=== PATIENT | male | born 1980 | race Caucasian/White ===

== ENCOUNTER 2019-11-03 19:12 | Emergency (ER) | payer BC, SELFPAY ==
[2019-11-03] VITALS (15 sets, daily range): BP systolic 130–179; BP diastolic 85–105; PULSE 73–88; RESP 12–16; TEMP 36.6; O2SAT 94–100
--- NOTE | ~2019-11-03 | XR_ITS ---
EXAMINATION: XR chest 2V EXAM DATE: 11/03/2019 19:51 INDICATION: Generalized chest pain. Dizziness. TECHNIQUE: Frontal and lateral projections of the chest obtained and reviewed. There is no prior doroteo dy for comparison. FINDINGS: The lungs are clear. There are no pleural effusions. The cardiomediastinal silhouette is within normal limits. There is no pneumothorax suspected. The bones and soft tissues are unremarkab le. IMPRESSION: Normal chest x-ray exam. Reviewed, dictated and finalized at location A. IMPRESSION: Normal chest x-ray exam.
--- NOTE | 2019-11-03 19:18 | ECG_ITS ---
Measurements Intervals [place] Rate: 79 P: 0 ND: 163 QRS: 20 QRSD: 121 T: 78 QT: 407 QTc: 468 Interpretive Statements SINUS RHYTHM RSR' IN V1 OR V2, CONSIDER RIGHT VENTRICULAR HYPERTROPHY OR RIGHT VCD BORDERLINE T WAVE ABNORMALITY- INFERIOR LEADS BASELINE WANDER- I, II, AVR, AVL, AVF, V4-V6 BORDERLINE ECG Electronically Signed On 11-03-2019 20:06:02 CDT by Billy Corral D.O.
--- NOTE | 2019-11-03 19:19 | ED.ANXIETY ---
HPI - Anxiety General Chief Complaint: Anxiety Stated Complaint: anxiety Time Seen by Provider: 11/03/19 19:14 Source: RN notes reviewed History of Present Illness HPI narrative: Patient presents emergency department from home for anxiety. Patient states that approximately 630 this evening he began to have a feeling of shortness of breath and dizziness associated with tingling in the bilateral hands. He states that he does feel anxious with this episode. He states he had a similar episode 2 days ago denies any fevers or chills chest pain abdominal pain nausea vomiting or any other symptoms denies any history of anxiety denies any other symptoms at this time. Patient states he first noted some anxiety at the start of the COVID-19 pandemic Related Data Allergies Allergy/AdvReac Type Severity Reaction Status Date / Time No Known Allergies Allergy Verified 11/03/19 19:22 Review of Systems Review of Systems: Narrative: Gen.: Denies fevers or chills ENT: Denies congestion Respiratory: See HPI CV: Denies chest pain or palpitations GI: Denies abdominal pain nausea, emesis or diarrhea denies burning, urgency, frequency or hematuria Musculoskeletal: Denies back pain or muscle pain Neuro: Reports bilateral hand tingling denies any numbness or weakness Skin: Denies rash Psych: Reports anxiety Except as documented, all other systems reviewed and negative [facility] Past Medical History Medical History (Updated 11/03/19 @ 23:01 by Iggy Epperson DO) Hypertension Social History Social History (Updated 11/03/19 @ 19:21 by Iggy Epperson DO) Smoking packs per day: 0.5 Smoking cigarettes per day: 10.0 Exam Narrative: Exam Narrative: APPEARANCE: No acute distress, nontoxic, resting in bed EYES: EOMI HEENT: Normocephalic, atraumatic, OMM RESPIRATORY: No respiratory distress Clear to auscultation bilaterally with no rhonchi wheezing or rales. CARDIOVASCULAR: Regular rate and rhythm without murmurs rubs or gallops. ABDOMINAL: Soft, nontender, nondistended, no rebound or guarding MUSCULOSKELETAl: Moves all extremities. No clubbing, cyanosis or edema. NEURO: Awake and alert. Following commands, speech normal, no focal deficits SKIN:: Warm, dry. No rashes lesions or abrasions PSYCHIATRIC: Normal affect/mood, Course Course Emergency Course: Patient meets PERC rule criteria and no further testing needs to be performed for pulmonary embolism. Patient states symptoms have resolved following Ativan Discussed with patient results of workup and diagnosis. Discussed need for follow-up with primary care, proper use of medication, and reasons to return to the emergency department. Patient understands and agrees to current treatment plan Vital Signs Vital signs: Vital Signs Temperature 97.9 F 11/03/19 19:16 Pulse Rate 88 11/03/19 19:16 Respiratory Rate 14 11/03/19 19:16 Blood Pressure 179/104 H 11/03/19 19:16 Pulse Oximetry 100 11/03/19 19:16 Temperature 97.9 F 11/03/19 19:16 Pulse Rate 74 11/03/19 22:38 Respiratory Rate 15 11/03/19 22:38 Blood Pressure 130/85 11/03/19 22:38 Pulse Oximetry 97 11/03/19 22:38 MDM - Anxiety MDM Narrative Medical decision making narrative: Patient has dyspnea of unclear etiology. No wheezing on clinical exam. Low risk well score, PE is felt unlikely. No abnormalities noted on chest x-ray. Patient?s EKG is without high-risk changes. Oxygen saturations are normal. Patient is felt to be a reasonable candidate for additional evaluation as an outpatient. Lab Data Result diagrams: 11/03/19 19:44 11/03/19 19:44 Labs: Lab Results 11/03/19 11/03/19 11/03/19 Range/Units 19:44 19:44 19:44 WBC 11.2 H (4.5-10.0) K/mm3 RBC 4.80 (4.6-6.20) M/mm3 Hgb 15.4 (14.0-18.0) g/dL Hct 43.8 (42.0-52.0) % MCV 91.3 (80-100) fl MCH 32.1 (26-34) pg MCHC 35.2 (32-36) g/dl RDW 11.6 (11.5-14.5) % Plt Count 368
[2019-11-03] MEDS: LORAZEPAM INJ 2 MG/ML VIAL 0.5 MG IV PUSH (19:43)
--- NOTE | 2019-11-03 19:47 | PC.NURSE ---
Patient taken to radiology.
[2019-11-03 19:49] LABS: Basophils Percent Auto 0.3 % (0.2-1.2); Eosinophils Absolute Auto 0.1 K/mm3 (0-0.3); Eosinophils Percent Auto 0.5 % (0-4.4); Hematocrit 43.8 % (42.0-52.0); Hemoglobin 15.4 g/dL (14.0-18.0); Immature Granulocyte Absolute 0.02 K/mm3 (0.00-0.031); Immature Granulocyte Percent A 0.2 % (0-0.5); Lymphocytes Absolute Auto 4.54 K/mm3 (0.9-3.2); Lymphocytes Percent Auto 40.4 % (18.3-44.2); Mean Corpuscular HGB Conc 35.2 g/dl (32-36); Mean Corpuscular Hemoglobin 32.1 pg (26-34); Mean Corpuscular Volume 91.3 fl (80-100); Mean Platelet Volume 9.1 fl (7.4-10.4); Monocytes Absolute Auto 0.9 K/mm3 (0.1-0.6); Monocytes Percent Auto 7.7 % (2.6-8.5); Neutrophils Absolute Auto 5.7 K/mm3 (1.3-6.7); Neutrophils Percent Auto 50.9 % (45.5-73.1); Platelet Count Result 368 k/mm3 (150-375); Red Cell Distribution Width 11.6 % (11.5-14.5); White Blood Count 11.2 K/mm3 (4.5-10.0)
[2019-11-03 20:01] LABS: Blood Urea Nitrogen 13 mg/dL (9-20); Calcium 9.1 mg/dL (8.4-10.2); Carbon Dioxide 24 mmol/L (22-30); Chloride 100 mmol/L (98-107); Estimated Glomerular Filt Rate > 60; Glucose 117 mg/dL (75-110); Potassium 3.1 mmol/L (3.4-5.0); Sodium 136 mmol/L (137-145)
[2019-11-03 20:02] LABS: Partial Thromboplastin Time 24.2 SECONDS (22.3-36.8)
[2019-11-03 20:07] LABS: Prothrombin Time 12.9 Seconds (11.1-14.7)
[2019-11-03 20:13] LABS: Troponin I < 0.012 ng/mL (0.000-0.034)
[2019-11-03] MEDS: POTASSIUM CHLORIDE 20 MEQ TABLET 40 MEQ PO (21:59)
[2019-11-03 22:53] LABS: Troponin I < 0.012 ng/mL (0.000-0.034)
== END 2019-11-03 23:24 | disposition home or self-care (01) ==
PROVIDERS: Emergency Provider Emergency Medicine; PCP Family Medicine Adolescent Medicine
DX: F41.9 Anxiety disorder, unspecified (principal); I10 Essential (primary) hypertension; F17.210 Nicotine dependence, cigarettes, uncomplicated; R94.31 Abnormal electrocardiogram [ECG] [EKG]
CPT/HCPCS: 36415; 71046; 80048; 84484; 85025; 85610; 85730; 93005; 96374; 99284; A9270; J2060

== ENCOUNTER → 2022-09-10 08:37 | Outpatient (CLI) | payer BC, SELFPAY ==
--- NOTE | ~2022-09-10 | MR_ITS ---
MRI of the left knee Clinical history: Pain Technique: Coronal proton density and proton density-weighted images, sagittal proton-density and T2 fat-sat images, and axial proton-density fat-saturated images were acquired. Findings: There is complete tear of the ACL, which is markedly amorphous and ill-defined. Posterior c ruciate ligament is intact. Medial collateral ligament is intact. Lateral collateral ligament complex is intact. Popliteus tendon is intact. There is probable vertical tear of the posterior horn of the lateral meniscus. No medial meniscal tea r identified. There are transchondral impaction injuries at the central aspect of the lateral femoral condyle and a t the posterolateral tibial plateau, consistent with recent pivot shift injury. There is additional b one contusion with marrow edema at the posterior medial tibial plateau, with possible nondisplaced fr acture in this region. Extensor mechanism is intact. No significant joint effusion or Porter's cyst. Impression: Complete ACL tear. Probable vertical tear of the posterior horn of the lateral meniscus. Transchondral impaction injuries at the central aspect lateral femoral condyle and posterolateral tib ial plateau, consistent with recent pivot shift injury. Additional bone contusion with possible nondisplaced fracture at the posterior medial tibial plateau. Reviewed, dictated and finalized at location . Impression: Complete ACL tear. Probable vertical tear of the posterior horn of the lateral meniscus. Transchondral impaction injuries at the central aspect lateral femoral condyle and posterolateral tibial plateau, consistent with recent pivot shift injury. Additional bone contusion with possible nondisplaced fracture at the posterior medial tibial plateau.
== END ==
PROVIDERS: PCP Family Medicine Adolescent Medicine; Visit Provider Orthopaedic Surgery
DX: S83.512A Sprain of anterior cruciate ligament of left knee, initial encounter (principal); X58.XXXA Exposure to other specified factors, initial encounter
CPT/HCPCS: 73721

== ENCOUNTER 2024-07-01 09:29 | Outpatient (CLI) | payer BC, SELFPAY ==
--- NOTE | ~2024-07-01 | XR_ITS ---
EXAMINATION: XR ribs BI 3V w CXR 2V DATE: 07/01/2024 09:50 INDICATION: Cough, unspecified. Right rib pop. TECHNIQUE: Frontal and lateral views of the chest on 3 radiographs, 2 views of the right ribs on 3 ra diographs, and 2 views of the left ribs on 3 radiographs were obtained. COMPARISON: Chest 2 views 11/03/2019 FINDINGS: CHEST TWO VIEWS: There are moderate-sized pleural effusions. There are airspace opacities at the lung bases. No pneumothorax. The heart size is normal. BILATERAL RIBS: There is a fracture of right eighth rib. There is an old healed fracture of left sixt h rib. IMPRESSION: 1. Acute fracture of right eighth rib. 2. Moderate-sized bilateral pleural effusions. 3. Airspace opacities at the lung bases, consistent with atelectasis or less likely pneumonia. Reviewed, dictated and finalized at location A. S SUPERINTENDENT IMPRESSION: 1. Acute fracture of right eighth rib. 2. Moderate-sized bilateral pleural effusions. 3. Airspace opacities at the lung bases, consistent with atelectasis or less li garett pneumonia.
== END 2024-07-01 09:30 | disposition home or self-care (01) ==
LOC: MICIMG 09:31
PROVIDERS: PCP Family Medicine Adolescent Medicine; Visit Provider Nurse Practitioner Family
DX: R05.9 Cough, unspecified (principal); R06.00 Dyspnea, unspecified; R07.81 Pleurodynia; J90 Pleural effusion, not elsewhere classified; R91.8 Other nonspecific abnormal finding of lung field; S22.31XA Fracture of one rib, right side, initial encounter for closed fracture; X58.XXXA Exposure to other specified factors, initial encounter
CPT/HCPCS: 71046; 71110

== ENCOUNTER 2024-08-23 10:00 | Outpatient (CLI) | payer BC, SELFPAY ==
--- NOTE | ~2024-08-23 | XR_ITS ---
XR ribs BI 3V w CXR 2V Ordering provider: Cindy Garduno APRN History: 44 years Male with . R07.81 - Pleurodynia . Comparison: July 01, 2024 FINDINGS: MEDIASTINUM: The cardiac silhouette is not enlarged. LUNGS: No pneumothorax. Bilateral basal atelectasis with bilateral pleural effusion. OTHER: No free air under the diaphragm. IMPRESSION: Bilateral basal atelectasis versus pneumonia with bilateral pleural effusion. Reviewed, dictated and finalized at location A.
== END 2024-08-23 10:01 | disposition home or self-care (01) ==
PROVIDERS: PCP Family Medicine Adolescent Medicine; Visit Provider Nurse Practitioner Family
DX: R07.81 Pleurodynia (principal)
CPT/HCPCS: 71046; 71110

== ENCOUNTER 2024-12-05 11:21 | Inpatient (IN) | payer BC, SELFPAY ==
[2024-12-05] VITALS (41 sets, daily range): BP systolic 118–151; BP diastolic 55–118; PULSE 56–116; RESP 18–31; TEMP 34.7–38.1; O2SAT 91–100; BMI 37.3
--- NOTE | ~2024-12-05 | XR_ITS ---
Portable chest x-ray Comparison: 12/07/2024 Clinical History: Respiratory failure Findings: Endotracheal tube and NG tube remain in place. Small to moderate bilateral pleural effusio ns are present with mild pulmonary edema pattern. Cardiomediastinal silhouette is stable. Bones and soft tissues are unremarkable. Impression: [id number]-[id number] bilateral pleural effusions with mild pulmonary edema pattern. Support tubes, as above. Reviewed, dictated and finalized at location . Impression: [id number] bilateral pleural effusions with mild pulmonary edema pattern . Support tubes, as above.
--- NOTE | ~2024-12-05 | US_ITS ---
EXAMINATION: US thoracentesis DATE: 12/09/2024 16:42 INDICATION: Right pleural effusion TECHNIQUE: The procedure and its risks and benefits were discussed with the patient. Potential risks discussed included bleeding, infection, and pneumothorax. The patient understood the risks and agreed to proceed. The skin was prepped and draped in sterile fashion. 1% lidocaine was used for local anes thesia. Under ultrasound guidance, a 5 Fr catheter with trochar was advanced into the right pleural e ffusion. Fluid was aspirated. The catheter was removed, and a dressing was applied. There were no imm ediate complications. FINDINGS: Ultrasound images demonstrate a small complex right pleural effusion and the catheter within the flui d. IMPRESSION: 1. Successful ultrasound-guided thoracentesis yielding 600 mL of bloody dark maroon-colored fluid. Reviewed, dictated and finalized at location A. IMPRESSION: 1. Successful ultrasound-guided thoracentesis yielding 600 mL of bloody dark m aroon-colored fluid.
--- NOTE | ~2024-12-05 | US_ITS ---
US venous doppler [facility] - 12/09/2024 11:51 CDT History: 44 years old Male with bilateral lower extremity pain and swelling. Real-time sonographic images of the bilateral lower extremity venous system were obtained. Color Dop pler sonography and spectral waveform analysis were performed. No prior studies for comparison. The bilateral sapheno-femoral junctions are patent. The bilateral common femoral, superficial femor al, popliteal and posterior tibial veins are compressible and without evidence of echogenic thrombus . Impression: No evidence of deep venous thrombosis Reviewed, dictated and finalized at location A. Impression: No evidence of deep venous thrombosis
--- NOTE | ~2024-12-05 | CT_ITS ---
History: Postcardiac arrest 12/05/2024 with head injury PROCEDURE: CT head without contrast. COMPARISON: CT examination of the head dated 12/05/2024 and dating back to 09/04/2005, both of which were unremarkable. TECHNIQUE: Axial imaging of the head performed from the skull base to the vertex without IV contrast. Sagittal a nd coronal reformations obtained. DLP: 980 mGy-cm FINDINGS: The ventricles are normal in size, shape and position. Subtle loss of the mckenzie-white matter differentiation within the posterior cranial fossa, an interval change from 12/05/2024 for which cerebral edema is suspected. The sulci are preserved within the fronta l, temporal and parietal lobes (although fairly high in the convexity). There is no mass, significant mass effect or midline shift. There is no abnormal extra-axial fluid collection or intracranial hemorrhage. Nasogastric tube within the right nares with opacification of the bilateral sphenoid sinuses and post erior segment of the ethmoid sinuses. Remaining paranasal sinuses are otherwise clear. The mastoid air cells are well aerated. No acute displaced fractures within the overlying cranium. Impression: No acute intracranial hemorrhage or significant mass effect. Subtle loss of the mckenzie-white matter differentiation within the posterior cranial fossa, an interval change from 12/05/2024 for which cerebral edema is suspected. Reviewed, dictated and finalized at location A. Impression: No acute intracranial hemorrhage or significant mass effect. Subtle loss of the mckenzie-white matter differentiation within the posterior crani al fossa, an interval change from 12/05/2024 for which cerebral edema is suspecte d.
--- NOTE | ~2024-12-05 | CT_ITS ---
CLINICAL INDICATION: Post cardiac arrest on 12/05/2024 necessitating intubation. Subacute myocardial in farction, now revascularized, but currently with leukocytosis and fever. COMPARISON: None. TECHNIQUE: Multiple contiguous axial images of the chest, abdomen and pelvis were performed without t he administration of intravenous contrast The dose-length product (DLP) was 1789.91 mGy-cm. Automated exposure control and iterative reconstruction technique were employed. FINDINGS/OBSERVATIONS: LUNG: Subacute fractures of the right 5th, 7th, 8th and 11th ribs, with active callus formation. Large right-sided pleural effusion (likely partially blood) with adjacent compressive atelectasis. Small left-sided pleural effusion with adjacent compressive atelectasis. Interstitial thickening with scattered groundglass opacification bilaterally. No evidence of pulmonary contusion or pneumothorax. Endotracheal tube above the veda, in good position. Respiratory motion artifact is identified on sagittal views without a discrete sternal fracture suspe cted. MEDIASTINUM: Limited evaluation without intravenous contrast. HEART: The heart is within the upper limits of normal for size, with a small pericardial effusion. SOFT TISSUES OF THE CHEST: Male pattern gynecomastia. Liver: The liver demonstrates homogeneous attenuation and is enlarged measuring 22 cm in longitudinal dimens ion. No perihepatic fluid to suggest acute or subacute traumatic injury. Gallbladder and biliary system: The gallbladder demonstrates likely layering sludge, without surrounding inflammatory change. Pancreas: Limited evaluation of the pancreas secondary to the lack of intravenous contrast. No peripancreatic fluid is identified to suggest acute or subacute traumatic injury. Spleen: The spleen demonstrates homogeneous attenuation and is not enlarged. No perisplenic fluid is identified to suggest acute or subacute traumatic injury. Kidneys: The bilateral kidneys demonstrate trace hydronephrosis, right greater than left, without an obstructi ng stone. No renal or ureteral calculi are detected. No perirenal fluid is identified to suggest acute or subacute traumatic injury. Adrenal glands: Unremarkable. Gastrointestinal tract: Increased attenuation within the lumen of the nondistended colon, possibly due to ingested material. Colonic diverticulosis without surrounding inflammatory change. No free fluid within the abdomen or pelvis Vasculature: Right sided common femoral vascular access with trace induration of the superficial soft tissues of t he right groin. Lymph nodes: Limited evaluation without intravenous contrast. Pelvic structures: The bladder is decompressed with a Agarwal catheter, limiting its evaluation. The prostate gland is not enlarged. Body wall and musculoskeletal: No umbilical hernia. No significant degenerative disease within the lower thoracic or lumbosacral spine. No acute fracture within the lower thoracic or lumbosacral spine. Subacute fractures of the right 5th, 7th, 8th and 11th ribs. IMPRESSION: Multiple right-sided rib fractures (5th, 7th, 8th and 11th) with a large (likely a combination of blo od and serosanguineous fluid) with adjacent compressive atelectasis. Small left-sided pleural effusion without associated rib fractures. Layering sludge within the gallbladder, without surrounding inflammatory change. Right common femoral vascular access with trace induration of the superficial soft tissues of the rig ht groin. No additional findings as an infectious source, as detailed above. Reviewed, dictated and finalized at location A. IMPRESSION: Multiple right-sided rib fractures (5th, 7th, 8th and 11th) with a large (likel y a combination of blood and serosanguineous fluid) with adjacent compressive a telectasis. Small left-sided pleural effusion without associated rib fractures. Layering sludge within the gallbladder, without surrounding inflammatory change . Right common femoral vascular access with trace induration of the superficial s oft tissues of the right groin. No additional findings as an infectious source, as detailed above.
--- NOTE | ~2024-12-05 | XR_ITS ---
EXAMINATION: XR chest ET placement Exam Date/Time: 12/05/2024 14:21 CDT HISTORY: ET placement Comparison: Same date at 11:41 AM. RESULT: Lines, tubes, and devices: Endotracheal tube terminates 6.0 cm above the veda. Subdiaphragmatic NG tube. Lungs and pleura: Streaky subsegmental bilateral opacities, likely representing atelectasis. Mild bi lateral costophrenic angle blunting, with fluid noted in the apical and lateral pleural spaces bilate rally. Cardiomediastinal silhouette: Stable. Other: No acute osseous or upper abdominal finding. Old bilateral rib fractures. IMPRESSION: High positioned endotracheal tube 6 cm above the veda, consider advancing by 2 cm. Moderate bilater al pleural effusions. Streaky bilateral pulmonary opacities may represent atelectasis. Reviewed, dictated and finalized at [facility]. IMPRESSION: High positioned endotracheal tube 6 cm above the veda, consider advancing by 2 cm. Moderate bilateral pleural effusions. Streaky bilateral pulmonary opaciti es may represent atelectasis.
--- NOTE | ~2024-12-05 | XR_ITS ---
CHEST RADIOGRAPH CLINICAL HISTORY: Post intubation . COMPARISON: 11/03/2019 TECHNIQUE: Single portable view of the chest. FINDINGS Endotracheal tube is identified with its tip projecting approximately 5.5 cm above the base of the ca nay. Orogastric tube identified with its tip extending below the left hemidiaphragm, presumably within the stomach. The remainder of the cardiomediastinal silhouette is partially obscured. Low lung volumes detected bilaterally. Bilateral pleural effusions with adjacent compressive atelectasis. Irregularity of the contour of the bilateral ribs, possibly related to positioning versus fracture de formities. IMPRESSION: Bilateral pleural effusions with adjacent compressive atelectasis. Endotracheal tube tip projects 5.5 cm above the base of the veda for which advancement of approxima tely 3 cm is suggested for optimal radiographic placement for which clinical correlation is needed. Orogastric tube in good position. Reviewed, dictated and finalized at location A. IMPRESSION: Bilateral pleural effusions with adjacent compressive atelectasis. Endotracheal tube tip projects 5.5 cm above the base of the veda for which ad vancement of approximately 3 cm is suggested for optimal radiographic placement for which clinical correlation is needed. Orogastric tube in good position.
--- NOTE | ~2024-12-05 | XR_ITS ---
Portable chest x-ray Comparison: 12/08/2024 Clinical History: Respiratory failure Findings: Endotracheal tube and NG tube are in place. Small to moderate bilateral pleural effusions are present with mild pulmonary edema pattern. Cardiomediastinal silhouette is stable. Bones and sof t tissues are unremarkable. Impression: [id number] bilateral pleural effusions with mild pulmonary edema. Support tubes, as above. Reviewed, dictated and finalized at location . Impression: [id number] bilateral pleural effusions with mild pulmonary edema. Support tubes, as above.
--- NOTE | ~2024-12-05 | XR_ITS ---
Portable chest x-ray Comparison: 12/06/2024 Clinical History: Respiratory failure Findings: Endotracheal tube and NG tube are in satisfactory positions. Small bilateral pleural effus ions are present with mild pulmonary edema pattern. Cardiomediastinal silhouette is stable. Bones an d soft tissues are unremarkable. Impression: Mild pulmonary edema pattern with small bilateral pleural effusions. Support tubes, as above. Reviewed, dictated and finalized at location . Impression: Mild pulmonary edema pattern with small bilateral pleural effusions. Support tubes, as above.
--- NOTE | ~2024-12-05 | XR_ITS ---
Portable chest x-ray Comparison: 12/05/2024 Clinical History: Respiratory failure Findings: Endotracheal tube and NG tube are in satisfactory positions. Rpqxg-jy-hxaiforv bilateral p leural effusions are present. Probable mild pulmonary edema/atelectatic change. Cardiomediastinal si lhouette is stable. Bones and soft tissues are unremarkable. Impression: Dbtdj-nf-yofitcbi bilateral pleural effusions with mild pulmonary edema/atelectatic change. Support tubes, as above. Reviewed, dictated and finalized at location M. Impression: Tmsoz-ut-ydrwlvov bilateral pleural effusions with mild pulmonary edema/atelect atic change. Support tubes, as above.
--- NOTE | ~2024-12-05 | XR_ITS ---
CHEST RADIOGRAPH CLINICAL HISTORY: picc . COMPARISON: 12/10/2024 at 5:00 AM TECHNIQUE: Single portable view of the chest. FINDINGS small bore catheter projects from the right upper extremity, taking a hairpin turn cranially , prior to extending caudally, its tip projecting over the superior vena cava. Endotracheal tube is identified with its tip projecting approximately 6.1cm above the base of the car dex. Orogastric tube identified with its tip extending below the left hemidiaphragm, presumably within the stomach. The remainder of the cardiomediastinal silhouette is partially obscured and otherwise unremarkable. Redemonstration of large bilateral pleural effusions, left greater than right. The remainder of the lungs are clear. IMPRESSION: Large bilateral pleural effusions, left greater than right. Orogastric tube in good position. Endotracheal tube should be advanced approximately 3 cm for optimal radiographic placement clinical c orrelation is needed. Following its extension cranially, the right upper extremity PICC line tip projects over the superior vena cava. Withdrawal of approximately 4.6 cm may allow catheter to extend in a more direct course, rather than with cranial extension and a hairpin turn. Reviewed, dictated and finalized at location A. IMPRESSION: Large bilateral pleural effusions, left greater than right. Orogastric tube in good position. Endotracheal tube should be advanced approximately 3 cm for optimal radiographi c placement clinical correlation is needed. Following its extension cranially, the right upper extremity PICC line tip proj ects over the superior vena cava. Withdrawal of approximately 4.6 cm may allow catheter to extend in a more direct course, rather than with cranial extension and a hairpin turn.
--- NOTE | ~2024-12-05 | XR_ITS ---
Exam: Abdomen 1V HISTORY: New OG tube placement. COMPARISON: None. TECHNIQUE: Supine images of the lower chest and upper abdomen FINDINGS: Orogastric tube extends into the left upper quadrant, presumably within the stomach. IMPRESSION: Orogastric tube in good position and ready for immediate use. Reviewed, dictated and finalized at location A.
--- NOTE | ~2024-12-05 | XR_ITS ---
Portable chest x-ray Comparison: 12/09/2024 Clinical History: Respiratory failure Findings: Endotracheal tube and NG tube remain in place. Stable bilateral pleural effusions with mil d pulmonary edema pattern. Cardiomediastinal silhouette is stable. Bones and soft tissues are unrema rkable. Impression: Stable bilateral pleural effusions with mild bibasilar pulmonary edema. Stable support tubes. Reviewed, dictated and finalized at [facility]. Impression: Stable bilateral pleural effusions with mild bibasilar pulmonary edema. Stable support tubes.
--- NOTE | ~2024-12-05 | US_ITS ---
EXAM: US renal BI - 12/08/2024 10:33 CDT History: 44 years old Male with Acute kidney injury rule out hydronephrosis TECHNIQUE: Ultrasound of the kidneys was performed. COMPARISON: None available. FINDINGS: -Right: 12.6 x 9.6 x 6.4 cm. Normal echogenicity. No hydronephrosis, masses, shadowing stone or perin ephric abnormality. -Left: 11.9 x 6.8 x 6.9 cm. Normal echogenicity. No hydronephrosis, masses, shadowing stone or perine phric abnormality. BLADDER: Not visualized IMPRESSION: Normal ultrasound evaluation of the kidneys. Reviewed, dictated and finalized at location A.
--- NOTE | ~2024-12-05 | XR_ITS ---
CHEST RADIOGRAPH CLINICAL HISTORY: Post thoracentesis . COMPARISON: 12/09/2024 at 5:16 AM TECHNIQUE: Single portable view of the chest. FINDINGS Endotracheal tube is identified with its tip projecting approximately 5.4cm above the base of the car dex. Orogastric tube identified with its tip extending below the left hemidiaphragm, presumably within the stomach. The remainder of the cardiomediastinal silhouette is otherwise unremarkable. Redemonstration of large bilateral pleural effusions, right greater than left. The right lung is otherwise fully inflated. IMPRESSION: Large bilateral pleural effusions, right greater than left. The right lung is otherwise fully inflated. Endotracheal tube and orogastric tube in good position Reviewed, dictated and finalized at location A.
--- NOTE | ~2024-12-05 | CT_ITS ---
History: Postcardiac arrest with head injury PROCEDURE: CT cervical spine without intravenous contrast. COMPARISON: None TECHNIQUE: Multiple contiguous axial images of the cervical spine were performed without the administration of i ntravenous contrast. Motion artifact is identified at the level of the skull base to the level of the base of C2, without significant degradation of the remaining images. DLP: 627 mGy-cm FINDINGS: Straightening of the normal curvature of the cervical spine is identified, likely muscular in origin. No acute displaced fractures are present. Large right-sided and small left-sided pleural effusions are identified without pneumothorax. No superficial soft tissue abnormality is appreciated. The airway is patent with endotracheal tube visualized. Orogastric tube within the esophagus. Impression: No acute displaced fracture within the cervical spine. Large right-sided and small left-sided pleural effusions without pneumothorax for which further evalu ation post cardiac intervention is suggested (if the patient is clinically able). Reviewed, dictated and finalized at location A. Impression: No acute displaced fracture within the cervical spine. Large right-sided and small left-sided pleural effusions without pneumothorax f or which further evaluation post cardiac intervention is suggested (if the rj ent is clinically able).
--- NOTE | ~2024-12-05 | CT_ITS ---
History: Postcardiac arrest with head injury PROCEDURE: CT head without contrast. COMPARISON: 09/04/2005 TECHNIQUE: Axial imaging of the head performed from the skull base to the vertex without IV contrast. Sagittal a nd coronal reformations obtained. DLP: 605 mGy-cm FINDINGS: The ventricles are normal in size, shape and position. There is no mass, mass effect or midline shift. There is no abnormal extra-axial fluid collection or intracranial hemorrhage. Visualized paranasal sinuses are clear. The mastoid air cells are well aerated. No acute displaced fractures within the overlying cranium. Impression: Stable CT examination of the head without change from 2006 examination, without acute intracranial he morrhage or suspicious mass effect. Reviewed, dictated and finalized at location A. Impression: Stable CT examination of the head without change from 2006 examination, without acute intracranial hemorrhage or suspicious mass effect.
--- OUTSIDE RECORDS SUMMARY | 2024-12-05 11:29 | XMS_ITS | Clinical Summary ---
Author Organization [facility] Address Formerly [facility], [facility] [place] [address] Care Team Providers Care Oracle Obiee Developer Name Role Phone Unavailable Primary Care Provider Unavailabl e Social History Tobacco Use Types Packs/Day Years Used Date Smoking Tobacco: Never Assessed Sex and Gender Information Value Date Recorded Sex Assigned at Not on file Legal Sex Male 5:43 PM CDT Gender Identity Not on file Sexual Orientation Not on file Plan of Treatment Health Maintenance Due Date Last Done Comments Annual Physical 1985 Hepatitis C 01/31/2000 DTaP, Tdap and Td Vaccines ( 1 - Tdap) 2001 Hepatitis B Vaccines (1 of 3 - 19+ 3-dose series) 2001 COVID-19 Vaccine (2023-2 5 season) 2024 HPV Vaccines Aged Out No longer eligi ble based on patient's age to complete this topic Meningococcal B Vaccine Aged Out No l onger eligible based on patient's age to complete this topic Meningococcal Vaccine Aged Out No javid ilsa eligible based on patient's age to complete this topic Pneumococcal Vaccine: Pediat rics (0 to 5 Years) and At-Risk Patients (6 to 49 Years) Aged Out No longer eligible b ased on patient's age to complete this topic RSV Immunizations Under 20 Months Aged Out No longer eligible based on patient's age to complete this topic
--- OUTSIDE RECORDS SUMMARY | 2024-12-05 11:29 | XMS_ITS | Clinical Summary ---
Author Organization [facility] Address [address] [place] [address] Care Team Providers Care Steam Pipe Fitter Name Role Phone Unavailable Primary Care Provider Unavailabl e Source Comments [facility],non-owned Affiliates and Associated Physician Practices is amultiple site organization consisting of ambulatory clinics and hospital sitesin [place], [place], [place] and [place]. This disclosure is being madepursuant to the Care Everywhere program and may not contain all information available regarding this patient. Last updated 18.[facility] m[employer] Allergies No known active allergies Immunizations Immunization Administration Dates Next Due INFLUENZA VACCINE, QUADR. (F LUZONE; FLULAVAL; FLUARIX; AFLURIA QUADRIVALENT; 6MO+), 0.5 ML (IIV4) 03/18/2020 Social History Tobacco Use Types Packs/Day Years Used Date Smoking Tobacco: Never Assessed Sex and Gender Information Value Date Recorded Sex Assigned at Not on file Legal Sex Male 6:03 PM CDT Gender Identity Not on file Sexual Orientation Not on file Plan of Treatment Health Maintenance Due Date Last Done Comments LIPID TESTING 1982 HIV SCREENING 1997 HEPATITIS C SCREENING 01/26/2000 DTAP/TDAP/TD VACCINES (1 - Tdap) 2001 HEPATITIS B VACCINE (1 of 3 - 19+ 3-dose series) 2001 COVID-19 VACCINE ( - 2023-2 5 season) 2024 DEPRESSION SCREENING 06/02/2024 INFLUENZA VACCINE (#1) 2025 03/18/2020 ZOSTER VACCINE (1 of 2) 01/31/2032 HIB VACCINE Aged Out No longer eligi ble based on patient's age to complete this topic HPV VACCINE Aged Out No longer eligi ble based on patient's age to complete this topic MENINGOCOCCAL (Group B) VACC INE SHARED DECISION-MAKING Aged Out No longer eligibl e based on patient's age to complete this topic MENINGOCOCCAL GROUPS A/C/Y/W VACCINE Aged Out No longer eligible b ased on patient's age to complete this topic PNEUMOCOCCAL VACCINE Aged Out No long er eligible based on patient's age to complete this topic Insurance [facility]
--- NOTE | 2024-12-05 11:33 | ED_ITS ---
HPI - General Adult General Chief complaint: Cardiac Arrest/CPR Stated complaint: cardiac arrest History of Present Illness HPI narrative: Patient is a 44-year-old gentleman presents emergency department with chief complaint of cardiac arrest pain per EMS report the patient was last seen about 5 minutes prior to being found unresponsive the patient collapsed in the bathroom and was found lying in the bathtub patient was initially VFib arrest and was cardioverted into V-tach the patient had several counter shocks as well as being loaded with amiodarone patient had return of spontaneous circulation and was brought in with a supraglottic airway and spontaneous respiration Related Data Allergies Allergy/AdvReac Type Severity Reaction Status Date / Time lisinopril AdvReac Mild Cough Verified 08/26/24 10:42 Review of Systems Review of Systems: A 10 system review of systems was completed on the patient and is negative except for what is stated in the HPI. Nursing and ancillary documentation was reviewed. [facility] Past Medical History Medical History Hypertension Family History Family History Grandparent Diabetes mellitus Hypertension Father Hypertension Mother Hypertension Grandparent Hypertension Other Asthma Social History Social History Smoking packs per day: 0.5 Smoking cigarettes per day: 10.0 Smoking status: Former smoker Smokeless tobacco user: chewing tobacco Second hand tobacco smoke exposure: No Alcohol intake: current Drinks per week: 20 Substance use: never Substance use type: does not use Lack of Transportation: No Lack of Food: Never True Current Housing: I Have Housing Concerned About Future Housing: No Difficulty Paying Gas/Electric Bills: No Difficulty Paying for Meds: No Currently Unemployed: No Education: High School Diploma/GED Difficulty w/ Childcare or Family Care: No Living arrangements: with family Occupation/Education: occupation Gender identity (if verbalized by the patient): Male Sexual Orientation (if Verbalized by the Patient): Straight or Heterosexual Spiritual care concerns: No Agree to blood products: Yes Exam Narrative: GENERAL: Unresponsive HEAD: Normocephalic, atraumatic. EYES: 5 mm unreactive ENT: Nares clear, no rhinorrhea or epistaxis. Mucous membranes moist. NECK: Supple. CHEST: Clear to auscultation. No respiratory distress. Spontaneous respirations present HEART: Regular rate and rhythm. No murmur heard. Normal peripheral pulses. ABDOMEN: Soft, nontender, nondistended, normal active bowel sounds. EXTREMITIES: Normal range of motion. No edema. SKIN: Warm, dry, no rash. NEURO: Unresponsive not moving extremities spontaneous respirations present PSYCH: Unresponsive Procedures Intubation Intubation #1: Intubation Date: 12/05/24 Intubation Time: 11:34 Time out performed: Yes sedative: Etomidate Mg Given: 20 paralytic: Succinylcholine Mg Given: 100 Laryngoscope: Madi Tube Size (cm): 7.5 Method of Intubation: orotracheal Number of Attempts: 1 Tube Secured Depth (cm): 23 Tube Secured Location: lips Tube Placement Confirmation: visualized tube passing through cords, equal breath sounds bilaterally, no breath sounds over epigastrium and confirmation by capnometry Patient Tolerated Procedure: well and no complications Intubation Complications: none Medical Decision Making MDM Narrative Medical decision making narrative: The patient presented with return to spontaneous circulation present. Patient had a blood pressure of 135 EKG shows evidence of acute ST elevation The case was discussed with the intervention buckle sewer machine on-call who will take the patient to the forestry laborer Critical Care Time Critical Care Time Critical Care Time: Yes Total Critical Care Time: 75 Discharge Plan Discharge Clinical Impression: Cardiac arrest, Acute ST elevation myocardial infarction Patient Disposition: Still a Patient Condition: Critical Patient Language: [place]ese Prescriptions: No Action sildenafil 100 mg tablet 100 mg PO DAILY PRN (Reason: sexual activity) Qty: 6 8RF Rx Instructions: administer 30 minutes to 4 hours before activity montelukast 10 mg tablet 10 mg PO QHS Qty: 90 1RF alprazolam 0.5 mg tablet 0.5 mg PO TID PRN (Reason: anxiety) Qty: 30 4RF fluticasone propion-salmeterol 113-14 mcg/actuation aerosol powdr breath activated See Rx Instructions .ROUTE .COMPLEX Qty: 1 0RF Dose Instruction: INHALE 1 PUFF BY MOUTH EVERY 12 HOURS Rx Instructions: INHALE 1 PUFF BY MOUTH EVERY 12 HOURS pantoprazole 40 mg tablet,delayed release (DR/EC) See Rx Instructions .ROUTE .COMPLEX Qty: 90 3RF Dose Instruction: TAKE 1 TABLET BY MOUTH ONCE DAILY IN THE MORNING Rx Instructions: TAKE 1 TABLET BY MOUTH ONCE DAILY IN THE MORNING (DME) BD Luer-Kellie Syringe 3 mL 21 gauge x 1 syringe See Rx Instructions .ROUTE .COMPLEX Qty: 3 3RF Dose Instruction: USE DIRECTED Rx Instructions: USE DIRECTED hydrochlorothiazide 25 mg tablet See Rx Instructions .ROUTE .COMPLEX Qty: 90 3RF Dose Instruction: Take 1 tablet by mouth once daily Rx Instructions: Take 1 tablet by mouth once daily duloxetine 60 mg capsule,delayed release(DR/EC) See Rx Instructions .ROUTE .COMPLEX Qty: 90 3RF Dose Instruction: Take 1 capsule by mouth once daily Rx Instructions: Take 1 capsule by mouth once daily furosemide 20 mg tablet 20 mg PO DAILY PRN (Reason: edema) Qty: 39 3RF Rx Instructions: Can take up to 3 times per week budesonide-formoterol [Symbicort] 80-4.5 mcg/actuation HFA aerosol inhaler See Rx Instructions .ROUTE .COMPLEX Qty: 11 5RF Dose Instruction: INHALE 2 PUFFS EVERY 12 HOURS Rx Instructions: INHALE 2 PUFFS EVERY 12 HOURS albuterol sulfate 90 mcg/actuation HFA aerosol inhaler See Rx Instructions .ROUTE .COMPLEX Qty: 9 2RF Dose Instruction: INHALE 2 PUFFS BY MOUTH 4 TIMES DAILY NEEDED FOR SHORTNESS OF BREATH OR WHEEZING Rx Instructions: INHALE 2 PUFFS BY MOUTH 4 TIMES DAILY NEEDED FOR SHORTNESS OF BREATH OR WHEEZING irbesartan 300 mg tablet See Rx Instructions .ROUTE .COMPLEX Qty: 90 2RF Dose Instruction: Take 1 tablet by mouth once daily Rx Instructions: Take 1 tablet by mouth once daily atenolol 100 mg tablet See Rx Instructions .ROUTE .COMPLEX Qty: 90 2RF Dose Instruction: Take 1 tablet by mouth once daily Rx Instructions: Take 1 tablet by mouth once daily verapamil 240 mg tablet extended release See Rx Instructions .ROUTE .COMPLEX Qty: 90 2RF Dose Instruction: Take 1 tablet by mouth once daily Rx Instructions: Take 1 tablet by mouth once daily testosterone cypionate [Depo-Testosterone] 200 mg/mL oil 300 mg IM .every 2 weeks Qty: 10 1RF Rx Instructions: as a single dose (DME) syringe with needle [BD Luer-Kellie Syringe] 3 mL 21 gauge x 1 1/2 syringe See Rx Instructions .ROUTE .COMPLEX Qty: 6 3RF Dose Instruction: USE TO INJECT TESTOSTERONE ONCE EVERY THREE WEEKS Rx Instructions: USE TO INJECT TESTOSTERONE ONCE EVERY two WEEKS Follow-up/Referrals: Km Shelton MD [Primary Care Provider] -
[2024-12-05] MEDS: MIDAZOLAM HCL (*CRX) 2 MG/2 ML VIAL 4 MG IV PUSH ×2 (11:40→14:55)
[2024-12-05] MEDS: fentaNYL CITRATE INJ (*CRX) 100 MCG/2 ML VIAL 50 MCG IV PUSH (11:41)
[2024-12-05] MEDS: FENTANYL 2,500MCG/NS250ML(*CRX 2,500 MCG/250 ML BAG IV CONT (11:46)
[2024-12-05] MEDS: MIDAZOLAM 100MG/NS 100ML(*CRX) 100 MG/100 ML BAG IV CONT (11:48)
--- NOTE | 2024-12-05 12:06 | PM.CNCAR ---
Assessment and Plan Assessment and plan (1) Cardiac arrest: Code(s): I46.9 - Cardiac arrest, cause unspecified Status: Acute (2) Acute ST elevation myocardial infarction: Code(s): I21.3 - ST elevation (STEMI) myocardial infarction of unspecified site Status: Acute Plan 1. OHCA --- VF Arrest --- CPR time: 20 minutes --- No ABG in chart at presentation 2. Ant STEMI 3. HTN 4. Hyperlipidemia 5. Former smoker/current tobacco use 6. Low Testosterone; on supplementation - CT head reported to have no IC bleed - Emergent LHC to delineate coronary anatomy - Hypothermia protocol as per ICU - ACS protocol -further recommendations post left heart catheterization History of Present Illness History of Present Illness Consult date/time: 12/05/24 12:06 Reason For Visit: ROSC/STEMI Narrative: Patient is a 44-year-old gentleman known to have HTN, low testosterone on supplementation, who presented with OHCA. INitial rhythm was Vfib, Total CPR time almost 20 minutes. EKG suggestive of Acute Ant wall STEMI post ROSC. Recent history of intermittent episodes of chest pain as per ER documentation No prior history of CAD, PR or CVA ON testosterone supplementation Former smoker, current tobacco chewer Review of Systems Review of Systems: ROS unobtainable: Yes unobtainable due to mental status PMFSH Past Medical History Medical History Obstructive sleep apnea (adult) (pediatric) (12/2023) Severe with AHI 101 Gastro-esophageal reflux disease without esophagitis Hypogonadism in male Obesity (BMI 30-39.9) Generalized anxiety disorder Hypertension Family History Family History Grandparent Diabetes mellitus Hypertension Father Hypertension Mother Hypertension Grandparent Hypertension Other Asthma Social History Social History Smoking packs per day: 0.5 Smoking cigarettes per day: 10.0 Smoking status: Former smoker Smokeless tobacco user: chewing tobacco Second hand tobacco smoke exposure: No Alcohol intake: current Drinks per week: 20 Substance use: never Substance use type: does not use Lack of Transportation: No Lack of Food: Never True Current Housing: I Have Housing Concerned About Future Housing: No Difficulty Paying Gas/Electric Bills: No Difficulty Paying for Meds: No Currently Unemployed: No Education: High School Diploma/GED Difficulty w/ Childcare or Family Care: No Living arrangements: with family Occupation/Education: occupation Gender identity (if verbalized by the patient): Male Sexual Orientation (if Verbalized by the Patient): Straight or Heterosexual Spiritual care concerns: No Agree to blood products: Yes Meds Home Medications and Allergies Home Medications ?Medication ?Instructions ?Recorded ?Confirmed ?Type sildenafil 100 mg tablet 100 mg PO DAILY PRN sexual 11/04/22 08/26/24 Rx activity #6 tabs alprazolam 0.5 mg tablet 0.5 mg PO TID PRN anxiety #30 tabs 02/11/23 08/26/24 Rx fluticasone 113 mcg-salmeterol 14 See Rx Instructions .Route 06/25/23 08/26/24 Rx mcg/actuation breath activated .COMPLEX #1 ea powdr pantoprazole 40 mg tablet,delayed See Rx Instructions .Route 10/27/23 08/26/24 Rx release .COMPLEX #90 tabs syringe with needle 3 mL 21 gauge #3 ea 12/09/23 08/26/24 Rx x 1 (BD Luer-Kellie Syringe) duloxetine 60 mg capsule,delayed See Rx Instructions .Route 01/25/24 08/26/24 Rx release .COMPLEX #90 ea hydrochlorothiazide 25 mg tablet See Rx Instructions .Route 01/25/24 08/26/24 Rx .COMPLEX #90 tabs furosemide 20 mg tablet 20 mg PO DAILY PRN edema #39 tabs 03/26/24 08/26/24 Rx Symbicort 80 mcg-4.5 mcg/actuation See Rx Instructions .Route 05/09/24 08/26/24 Rx HFA aerosol inhaler .COMPLEX #11 grams (budesonide-formoterol) albuterol sulfate 90 mcg/actuation See Rx Instructions .Route 05/25/24 08/26/24 Rx aerosol inhaler .COMPLEX #9 grams atenolol 100 mg tablet See Rx Instructions .Route 07/24/24 08/26/24 Rx .COMPLEX #90 tabs irbesartan 300 mg tablet See Rx Instructions .Route 07/24/24 08/26/24 Rx .COMPLEX #90 tabs montelukast 10 mg tablet 10 mg PO QHS #90 tabs 08/26/24 08/26/24 Rx verapamil 240 mg tablet,extended See Rx Instructions .Route 09/29/24 Rx release .COMPLEX #90 tabs testosterone cypionate 200 mg/mL 300 mg (1.5 mL) IM .every 2 weeks 10/25/24 Rx intramuscular oil #10 mL (Depo-Testosterone) syringe with needle 3 mL 21 gauge #6 ea 11/08/24 Rx x 1 1/2 (BD Luer-Kellie Syringe) Allergies Allergy/AdvReac Type Severity Reaction Status Date / Time lisinopril AdvReac Mild Cough Verified 08/26/24 10:42 Vital Signs Vital Signs - 24 hr 12/05/24 11:46 12/05/24 11:48 Pulse Rate 106 H 105 H Respiratory Rate 29 H 27 H Exam Narrative: GENERAL: Unresponsive HEAD: Normocephalic, atraumatic. EYES: 5 mm unreactive ENT: Nares clear, no rhinorrhea or epistaxis. Mucous membranes moist. NECK: Supple. CHEST: Clear to auscultation. No respiratory distress. Spontaneous respirations present HEART: Regular rate and rhythm. No murmur heard. Normal peripheral pulses. ABDOMEN: Soft, nontender, nondistended, normal active bowel sounds. EXTREMITIES: Normal range of motion. No edema. SKIN: Warm, dry, no rash. NEURO: Unresponsive not moving extremities spontaneous respirations present PSYCH: Unresponsive
--- NOTE | 2024-12-05 12:27 | PC.NURSE ---
1125- 20mg of etomidate given by CAT Joseph 1125-100mg of Succinylcholine given by CAT Joseph 1126- 7.5 ET tube inserted by Dr Dumont-23mm at the lip with positive color change and equal breath sounds. 1130- OG tube placed at 65mm at the lip with xray verification and gastric contents aspirated. Patient taken to CT where veterinary laboratory technician RN met to take patient to veterinary laboratory technician at 1208
--- NOTE | 2024-12-05 13:17 | WPDCNINT ---
Assessment and Plan Assessment and plan (1) Acute respiratory failure: Code(s): J96.00 - Acute respiratory failure, unspecified whether with hypoxia or hypercapnia Status: Acute Assessment and Plan: Acute Respiratory failure secondary to cardiac arrest Patient now intubated and on mechanical ventilation Continue full mechanical ventilation support to prevent hypoxemia/hypercarbia and end organ damage. Ventilator settings reviewed Repeat chest x-ray and ABG Bronchodilators Hold Lasix as patient received contrast right now (2) Cardiac arrest: Code(s): I46.9 - Cardiac arrest, cause unspecified Status: Acute Assessment and Plan: Cardiac arrest secondary to acute ST segment elevation [place] Status post cardiac catheterization which showed 100% blockage of proximal LAD status post 2 drug-eluting stent placement Admission to ICU and telemetry monitoring Check echocardiogram DAPT, statin Beta-brandon blood pressure allows Will use antiarrhythmic medications only if recurrence of arrhythmias (3) Acute ST elevation myocardial infarction: Code(s): I21.3 - ST elevation (STEMI) myocardial infarction of unspecified site Status: Acute Assessment and Plan: See above (4) Gastro-esophageal reflux disease without esophagitis: Code(s): K21.9 - Gastro-esophageal reflux disease without esophagitis Status: Acute Assessment and Plan: PPI (5) Ischemic cardiomyopathy: Code(s): I25.5 - Ischemic cardiomyopathy Status: Acute Assessment and Plan: See above (6) Anoxic brain injury: Code(s): G93.1 - Anoxic brain damage, not elsewhere classified Status: Acute Assessment and Plan: Suspected anoxic brain injury from cardiac arrest as patient was unresponsive on presentation Patient now sedated and unable to fully evaluate Head CT on presentation was negative TTM protocol (7) Aspiration pneumonia: Code(s): J69.0 - Pneumonitis due to inhalation of food and vomit Status: Acute Assessment and Plan: Thick secretions on suctioning Check cultures Empiric Zosyn Plan DVT prophylaxis -Lovenox Stress ulcer prophylaxis -PPI Nutrition - NPO Code Status - Full Code I spoke to patient's extended family including his and updated them with patient's status including cardiac arrest, STEMI, stenting, possibility of anoxic brain injury and respiratory failure. Current treatment plan including TTM protocol. I answered all their questions Total Critical Care Time - 60 minutes Due to a high probability of clinically significant, life threatening deterioration, the patient required my highest level of preparedness to intervene emergently and I personally spent this critical care time directly and personally managing the patient. This critical care time included obtaining a history; examining the patient; pulse oximetry; ordering and review of studies; arranging urgent treatment with development of a management plan; evaluation of patient's response to treatment; frequent reassessment; and discussions with other providers. It was exclusive of separately billable procedures and treating other patients and teaching time. 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 Patient was found collapsed in his bathroom and was found lying in the bathtub. Patient was last seen about 5 minutes ago. EMS arrived and was found to be in VFib and was cardioverted to V-tach then was shocked multiple times for V-tach. Patient was also given amiodarone before ROSC was obtained patient was brought in with supraglottic airway and was intubated in the ER. EKG showed ST segment elevation in anterior leads. Patient was unresponsive. Patient was taken to cardiac catheterization lab. Patient was given aspirin suppository and heparin bolus. Patient had 100% blockage of proximal LAD. Patient had 2 stents placed. LVEDP was 38 please refer to cardiology note for details Chest x-ray done in the ER IMPRESSION: Bilateral pleural effusions with adjacent compressive atelectasis. Endotracheal tube tip projects 5.5 cm above the base of the veda for which advancement of approximately 3 cm is suggested for optimal radiographic placement for which clinical correlation is needed. Orogastric tube in good position. Patient is now being admitted to ICU for further evaluation management. Patient is sedated intubated on mechanical ventilation. Patient's states the patient around 9:00 a.m. started complaining of chest pain which felt like heartburn. She stated that she offered him to go to the hospital but he refused. He requested his inhaler and felt that it was probably heartburn. Then he went to shower and collapsed. Patient's was not present during the resuscitation process. She states that the until yesterday he was feeling fine and did not had any complaints. Review of Systems Review of Systems: ROS unobtainable: Yes unobtainable due to endotracheal tube, unobtainable due to medical condition and unobtainable due to mental status PMFSH Past Medical History Medical History (Updated 12/06/24 @ 08:05 by Leroy Jones MD) History of acute anterior wall [place] (11/2024) Obstructive sleep apnea (adult) (pediatric) (12/2023) Severe with AHI 101 Gastro-esophageal reflux disease without esophagitis Hypogonadism in male Obesity (BMI 30-39.9) Generalized anxiety disorder Hypertension Surgical History Surgical History (Updated 12/05/24 @ 20:04 by Km Shelton MD) History of coronary artery stent placement (11/2024) 2 stents in LAD Family History Family History Grandparent Diabetes mellitus Hypertension Father Hypertension Mother Hypertension Grandparent Hypertension Other Asthma Social History Social History Smoking packs per day: 0.25 Smoking cigarettes per day: 5.0 Years smoked: 25 Smoking pack-years: 6.25 Smoking status: Current every day smoker Tobacco type: cigarettes Smokeless tobacco user: chewing tobacco Second hand tobacco smoke exposure: No Alcohol intake: current Drinks per week: 70 Substance use: current Substance use type: marijuana Lack of Transportation: No Lack of Food: Never True Current Housing: I Have Housing Concerned About Future Housing: No Difficulty Paying Gas/Electric Bills: No Difficulty Paying for Meds: No Currently Unemployed: No Education: High School Diploma/GED Difficulty w/ Childcare or Family Care: No Living arrangements: with family Occupation/Education: occupation Gender identity (if verbalized by the patient): Male Sexual Orientation (if Verbalized by the Patient): Straight or Heterosexual Spiritual care concerns: No Agree to blood products: Yes Meds Home Medications and Allergies Home Medications ?Medication ?Instructions ?Recorded ?Confirmed ?Type sildenafil 100 mg tablet 100 mg PO DAILY PRN sexual 11/04/22 08/26/24 Rx activity #6 tabs alprazolam 0.5 mg tablet 0.5 mg PO TID PRN anxiety #30 tabs 02/11/23 08/26/24 Rx fluticasone 113 mcg-salmeterol 14 See Rx Instructions .Route 06/25/23 08/26/24 Rx mcg/actuation breath activated .COMPLEX #1 ea powdr pantoprazole 40 mg tablet,delayed See Rx Instructions .Route 10/27/23 08/26/24 Rx release .COMPLEX #90 tabs syringe with needle 3 mL 21 gauge #3 ea 12/09/23 08/26/24 Rx x 1 (BD Luer-Kellie Syringe) duloxetine 60 mg capsule,delayed See Rx Instructions .Route 01/25/24 08/26/24 Rx release .COMPLEX #90 ea hydrochlorothiazide 25 mg tablet See Rx Instructions .Route 01/25/24 08/26/24 Rx .COMPLEX #90 tabs furosemide 20 mg tablet 20 mg PO DAILY PRN edema #39 tabs 03/26/24 08/26/24 Rx Symbicort 80 mcg-4.5 mcg/actuation See Rx Instructions .Route 05/09/24 08/26/24 Rx HFA aerosol inhaler .COMPLEX #11 grams (budesonide-formoterol) albuterol sulfate 90 mcg/actuation See Rx Instructions .Route 05/25/24 08/26/24 Rx aerosol inhaler .COMPLEX #9 grams atenolol 100 mg tablet See Rx Instructions .Route 07/24/24 08/26/24 Rx .COMPLEX #90 tabs irbesartan 300 mg tablet See Rx Instructions .Route 07/24/24 08/26/24 Rx .COMPLEX #90 tabs montelukast 10 mg tablet 10 mg PO QHS #90 tabs 08/26/24 08/26/24 Rx verapamil 240 mg tablet,extended See Rx Instructions .Route 09/29/24 Rx release .COMPLEX #90 tabs testosterone cypionate 200 mg/mL 300 mg (1.5 mL) IM .every 2 weeks 10/25/24 Rx intramuscular oil #10 mL (Depo-Testosterone) syringe with needle 3 mL 21 gauge #6 ea 11/08/24 Rx x 1 1/2 (BD Luer-Kellie Syringe) Allergies Allergy/AdvReac Type Severity Reaction Status Date / Time lisinopril AdvReac Mild Cough Verified 12/05/24 18:28 Vital Signs Vital Signs - 24 hr 12/05/24 11:20 12/05/24 11:22 12/05/24 11:30 Temperature 36.6 C Pulse Rate 116 H 109 H Respiratory Rate 28 H 27 H Blood Pressure 120/55 L 135/117 H Pulse Oximetry 98 98 100 Oxygen Delivery Mechanical Ventilation Mechanical Ventilation 12/05/24 11:45 12/05/24 11:46 12/05/24 11:48 Temperature Pulse Rate 106 H 106 H 105 H Respiratory Rate 31 H 29 H 27 H Blood Pressure 145/114 H Pulse Oximetry 99 Oxygen Delivery 12/05/24 11:51 Temperature Pulse Rate 103 H Respiratory Rate 28 H Blood Pressure 131/103 H Pulse Oximetry 97 Oxygen Delivery Exam Narrative: General: Pt is sedated, intubated and on mechanical ventilation Lungs/Chest: Trachea central Coarse BS B/L, bibasilar crackles Cardiac: RRR. Normal S1 S2. No murmurs Circulation: Pedal pulses are palpable, patient has cyanosis of his earlobe and generalized mottling of the whole skin Abdomen: Decreased bowel sounds. Obese. Soft. NT. ND. Extremities: No clubbing, cyanosis or edema. Feet are warm, decrease cap refill on right hand as compared to the left and, TR band present on the right wrist, there is a IO inserted in the right lower extremity : Agarwal in place Neurologic: Unable to assess due to sedation. Patient does have a cough reflex and spontaneous respiratory effort, PERRL. On painful stimuli there is no response on the feet but on the upper extremity patient withdraws both upper extremities and toes suggesting head posturing but hard to differentiate from withdrawal as movement is minimal and patient has been on sedative infusions. Results Labs 12/06/24 05:04 12/06/24 05:04 Labs: Impressions Chest X-Ray 12/05/24 11:47 IMPRESSION: Bilateral pleural effusions with adjacent compressive atelectasis. Endotracheal tube tip projects 5.5 cm above the base of the veda for which advancement of approximately 3 cm is suggested for optimal radiographic placement for which clinical correlation is needed. Orogastric tube in good position. Head CT 12/05/24 12:09 Impression: Stable CT examination of the head without change from 2006 examination, without acute intracranial hemorrhage or suspicious mass effect. Cervical Spine CT 12/05/24 12:16 Impression: No acute displaced fracture within the cervical spine. Large right-sided and small left-sided pleural effusions without pneumothorax for which further evaluation post cardiac intervention is suggested (if the patient is clinically able). Quality VTE Prophylaxis VTE prophylaxis: pharmacologic ordered Hospitalist [facility] Advance Care Plan I have confirmed that the patient's Advanced Care Plan is present, code status is documented, or surrogate decision maker is listed in patient medical record.: Yes Medication Reconciliation I have utilized all available resources to obtain, update and review the patients current medications (includes all prescriptions, OTC, herbals, cannabis, and nutritional supplements).: Yes
--- NOTE | 2024-12-05 13:35 | PC.NURSE ---
This RN was made aware that labs were attempted to be obtained prior to going to CT scan, but the patient vein blew and were unable to obtain.
--- NOTE | 2024-12-05 13:54 | WPDCARDPROC ---
Cardiac Cath Procedure Note Date of procedure:: 12/05/24 Performing physician:: Pato Sousa MD Indication:: 1. Out of hospital cardiac arrest 2. Anterior STEMI Brief clinical history:: Patient is a 44-year-old gentleman known to have HTN, low testosterone on supplementation, who presented with OHCA. INitial rhythm was Vfib, Total CPR time almost 20 minutes. EKG suggestive of Acute Ant wall STEMI post ROSC. Recent history of intermittent episodes of chest pain as per ER documentation No prior history of CAD, VT or CVA ON testosterone supplementation Former smoker, current tobacco chewer Procedure Procedure performed:: 1. Moderate sedation under my supervision. Sedation was not was Mima Maya the patient was on fentanyl infusion at 50 mcg/hr and Versed infusion at 4 milligrams/hour. Sedation start time at 12:28 p.m., sedation end time 1:39 p.m. 2. Coronary angiography 3. Left heart catheterization 4. Successful aspiration thrombectomy and PCI of proximal mid LAD with overlapping or 0rsiro 3.5/22 and 3.0/13 mm IRWIN post dilated distally to 3.0-3.05 and proximally to 4.45-4.50. BONY 3 flow no complications Sedation/Medication given:: fentanyl infusion at 50 mcg/hr Versed infusion at 4 milligrams/hour. Access site:: Right radial artery Estimated blood loss:: 5-10 cc Procedure note:: The patient's right radial artery was accessed using ultrasound and a 5-6 Romansh short sheath was placed. The left main coronary ostium was engaged with 6 Romansh EBU 3 5 in the RCA was engaged with a 6 Romansh Rito right. Several images were taken under different angiographic projections. The aortic valve was crossed with the JR4 catheter LVEDP was measured. Subsequently based on the angiographic images it was decided to intervene on the ostial LAD which was 100% occluded.. A run-through wire was used to cross the ostium prox LAD and the 2nd Run-through wire was used to wire the 2nd diagonal. Two point 0 so balloon was used to pre dilate the lesion. Still there was no flow across to the mid to distal LAD and aspiration thrombectomy with penumbra CAT Rx was performed. Subsequently I was was performed and I was guided PCI was done with 2 overlapping stents placed in the proximal LAD with jailing the 1st and 2nd diagonal. The 2nd diagonal was jailed but had BONY 3 flow and there were no ST or T-wave changes and we already had used 200 cc contrast. So decided not to further intervene and ballooned the jailed diagonal. There was BONY 3 flow in both the LAD and diagonal. The wire and guide taken out and hemostasis was achieved with a TR band Findings:: Left main: Large caliber vessel with divides into LAD insert branches. No angiographic evidence of atherosclerotic disease Left anterior descending: Large caliber vessel which had a proximal 100% occlusion, culprit for presentation Left circumflex: Large caliber dominant vessel showed large caliber OM1 and OM2 branches in the left PDA no angiographic evidence of atherosclerotic disease RCA: Large caliber nondominant vessel. Mid RCA has luminal irregularities LVEDP 38 mm Hg No significantly-elevated on pullback Conclusion:: 1. 100% occluded proximal LAD, culprit presentation 2. Successful aspiration thrombectomy and PCI of proximal mid LAD with overlapping or 0rsiro 3.5/22 and 3.0/13 mm IRWIN post dilated distally to 3.0-3.05 and proximally to 4.45-4.50. BONY 3 flow no complications Assessment and Plan Assessment and plan (1) Acute ST elevation myocardial infarction: Code(s): I21.3 - ST elevation (STEMI) myocardial infarction of unspecified site Status: Acute (2) Cardiac arrest: Code(s): I46.9 - Cardiac arrest, cause unspecified Status: Acute Plan -transfer to ICU -uninterrupted dpt for at least 12 months, longer if tolerated -aggressive risk factor modification with high-intensity statin and blood pressure control -hypothermia protocol as per ICU -echo -had 20 minutes of down time, may have some underlying neurological deficit. overall prognosis guarded -patient's family appraised and angiogram pictures shown
--- NOTE | 2024-12-05 14:00 | ECG_ITS ---
Test Date: 2024-12-05 11:23:33 Measurements Intervals [place] Rate: 111 P: 73 [place]: 159 QRS: -21 QRSD: 174 T: 76 QT: 359 QTc: 488 Interpretive Statements SINUS TACHYCARDIA BORDERLINE LEFT AXIS DEVIATION [QRS AXIS < -20] INTRAVENTRICULAR CONDUCTION DELAY [130+ ms QRS DURATION] MARKED ST ELEVATION, CONSIDER ANTEROLATERAL INJURY [MARKED ST ELEVATION W/O NORMALLY INFLECTED T-WAVE IN V3-V6] ACUTE [place] No previous ECG available for comparison Electronically Signed On 12-05-2024 13:52:06 CDT by Marc Carroll M.D.
[2024-12-05] MEDS: FENTANYL 2,500MCG/NS250ML(*CRX 2,500 MCG/250 ML BAG 10 MCG IV CONT (14:15)
[2024-12-05] MEDS: MIDAZOLAM 100MG/NS 100ML(*CRX) 100 MG/100 ML BAG 6 MG IV CONT (14:15)
[2024-12-05] MEDS: CISATRACURIUM BESYLATE 20 MG/10 ML VIAL 18.75 MG IV PUSH (14:43)
--- NOTE | 2024-12-05 14:45 | WPDPROCEDUR ---
Procedures Central Line Placement Right Femoral: Central Line Date: 12/05/24 Central Line Time: 14:15 Discussed w/ the patient/family/POA,the placement of a central venous catheter, including its clinical necessity/indication & associated potential risks, benifits and alternatives.: Yes The patient/family/POA understand(s) and acknowledge(s) the need to proceed with central venous catheter insertion as an important element of the patient's clinical management.: Yes Consent: I have discussed with the patient patient's , the non-emergent placement of a central venous catheter, including its clinical necessity/indication and associated potential risks and complications. The patient's understand(s) and acknowledge(s) the need to proceed with central venous catheter insertion as an important element of the patient's clinical management. Time Out Performed: Yes Patient Position: supine Patient placed on monitor/pulse ox: Yes Provider Prep: mask, sterile gown, sterile gloves, Max. sterile barrier precautions, cap and hand hygiene with conventional soap/water or alcohol based hand rub Central line prep: Povidone-Iodine 1% Sterile US Technique with sterile gel/sterile probe covers: Yes Central line lumen inserted: triple Length (cm): 16 Depth of Insertion (cm): 16 Post Procedure: sutured in place, good blood return, all ports aspirated, flushed, capped, transparent dressing and aseptic technique maintained throughout procedure Patient tolerated procedure: well Complications: none
[2024-12-05] MEDS: CISATRACURIUM BESYLATE 200 MG in SODIUM CHLORIDE 0.9% IV 80 ML 11.22 ML IV CONT (14:57)
[2024-12-05 15:18] LABS: Alveolar/Arterial O2 Gradient 404.0 mmHg; Fractional Inspired Oxygen 100 %; HCO3 ABG 23.2 mEq/l (22.0-26.0); Oxygen Content ABG 27.3 %vol (16.0-22.0); Oxygen Saturation ABG 99.5 % (95.0-100.0); PCO2 ABG 52.1 mmHg (35.0-45.0); PO2 ABG 256.9 mmHg (80.0-100.0); PO2 FiO2 Ratio Arterial Blood 2.57 %
[2024-12-05 15:22] LABS: Hematocrit 52.4 % (42.0-52.0); Hemoglobin 17.3 g/dL (14.0-18.0); Mean Corpuscular HGB Conc 33.0 g/dl (32-36); Mean Corpuscular Hemoglobin 31.0 pg (26-34); Mean Corpuscular Volume 93.9 fl (80-100); Platelet Count Result 338 k/mm3 (150-375); Red Blood Count 5.58 M/mm3 (4.6-6.20); White Blood Count 26.0 K/mm3 (4.5-10.0)
[2024-12-05 15:24] LABS: Modified Allen's Test Pass; Site Drawn RIGHT RADIAL
[2024-12-05 15:25] LABS: Arterial Blood Gas Tidal Volume 450 ml; Arterial Blood Gas Ventilator rate 18 /MIN
[2024-12-05 15:32] LABS: Hemoglobin A1C 8.9 % (<5.7)
[2024-12-05 15:34] LABS: Add Urine Microscopic? YES; Appearance Urine Cloudy (Clear); Glucose Urine UA 3+ mg/dL (Negative); Leukocyte Esterase Ur Negative LEU/UL (Negative); Nitrate Urine Negative (Negative); Non Pathogenic Casts >20; Specific Grav Ur > 1.045 (1.001-1.035)
[2024-12-05 15:34] LABS: INR 1.3; Prothrombin Time 15.9 Seconds (11.1-14.7)
[2024-12-05 15:43] LABS: Magnesium 2.2 mg/dL (1.6-2.3)
[2024-12-05 15:46] LABS: Band Neutrophils Percent 4 % (0-6); Lymphocytes Absolute Manual 1.30 K/mm3 (1.1-4.5); Lymphocytes Percent Manual 5.0 % (18-44); Monocytes Absolute Manual 3.12 K/mm3 (0.1-0.90); Monocytes Percent Manual 12 % (3-9); Neutrophils Absolute Manual 21.58 K/mm3 (1.3-6.7); Neutrophils Percent Manual 79 % (46-73); Total Cells Counted 100
[2024-12-05 15:47] LABS: Schistocytes None Seen
[2024-12-05 15:49] LABS: Alanine Aminotransferase 293 U/L (6-50); Albumin Level 3.9 g/dL (3.5-5.1); Alkaline Phosphatase 100 U/L (38-126); Anion Gap 7 mmol/L (4-12); Bilirubin,Total 1.2 mg/dL (0.2-1.3); Blood Urea Nitrogen 16 mg/dL (9-20); Calcium 8.0 mg/dL (8.4-10.2); Carbon Dioxide 25 mmol/L (22-30); Chloride 103 mmol/L (98-107); Estimated CRCL calculation 83 ml/min; Estimated Glomerular Filt Rate 55; Glucose 219 mg/dL (65-110); Potassium 6.1 mmol/L (3.4-5.0); Sodium 135 mmol/L (137-145); Total Protein 7.0 g/dL (6.3-8.2)
[2024-12-05 15:56] LABS: Cannabinoid Screen Urine Positive (Negative)
[2024-12-05 16:01] LABS: Troponin I > 80.000 ng/mL (0.000-0.034)
[2024-12-05 16:06] LABS: Procalcitonin 0.5 ng/mL
[2024-12-05 16:08] LABS: Aspartate Amino Transferase 2115 U/L (17-59)
--- NOTE | 2024-12-05 16:20 | ADMGEN ---
This patient, Jason Kelsey , was admitted to Intensive Care Unit-6. Family oriented to hospital policies and general routines including ID bracelet, bed and alarms, visiting hours, pain management, procedures, bathroom and other care routines, personal items, smoking policy, room service/diet, and visiting hours. Information on how to activate the Rapid Response Team has been discussed. Patient/Family are encouraged to report perceived risks to care and to ask questions if they do not understand what they are told or what they should do.
[2024-12-05 16:27] LABS: Partial Thromboplastin Time > 200.0 Seconds (22.3-36.8)
[2024-12-05] MEDS: DEXTROSE 50% 25 GM/50 ML SYRINGE IV PUSH (16:34)
[2024-12-05] MEDS: SODIUM BICARBONATE 8.4% 50 MEQ/50 ML SYRINGE IV PUSH (16:34)
[2024-12-05] MEDS: PIPERACILLN/TAZ 3.375GM/NS50ML 3.375 GM/50 ML BAG IVPB ×2 (16:35→20:28)
[2024-12-05 16:36] LABS: MRSA (PCR) NOT DETECTED (NOT DETECTE)
[2024-12-05] MEDS: INSULIN HUMAN REGULAR (*BKC) 100 UNITS/ML 10 UNITS IV PUSH (16:36)
[2024-12-05] MEDS: SODIUM ZIRCONIUM CYCLOSILICATE 10 GM POWD.PACK FEED TUBE (16:36)
[2024-12-05] MEDS: EPTIFIBATIDE 20 MG/10 ML VIAL IV PUSH (16:50)
[2024-12-05] MEDS: INSULIN ASPART (*BKC) 100 UNITS/ML SUB-Q ×2 (18:20→22:18)
--- NOTE | 2024-12-05 18:29 | PC.NURSE ---
Spoke with Dr. Jones to clarify TTM goal for patient's body temperature. Physician stated yes goal is 33 degress celcius. Also notified physician of narrowed pulse pressure, stating 3-4 blood pressures over the past 2 hours. MD stated he was not concerned because patient has known hypertension. Updated RN Pat.
[2024-12-05] MEDS: MINERAL OIL/WHITE PETROLATUM OINTMENT 1 APPLIC EACH EYE (20:28)
[2024-12-05] MEDS: TICAGRELOR 90 MG TABLET FEED TUBE (20:28)
[2024-12-05 20:36] LABS: Troponin I > 80.000 ng/mL (0.000-0.034)
[2024-12-05] MEDS: CENTRAL LINE FLUSH 10 ML IV PUSH (21:58)
--- NOTE | 2024-12-05 22:00 | ECG_ITS ---
Test Date: 2024-12-05 22:01:01 Measurements Intervals [place] Rate: 60 P: 40 [place]: 178 QRS: 5 QRSD: 119 T: 116 QT: 484 QTc: 487 Interpretive Statements SINUS RHYTHM INCOMPLETE RIGHT BUNDLE BRANCH BLOCK [90+ ms QRS DURATION, TERMINAL R IN V1/V2, 40+ ms S IN I/aVL/V4/V5/V6] ANTEROSEPTAL MYOCARDIAL INFARCTION [40+ ms Q WAVE IN V1-V4], PROBABLY RECENT ST ELEVATION, CONSIDER LATERAL INJURY [MARKED ST ELEVATION W/O NORMALLY INFLECTED T WAVE IN I/aVL/V5/V6] TYPE 3 BRUGADA PATTERN (NON-DIAGNOSTIC) [COVED/SADDLEBACK ST ELEVATION > 0.1mV IN 2 OF V1-3] ACUTE CT Electronically Signed On 12-06-2024 22:29:17 CDT by Ynes Krishna M.D.
[2024-12-06] VITALS (59 sets, daily range): BP systolic 90–178; BP diastolic 70–140; PULSE 49–113; RESP 22; TEMP 32.2–36.6; O2SAT 98–100; BMI 37.2
--- NOTE | 2024-12-06 | ECHO_ITS ---
Patient Info Name: Jason Kelsey Age: 44 years : 1980 Gender: Male Ht: 72 in Wt: 274 lbs BSA: 2.56 m2 HR: 83 bpm BP: 178 / 133 mmHg Heart Rhythm: Sinus Rhythm Technical Quality: Fair Exam Date: 12/06/2024 7:37 AM Patient Status: I Admit Date: 12/05/2024 Exam Type: CA echo dop color flow w con Staff Referring Physician: Leroy Jones MD Clam Bed Laborer: Yue Dumont Attending Provider: Pato Sousa Contrast/Agitated Saline Contrast/Ag. Saline: Definity Amount: 3.00 ml Administered By: Yue Dumont Existing IV Access: Yes IV Access Condition: patent with no signs of infiltration Summary 1. Left ventricular systolic function is normal, estimated at 40-45. 2. There is mildly increased left ventricular wall thickness. 3. The left ventricular diastolic function is abnormal. 4. The inferior wall, apical septum, apical lateral wall, mid inferoseptal, basal anteroseptal, and mid anteroseptal are hypokinetic. Left Ventricle Left ventricular chamber dimension is normal. Left ventricular systolic function is normal, estimated at 40-45. There is mildly increased left ventricular wall thickness. The left ventricular diastolic function is abnormal. The inferior wall, apical septum, apical lateral wall, mid inferoseptal, basal anteroseptal, and mid anteroseptal are hypokinetic. Right Ventricle Right ventricular chamber dimension is normal. Right ventricular systolic function is normal. Left Atria Left atrial chamber dimension is normal. Right Atria Right atrial chamber dimension is normal. Aortic Valve The aortic valve is trileaflet. There is mild aortic valve sclerosis. There is no aortic valve stenosis. There is no aortic valve regurgitation. Pulmonic Valve The pulmonic valve is normal. There is no pulmonic valve stenosis. There is no pulmonic regurgitation. Mitral Valve The mitral valve has normal leaflets. There is no mitral valve stenosis. There is no mitral valve regurgitation. Tricuspid Valve The tricuspid valve leaflets are normal. There is no significant tricuspid valve stenosis. There is no tricuspid valve regurgitation. Pericardium/Pleural The pericardium appears normal. There is no pericardial effusion. Inferior Vena Cava Normal inferior vena cava with <50% collapse upon inspiration consistent with elevated right atrial pressure, 10 mmHg. Aorta The aortic root size at the sinus of Valsalva is normal. The prox ascending aorta size is normal. Left Ventricular Outflow Tract Name Value Normal LVOT 2D LVOT Diameter 2.1 cm LVOT Doppler LVOT Peak Velocity 85 cm/s LVOT Peak Gradient 3 mmHg LVOT Mean Gradient 2 mmHg LVOT VTI 12 cm LVOT VTI/AV VTI Ratio 0.7 LVOT Stroke Volume 41 ml LVOT CO 4.3 l/min LVOT CI 1.7 l/min/m2 Pulmonic Valve Name Value Normal RVOT Doppler RVOT Peak Velocity 94 cm/s RVOT Peak Gradient 4 mmHg PV Doppler PV Peak Velocity 106 cm/s PV Peak Gradient 4 mmHg Mitral Valve Name Value Normal MV Diastolic Function MV E Peak Velocity 105 cm/s MV A Peak Velocity 2 cm/s MV E/A 54.1 MV Decel Time (PW) 123 ms MV Annular TDI MV E/e' (Septal) 11.3 MV E/e' (Lateral) 15.1 MV E/e' (Average) 13.2 Tricuspid Valve Name Value Normal Estimated PAP/RSVP RA Pressure 10 mmHg <=5 TV Annular TDI TV Lateral Breanna s' Velocity 13.3 cm/s >=9.5 Aortic Valve Name Value Normal AV Doppler AV Peak Velocity 110 cm/s AV Peak Gradient 5 mmHg AV Mean Gradient 3 mmHg AV VTI 16 cm AV Area (Cont Eq VTI) 2.5 cm2 >=3.0 AV Area (Cont Eq Tony) 2.7 cm2 AV DI (Tony) 0.77 AV Regurgitation 2D LVOT Area 3.5 cm2 Ventricles Name Value Normal LV Dimensions 2D/MM IVS Diastolic Thickness (2D) 1.1 cm 0.6-1.0 LVID Diastole (2D) 5.1 cm 4.2-5.8 LVIW Diastolic Thickness (2D) 1.0 cm 0.6-1.0 LVID Systole (2D) 3.8 cm 2.5-4.0 LVOT Diameter 2.1 cm LV Mass (2D Cubed) 201.14 g 88.00-224.00 LV Mass Index (2D Cubed) 79 g/m2 49-115 Relative Wall Thickness (2D) 0.38 <=0.42 LV Fractional Shortening/Ejection Fraction 2D/MM LV Fractional Shortening (2D) 26 % 25-43 LV EF (2D Teichholz) 50 % LV Diastolic Volume (4C MOD) 131 ml LV EF (4C MOD) 45 % LV Diastolic Volume (2C MOD) 130 ml LV EF (2C MOD) 39 % LV Diastolic Volume (BP MOD) 132 ml 62-150 LV Diastolic Volume Index (BP MOD) 51 ml/m2 34-74 LV Systolic Volume (BP MOD) 79 ml 21-61 LV Systolic Volume Index (BP MOD) 31 ml/m2 11-31 LV EF (BP MOD) 40 % 52-72 LV Diastolic Length (4C) 8.9 cm LV Systolic Length (4C) 7.9 cm LV Stroke Volume (4C MOD) 59 ml Atria Name Value Normal LA Dimensions LA Volume (4C A-L) 45 ml LA Volume (BP A-L) 51 ml RA Dimensions RA Area (4C) 12.5 cm2 <=18.0 Wall Motion Scoring Report Signatures
[2024-12-06 02:26] LABS: Anion Gap 8 mmol/L (4-12); Blood Urea Nitrogen 14 mg/dL (9-20); Calcium 8.4 mg/dL (8.4-10.2); Carbon Dioxide 28 mmol/L (22-30); Chloride 100 mmol/L (98-107); Cholesterol 180 mg/dL (0-200); Estimated CRCL calculation 102 ml/min; Estimated Glomerular Filt Rate > 60; Glucose 266 mg/dL (65-110); HDL Direct 39 mg/dL; Potassium 4.6 mmol/L (3.4-5.0); Sodium 136 mmol/L (137-145); Triglycerides 365 mg/dL (<150)
[2024-12-06 02:26] LABS: Hematocrit 54.5 % (42.0-52.0); Hemoglobin 18.1 g/dL (14.0-18.0); Mean Corpuscular HGB Conc 33.2 g/dl (32-36); Mean Corpuscular Hemoglobin 31.2 pg (26-34); Mean Corpuscular Volume 94.0 fl (80-100); Platelet Count Result 253 k/mm3 (150-375); Red Blood Count 5.80 M/mm3 (4.6-6.20); White Blood Count 18.5 K/mm3 (4.5-10.0)
[2024-12-06] MEDS: INSULIN ASPART (*BKC) 100 UNITS/ML SUB-Q ×5 (02:28→16:52)
[2024-12-06 02:36] LABS: Troponin I > 80.000 ng/mL (0.000-0.034)
[2024-12-06 02:42] LABS: INR 1.1; Prothrombin Time 14.4 Seconds (11.1-14.7)
[2024-12-06 02:43] LABS: Partial Thromboplastin Time 28.3 Seconds (22.3-36.8)
[2024-12-06] MEDS: PIPERACILLN/TAZ 3.375GM/NS50ML 3.375 GM/50 ML BAG IVPB ×2 (03:06→08:55)
[2024-12-06] MEDS: MIDAZOLAM 100MG/NS 100ML(*CRX) 100 MG/100 ML BAG 6 MG IV CONT (03:15)
[2024-12-06 04:47] LABS: Alveolar/Arterial O2 Gradient 209.5 mmHg; Fractional Inspired Oxygen 50 %; HCO3 ABG 24.4 mEq/l (22.0-26.0); Oxygen Content ABG 26.6 %vol (16.0-22.0); Oxygen Saturation ABG 97.3 % (95.0-100.0); PCO2 ABG 43.3 mmHg (35.0-45.0); PO2 ABG 98.3 mmHg (80.0-100.0); PO2 FiO2 Ratio Arterial Blood 1.97 %
[2024-12-06 04:48] LABS: Modified Allen's Test Pass; Site Drawn LEFT RADIAL
[2024-12-06 04:49] LABS: Arterial Blood Gas Tidal Volume 450 ml; Arterial Blood Gas Ventilator rate 22 /MIN
[2024-12-06 05:14] LABS: Hematocrit 53.8 % (42.0-52.0); Hemoglobin 18.0 g/dL (14.0-18.0); Immature Granulocyte Percent A 0.7 % (0-0.5); Lymphocytes Absolute Auto 0.89 K/mm3 (0.9-3.2); Mean Corpuscular HGB Conc 33.5 g/dl (32-36); Mean Corpuscular Hemoglobin 31.8 pg (26-34); Mean Corpuscular Volume 95.1 fl (80-100); Nucleated Red Blood Cells Absolute Auto 0.000 K/mm3 (0.0-0.012); Nucleated Red Blood Cells Perc 0.0 % (0.0-0.2); Red Blood Count 5.66 M/mm3 (4.6-6.20); White Blood Count 18.4 K/mm3 (4.5-10.0)
[2024-12-06 05:24] LABS: Alanine Aminotransferase 309 U/L (6-50); Albumin Level 4.0 g/dL (3.5-5.1); Alkaline Phosphatase 92 U/L (38-126); Anion Gap 10 mmol/L (4-12); Bilirubin,Total 1.2 mg/dL (0.2-1.3); Blood Urea Nitrogen 13 mg/dL (9-20); Calcium 8.5 mg/dL (8.4-10.2); Carbon Dioxide 28 mmol/L (22-30); Chloride 100 mmol/L (98-107); Estimated CRCL calculation 104 ml/min; Estimated Glomerular Filt Rate > 60; Glucose 260 mg/dL (65-110); Magnesium 2.4 mg/dL (1.6-2.3); Potassium 4.2 mmol/L (3.4-5.0); Sodium 138 mmol/L (137-145); Total Protein 7.1 g/dL (6.3-8.2)
[2024-12-06 05:50] LABS: Aspartate Amino Transferase 1326 U/L (17-59)
--- NOTE | 2024-12-06 06:00 | ECG_ITS ---
Test Date: 2024-12-06 05:54:51 Measurements Intervals [place] Rate: 101 P: 60 DE: 156 QRS: -1 QRSD: 121 T: 134 QT: 403 QTc: 523 Interpretive Statements SINUS TACHYCARDIA POSSIBLE RIGHT VENTRICULAR CONDUCTION DELAY [RSR (QR) IN V1/V2] ANTEROSEPTAL MYOCARDIAL INFARCTION [40+ ms Q WAVE IN V1-V4], PROBABLY RECENT MARKED ST ELEVATION, CONSIDER LATERAL INJURY [MARKED ST ELEVATION W/O NORMALLY INFLECTED T WAVE IN I/aVL/V5/V6] ACUTE AL Compared to ECG 12/05/2024 22:01:01 Sinus rhythm no longer present Incomplete right bundle-branch block no longer present Myocardial infarct finding still present ST (T wave) deviation still present Electronically Signed On 12-06-2024 22:25:44 CDT by Ynes Krishna M.D.
[2024-12-06] MEDS: CENTRAL LINE FLUSH 10 ML IV PUSH ×3 (06:23→21:16)
--- NOTE | 2024-12-06 08:06 | P.PNINT_ITS ---
Progress Note: A&P Assessment and Plan (1) Acute respiratory failure: Code(s): J96.00 - Acute respiratory failure, unspecified whether with hypoxia or hypercapnia Status: Acute Assessment and Plan: Acute Respiratory failure secondary to cardiac arrest, congestive heart failure, pleural effusions Patient now intubated and on mechanical ventilation currently on 50% FiO2 and 8 of PEEP Continue full mechanical ventilation support to prevent hypoxemia/hypercarbia and end organ damage. ABG and Ventilator settings reviewed. Continue current setting Bronchodilators Will give a dose of Lasix today (2) Cardiac arrest: Code(s): I46.9 - Cardiac arrest, cause unspecified Status: Acute Assessment and Plan: Cardiac arrest secondary to acute ST segment elevation CT Status post cardiac catheterization which showed 100% blockage of proximal LAD status post 2 drug-eluting stent placement Continue ICU telemetry monitoring Pending echocardiogram DAPT, statin Start Beta-brandon Patient was on amiodarone infusion. His patient became bradycardic last night (3) Acute ST elevation myocardial infarction: Code(s): I21.3 - ST elevation (STEMI) myocardial infarction of unspecified site Status: Acute Assessment and Plan: See above (4) Gastro-esophageal reflux disease without esophagitis: Code(s): K21.9 - Gastro-esophageal reflux disease without esophagitis Status: Acute Assessment and Plan: PPI (5) Ischemic cardiomyopathy: Code(s): I25.5 - Ischemic cardiomyopathy Status: Acute Assessment and Plan: See above (6) Anoxic brain injury: Code(s): G93.1 - Anoxic brain damage, not elsewhere classified Status: Acute Assessment and Plan: Suspected anoxic brain injury from cardiac arrest as patient was unresponsive on presentation Patient now sedated and unable to fully evaluate Head CT on presentation was negative TTM protocol underway. Patient received his target temperature last night will continue for 24 hours and re 1 (7) Aspiration pneumonia: Code(s): J69.0 - Pneumonitis due to inhalation of food and vomit Status: Acute Assessment and Plan: Thick secretions on suctioning at the time of presentation Procalcitonin level 0.5 Check cultures Continue Empiric Zosyn (8) GI bleed: Code(s): K92.2 - Gastrointestinal hemorrhage, unspecified Status: Acute Assessment and Plan: Coffee-ground and blood-tinged section from gastric tube. Likely stress gastritis Consult GI Continue PPI Off anticoagulation but will continue antiplatelet therapy for recent stenting Monitor hemoglobin and transfuse if needed (9) Elevated liver enzymes: Code(s): R74.8 - Abnormal levels of other serum enzymes Status: Acute Assessment and Plan: Elevated liver enzymes likely secondary to CT, shock liver possible rhabdo Check CK level Continue statin at this time and monitor LFTs If LFTs continue to worsen will have to hold statin Off amiodarone (10) Diabetes mellitus: Code(s): E11.9 - Type 2 diabetes mellitus without complications Status: Acute Assessment and Plan: Patient has elevated blood sugars and HbA1c suggestive of undiagnosed diabetes mellitus Add sliding scale insulin and will also give Lantus. Currently NPO Plan DVT prophylaxis -SCD Stress ulcer prophylaxis -PPI Nutrition - NPO Code Status - Full Code I spoke to patient's extended family including his and updated them with patient's status including cardiac arrest, STEMI, stenting, possibility of anoxic brain injury and respiratory failure. Current treatment plan including TTM protocol. I answered all their questions Total Critical Care Time - 40 minutes Due to a high probability of clinically significant, life threatening deterioration, the patient required my highest level of preparedness to intervene emergently and I personally spent this critical care time directly and personally managing the patient. This critical care time included obtaining a history; examining the patient; pulse oximetry; ordering and review of studies; arranging urgent treatment with development of a management plan; evaluation of patient's response to treatment; frequent reassessment; and discussions with other providers. It was exclusive of separately billable procedures and treating other patients and teaching time. Please see Assessment and Plan section and the rest of the note for further information on patient assessment and treatment Subjective Date/time seen: 12/06/24 Overnight events reviewed. Patient on targeted temperature management protocol. Reached his goal temperature last night. Continues to be on mechanical ventilation on 50 % FiO2 and 8 of PEEP Sedated with Versed and fentanyl Coffee-ground blood-tinged suction from gastric tube Urine output on the lower side Other Vitals acceptable Review of Systems Review of Systems: ROS unobtainable: Yes unobtainable due to endotracheal tube, unobtainable due to medical condition and unobtainable due to mental status Exam Narrative: General: Pt is sedated, intubated and on mechanical ventilation Lungs/Chest: Trachea central clear BS B/L, Cardiac: RRR. Normal S1 S2. No murmurs Circulation: Pedal pulses are palpable, patient has cyanosis of his earlobe and generalized mottling of the whole skin Abdomen: Decreased bowel sounds. Obese. Soft. NT. ND. Extremities: No clubbing, cyanosis or edema. Feet are cold from hypothermia : Agarwal in place Neurologic: Unable to assess due to sedation and chemical paralysis. PERRL. Objective Data Vital Signs Vital Signs: Vital Signs - 24 hr 12/05/24 11:20 12/05/24 11:22 12/05/24 11:30 Temperature 36.6 C Pulse Rate 116 H 109 H Respiratory Rate 28 H 27 H Blood Pressure 120/55 L 135/117 H Pulse Oximetry 98 98 100 Oxygen Delivery Mechanical Ventilation Mechanical Ventilation Fraction of Inspired Oxygen 12/05/24 11:30 12/05/24 11:45 12/05/24 11:46 Temperature Pulse Rate 106 H 106 H Respiratory Rate 31 H 29 H Blood Pressure 145/114 H Pulse Oximetry 100 99 Oxygen Delivery Mechanical Ventilation Fraction of Inspired Oxygen 100 12/05/24 11:48 12/05/24 11:50 12/05/24 11:51 Temperature Pulse Rate 105 H 103 H Respiratory Rate 27 H 28 H Blood Pressure 131/103 H Pulse Oximetry 100 97 Oxygen Delivery Mechanical Ventilation Fraction of Inspired Oxygen 100 12/05/24 12:15 12/05/24 14:02 12/05/24 14:15 Temperature Pulse Rate 86 102 H Respiratory Rate 25 H Blood Pressure Pulse Oximetry 97 100 Oxygen Delivery Mechanical Ventilation Mechanical Ventilation Fraction of Inspired Oxygen 100 100 12/05/24 14:15 12/05/24 14:18 12/05/24 14:32 Temperature Pulse Rate 102 H 96 96 Respiratory Rate 25 H 28 H 27 H Blood Pressure 119/95 H 118/99 H Pulse Oximetry 97 96 Oxygen Delivery Fraction of Inspired Oxygen 12/05/24 14:33 12/05/24 14:48 12/05/24 14:57 Temperature Pulse Rate 96 96 99 Respiratory Rate 27 H 18 18 Blood Pressure 118/99 H 128/108 H 118/99 H Pulse Oximetry 94 97 Oxygen Delivery Fraction of Inspired Oxygen 12/05/24 15:18 12/05/24 15:32 12/05/24 15:32 Temperature 37.8 C H Pulse Rate 102 H 105 H 104 H Respiratory Rate 18 20 Blood Pressure 134/103 H 138/108 H 138/108 H Pulse Oximetry 96 95 Oxygen Delivery Fraction of Inspired Oxygen 12/05/24 15:34 12/05/24 15:48 12/05/24 16:00 Temperature 38.0 C H 38.1 C H Pulse Rate 100 107 H 103 H Respiratory Rate 18 18 Blood Pressure 135/105 H 127/96 H Pulse Oximetry 97 95 98 Oxygen Delivery Mechanical Ventilation Fraction of Inspired Oxygen 80 12/05/24 16:00 12/05/24 16:00 12/05/24 16:00 Temperature Pulse Rate 105 H 106 H 98 Respiratory Rate 18 18 Blood Pressure 127/96 H Pulse Oximetry Oxygen Delivery Fraction of Inspired Oxygen 12/05/24 16:00 12/05/24 16:00 12/05/24 16:30 Temperature Pulse Rate 98 100 104 H Respiratory Rate 18 Blood Pressure Pulse Oximetry 94 Oxygen Delivery Mechanical Ventilation Fraction of Inspired Oxygen 50 12/05/24 16:48 12/05/24 17:00 12/05/24 17:15 Temperature 37.4 C Pulse Rate 104 H 95 102 H Respiratory Rate 18 22 H Blood Pressure 126/101 H 137/102 H Pulse Oximetry 91 95 94 Oxygen Delivery Mechanical Ventilation Fraction of Inspired Oxygen 50 12/05/24 17:48 12/05/24 18:00 12/05/24 18:00 Temperature 37.3 C 37.3 C 36.9 C Pulse Rate 93 98 83 Respiratory Rate 18 18 18 Blood Pressure 133/104 H 130/105 H 120/105 H Pulse Oximetry 98 92 100 Oxygen Delivery Fraction of Inspired Oxygen 12/05/24 18:00 12/05/24 18:00 12/05/24 18:00 Temperature Pulse Rate 78 93 78 Respiratory Rate 18 18 Blood Pressure 133/104 H Pulse Oximetry Oxygen Delivery Fraction of Inspired Oxygen 12/05/24 18:00 12/05/24 18:00 12/05/24 18:46 Temperature Pulse Rate 78 78 85 Respiratory Rate 18 22 H Blood Pressure 120/105 H Pulse Oximetry Oxygen Delivery Fraction of Inspired Oxygen 12/05/24 19:00 12/05/24 19:00 12/05/24 20:00 Temperature 36.8 C 36.8 C 36.7 C Pulse Rate 81 83 74 Respiratory Rate 22 H 22 H 22 H Blood Pressure 124/105 H 126/106 H 127/110 H Pulse Oximetry 100 100 100 Oxygen Delivery Fraction of Inspired Oxygen 12/05/24 20:00 12/05/24 20:00 12/05/24 20:00 Temperature 36.7 C 36.6 C Pulse Rate 74 73 74 Respiratory Rate 22 H 22 H Blood Pressure 127/110 H 133/113 H 127/110 H Pulse Oximetry 100 100 Oxygen Delivery Fraction of Inspired Oxygen 12/05/24 20:00 12/05/24 20:00 12/05/24 20:00 Temperature Pulse Rate 74 74 Respiratory Rate 22 H 22 H Blood Pressure Pulse Oximetry Oxygen Delivery Mechanical Ventilation Fraction of Inspired Oxygen 50 12/05/24 20:00 12/05/24 20:20 12/05/24 20:26 Temperature 36.6 C Pulse Rate 74 73 70 Respiratory Rate 22 H 22 H Blood Pressure 133/113 H 133/113 H Pulse Oximetry 100 Oxygen Delivery Fraction of Inspired Oxygen 12/05/24 20:29 12/05/24 20:51 12/05/24 21:00 Temperature 36.1 C L Pulse Rate 76 68 66 Respiratory Rate 22 H 22 H Blood Pressure 138/115 H 143/113 H Pulse Oximetry 100 100 Oxygen Delivery Mechanical Ventilation Fraction of Inspired Oxygen 50 12/05/24 21:00 12/05/24 21:11 12/05/24 21:14 Temperature 36.0 C L 35.9 C L Pulse Rate 64 66 63 Respiratory Rate 22 H 22 H Blood Pressure 143/113 H 143/113 H 146/118 H Pulse Oximetry 100 100 Oxygen Delivery Fraction of Inspired Oxygen 12/05/24 21:24 12/05/24 22:00 12/05/24 22:00 Temperature Pulse Rate 66 60 60 Respiratory Rate 22 H Blood Pressure 143/113 H 148/114 H 148/114 H Pulse Oximetry Oxygen Delivery Fraction of Inspired Oxygen 12/05/24 22:00 12/05/24 22:00 12/05/24 22:00 Temperature Pulse Rate 60 60 60 Respiratory Rate 22 H 22 H Blood Pressure Pulse Oximetry Oxygen Delivery Fraction of Inspired Oxygen 12/05/24 22:00 12/05/24 22:00 12/05/24 23:00 Temperature 35.4 C L 35.3 C L 34.8 C L Pulse Rate 60 62 58 L Respiratory Rate 22 H 22 H 22 H Blood Pressure 148/114 H 148/114 H 151/117 H Pulse Oximetry 100 100 100 Oxygen Delivery Fraction of Inspired Oxygen 12/05/24 23:00 12/05/24 23:47 12/06/24 00:00 Temperature 34.7 C L Pulse Rate 56 L 57 L 54 L Respiratory Rate 22 H 22 H Blood Pressure 151/117 H 156/124 H Pulse Oximetry 100 100 Oxygen Delivery Mechanical Ventilation Fraction of Inspired Oxygen 50 12/06/24 00:00 12/06/24 00:00 12/06/24 00:00 Temperature 34.1 C L 34.1 C L Pulse Rate 54 L 69 69 Respiratory Rate 22 H 22 H 22 H Blood Pressure 156/124 H 156/124 H 156/124 H Pulse Oximetry 100 100 Oxygen Delivery Fraction of Inspired Oxygen 12/06/24 00:00 12/06/24 00:00 12/06/24 00:00 Temperature Pulse Rate 69 Respiratory Rate Blood Pressure Pulse Oximetry Oxygen Delivery Mechanical Ventilation Fraction of Inspired Oxygen 50 50 12/06/24 00:00 12/06/24 00:03 12/06/24 00:04 Temperature 34.1 C L Pulse Rate 54 L 71 69 Respiratory Rate 22 H 22 H Blood Pressure 156/124 H 156/124 H Pulse Oximetry 100 Oxygen Delivery Fraction of Inspired Oxygen 12/06/24 00:04 12/06/24 01:00 12/06/24 01:33 Temperature 33.6 C L Pulse Rate 69 50 L Respiratory Rate 22 H 22 H Blood Pressure 160/125 H 165/127 H Pulse Oximetry 100 Oxygen Delivery Fraction of Inspired Oxygen 12/06/24 02:00 12/06/24 02:00 12/06/24 02:00 Temperature Pulse Rate 67 67 67 Respiratory Rate 22 H 22 H Blood Pressure 172/131 H 172/131 H Pulse Oximetry Oxygen Delivery Fraction of Inspired Oxygen 12/06/24 02:00 12/06/24 02:00 12/06/24 02:00 Temperature 32.9 C L Pulse Rate 67 72 72 Respiratory Rate 22 H 22 H Blood Pressure 172/131 H Pulse Oximetry 100 Oxygen Delivery Fraction of Inspired Oxygen 12/06/24 02:00 12/06/24 02:55 12/06/24 03:00 Temperature 33.0 C L 32.3 C L Pulse Rate 67 66 63 Respiratory Rate 22 H 22 H Blood Pressure 172/131 H 145/106 H Pulse Oximetry 100 100 100 Oxygen Delivery Mechanical Ventilation Fraction of Inspired Oxygen 50 12/06/24 03:00 12/06/24 03:15 12/06/24 03:15 Temperature 32.4 C L Pulse Rate 61 63 63 Respiratory Rate 22 H 22 H 22 H Blood Pressure 141/107 H Pulse Oximetry 100 Oxygen Delivery Fraction of Inspired Oxygen 12/06/24 04:00 12/06/24 04:00 12/06/24 04:00 Temperature Pulse Rate 69 69 Respiratory Rate 22 H Blood Pressure 155/121 H 155/121 H Pulse Oximetry Oxygen Delivery Fraction of Inspired Oxygen 50 12/06/24 04:00 12/06/24 04:00 12/06/24 04:00 Temperature Pulse Rate 69 69 Respiratory Rate 22 H 22 H Blood Pressure Pulse Oximetry Oxygen Delivery Mechanical Ventilation Fraction of Inspired Oxygen 50 12/06/24 04:00 12/06/24 04:00 12/06/24 04:00 Temperature 32.4 C L 32.4 C L Pulse Rate 69 69 68 Respiratory Rate 22 H 22 H Blood Pressure 155/121 H 155/121 H Pulse Oximetry 100 100 Oxygen Delivery Fraction of Inspired Oxygen 12/06/24 04:50 12/06/24 05:00 12/06/24 05:46 Temperature 33.2 C L Pulse Rate 77 83 Respiratory Rate 22 H Blood Pressure 170/129 H 178/133 H Pulse Oximetry 100 100 Oxygen Delivery Mechanical Ventilation Fraction of Inspired Oxygen 50 12/06/24 06:00 12/06/24 06:00 12/06/24 06:00 Temperature Pulse Rate 109 H 109 H 109 H Respiratory Rate 22 H 22 H Blood Pressure 174/140 H 174/140 H Pulse Oximetry Oxygen Delivery Fraction of Inspired Oxygen 12/06/24 06:00 12/06/24 06:00 12/06/24 06:00 Temperature 34.1 C L Pulse Rate 109 H 109 H 109 H Respiratory Rate 22 H 22 H Blood Pressure 174/140 H Pulse Oximetry 100 Oxygen Delivery Fraction of Inspired Oxygen 12/06/24 06:00 12/06/24 06:30 12/06/24 07:00 Temperature 34.1 C L Pulse Rate 109 H 113 H Respiratory Rate 22 H Blood Pressure 174/140 H 167/120 H 172/123 H Pulse Oximetry 100 Oxygen Delivery Fraction of Inspired Oxygen 12/06/24 07:00 12/06/24 07:00 12/06/24 07:39 Temperature 34.6 C L 34.6 C L Pulse Rate 113 H 113 H 108 H Respiratory Rate 22 H 22 H 22 H Blood Pressure 172/123 H 172/123 H Pulse Oximetry 99 99 Oxygen Delivery Fraction of Inspired Oxygen 12/06/24 07:40 Temperature Pulse Rate 108 H Respiratory Rate 22 H Blood Pressure Pulse Oximetry Oxygen Delivery Fraction of Inspired Oxygen Intake/Output Intake/Output: Intake & Output 12/03/24 12/04/24 12/05/24 12/06/24 23:59 23:59 23:59 23:59 Intake Total 505.6 429.3 Output Total 700 740 Balance -194.4 -310.7 Meds/Results Medications: Active Medications Generic Name Dose Route Start Last Admin Trade Name Freq PRN Reason Stop Dose Admin Albuterol/Ipratropium 3 ml 12/05/24 13:20 Ipratropium 0.5 Mg/Albuterol Sulfate 2.5 Mg Ampul.Neb 3 Ml INHALATION Q6HRT PRN Wheezing Aspirin 81 mg 12/06/24 08:00 Aspirin 81 Mg Chewable Tablet FEED TUBE DAILY@0800 [facility] Atorvastatin Calcium 80 mg 12/06/24 09:00 Atorvastatin 40 Mg Tablet FEED TUBE DAILY [facility] Dextrose 12.5 gm 12/06/24 07:25 Dextrose 50% 25 Gm/50 Ml Syringe IV PUSH PRN PRN Hypoglycemia Protocol Glucagon 1 mg 12/06/24 07:25 Glucagon For Inj 1 Mg Vial IM PRN PRN Hypoglycemia Protocol Glucose 15 gm 12/06/24 07:25 Glucose Oral Gel 15 Gm Of Glucse In 37.5 Gm Tube PO PRN PRN Hypoglycemia Protocol Hydralazine HCl 20 mg 12/05/24 22:33 12/06/24 05:46 Hydralazine Hcl 20 Mg/Ml Vial IV PUSH 20 mg Q4HR PRN Administration Blood Pressure - High Fentanyl Citrate 2,500 mcg in 250 mls @ 15 mls/hr 12/05/24 13:50 12/06/24 07:39 Fentanyl 2,500 Mcg/Ns 250 Ml IV CONT 150 mcg/hr .[id number] JULIUS 15 mls/hr Titration Protocol 150 MCG/HR Midazolam HCl 100 mg in 100 mls @ 8 mls/hr 12/05/24 13:50 12/06/24 07:40 Versed 100 Mg/Ns 100 Ml IV CONT 8 mg/hr .[id number] JULIUS 8 mls/hr Titration Protocol 8 MG/HR Amiodarone HCl/Dextrose 360 mg in 200 mls @ 16.667 mls/hr 12/05/24 19:47 12/06/24 07:00 Nexterone 360 Mg/D5w 200 Ml IV CONT 0.5 mg/min .Q12H JULIUS 16.67 mls/hr Infusion 0.5 MG/MIN Piperacillin/Tazobactam/Dextrose 3.375 gm in 50 mls @ 100 mls/hr 12/05/24 15:00 12/06/24 03:40 Zosyn 3.375 Gm/Ns 50 Ml IVPB Infused Q6H JULIUS Infusion Cisatracurium Besylate 200 mg/ 100 mls @ 9.353 mls/hr 12/05/24 14:15 12/06/24 06:00 Sodium Chloride IV CONT 2.5 mcg/kg/min .[id number] JULIUS 9.35 mls/hr Titration Protocol 2.5 MCG/KG/MIN Dextrose 1,000 mls @ 100 mls/hr 12/06/24 07:25 Dextrose 5% 1,000 Ml IVPB PRN PRN Hypoglycemia Protocol Propofol 100 mls @ 3.732 mls/hr 12/06/24 07:35 Diprivan IV CONT .[id number] JULIUS Protocol 5 MCG/KG/MIN Insulin Aspart 4 - 8 units 12/06/24 09:00 Insulin Aspart (*Bkc) 100 Units/Ml SUB-Q Q4HR JULIUS Protocol Insulin Glargine 10 units 12/06/24 09:00 Insulin Glargine (*Bkc) 100 Units/Ml SUB-Q QAM JULIUS Labetalol HCl 20 mg 12/06/24 07:34 Labetalol Hcl Inj 100 Mg/20 Ml Vial IV PUSH Q4H PRN SBP > 160 and HR> 60 -1st choice Multi-Ingred Cream/Lotion/Oil/Oint 1 applic 12/05/24 21:00 12/05/24 20:28 Mineral Oil/White Petrolatum Ointment EACH EYE 1 applic Q12HR JULIUS Administration Nitroglycerin 0.4 mg 12/05/24 13:47 Nitroglycerin Sl 0.4 Mg Tablet SUBLINGUAL Q5MIN PRN Chest Pain Pantoprazole Sodium 40 mg 12/06/24 07:40 Pantoprazole Sodium Iv 40 Mg Vial IV PUSH Q12HR [facility] Perflutren Lipid Microsphere 0 ml 12/05/24 13:23 Perflutren Lipid Microspheres 1.5 Ml Vial Diluted To 10 Ml Total Volume IV PU SH 12/08/24 13:23 ONCE PRN adequate visualization Protocol Sodium Chloride 10 ml 12/05/24 22:00 12/06/24 06:23 Central Line Flush IV PUSH 10 ml Q8HR JULIUS Administration Sodium Chloride 20 ml 12/05/24 15:00 Central Line Flush IV PUSH PRN PRN after blood draws Ticagrelor 90 mg 12/05/24 21:00 12/05/24 20:28 Ticagrelor 90 Mg Tablet FEED TUBE 90 mg Q12HR JULIUS Administration Radiology Results: ITS Impressions Head CT 12/05/24 12:09 Impression: Stable CT examination of the head without change from 2006 examination, without acute intracranial hemorrhage or suspicious mass effect. Cervical Spine CT 12/05/24 12:16 Impression: No acute displaced fracture within the cervical spine. Large right-sided and small left-sided pleural effusions without pneumothorax for which further evaluation post cardiac intervention is suggested (if the patient is clinically able). Chest X-Ray 12/06/24 05:54 Impression: [id number] bilateral pleural effusions with mild pulmonary edema/atelectatic change. Support tubes, as above. Labs Labs: Laboratory Results - last 24 hr 12/05/24 12/05/24 12/05/24 12:51 13:15 13:51 WBC RBC Hgb Hct MCV MCH MCHC RDW Plt Count MPV Immature Gran % (Auto) Neut % (Auto) Lymph % (Auto) [place] % (Auto) Eos % (Auto) Baso % (Auto) Lymph # (Auto) [place] # (Auto) Eos # (Auto) Baso # (Auto) Abs Immat Gran (auto) Absolute Neuts (auto) Absolute Nucleated RBC Total Counted Neutrophils % (Manual) Band Neutrophils % Lymphocytes % (Manual) Monocytes % (Manual) Nucleated RBC % Abs Neuts (Manual) Abs Lymphs (Manual) Abs Monocytes (Manual) Platelet Estimate Clumped Platelets Schistocytes PT INR APTT Activ Coag Time Kaolin 233 H 239 H 297 H Puncture Site ABG pH ABG pCO2 ABG pO2 ABG PO2/FiO2 Ratio ABG HCO3 ABG O2 Saturation ABG O2 Content ABG Base Excess A-a Gradient Oxyhemoglobin Total Hemoglobin O2 Delivery Device O2 Liters/Min Minute Volume Vent Rate Vent Mode FiO2 Tidal Volume PEEP Peak Inspir Pressure Pressure Support Sodium Potassium Chloride Carbon Dioxide Anion Gap BUN Creatinine Estim Creat Clear Calc Estimated GFR Glucose POC Capillary Glucose Hemoglobin A1c Lactic Acid Calcium Phosphorus Magnesium Total Bilirubin AST ALT Alkaline Phosphatase Troponin I Total Protein Albumin Triglycerides Cholesterol LDL Cholesterol Direct HDL Direct Procalcitonin Urine Color Urine Appearance Urine pH Ur Specific [place] Urine Protein Urine Glucose (UA) Urine Ketones Ur Blood (Man) Urine Nitrate Urine Bilirubin Urine Urobilinogen Leukocyte Esterase Rfl Urine RBC Urine WBC Ur Squamous Epith Cells Urine Bacteria Urine Casts Hyaline Casts Nasal MRSA (PCR) Urine Opiates Screen Urine Methadone Screen Ur Barbiturates Screen Ur Phencyclidine Scrn Ur Amphetamine Screen U Benzodiazepines Scrn Urine Cocaine Screen U Cannabinoids Screen 12/05/24 12/05/24 12/05/24 15:05 15:08 15:12 WBC 26.0 H RBC 5.58 Hgb 17.3 Hct 52.4 H MCV 93.9 MCH 31.0 MCHC 33.0 RDW 13.3 Plt Count 338 MPV 8.6 Immature Gran % (Auto) Not Reportable Neut % (Auto) Not Reportable Lymph % (Auto) Not Reportable [place] % (Auto) Not Reportable Eos % (Auto) Not Reportable Baso % (Auto) Not Reportable Lymph # (Auto) Not Reportable [place] # (Auto) Not Reportable Eos # (Auto) Not Reportable Baso # (Auto) Not Reportable Abs Immat Gran (auto) Not Reportable Absolute Neuts (auto) Not Reportable Absolute Nucleated RBC Not Reportable Total Counted 100 Neutrophils % (Manual) 79 H Band Neutrophils % 4 Lymphocytes % (Manual) 5.0 L Monocytes % (Manual) 12 H Nucleated RBC % Not Reportable Abs Neuts (Manual) 21.58 H Abs Lymphs (Manual) 1.30 Abs Monocytes (Manual) 3.12 H Platelet Estimate Adequate Clumped Platelets Present Schistocytes None seen PT 15.9 H INR 1.3 APTT > 200.0 H* Activ Coag Time Kaolin Puncture Site Right radial ABG pH 7.267 L* ABG pCO2 52.1 H ABG pO2 256.9 H ABG PO2/FiO2 Ratio 2.57 ABG HCO3 23.2 ABG O2 Saturation 99.5 ABG O2 Content 27.3 H ABG Base Excess -4.6 A-a Gradient 404.0 Oxyhemoglobin 98.6 Total Hemoglobin 19.3 H O2 Delivery Device Ventilator O2 Liters/Min Not Reportable Minute Volume Not Reportable Vent Rate 18 Vent Mode Assist control FiO2 100 Tidal Volume 450 PEEP 8 Peak Inspir Pressure Not Reportable Pressure Support Not Reportable Sodium 135 L Potassium 6.1 H* Chloride 103 Carbon Dioxide 25 Anion Gap 7 BUN 16 Creatinine 1.42 H Estim Creat Clear Calc 83 Estimated GFR 55 L Glucose 219 H POC Capillary Glucose Hemoglobin A1c 8.9 H Lactic Acid 2.6 H Calcium 8.0 L Phosphorus Magnesium 2.2 Total Bilirubin 1.2 AST 2115 H ALT 293 H Alkaline Phosphatase 100 Troponin I > 80.000 H* Total Protein 7.0 Albumin 3.9 Triglycerides Cholesterol LDL Cholesterol Direct HDL Direct Procalcitonin 0.5 Urine Color Yellow Urine Appearance Cloudy H Urine pH 5.5 Ur Specific [place] > 1.045 H Urine Protein 4+ H Urine Glucose (UA) 3+ H Urine Ketones Negative Ur Blood (Man) 3+ H Urine Nitrate Negative Urine Bilirubin Negative Urine Urobilinogen 1.0 Leukocyte Esterase Rfl Negative Urine RBC 3-5 H Urine WBC 11-20 H Ur Squamous Epith Cells Occasional Urine Bacteria Rare Urine Casts >20 Hyaline Casts Present Nasal MRSA (PCR) Not detected Urine Opiates Screen Negative Urine Methadone Screen Negative Ur Barbiturates Screen Negative Ur Phencyclidine Scrn Negative Ur Amphetamine Screen Negative U Benzodiazepines Scrn Positive A Urine Cocaine Screen Negative U Cannabinoids Screen Positive A 12/05/24 12/05/24 12/05/24 16:35 17:46 19:19 WBC RBC Hgb Hct MCV MCH MCHC RDW Plt Count MPV Immature Gran % (Auto) Neut % (Auto) Lymph % (Auto) [place] % (Auto) Eos % (Auto) Baso % (Auto) Lymph # (Auto) [place] # (Auto) Eos # (Auto) Baso # (Auto) Abs Immat Gran (auto) Absolute Neuts (auto) Absolute Nucleated RBC Total Counted Neutrophils % (Manual) Band Neutrophils % Lymphocytes % (Manual) Monocytes % (Manual) Nucleated RBC % Abs Neuts (Manual) Abs Lymphs (Manual) Abs Monocytes (Manual) Platelet Estimate Clumped Platelets Schistocytes PT INR APTT Activ Coag Time Kaolin Puncture Site ABG pH ABG pCO2 ABG pO2 ABG PO2/FiO2 Ratio ABG HCO3 ABG O2 Saturation ABG O2 Content ABG Base Excess A-a Gradient Oxyhemoglobin Total Hemoglobin O2 Delivery Device O2 Liters/Min Minute Volume Vent Rate Vent Mode FiO2 Tidal Volume PEEP Peak Inspir Pressure Pressure Support Sodium Potassium Chloride Carbon Dioxide Anion Gap BUN Creatinine Estim Creat Clear Calc Estimated GFR Glucose POC Capillary Glucose 205 H 344 H 270 H Hemoglobin A1c Lactic Acid Calcium Phosphorus Magnesium Total Bilirubin AST ALT Alkaline Phosphatase Troponin I Total Protein Albumin Triglycerides Cholesterol LDL Cholesterol Direct HDL Direct Procalcitonin Urine Color Urine Appearance Urine pH Ur Specific [place] Urine Protein Urine Glucose (UA) Urine Ketones Ur Blood (Man) Urine Nitrate Urine Bilirubin Urine Urobilinogen Leukocyte Esterase Rfl Urine RBC Urine WBC Ur Squamous Epith Cells Urine Bacteria Urine Casts Hyaline Casts Nasal MRSA (PCR) Urine Opiates Screen Urine Methadone Screen Ur Barbiturates Screen Ur Phencyclidine Scrn Ur Amphetamine Screen U Benzodiazepines Scrn Urine Cocaine Screen U Cannabinoids Screen 12/05/24 12/05/24 12/05/24 19:54 20:20 21:06 WBC RBC Hgb Hct MCV MCH MCHC RDW Plt Count MPV Immature Gran % (Auto) Neut % (Auto) Lymph % (Auto) [place] % (Auto) Eos % (Auto) Baso % (Auto) Lymph # (Auto) [place] # (Auto) Eos # (Auto) Baso # (Auto) Abs Immat Gran (auto) Absolute Neuts (auto) Absolute Nucleated RBC Total Counted Neutrophils % (Manual) Band Neutrophils % Lymphocytes % (Manual) Monocytes % (Manual) Nucleated RBC % Abs Neuts (Manual) Abs Lymphs (Manual) Abs Monocytes (Manual) Platelet Estimate Clumped Platelets Schistocytes PT INR APTT Activ Coag Time Kaolin Puncture Site ABG pH ABG pCO2 ABG pO2 ABG PO2/FiO2 Ratio ABG HCO3 ABG O2 Saturation ABG O2 Content ABG Base Excess A-a Gradient Oxyhemoglobin Total Hemoglobin O2 Delivery Device O2 Liters/Min Minute Volume Vent Rate Vent Mode FiO2 Tidal Volume PEEP Peak Inspir Pressure Pressure Support Sodium Potassium Chloride Carbon Dioxide Anion Gap BUN Creatinine Estim Creat Clear Calc Estimated GFR Glucose POC Capillary Glucose 274 H 255 H Hemoglobin A1c Lactic Acid 2.1 H Calcium Phosphorus Magnesium Total Bilirubin AST ALT Alkaline Phosphatase Troponin I > 80.000 H* Total Protein Albumin Triglycerides Cholesterol LDL Cholesterol Direct HDL Direct Procalcitonin Urine Color Urine Appearance Urine pH Ur Specific [place] Urine Protein Urine Glucose (UA) Urine Ketones Ur Blood (Man) Urine Nitrate Urine Bilirubin Urine Urobilinogen Leukocyte Esterase Rfl Urine RBC Urine WBC Ur Squamous Epith Cells Urine Bacteria Urine Casts Hyaline Casts Nasal MRSA (PCR) Urine Opiates Screen Urine Methadone Screen Ur Barbiturates Screen Ur Phencyclidine Scrn Ur Amphetamine Screen U Benzodiazepines Scrn Urine Cocaine Screen U Cannabinoids Screen 12/05/24 12/05/24 12/06/24 22:04 23:05 00:04 WBC RBC Hgb Hct MCV MCH MCHC RDW Plt Count MPV Immature Gran % (Auto) Neut % (Auto) Lymph % (Auto) [place] % (Auto) Eos % (Auto) Baso % (Auto) Lymph # (Auto) [place] # (Auto) Eos # (Auto) Baso # (Auto) Abs Immat Gran (auto) Absolute Neuts (auto) Absolute Nucleated RBC Total Counted Neutrophils % (Manual) Band Neutrophils % Lymphocytes % (Manual) Monocytes % (Manual) Nucleated RBC % Abs Neuts (Manual) Abs Lymphs (Manual) Abs Monocytes (Manual) Platelet Estimate Clumped Platelets Schistocytes PT INR APTT Activ Coag Time Kaolin Puncture Site ABG pH ABG pCO2 ABG pO2 ABG PO2/FiO2 Ratio ABG HCO3 ABG O2 Saturation ABG O2 Content ABG Base Excess A-a Gradient Oxyhemoglobin Total Hemoglobin O2 Delivery Device O2 Liters/Min Minute Volume Vent Rate Vent Mode FiO2 Tidal Volume PEEP Peak Inspir Pressure Pressure Support Sodium Potassium Chloride Carbon Dioxide Anion Gap BUN Creatinine Estim Creat Clear Calc Estimated GFR Glucose POC Capillary Glucose 265 H 257 H 279 H Hemoglobin A1c Lactic Acid Calcium Phosphorus Magnesium Total Bilirubin AST ALT Alkaline Phosphatase Troponin I Total Protein Albumin Triglycerides Cholesterol LDL Cholesterol Direct HDL Direct Procalcitonin Urine Color Urine Appearance Urine pH Ur Specific [place] Urine Protein Urine Glucose (UA) Urine Ketones Ur Blood (Man) Urine Nitrate Urine Bilirubin Urine Urobilinogen Leukocyte Esterase Rfl Urine RBC Urine WBC Ur Squamous Epith Cells Urine Bacteria Urine Casts Hyaline Casts Nasal MRSA (PCR) Urine Opiates Screen Urine Methadone Screen Ur Barbiturates Screen Ur Phencyclidine Scrn Ur Amphetamine Screen U Benzodiazepines Scrn Urine Cocaine Screen U Cannabinoids Screen 12/06/24 12/06/24 12/06/24 01:02 01:56 02:04 WBC 18.5 H RBC 5.80 Hgb 18.1 H Hct 54.5 H MCV 94.0 MCH 31.2 MCHC 33.2 RDW 13.6 Plt Count 253 MPV 8.8 Immature Gran % (Auto) Neut % (Auto) Lymph % (Auto) [place] % (Auto) Eos % (Auto) Baso % (Auto) Lymph # (Auto) [place] # (Auto) Eos # (Auto) Baso # (Auto) Abs Immat Gran (auto) Absolute Neuts (auto) Absolute Nucleated RBC Total Counted Neutrophils % (Manual) Band Neutrophils % Lymphocytes % (Manual) Monocytes % (Manual) Nucleated RBC % Abs Neuts (Manual) Abs Lymphs (Manual) Abs Monocytes (Manual) Platelet Estimate Clumped Platelets Schistocytes PT 14.4 INR 1.1 APTT 28.3 Activ Coag Time Kaolin Puncture Site ABG pH ABG pCO2 ABG pO2 ABG PO2/FiO2 Ratio ABG HCO3 ABG O2 Saturation ABG O2 Content ABG Base Excess A-a Gradient Oxyhemoglobin Total Hemoglobin O2 Delivery Device O2 Liters/Min Minute Volume Vent Rate Vent Mode FiO2 Tidal Volume PEEP Peak Inspir Pressure Pressure Support Sodium Potassium Chloride Carbon Dioxide Anion Gap BUN Creatinine Estim Creat Clear Calc Estimated GFR Glucose POC Capillary Glucose 261 H 255 H Hemoglobin A1c Lactic Acid 2.5 H Calcium Phosphorus Magnesium Total Bilirubin AST ALT Alkaline Phosphatase Troponin I Total Protein Albumin Triglycerides Cholesterol LDL Cholesterol Direct HDL Direct Procalcitonin Urine Color Urine Appearance Urine pH Ur Specific [place] Urine Protein Urine Glucose (UA) Urine Ketones Ur Blood (Man) Urine Nitrate Urine Bilirubin Urine Urobilinogen Leukocyte Esterase Rfl Urine RBC Urine WBC Ur Squamous Epith Cells Urine Bacteria Urine Casts Hyaline Casts Nasal MRSA (PCR) Urine Opiates Screen Urine Methadone Screen Ur Barbiturates Screen Ur Phencyclidine Scrn Ur Amphetamine Screen U Benzodiazepines Scrn Urine Cocaine Screen U Cannabinoids Screen 12/06/24 12/06/24 12/06/24 02:05 03:05 03:59 WBC RBC Hgb Hct MCV MCH MCHC RDW Plt Count MPV Immature Gran % (Auto) Neut % (Auto) Lymph % (Auto) [place] % (Auto) Eos % (Auto) Baso % (Auto) Lymph # (Auto) [place] # (Auto) Eos # (Auto) Baso # (Auto) Abs Immat Gran (auto) Absolute Neuts (auto) Absolute Nucleated RBC Total Counted Neutrophils % (Manual) Band Neutrophils % Lymphocytes % (Manual) Monocytes % (Manual) Nucleated RBC % Abs Neuts (Manual) Abs Lymphs (Manual) Abs Monocytes (Manual) Platelet Estimate Clumped Platelets Schistocytes PT INR APTT Activ Coag Time Kaolin Puncture Site ABG pH ABG pCO2 ABG pO2 ABG PO2/FiO2 Ratio ABG HCO3 ABG O2 Saturation ABG O2 Content ABG Base Excess A-a Gradient Oxyhemoglobin Total Hemoglobin O2 Delivery Device O2 Liters/Min Minute Volume Vent Rate Vent Mode FiO2 Tidal Volume PEEP Peak Inspir Pressure Pressure Support Sodium 136 L Potassium 4.6 Chloride 100 Carbon Dioxide 28 Anion Gap 8 BUN 14 Creatinine 1.15 Estim Creat Clear Calc 102 Estimated GFR > 60 Glucose 266 H POC Capillary Glucose 265 H 268 H Hemoglobin A1c Lactic Acid Calcium 8.4 Phosphorus 3.2 Magnesium Total Bilirubin AST ALT Alkaline Phosphatase Troponin I > 80.000 H* Total Protein Albumin Triglycerides 365 H Cholesterol 180 LDL Cholesterol Direct 92 HDL Direct 39 Procalcitonin Urine Color Urine Appearance Urine pH Ur Specific [place] Urine Protein Urine Glucose (UA) Urine Ketones Ur Blood (Man) Urine Nitrate Urine Bilirubin Urine Urobilinogen Leukocyte Esterase Rfl Urine RBC Urine WBC Ur Squamous Epith Cells Urine Bacteria Urine Casts Hyaline Casts Nasal MRSA (PCR) Urine Opiates Screen Urine Methadone Screen Ur Barbiturates Screen Ur Phencyclidine Scrn Ur Amphetamine Screen U Benzodiazepines Scrn Urine Cocaine Screen U Cannabinoids Screen 12/06/24 12/06/24 12/06/24 04:27 05:04 05:57 WBC 18.4 H RBC 5.66 Hgb 18.0 Hct 53.8 H MCV 95.1 MCH 31.8 MCHC 33.5 RDW 13.4 Plt Count TNP MPV TNP Immature Gran % (Auto) 0.7 H Neut % (Auto) 82.8 H Lymph % (Auto) 4.8 L [place] % (Auto) 11.4 H Eos % (Auto) 0.0 Baso % (Auto) 0.3 Lymph # (Auto) 0.89 L [place] # (Auto) 2.1 H Eos # (Auto) 0.0 Baso # (Auto) 0.1 Abs Immat Gran (auto) 0.12 H Absolute Neuts (auto) 15.3 H Absolute Nucleated RBC 0.000 Total Counted Neutrophils % (Manual) Band Neutrophils % Lymphocytes % (Manual) Monocytes % (Manual) Nucleated RBC % 0.0 Abs Neuts (Manual) Abs Lymphs (Manual) Abs Monocytes (Manual) Platelet Estimate Clumped Platelets Schistocytes PT INR APTT Activ Coag Time Kaolin Puncture Site Left radial ABG pH 7.369 ABG pCO2 43.3 ABG pO2 98.3 ABG PO2/FiO2 Ratio 1.97 ABG HCO3 24.4 ABG O2 Saturation 97.3 ABG O2 Content 26.6 H ABG Base Excess -1.1 A-a Gradient 209.5 Oxyhemoglobin 96.9 Total Hemoglobin 19.5 H O2 Delivery Device Ventilator O2 Liters/Min Not Reportable Minute Volume Not Reportable Vent Rate 22 Vent Mode Cmv FiO2 50 Tidal Volume 450 PEEP 8 Peak Inspir Pressure Not Reportable Pressure Support Not Reportable Sodium 138 Potassium 4.2 Chloride 100 Carbon Dioxide 28 Anion Gap 10 BUN 13 Creatinine 1.12 Estim Creat Clear Calc 104 Estimated GFR > 60 Glucose 260 H POC Capillary Glucose 268 H Hemoglobin A1c Lactic Acid Calcium 8.5 Phosphorus 3.5 Magnesium 2.4 H Total Bilirubin 1.2 AST 1326 H ALT 309 H Alkaline Phosphatase 92 Troponin I Total Protein 7.1 Albumin 4.0 Triglycerides Cholesterol LDL Cholesterol Direct HDL Direct Procalcitonin Urine Color Urine Appearance Urine pH Ur Specific [place] Urine Protein Urine Glucose (UA) Urine Ketones Ur Blood (Man) Urine Nitrate Urine Bilirubin Urine Urobilinogen Leukocyte Esterase Rfl Urine RBC Urine WBC Ur Squamous Epith Cells Urine Bacteria Urine Casts Hyaline Casts Nasal MRSA (PCR) Urine Opiates Screen Urine Methadone Screen Ur Barbiturates Screen Ur Phencyclidine Scrn Ur Amphetamine Screen U Benzodiazepines Scrn Urine Cocaine Screen U Cannabinoids Screen 12/06/24 07:28 WBC RBC Hgb Hct MCV MCH MCHC RDW Plt Count MPV Immature Gran % (Auto) Neut % (Auto) Lymph % (Auto) [place] % (Auto) Eos % (Auto) Baso % (Auto) Lymph # (Auto) [place] # (Auto) Eos # (Auto) Baso # (Auto) Abs Immat Gran (auto) Absolute Neuts (auto) Absolute Nucleated RBC Total Counted Neutrophils % (Manual) Band Neutrophils % Lymphocytes % (Manual) Monocytes % (Manual) Nucleated RBC % Abs Neuts (Manual) Abs Lymphs (Manual) Abs Monocytes (Manual) Platelet Estimate Clumped Platelets Schistocytes PT INR APTT Activ Coag Time Kaolin Puncture Site ABG pH ABG pCO2 ABG pO2 ABG PO2/FiO2 Ratio ABG HCO3 ABG O2 Saturation ABG O2 Content ABG Base Excess A-a Gradient Oxyhemoglobin Total Hemoglobin O2 Delivery Device O2 Liters/Min Minute Volume Vent Rate Vent Mode FiO2 Tidal Volume PEEP Peak Inspir Pressure Pressure Support Sodium Potassium Chloride Carbon Dioxide Anion Gap BUN Creatinine Estim Creat Clear Calc Estimated GFR Glucose POC Capillary Glucose 284 H Hemoglobin A1c Lactic Acid Calcium Phosphorus Magnesium Total Bilirubin AST ALT Alkaline Phosphatase Troponin I Total Protein Albumin Triglycerides Cholesterol LDL Cholesterol Direct HDL Direct Procalcitonin Urine Color Urine Appearance Urine pH Ur Specific [place] Urine Protein Urine Glucose (UA) Urine Ketones Ur Blood (Man) Urine Nitrate Urine Bilirubin Urine Urobilinogen Leukocyte Esterase Rfl Urine RBC Urine WBC Ur Squamous Epith Cells Urine Bacteria Urine Casts Hyaline Casts Nasal MRSA (PCR) Urine Opiates Screen Urine Methadone Screen Ur Barbiturates Screen Ur Phencyclidine Scrn Ur Amphetamine Screen U Benzodiazepines Scrn Urine Cocaine Screen U Cannabinoids Screen Quality VTE Prophylaxis VTE prophylaxis: pharmacologic ordered
[2024-12-06] MEDS: PERFLUTREN LIPID MICROSPHERES 1.5 ML VIAL DILUTED TO 10 ML TOTAL VOLUME IV PUSH (08:10)
[2024-12-06] MEDS: MINERAL OIL/WHITE PETROLATUM OINTMENT 1 APPLIC EACH EYE ×2 (08:26→20:36)
[2024-12-06] MEDS: MIDAZOLAM HCL (*CRX) 2 MG/2 ML VIAL 4 MG IV PUSH (08:26)
--- NOTE | 2024-12-06 08:26 | IVDEFINITY ---
Prior to administration of IV Definity the patient was educated on the risks and benefits of the imaging enhancing agent including potential adverse side effects. The patient verbalized understanding. Allergies were verified. No exclusion criteria were identified and at least one of the following inclusion criteria were met: 1) physician request, 2) patient technically difficult to image (per the [place] [employer] guidelines of two or more segments not discernable within the apical view), or 3) questionable left ventricular function. ?
[2024-12-06] MEDS: PROPOFOL IV EMULSION 100 ML 3.73 MG IV CONT (08:27)
[2024-12-06] MEDS: PANTOPRAZOLE SODIUM IV 40 MG VIAL IV PUSH ×2 (08:27→20:36)
[2024-12-06 08:36] LABS: Triglycerides 256 mg/dL (<150)
[2024-12-06 08:45] LABS: NT Pro B Type Natriuretic Pept 4960 pg/mL (19.9-100)
[2024-12-06] MEDS: ASPIRIN 81 MG CHEWABLE TABLET FEED TUBE (08:55)
[2024-12-06] MEDS: ATORVASTATIN 40 MG TABLET 80 MG FEED TUBE (08:55)
[2024-12-06] MEDS: TICAGRELOR 90 MG TABLET FEED TUBE ×2 (08:55→20:43)
[2024-12-06 08:58] LABS: Creatine Kinase 6439 U/L (55-170)
[2024-12-06 09:07] LABS: Thyroid Stimulating Hormone Reflex 1.610 uIU/mL (0.465-4.68)
[2024-12-06] MEDS: CISATRACURIUM BESYLATE 200 MG in SODIUM CHLORIDE 0.9% IV 80 ML 9.35 ML IV CONT ×3 (09:27→19:58)
[2024-12-06] MEDS: INSULIN GLARGINE (*BKC) 100 UNITS/ML 10 UNITS SUB-Q (09:27)
[2024-12-06] MEDS: LACTATED RINGERS 1,000 ML 100 ML IV CONT (09:28)
[2024-12-06] MEDS: LACTATED RINGERS 1,000 ML 999 ML IV CONT (09:28)
[2024-12-06] MEDS: FENTANYL 2,500MCG/NS250ML(*CRX 2,500 MCG/250 ML BAG 15 MCG IV CONT (11:04)
--- NOTE | 2024-12-06 12:16 | P.PNCA_ITS ---
Progress Note: A&P Assessment and Plan (1) Acute ST elevation myocardial infarction: Code(s): I21.3 - ST elevation (STEMI) myocardial infarction of unspecified site Status: Acute (2) Cardiac arrest: Code(s): I46.9 - Cardiac arrest, cause unspecified Status: Acute Plan 44-year-old male with history of HTN, low testosterone on supplementation, who presented with OHCA. Initial rhythm was Vfib, Total CPR time almost 20 minutes. EKG suggestive of Acute Ant wall STEMI post ROSC. Cardiac catheterization showed 100% proximal LAD occlusion status post successful aspiration thrombectomy and PCI of proximal mid LAD with overlapping 0rsiro 3.5/22 and 3.0/13 mm IRWIN post dilated distally to 3.0-3.05 and proximally to 4.45-4.50. -Anterior STEMI status post PCI to proximal LAD -Outside hospital cardiac arrest due to VFib status post resuscitation-was started on amiodarone -Cardiogenic shock secondary to above -Bradycardia to the 40s Plan: Continue DAPT for 1 year with aspirin 81 mg daily and Brilinta 90 mg b.i.d.. Then continue aspirin 81 mg daily indefinitely Continue atorvastatin 80 mg daily TTE Further addition of guideline directed medical therapy based on results of TTE Patient has bradycardia to the 40s. Avoid AV agueda blocking and hold amiodarone drip Management of other medical issues per ICU team Subjective Date/time seen: 12/06/24 12:16 Interval history: Reason for encounter: Anterior STEMI, out of hospital VFib cardiac arrest status post resuscitation Interval history: Patient is currently intubated and sedated. No further history be obtained from him. Telemetry shows sinus rhythm with heart rate mostly in the 60s but transient drop to the 40s and 50s while on amiodarone drip. Review of Systems Review of Systems: Review of systems could not be performed due to patient being intubated and sedated. Exam Narrative: General: Alert oriented x3, no acute distress Neck: Supple, unable to assess JVD Chest: Bilaterally clear to auscultation, no rales or rhonchi Cardiac: S1, S2 +, tachycardic, regular rhythm, no murmurs or rubs Extremities: Bilateral lower extremity edema 1+, no skin rash Neurologic: Alert and oriented x3, no focal neurological deficits Objective Data Vital Signs Vital Signs: Vital Signs - 24 hr 12/05/24 14:02 12/05/24 14:15 12/05/24 14:15 Temperature Pulse Rate 102 H 102 H Respiratory Rate 25 H 25 H Blood Pressure Pulse Oximetry 100 Oxygen Delivery Mechanical Ventilation Fraction of Inspired Oxygen 100 12/05/24 14:18 12/05/24 14:32 12/05/24 14:33 Temperature Pulse Rate 96 96 96 Respiratory Rate 28 H 27 H 27 H Blood Pressure 119/95 H 118/99 H 118/99 H Pulse Oximetry 97 96 94 Oxygen Delivery Fraction of Inspired Oxygen 12/05/24 14:48 12/05/24 14:57 12/05/24 15:18 Temperature Pulse Rate 96 99 102 H Respiratory Rate 18 18 18 Blood Pressure 128/108 H 118/99 H 134/103 H Pulse Oximetry 97 96 Oxygen Delivery Fraction of Inspired Oxygen 12/05/24 15:32 12/05/24 15:32 12/05/24 15:34 Temperature 37.8 C H Pulse Rate 105 H 104 H 100 Respiratory Rate 20 Blood Pressure 138/108 H 138/108 H Pulse Oximetry 95 97 Oxygen Delivery Mechanical Ventilation Fraction of Inspired Oxygen 80 12/05/24 15:48 12/05/24 16:00 12/05/24 16:00 Temperature 38.0 C H 38.1 C H Pulse Rate 107 H 103 H 105 H Respiratory Rate 18 18 Blood Pressure 135/105 H 127/96 H Pulse Oximetry 95 98 Oxygen Delivery Fraction of Inspired Oxygen 12/05/24 16:00 12/05/24 16:00 12/05/24 16:00 Temperature Pulse Rate 106 H 98 98 Respiratory Rate 18 18 18 Blood Pressure 127/96 H Pulse Oximetry Oxygen Delivery Fraction of Inspired Oxygen 12/05/24 16:00 12/05/24 16:30 12/05/24 16:48 Temperature Pulse Rate 100 104 H 104 H Respiratory Rate 18 Blood Pressure 126/101 H Pulse Oximetry 94 91 Oxygen Delivery Mechanical Ventilation Fraction of Inspired Oxygen 50 12/05/24 17:00 12/05/24 17:15 12/05/24 17:48 Temperature 37.4 C 37.3 C Pulse Rate 95 102 H 93 Respiratory Rate 22 H 18 Blood Pressure 137/102 H 133/104 H Pulse Oximetry 95 94 98 Oxygen Delivery Mechanical Ventilation Fraction of Inspired Oxygen 50 12/05/24 18:00 12/05/24 18:00 12/05/24 18:00 Temperature 37.3 C 36.9 C Pulse Rate 98 83 78 Respiratory Rate 18 18 Blood Pressure 130/105 H 120/105 H Pulse Oximetry 92 100 Oxygen Delivery Fraction of Inspired Oxygen 12/05/24 18:00 12/05/24 18:00 12/05/24 18:00 Temperature Pulse Rate 93 78 78 Respiratory Rate 18 18 18 Blood Pressure 133/104 H Pulse Oximetry Oxygen Delivery Fraction of Inspired Oxygen 12/05/24 18:00 12/05/24 18:46 12/05/24 19:00 Temperature 36.8 C Pulse Rate 78 85 81 Respiratory Rate 22 H 22 H Blood Pressure 120/105 H 124/105 H Pulse Oximetry 100 Oxygen Delivery Fraction of Inspired Oxygen 12/05/24 19:00 12/05/24 20:00 12/05/24 20:00 Temperature 36.8 C 36.7 C 36.7 C Pulse Rate 83 74 74 Respiratory Rate 22 H 22 H 22 H Blood Pressure 126/106 H 127/110 H 127/110 H Pulse Oximetry 100 100 100 Oxygen Delivery Fraction of Inspired Oxygen 12/05/24 20:00 12/05/24 20:00 12/05/24 20:00 Temperature 36.6 C Pulse Rate 73 74 74 Respiratory Rate 22 H 22 H Blood Pressure 133/113 H 127/110 H Pulse Oximetry 100 Oxygen Delivery Fraction of Inspired Oxygen 12/05/24 20:00 12/05/24 20:00 12/05/24 20:00 Temperature Pulse Rate 74 74 Respiratory Rate 22 H Blood Pressure Pulse Oximetry Oxygen Delivery Mechanical Ventilation Fraction of Inspired Oxygen 50 12/05/24 20:20 12/05/24 20:26 12/05/24 20:29 Temperature 36.6 C Pulse Rate 73 70 76 Respiratory Rate 22 H 22 H Blood Pressure 133/113 H 133/113 H Pulse Oximetry 100 100 Oxygen Delivery Mechanical Ventilation Fraction of Inspired Oxygen 50 12/05/24 20:51 12/05/24 21:00 12/05/24 21:00 Temperature 36.1 C L 36.0 C L Pulse Rate 68 66 64 Respiratory Rate 22 H 22 H 22 H Blood Pressure 138/115 H 143/113 H 143/113 H Pulse Oximetry 100 100 Oxygen Delivery Fraction of Inspired Oxygen 12/05/24 21:11 12/05/24 21:14 12/05/24 21:24 Temperature 35.9 C L Pulse Rate 66 63 66 Respiratory Rate 22 H Blood Pressure 143/113 H 146/118 H 143/113 H Pulse Oximetry 100 Oxygen Delivery Fraction of Inspired Oxygen 12/05/24 22:00 12/05/24 22:00 12/05/24 22:00 Temperature Pulse Rate 60 60 60 Respiratory Rate 22 H 22 H Blood Pressure 148/114 H 148/114 H Pulse Oximetry Oxygen Delivery Fraction of Inspired Oxygen 12/05/24 22:00 12/05/24 22:00 12/05/24 22:00 Temperature 35.4 C L Pulse Rate 60 60 60 Respiratory Rate 22 H 22 H Blood Pressure 148/114 H Pulse Oximetry 100 Oxygen Delivery Fraction of Inspired Oxygen 12/05/24 22:00 12/05/24 23:00 12/05/24 23:00 Temperature 35.3 C L 34.8 C L 34.7 C L Pulse Rate 62 58 L 56 L Respiratory Rate 22 H 22 H 22 H Blood Pressure 148/114 H 151/117 H 151/117 H Pulse Oximetry 100 100 100 Oxygen Delivery Fraction of Inspired Oxygen 12/05/24 23:47 12/06/24 00:00 12/06/24 00:00 Temperature Pulse Rate 57 L 54 L 54 L Respiratory Rate 22 H 22 H Blood Pressure 156/124 H 156/124 H Pulse Oximetry 100 Oxygen Delivery Mechanical Ventilation Fraction of Inspired Oxygen 50 12/06/24 00:00 12/06/24 00:00 12/06/24 00:00 Temperature 34.1 C L 34.1 C L Pulse Rate 69 69 Respiratory Rate 22 H 22 H Blood Pressure 156/124 H 156/124 H Pulse Oximetry 100 100 Oxygen Delivery Mechanical Ventilation Fraction of Inspired Oxygen 50 12/06/24 00:00 12/06/24 00:00 12/06/24 00:00 Temperature 34.1 C L Pulse Rate 69 54 L Respiratory Rate 22 H Blood Pressure 156/124 H Pulse Oximetry 100 Oxygen Delivery Fraction of Inspired Oxygen 50 12/06/24 00:03 12/06/24 00:04 12/06/24 00:04 Temperature Pulse Rate 71 69 69 Respiratory Rate 22 H 22 H Blood Pressure 156/124 H Pulse Oximetry Oxygen Delivery Fraction of Inspired Oxygen 12/06/24 01:00 12/06/24 01:33 12/06/24 02:00 Temperature 33.6 C L Pulse Rate 50 L 67 Respiratory Rate 22 H Blood Pressure 160/125 H 165/127 H 172/131 H Pulse Oximetry 100 Oxygen Delivery Fraction of Inspired Oxygen 12/06/24 02:00 12/06/24 02:00 12/06/24 02:00 Temperature Pulse Rate 67 67 67 Respiratory Rate 22 H 22 H 22 H Blood Pressure 172/131 H Pulse Oximetry Oxygen Delivery Fraction of Inspired Oxygen 12/06/24 02:00 12/06/24 02:00 12/06/24 02:00 Temperature 32.9 C L 33.0 C L Pulse Rate 72 72 67 Respiratory Rate 22 H 22 H Blood Pressure 172/131 H 172/131 H Pulse Oximetry 100 100 Oxygen Delivery Fraction of Inspired Oxygen 12/06/24 02:55 12/06/24 03:00 12/06/24 03:00 Temperature 32.3 C L 32.4 C L Pulse Rate 66 63 61 Respiratory Rate 22 H 22 H Blood Pressure 145/106 H 141/107 H Pulse Oximetry 100 100 100 Oxygen Delivery Mechanical Ventilation Fraction of Inspired Oxygen 50 12/06/24 03:15 12/06/24 03:15 12/06/24 04:00 Temperature Pulse Rate 63 63 Respiratory Rate 22 H 22 H Blood Pressure Pulse Oximetry Oxygen Delivery Fraction of Inspired Oxygen 50 12/06/24 04:00 12/06/24 04:00 12/06/24 04:00 Temperature Pulse Rate 69 69 69 Respiratory Rate 22 H 22 H Blood Pressure 155/121 H 155/121 H Pulse Oximetry Oxygen Delivery Fraction of Inspired Oxygen 12/06/24 04:00 12/06/24 04:00 12/06/24 04:00 Temperature 32.4 C L Pulse Rate 69 69 Respiratory Rate 22 H 22 H Blood Pressure 155/121 H Pulse Oximetry 100 Oxygen Delivery Mechanical Ventilation Fraction of Inspired Oxygen 50 12/06/24 04:00 12/06/24 04:00 12/06/24 04:50 Temperature 32.4 C L Pulse Rate 69 68 77 Respiratory Rate 22 H Blood Pressure 155/121 H Pulse Oximetry 100 100 Oxygen Delivery Mechanical Ventilation Fraction of Inspired Oxygen 50 12/06/24 05:00 12/06/24 05:46 12/06/24 06:00 Temperature 33.2 C L Pulse Rate 83 109 H Respiratory Rate 22 H Blood Pressure 170/129 H 178/133 H 174/140 H Pulse Oximetry 100 Oxygen Delivery Fraction of Inspired Oxygen 12/06/24 06:00 12/06/24 06:00 12/06/24 06:00 Temperature Pulse Rate 109 H 109 H 109 H Respiratory Rate 22 H 22 H 22 H Blood Pressure 174/140 H Pulse Oximetry Oxygen Delivery Fraction of Inspired Oxygen 12/06/24 06:00 12/06/24 06:00 12/06/24 06:00 Temperature 34.1 C L 34.1 C L Pulse Rate 109 H 109 H 109 H Respiratory Rate 22 H 22 H Blood Pressure 174/140 H 174/140 H Pulse Oximetry 100 100 Oxygen Delivery Fraction of Inspired Oxygen 12/06/24 06:30 12/06/24 07:00 12/06/24 07:00 Temperature 34.6 C L Pulse Rate 113 H 113 H Respiratory Rate 22 H Blood Pressure 167/120 H 172/123 H 172/123 H Pulse Oximetry 99 Oxygen Delivery Fraction of Inspired Oxygen 12/06/24 07:00 12/06/24 07:39 12/06/24 07:40 Temperature 34.6 C L Pulse Rate 113 H 108 H 108 H Respiratory Rate 22 H 22 H 22 H Blood Pressure 172/123 H Pulse Oximetry 99 Oxygen Delivery Fraction of Inspired Oxygen 12/06/24 08:00 12/06/24 08:00 12/06/24 08:00 Temperature Pulse Rate 104 H 104 H 104 H Respiratory Rate 22 H 22 H 22 H Blood Pressure 164/123 H Pulse Oximetry Oxygen Delivery Fraction of Inspired Oxygen 12/06/24 08:00 12/06/24 08:00 12/06/24 08:12 Temperature 34.4 C L 34.4 C L Pulse Rate 102 H 102 H 101 H Respiratory Rate 22 H 22 H Blood Pressure 164/123 H 164/123 H Pulse Oximetry 99 99 99 Oxygen Delivery Mechanical Ventilation Fraction of Inspired Oxygen 50 12/06/24 08:27 12/06/24 08:27 12/06/24 08:27 Temperature Pulse Rate 97 96 96 Respiratory Rate 22 H Blood Pressure 164/123 H 164/123 H Pulse Oximetry Oxygen Delivery Fraction of Inspired Oxygen 12/06/24 09:27 12/06/24 09:27 12/06/24 10:00 Temperature Pulse Rate 83 83 74 Respiratory Rate 22 H 22 H 22 H Blood Pressure 160/119 H 160/119 H Pulse Oximetry Oxygen Delivery Fraction of Inspired Oxygen 12/06/24 10:00 12/06/24 10:00 12/06/24 10:00 Temperature Pulse Rate 74 74 74 Respiratory Rate 22 H 22 H Blood Pressure 128/88 128/88 Pulse Oximetry Oxygen Delivery Fraction of Inspired Oxygen 12/06/24 10:00 12/06/24 10:41 12/06/24 11:04 Temperature 32.4 C L Pulse Rate 74 59 L 58 L Respiratory Rate 22 H 22 H 22 H Blood Pressure 106/83 Pulse Oximetry 100 Oxygen Delivery Mechanical Ventilation Fraction of Inspired Oxygen 50 12/06/24 11:04 12/06/24 11:16 12/06/24 11:18 Temperature 32.2 C L Pulse Rate 58 L 57 L 52 L Respiratory Rate 22 H 22 H Blood Pressure 103/82 Pulse Oximetry 100 100 Oxygen Delivery Mechanical Ventilation Mechanical Ventilation Fraction of Inspired Oxygen 50 50 12/06/24 11:23 12/06/24 11:26 12/06/24 11:31 Temperature 32.2 C L 32.2 C L 32.2 C L Pulse Rate 54 L 55 L 55 L Respiratory Rate 22 H 22 H 22 H Blood Pressure 103/90 106/88 106/84 Pulse Oximetry 100 100 100 Oxygen Delivery Mechanical Ventilation Mechanical Ventilation Mechanical Ventilation Fraction of Inspired Oxygen 50 50 50 Intake/Output Intake/Output: Intake & Output 12/03/24 12/04/24 12/05/24 12/06/24 23:59 23:59 23:59 23:59 Intake Total 505.6 592.5 Output Total 700 740 Balance -194.4 -147.5 Meds/Results Medications: Active Medications Generic Name Dose Route Start Last Admin Trade Name Freq PRN Reason Stop Dose Admin Albuterol/Ipratropium 3 ml 12/05/24 13:20 Ipratropium 0.5 Mg/Albuterol Sulfate 2.5 Mg Ampul.Neb 3 Ml INHALATION Q6HRT PRN Wheezing Aspirin 81 mg 12/06/24 08:00 12/06/24 08:55 Aspirin 81 Mg Chewable Tablet FEED TUBE 81 mg DAILY@0800 JULIUS Administration Atorvastatin Calcium 80 mg 12/06/24 09:00 12/06/24 08:55 Atorvastatin 40 Mg Tablet FEED TUBE 80 mg DAILY JULIUS Administration Dextrose 12.5 gm 12/06/24 07:25 Dextrose 50% 25 Gm/50 Ml Syringe IV PUSH PRN PRN Hypoglycemia Protocol Glucagon 1 mg 12/06/24 07:25 Glucagon For Inj 1 Mg Vial IM PRN PRN Hypoglycemia Protocol Glucose 15 gm 12/06/24 07:25 Glucose Oral Gel 15 Gm Of Glucse In 37.5 Gm Tube PO PRN PRN Hypoglycemia Protocol Hydralazine HCl 20 mg 12/05/24 22:33 12/06/24 05:46 Hydralazine Hcl 20 Mg/Ml Vial IV PUSH 20 mg Q4HR PRN Administration Blood Pressure - High Fentanyl Citrate 2,500 mcg in 250 mls @ 15 mls/hr 12/05/24 13:50 12/06/24 11:04 Fentanyl 2,500 Mcg/Ns 250 Ml IV CONT 150 mcg/hr .[id number] JULIUS 15 mls/hr Administration Protocol 150 MCG/HR Midazolam HCl 100 mg in 100 mls @ 8 mls/hr 12/05/24 13:50 12/06/24 10:00 Versed 100 Mg/Ns 100 Ml IV CONT 8 mg/hr .[id number] JULIUS 8 mls/hr Titration Protocol 8 MG/HR Amiodarone HCl/Dextrose 360 mg in 200 mls @ 16.667 mls/hr 12/05/24 19:47 12/06/24 10:00 Nexterone 360 Mg/D5w 200 Ml IV CONT 0.5 mg/min .Q12H JULIUS 16.67 mls/hr Infusion 0.5 MG/MIN Cisatracurium Besylate 200 mg/ 100 mls @ 9.353 mls/hr 12/05/24 14:15 12/06/24 10:00 Sodium Chloride IV CONT 2.5 mcg/kg/min .[id number] JULIUS 9.35 mls/hr Titration Protocol 2.5 MCG/KG/MIN Dextrose 1,000 mls @ 100 mls/hr 12/06/24 07:25 Dextrose 5% 1,000 Ml IVPB PRN PRN Hypoglycemia Protocol Propofol 100 mls @ 3.732 mls/hr 12/06/24 07:35 12/06/24 10:00 Diprivan IV CONT 5 mcg/kg/min .[id number] JULIUS 3.73 mls/hr Titration Protocol 5 MCG/KG/MIN Lactated Ringer's 1,000 mls @ 100 mls/hr 12/06/24 09:15 12/06/24 09:28 Lr - Lactated Ringers Iv IV CONT 12/06/24 19:14 100 mls/hr .Q10H JULIUS Administration Lactated Ringer's 1,000 mls @ 150 mls/hr 12/06/24 11:35 Lr - Lactated Ringers Iv IV CONT .[id number] JULIUS Piperacillin Sod/Tazobactam 50 mls @ 100 mls/hr 12/06/24 15:00 Sod 3.375 gm/ Sodium Chloride IVPB Q6H JULIUS Insulin Aspart 4 - 8 units 12/06/24 09:00 12/06/24 09:26 Insulin Aspart (*Bkc) 100 Units/Ml SUB-Q 6 units Q4HR JULIUS Administration Protocol Insulin Glargine 10 units 12/06/24 09:00 12/06/24 09:27 Insulin Glargine (*Bkc) 100 Units/Ml SUB-Q 10 units QAM JULIUS Administration Labetalol HCl 20 mg 12/06/24 07:34 Labetalol Hcl Inj 100 Mg/20 Ml Vial IV PUSH Q4H PRN SBP > 160 and HR> 60 -1st choice Multi-Ingred Cream/Lotion/Oil/Oint 1 applic 12/05/24 21:00 12/06/24 08:26 Mineral Oil/White Petrolatum Ointment EACH EYE 1 applic Q12HR JULIUS Administration Nitroglycerin 0.4 mg 12/05/24 13:47 Nitroglycerin Sl 0.4 Mg Tablet SUBLINGUAL Q5MIN PRN Chest Pain Pantoprazole Sodium 40 mg 12/06/24 07:40 12/06/24 08:27 Pantoprazole Sodium Iv 40 Mg Vial IV PUSH 40 mg Q12HR JULIUS Administration Sodium Chloride 10 ml 12/05/24 22:00 12/06/24 06:23 Central Line Flush IV PUSH 10 ml Q8HR JULIUS Administration Sodium Chloride 20 ml 12/05/24 15:00 Central Line Flush IV PUSH PRN PRN after blood draws Ticagrelor 90 mg 12/05/24 21:00 12/06/24 08:55 Ticagrelor 90 Mg Tablet FEED TUBE 90 mg Q12HR JULIUS Administration Radiology Results: ITS Impressions Head CT 12/05/24 12:09 Impression: Stable CT examination of the head without change from 2006 examination, without acute intracranial hemorrhage or suspicious mass effect. Cervical Spine CT 12/05/24 12:16 Impression: No acute displaced fracture within the cervical spine. Large right-sided and small left-sided pleural effusions without pneumothorax for which further evaluation post cardiac intervention is suggested (if the patient is clinically able). Chest X-Ray 12/06/24 05:54 Impression: [id number] bilateral pleural effusions with mild pulmonary edema/atelectatic change. Support tubes, as above. Labs Labs: Laboratory Results - last 24 hr 12/05/24 12/05/24 12/05/24 12:51 13:15 13:51 WBC RBC Hgb Hct MCV MCH MCHC RDW Plt Count MPV Immature Gran % (Auto) Neut % (Auto) Lymph % (Auto) [place] % (Auto) Eos % (Auto) Baso % (Auto) Lymph # (Auto) [place] # (Auto) Eos # (Auto) Baso # (Auto) Abs Immat Gran (auto) Absolute Neuts (auto) Absolute Nucleated RBC Total Counted Neutrophils % (Manual) Band Neutrophils % Lymphocytes % (Manual) Monocytes % (Manual) Nucleated RBC % Abs Neuts (Manual) Abs Lymphs (Manual) Abs Monocytes (Manual) Platelet Estimate Clumped Platelets Schistocytes PT INR APTT Activ Coag Time Kaolin 233 H 239 H 297 H Puncture Site ABG pH ABG pCO2 ABG pO2 ABG PO2/FiO2 Ratio ABG HCO3 ABG O2 Saturation ABG O2 Content ABG Base Excess A-a Gradient Oxyhemoglobin Total Hemoglobin O2 Delivery Device O2 Liters/Min Minute Volume Vent Rate Vent Mode FiO2 Tidal Volume PEEP Peak Inspir Pressure Pressure Support Sodium Potassium Chloride Carbon Dioxide Anion Gap BUN Creatinine Estim Creat Clear Calc Estimated GFR Glucose POC Capillary Glucose Hemoglobin A1c Lactic Acid Calcium Phosphorus Magnesium Total Bilirubin AST ALT Alkaline Phosphatase Total Creatine Kinase Troponin I NT-Pro-B Natriuret Pep Total Protein Albumin Triglycerides Cholesterol LDL Cholesterol Direct HDL Direct Procalcitonin TSH (Reflex) Urine Color Urine Appearance Urine pH Ur Specific [place] Urine Protein Urine Glucose (UA) Urine Ketones Ur Blood (Man) Urine Nitrate Urine Bilirubin Urine Urobilinogen Leukocyte Esterase Rfl Urine RBC Urine WBC Ur Squamous Epith Cells Urine Bacteria Urine Casts Hyaline Casts Nasal MRSA (PCR) Urine Opiates Screen Urine Methadone Screen Ur Barbiturates Screen Ur Phencyclidine Scrn Ur Amphetamine Screen U Benzodiazepines Scrn Urine Cocaine Screen U Cannabinoids Screen 12/05/24 12/05/24 12/05/24 15:05 15:08 15:12 WBC 26.0 H RBC 5.58 Hgb 17.3 Hct 52.4 H MCV 93.9 MCH 31.0 MCHC 33.0 RDW 13.3 Plt Count 338 MPV 8.6 Immature Gran % (Auto) Not Reportable Neut % (Auto) Not Reportable Lymph % (Auto) Not Reportable [place] % (Auto) Not Reportable Eos % (Auto) Not Reportable Baso % (Auto) Not Reportable Lymph # (Auto) Not Reportable [place] # (Auto) Not Reportable Eos # (Auto) Not Reportable Baso # (Auto) Not Reportable Abs Immat Gran (auto) Not Reportable Absolute Neuts (auto) Not Reportable Absolute Nucleated RBC Not Reportable Total Counted 100 Neutrophils % (Manual) 79 H Band Neutrophils % 4 Lymphocytes % (Manual) 5.0 L Monocytes % (Manual) 12 H Nucleated RBC % Not Reportable Abs Neuts (Manual) 21.58 H Abs Lymphs (Manual) 1.30 Abs Monocytes (Manual) 3.12 H Platelet Estimate Adequate Clumped Platelets Present Schistocytes None seen PT 15.9 H INR 1.3 APTT > 200.0 H* Activ Coag Time Kaolin Puncture Site Right radial ABG pH 7.267 L* ABG pCO2 52.1 H ABG pO2 256.9 H ABG PO2/FiO2 Ratio 2.57 ABG HCO3 23.2 ABG O2 Saturation 99.5 ABG O2 Content 27.3 H ABG Base Excess -4.6 A-a Gradient 404.0 Oxyhemoglobin 98.6 Total Hemoglobin 19.3 H O2 Delivery Device Ventilator O2 Liters/Min Not Reportable Minute Volume Not Reportable Vent Rate 18 Vent Mode Assist control FiO2 100 Tidal Volume 450 PEEP 8 Peak Inspir Pressure Not Reportable Pressure Support Not Reportable Sodium 135 L Potassium 6.1 H* Chloride 103 Carbon Dioxide 25 Anion Gap 7 BUN 16 Creatinine 1.42 H Estim Creat Clear Calc 83 Estimated GFR 55 L Glucose 219 H POC Capillary Glucose Hemoglobin A1c 8.9 H Lactic Acid 2.6 H Calcium 8.0 L Phosphorus Magnesium 2.2 Total Bilirubin 1.2 AST 2115 H ALT 293 H Alkaline Phosphatase 100 Total Creatine Kinase Troponin I > 80.000 H* NT-Pro-B Natriuret Pep Total Protein 7.0 Albumin 3.9 Triglycerides Cholesterol LDL Cholesterol Direct HDL Direct Procalcitonin 0.5 TSH (Reflex) Urine Color Yellow Urine Appearance Cloudy H Urine pH 5.5 Ur Specific [place] > 1.045 H Urine Protein 4+ H Urine Glucose (UA) 3+ H Urine Ketones Negative Ur Blood (Man) 3+ H Urine Nitrate Negative Urine Bilirubin Negative Urine Urobilinogen 1.0 Leukocyte Esterase Rfl Negative Urine RBC 3-5 H Urine WBC 11-20 H Ur Squamous Epith Cells Occasional Urine Bacteria Rare Urine Casts >20 Hyaline Casts Present Nasal MRSA (PCR) Not detected Urine Opiates Screen Negative Urine Methadone Screen Negative Ur Barbiturates Screen Negative Ur Phencyclidine Scrn Negative Ur Amphetamine Screen Negative U Benzodiazepines Scrn Positive A Urine Cocaine Screen Negative U Cannabinoids Screen Positive A 12/05/24 12/05/24 12/05/24 16:35 17:46 19:19 WBC RBC Hgb Hct MCV MCH MCHC RDW Plt Count MPV Immature Gran % (Auto) Neut % (Auto) Lymph % (Auto) [place] % (Auto) Eos % (Auto) Baso % (Auto) Lymph # (Auto) [place] # (Auto) Eos # (Auto) Baso # (Auto) Abs Immat Gran (auto) Absolute Neuts (auto) Absolute Nucleated RBC Total Counted Neutrophils % (Manual) Band Neutrophils % Lymphocytes % (Manual) Monocytes % (Manual) Nucleated RBC % Abs Neuts (Manual) Abs Lymphs (Manual) Abs Monocytes (Manual) Platelet Estimate Clumped Platelets Schistocytes PT INR APTT Activ Coag Time Kaolin Puncture Site ABG pH ABG pCO2 ABG pO2 ABG PO2/FiO2 Ratio ABG HCO3 ABG O2 Saturation ABG O2 Content ABG Base Excess A-a Gradient Oxyhemoglobin Total Hemoglobin O2 Delivery Device O2 Liters/Min Minute Volume Vent Rate Vent Mode FiO2 Tidal Volume PEEP Peak Inspir Pressure Pressure Support Sodium Potassium Chloride Carbon Dioxide Anion Gap BUN Creatinine Estim Creat Clear Calc Estimated GFR Glucose POC Capillary Glucose 205 H 344 H 270 H Hemoglobin A1c Lactic Acid Calcium Phosphorus Magnesium Total Bilirubin AST ALT Alkaline Phosphatase Total Creatine Kinase Troponin I NT-Pro-B Natriuret Pep Total Protein Albumin Triglycerides Cholesterol LDL Cholesterol Direct HDL Direct Procalcitonin TSH (Reflex) Urine Color Urine Appearance Urine pH Ur Specific [place] Urine Protein Urine Glucose (UA) Urine Ketones Ur Blood (Man) Urine Nitrate Urine Bilirubin Urine Urobilinogen Leukocyte Esterase Rfl Urine RBC Urine WBC Ur Squamous Epith Cells Urine Bacteria Urine Casts Hyaline Casts Nasal MRSA (PCR) Urine Opiates Screen Urine Methadone Screen Ur Barbiturates Screen Ur Phencyclidine Scrn Ur Amphetamine Screen U Benzodiazepines Scrn Urine Cocaine Screen U Cannabinoids Screen 12/05/24 12/05/24 12/05/24 19:54 20:20 21:06 WBC RBC Hgb Hct MCV MCH MCHC RDW Plt Count MPV Immature Gran % (Auto) Neut % (Auto) Lymph % (Auto) [place] % (Auto) Eos % (Auto) Baso % (Auto) Lymph # (Auto) [place] # (Auto) Eos # (Auto) Baso # (Auto) Abs Immat Gran (auto) Absolute Neuts (auto) Absolute Nucleated RBC Total Counted Neutrophils % (Manual) Band Neutrophils % Lymphocytes % (Manual) Monocytes % (Manual) Nucleated RBC % Abs Neuts (Manual) Abs Lymphs (Manual) Abs Monocytes (Manual) Platelet Estimate Clumped Platelets Schistocytes PT INR APTT Activ Coag Time Kaolin Puncture Site ABG pH ABG pCO2 ABG pO2 ABG PO2/FiO2 Ratio ABG HCO3 ABG O2 Saturation ABG O2 Content ABG Base Excess A-a Gradient Oxyhemoglobin Total Hemoglobin O2 Delivery Device O2 Liters/Min Minute Volume Vent Rate Vent Mode FiO2 Tidal Volume PEEP Peak Inspir Pressure Pressure Support Sodium Potassium Chloride Carbon Dioxide Anion Gap BUN Creatinine Estim Creat Clear Calc Estimated GFR Glucose POC Capillary Glucose 274 H 255 H Hemoglobin A1c Lactic Acid 2.1 H Calcium Phosphorus Magnesium Total Bilirubin AST ALT Alkaline Phosphatase Total Creatine Kinase Troponin I > 80.000 H* NT-Pro-B Natriuret Pep Total Protein Albumin Triglycerides Cholesterol LDL Cholesterol Direct HDL Direct Procalcitonin TSH (Reflex) Urine Color Urine Appearance Urine pH Ur Specific [place] Urine Protein Urine Glucose (UA) Urine Ketones Ur Blood (Man) Urine Nitrate Urine Bilirubin Urine Urobilinogen Leukocyte Esterase Rfl Urine RBC Urine WBC Ur Squamous Epith Cells Urine Bacteria Urine Casts Hyaline Casts Nasal MRSA (PCR) Urine Opiates Screen Urine Methadone Screen Ur Barbiturates Screen Ur Phencyclidine Scrn Ur Amphetamine Screen U Benzodiazepines Scrn Urine Cocaine Screen U Cannabinoids Screen 12/05/24 12/05/24 12/06/24 22:04 23:05 00:04 WBC RBC Hgb Hct MCV MCH MCHC RDW Plt Count MPV Immature Gran % (Auto) Neut % (Auto) Lymph % (Auto) [place] % (Auto) Eos % (Auto) Baso % (Auto) Lymph # (Auto) [place] # (Auto) Eos # (Auto) Baso # (Auto) Abs Immat Gran (auto) Absolute Neuts (auto) Absolute Nucleated RBC Total Counted Neutrophils % (Manual) Band Neutrophils % Lymphocytes % (Manual) Monocytes % (Manual) Nucleated RBC % Abs Neuts (Manual) Abs Lymphs (Manual) Abs Monocytes (Manual) Platelet Estimate Clumped Platelets Schistocytes PT INR APTT Activ Coag Time Kaolin Puncture Site ABG pH ABG pCO2 ABG pO2 ABG PO2/FiO2 Ratio ABG HCO3 ABG O2 Saturation ABG O2 Content ABG Base Excess A-a Gradient Oxyhemoglobin Total Hemoglobin O2 Delivery Device O2 Liters/Min Minute Volume Vent Rate Vent Mode FiO2 Tidal Volume PEEP Peak Inspir Pressure Pressure Support Sodium Potassium Chloride Carbon Dioxide Anion Gap BUN Creatinine Estim Creat Clear Calc Estimated GFR Glucose POC Capillary Glucose 265 H 257 H 279 H Hemoglobin A1c Lactic Acid Calcium Phosphorus Magnesium Total Bilirubin AST ALT Alkaline Phosphatase Total Creatine Kinase Troponin I NT-Pro-B Natriuret Pep Total Protein Albumin Triglycerides Cholesterol LDL Cholesterol Direct HDL Direct Procalcitonin TSH (Reflex) Urine Color Urine Appearance Urine pH Ur Specific [place] Urine Protein Urine Glucose (UA) Urine Ketones Ur Blood (Man) Urine Nitrate Urine Bilirubin Urine Urobilinogen Leukocyte Esterase Rfl Urine RBC Urine WBC Ur Squamous Epith Cells Urine Bacteria Urine Casts Hyaline Casts Nasal MRSA (PCR) Urine Opiates Screen Urine Methadone Screen Ur Barbiturates Screen Ur Phencyclidine Scrn Ur Amphetamine Screen U Benzodiazepines Scrn Urine Cocaine Screen U Cannabinoids Screen 12/06/24 12/06/24 12/06/24 01:02 01:56 02:04 WBC 18.5 H RBC 5.80 Hgb 18.1 H Hct 54.5 H MCV 94.0 MCH 31.2 MCHC 33.2 RDW 13.6 Plt Count 253 MPV 8.8 Immature Gran % (Auto) Neut % (Auto) Lymph % (Auto) [place] % (Auto) Eos % (Auto) Baso % (Auto) Lymph # (Auto) [place] # (Auto) Eos # (Auto) Baso # (Auto) Abs Immat Gran (auto) Absolute Neuts (auto) Absolute Nucleated RBC Total Counted Neutrophils % (Manual) Band Neutrophils % Lymphocytes % (Manual) Monocytes % (Manual) Nucleated RBC % Abs Neuts (Manual) Abs Lymphs (Manual) Abs Monocytes (Manual) Platelet Estimate Clumped Platelets Schistocytes PT 14.4 INR 1.1 APTT 28.3 Activ Coag Time Kaolin Puncture Site ABG pH ABG pCO2 ABG pO2 ABG PO2/FiO2 Ratio ABG HCO3 ABG O2 Saturation ABG O2 Content ABG Base Excess A-a Gradient Oxyhemoglobin Total Hemoglobin O2 Delivery Device O2 Liters/Min Minute Volume Vent Rate Vent Mode FiO2 Tidal Volume PEEP Peak Inspir Pressure Pressure Support Sodium Potassium Chloride Carbon Dioxide Anion Gap BUN Creatinine Estim Creat Clear Calc Estimated GFR Glucose POC Capillary Glucose 261 H 255 H Hemoglobin A1c Lactic Acid 2.5 H Calcium Phosphorus Magnesium Total Bilirubin AST ALT Alkaline Phosphatase Total Creatine Kinase Troponin I NT-Pro-B Natriuret Pep Total Protein Albumin Triglycerides Cholesterol LDL Cholesterol Direct HDL Direct Procalcitonin TSH (Reflex) Urine Color Urine Appearance Urine pH Ur Specific [place] Urine Protein Urine Glucose (UA) Urine Ketones Ur Blood (Man) Urine Nitrate Urine Bilirubin Urine Urobilinogen Leukocyte Esterase Rfl Urine RBC Urine WBC Ur Squamous Epith Cells Urine Bacteria Urine Casts Hyaline Casts Nasal MRSA (PCR) Urine Opiates Screen Urine Methadone Screen Ur Barbiturates Screen Ur Phencyclidine Scrn Ur Amphetamine Screen U Benzodiazepines Scrn Urine Cocaine Screen U Cannabinoids Screen 12/06/24 12/06/24 12/06/24 02:05 03:05 03:59 WBC RBC Hgb Hct MCV MCH MCHC RDW Plt Count MPV Immature Gran % (Auto) Neut % (Auto) Lymph % (Auto) [place] % (Auto) Eos % (Auto) Baso % (Auto) Lymph # (Auto) [place] # (Auto) Eos # (Auto) Baso # (Auto) Abs Immat Gran (auto) Absolute Neuts (auto) Absolute Nucleated RBC Total Counted Neutrophils % (Manual) Band Neutrophils % Lymphocytes % (Manual) Monocytes % (Manual) Nucleated RBC % Abs Neuts (Manual) Abs Lymphs (Manual) Abs Monocytes (Manual) Platelet Estimate Clumped Platelets Schistocytes PT INR APTT Activ Coag Time Kaolin Puncture Site ABG pH ABG pCO2 ABG pO2 ABG PO2/FiO2 Ratio ABG HCO3 ABG O2 Saturation ABG O2 Content ABG Base Excess A-a Gradient Oxyhemoglobin Total Hemoglobin O2 Delivery Device O2 Liters/Min Minute Volume Vent Rate Vent Mode FiO2 Tidal Volume PEEP Peak Inspir Pressure Pressure Support Sodium 136 L Potassium 4.6 Chloride 100 Carbon Dioxide 28 Anion Gap 8 BUN 14 Creatinine 1.15 Estim Creat Clear Calc 102 Estimated GFR > 60 Glucose 266 H POC Capillary Glucose 265 H 268 H Hemoglobin A1c Lactic Acid Calcium 8.4 Phosphorus 3.2 Magnesium Total Bilirubin AST ALT Alkaline Phosphatase Total Creatine Kinase Troponin I > 80.000 H* NT-Pro-B Natriuret Pep Total Protein Albumin Triglycerides 365 H Cholesterol 180 LDL Cholesterol Direct 92 HDL Direct 39 Procalcitonin TSH (Reflex) Urine Color Urine Appearance Urine pH Ur Specific [place] Urine Protein Urine Glucose (UA) Urine Ketones Ur Blood (Man) Urine Nitrate Urine Bilirubin Urine Urobilinogen Leukocyte Esterase Rfl Urine RBC Urine WBC Ur Squamous Epith Cells Urine Bacteria Urine Casts Hyaline Casts Nasal MRSA (PCR) Urine Opiates Screen Urine Methadone Screen Ur Barbiturates Screen Ur Phencyclidine Scrn Ur Amphetamine Screen U Benzodiazepines Scrn Urine Cocaine Screen U Cannabinoids Screen 12/06/24 12/06/24 12/06/24 04:27 05:04 05:57 WBC 18.4 H RBC 5.66 Hgb 18.0 Hct 53.8 H MCV 95.1 MCH 31.8 MCHC 33.5 RDW 13.4 Plt Count TNP MPV TNP Immature Gran % (Auto) 0.7 H Neut % (Auto) 82.8 H Lymph % (Auto) 4.8 L [place] % (Auto) 11.4 H Eos % (Auto) 0.0 Baso % (Auto) 0.3 Lymph # (Auto) 0.89 L [place] # (Auto) 2.1 H Eos # (Auto) 0.0 Baso # (Auto) 0.1 Abs Immat Gran (auto) 0.12 H Absolute Neuts (auto) 15.3 H Absolute Nucleated RBC 0.000 Total Counted Neutrophils % (Manual) Band Neutrophils % Lymphocytes % (Manual) Monocytes % (Manual) Nucleated RBC % 0.0 Abs Neuts (Manual) Abs Lymphs (Manual) Abs Monocytes (Manual) Platelet Estimate Clumped Platelets Schistocytes PT INR APTT Activ Coag Time Kaolin Puncture Site Left radial ABG pH 7.369 ABG pCO2 43.3 ABG pO2 98.3 ABG PO2/FiO2 Ratio 1.97 ABG HCO3 24.4 ABG O2 Saturation 97.3 ABG O2 Content 26.6 H ABG Base Excess -1.1 A-a Gradient 209.5 Oxyhemoglobin 96.9 Total Hemoglobin 19.5 H O2 Delivery Device Ventilator O2 Liters/Min Not Reportable Minute Volume Not Reportable Vent Rate 22 Vent Mode Cmv FiO2 50 Tidal Volume 450 PEEP 8 Peak Inspir Pressure Not Reportable Pressure Support Not Reportable Sodium 138 Potassium 4.2 Chloride 100 Carbon Dioxide 28 Anion Gap 10 BUN 13 Creatinine 1.12 Estim Creat Clear Calc 104 Estimated GFR > 60 Glucose 260 H POC Capillary Glucose 268 H Hemoglobin A1c Lactic Acid Calcium 8.5 Phosphorus 3.5 Magnesium 2.4 H Total Bilirubin 1.2 AST 1326 H ALT 309 H Alkaline Phosphatase 92 Total Creatine Kinase Troponin I NT-Pro-B Natriuret Pep Total Protein 7.1 Albumin 4.0 Triglycerides Cholesterol LDL Cholesterol Direct HDL Direct Procalcitonin TSH (Reflex) Urine Color Urine Appearance Urine pH Ur Specific [place] Urine Protein Urine Glucose (UA) Urine Ketones Ur Blood (Man) Urine Nitrate Urine Bilirubin Urine Urobilinogen Leukocyte Esterase Rfl Urine RBC Urine WBC Ur Squamous Epith Cells Urine Bacteria Urine Casts Hyaline Casts Nasal MRSA (PCR) Urine Opiates Screen Urine Methadone Screen Ur Barbiturates Screen Ur Phencyclidine Scrn Ur Amphetamine Screen U Benzodiazepines Scrn Urine Cocaine Screen U Cannabinoids Screen 12/06/24 12/06/24 12/06/24 07:28 08:07 08:24 WBC RBC Hgb Hct MCV MCH MCHC RDW Plt Count MPV Immature Gran % (Auto) Neut % (Auto) Lymph % (Auto) [place] % (Auto) Eos % (Auto) Baso % (Auto) Lymph # (Auto) [place] # (Auto) Eos # (Auto) Baso # (Auto) Abs Immat Gran (auto) Absolute Neuts (auto) Absolute Nucleated RBC Total Counted Neutrophils % (Manual) Band Neutrophils % Lymphocytes % (Manual) Monocytes % (Manual) Nucleated RBC % Abs Neuts (Manual) Abs Lymphs (Manual) Abs Monocytes (Manual) Platelet Estimate Clumped Platelets Schistocytes PT INR APTT Activ Coag Time Kaolin Puncture Site ABG pH ABG pCO2 ABG pO2 ABG PO2/FiO2 Ratio ABG HCO3 ABG O2 Saturation ABG O2 Content ABG Base Excess A-a Gradient Oxyhemoglobin Total Hemoglobin O2 Delivery Device O2 Liters/Min Minute Volume Vent Rate Vent Mode FiO2 Tidal Volume PEEP Peak Inspir Pressure Pressure Support Sodium Potassium Chloride Carbon Dioxide Anion Gap BUN Creatinine Estim Creat Clear Calc Estimated GFR Glucose POC Capillary Glucose 284 H 312 H Hemoglobin A1c Lactic Acid 3.4 H Calcium Phosphorus Magnesium Total Bilirubin AST ALT Alkaline Phosphatase Total Creatine Kinase 6439 H Troponin I NT-Pro-B Natriuret Pep 4960 H Total Protein Albumin Triglycerides 256 H Cholesterol LDL Cholesterol Direct HDL Direct Procalcitonin TSH (Reflex) 1.610 Urine Color Urine Appearance Urine pH Ur Specific [place] Urine Protein Urine Glucose (UA) Urine Ketones Ur Blood (Man) Urine Nitrate Urine Bilirubin Urine Urobilinogen Leukocyte Esterase Rfl Urine RBC Urine WBC Ur Squamous Epith Cells Urine Bacteria Urine Casts Hyaline Casts Nasal MRSA (PCR) Urine Opiates Screen Urine Methadone Screen Ur Barbiturates Screen Ur Phencyclidine Scrn Ur Amphetamine Screen U Benzodiazepines Scrn Urine Cocaine Screen U Cannabinoids Screen 12/06/24 12/06/24 12/06/24 09:03 10:01 11:10 WBC RBC Hgb Hct MCV MCH MCHC RDW Plt Count MPV Immature Gran % (Auto) Neut % (Auto) Lymph % (Auto) [place] % (Auto) Eos % (Auto) Baso % (Auto) Lymph # (Auto) [place] # (Auto) Eos # (Auto) Baso # (Auto) Abs Immat Gran (auto) Absolute Neuts (auto) Absolute Nucleated RBC Total Counted Neutrophils % (Manual) Band Neutrophils % Lymphocytes % (Manual) Monocytes % (Manual) Nucleated RBC % Abs Neuts (Manual) Abs Lymphs (Manual) Abs Monocytes (Manual) Platelet Estimate Clumped Platelets Schistocytes PT INR APTT Activ Coag Time Kaolin Puncture Site ABG pH ABG pCO2 ABG pO2 ABG PO2/FiO2 Ratio ABG HCO3 ABG O2 Saturation ABG O2 Content ABG Base Excess A-a Gradient Oxyhemoglobin Total Hemoglobin O2 Delivery Device O2 Liters/Min Minute Volume Vent Rate Vent Mode FiO2 Tidal Volume PEEP Peak Inspir Pressure Pressure Support Sodium Potassium Chloride Carbon Dioxide Anion Gap BUN Creatinine Estim Creat Clear Calc Estimated GFR Glucose POC Capillary Glucose 306 H 325 H 322 H Hemoglobin A1c Lactic Acid Calcium Phosphorus Magnesium Total Bilirubin AST ALT Alkaline Phosphatase Total Creatine Kinase Troponin I NT-Pro-B Natriuret Pep Total Protein Albumin Triglycerides Cholesterol LDL Cholesterol Direct HDL Direct Procalcitonin TSH (Reflex) Urine Color Urine Appearance Urine pH Ur Specific [place] Urine Protein Urine Glucose (UA) Urine Ketones Ur Blood (Man) Urine Nitrate Urine Bilirubin Urine Urobilinogen Leukocyte Esterase Rfl Urine RBC Urine WBC Ur Squamous Epith Cells Urine Bacteria Urine Casts Hyaline Casts Nasal MRSA (PCR) Urine Opiates Screen Urine Methadone Screen Ur Barbiturates Screen Ur Phencyclidine Scrn Ur Amphetamine Screen U Benzodiazepines Scrn Urine Cocaine Screen U Cannabinoids Screen 12/06/24 11:13 WBC RBC Hgb Hct MCV MCH MCHC RDW Plt Count MPV Immature Gran % (Auto) Neut % (Auto) Lymph % (Auto) [place] % (Auto) Eos % (Auto) Baso % (Auto) Lymph # (Auto) [place] # (Auto) Eos # (Auto) Baso # (Auto) Abs Immat Gran (auto) Absolute Neuts (auto) Absolute Nucleated RBC Total Counted Neutrophils % (Manual) Band Neutrophils % Lymphocytes % (Manual) Monocytes % (Manual) Nucleated RBC % Abs Neuts (Manual) Abs Lymphs (Manual) Abs Monocytes (Manual) Platelet Estimate Clumped Platelets Schistocytes PT INR APTT Activ Coag Time Kaolin Puncture Site ABG pH ABG pCO2 ABG pO2 ABG PO2/FiO2 Ratio ABG HCO3 ABG O2 Saturation ABG O2 Content ABG Base Excess A-a Gradient Oxyhemoglobin Total Hemoglobin O2 Delivery Device O2 Liters/Min Minute Volume Vent Rate Vent Mode FiO2 Tidal Volume PEEP Peak Inspir Pressure Pressure Support Sodium Potassium Chloride Carbon Dioxide Anion Gap BUN Creatinine Estim Creat Clear Calc Estimated GFR Glucose POC Capillary Glucose Hemoglobin A1c Lactic Acid 3.2 H Calcium Phosphorus Magnesium Total Bilirubin AST ALT Alkaline Phosphatase Total Creatine Kinase Troponin I NT-Pro-B Natriuret Pep Total Protein Albumin Triglycerides Cholesterol LDL Cholesterol Direct HDL Direct Procalcitonin TSH (Reflex) Urine Color Urine Appearance Urine pH Ur Specific [place] Urine Protein Urine Glucose (UA) Urine Ketones Ur Blood (Man) Urine Nitrate Urine Bilirubin Urine Urobilinogen Leukocyte Esterase Rfl Urine RBC Urine WBC Ur Squamous Epith Cells Urine Bacteria Urine Casts Hyaline Casts Nasal MRSA (PCR) Urine Opiates Screen Urine Methadone Screen Ur Barbiturates Screen Ur Phencyclidine Scrn Ur Amphetamine Screen U Benzodiazepines Scrn Urine Cocaine Screen U Cannabinoids Screen
--- NOTE | 2024-12-06 13:52 | P.CONGI_ITS ---
Assessment and Plan Assessment and plan (1) GI bleed: Code(s): K92.2 - Gastrointestinal hemorrhage, unspecified Status: Acute Assessment and Plan: The patient is deemed a good candidate for the procedure. Will proceed. GI Consult Note Consult date/time: 12/06/24 13:52 Reason for consult: Upper GI bleeding HPI: Jason Kelsey Jr. is a 44 year old male who is currently intubated in the ICU after having had a cardiac arrest. The patient had an acute myocardial infarction and had stents placed in the left coronary artery. The orogastric tube shows coffee-ground material, we were consulted for an urgent EGD. 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0 Years smoked: 25 Smoking pack-years: 6.25 Smoking status: Current every day smoker Tobacco type: cigarettes Smokeless tobacco user: chewing tobacco Second hand tobacco smoke exposure: No Alcohol intake: current Drinks per week: 70 Substance use: current Substance use type: marijuana Lack of Transportation: No Lack of Food: Never True Current Housing: I Have Housing Concerned About Future Housing: No Difficulty Paying Gas/Electric Bills: No Difficulty Paying for Meds: No Currently Unemployed: No Education: High School Diploma/GED Difficulty w/ Childcare or Family Care: No Living arrangements: with family Occupation/Education: occupation Gender identity (if verbalized by the patient): Male Sexual Orientation (if Verbalized by the Patient): Straight or Heterosexual Spiritual care concerns: No Agree to blood products: Yes Meds Home Medications and Allergies Home Medications ?Medication ?Instructions ?Recorded ?Confirmed ?Type sildenafil 100 mg tablet 100 mg PO DAILY PRN sexual 11/04/22 08/26/24 Rx activity #6 tabs alprazolam 0.5 mg tablet 0.5 mg PO TID PRN anxiety #30 tabs 02/11/23 08/26/24 Rx fluticasone 113 mcg-salmeterol 14 See Rx Instructions .Route 06/25/23 08/26/24 Rx mcg/actuation breath activated .COMPLEX #1 ea powdr pantoprazole 40 mg tablet,delayed See Rx Instructions .Route 10/27/23 08/26/24 Rx release .COMPLEX #90 tabs syringe with needle 3 mL 21 gauge #3 ea 12/09/23 08/26/24 Rx x 1 (BD Luer-Kellie Syringe) duloxetine 60 mg capsule,delayed See Rx Instructions .Route 01/25/24 08/26/24 Rx release .COMPLEX #90 ea hydrochlorothiazide 25 mg tablet See Rx Instructions .Route 01/25/24 08/26/24 Rx .COMPLEX #90 tabs furosemide 20 mg tablet 20 mg PO DAILY PRN edema #39 tabs 03/26/24 08/26/24 Rx Symbicort 80 mcg-4.5 mcg/actuation See Rx Instructions .Route 05/09/24 08/26/24 Rx HFA aerosol inhaler .COMPLEX #11 grams (budesonide-formoterol) albuterol sulfate 90 mcg/actuation See Rx Instructions .Route 05/25/24 08/26/24 Rx aerosol inhaler .COMPLEX #9 grams atenolol 100 mg tablet See Rx Instructions .Route 07/24/24 08/26/24 Rx .COMPLEX #90 tabs irbesartan 300 mg tablet See Rx Instructions .Route 07/24/24 08/26/24 Rx .COMPLEX #90 tabs montelukast 10 mg tablet 10 mg PO QHS #90 tabs 08/26/24 08/26/24 Rx verapamil 240 mg tablet,extended See Rx Instructions .Route 09/29/24 Rx release .COMPLEX #90 tabs testosterone cypionate 200 mg/mL 300 mg (1.5 mL) IM .every 2 weeks 10/25/24 Rx intramuscular oil #10 mL (Depo-Testosterone) syringe with needle 3 mL 21 gauge #6 ea 11/08/24 Rx x 1 1/2 (BD Luer-Kellie Syringe) Allergies Allergy/AdvReac Type Severity Reaction Status Date / Time lisinopril AdvReac Mild Cough Verified 12/05/24 18:28 Vital Signs Vital Signs - 24 hr 12/05/24 14:02 12/05/24 14:15 12/05/24 14:15 Temperature Pulse Rate 102 H 102 H Respiratory Rate 25 H 25 H Blood Pressure Pulse Oximetry 100 Oxygen Delivery Mechanical Ventilation Fraction of Inspired Oxygen 100 12/05/24 14:18 12/05/24 14:32 12/05/24 14:33 Temperature Pulse Rate 96 96 96 Respiratory Rate 28 H 27 H 27 H Blood Pressure 119/95 H 118/99 H 118/99 H Pulse Oximetry 97 96 94 Oxygen Delivery Fraction of Inspired Oxygen 12/05/24 14:48 12/05/24 14:57 12/05/24 15:18 Temperature Pulse Rate 96 99 102 H Respiratory Rate 18 18 18 Blood Pressure 128/108 H 118/99 H 134/103 H Pulse Oximetry 97 96 Oxygen Delivery Fraction of Inspired Oxygen 12/05/24 15:32 12/05/24 15:32 12/05/24 15:34 Temperature 100.1 F H Pulse Rate 105 H 104 H 100 Respiratory Rate 20 Blood Pressure 138/108 H 138/108 H Pulse Oximetry 95 97 Oxygen Delivery Mechanical Ventilation Fraction of Inspired Oxygen 80 12/05/24 15:48 12/05/24 16:00 12/05/24 16:00 Temperature 100.4 F H 100.5 F H Pulse Rate 107 H 103 H 105 H Respiratory Rate 18 18 Blood Pressure 135/105 H 127/96 H Pulse Oximetry 95 98 Oxygen Delivery Fraction of Inspired Oxygen 12/05/24 16:00 12/05/24 16:00 12/05/24 16:00 Temperature Pulse Rate 106 H 98 98 Respiratory Rate 18 18 18 Blood Pressure 127/96 H Pulse Oximetry Oxygen Delivery Fraction of Inspired Oxygen 12/05/24 16:00 12/05/24 16:30 12/05/24 16:48 Temperature Pulse Rate 100 104 H 104 H Respiratory Rate 18 Blood Pressure 126/101 H Pulse Oximetry 94 91 Oxygen Delivery Mechanical Ventilation Fraction of Inspired Oxygen 50 12/05/24 17:00 12/05/24 17:15 12/05/24 17:48 Temperature 99.4 F 99.1 F Pulse Rate 95 102 H 93 Respiratory Rate 22 H 18 Blood Pressure 137/102 H 133/104 H Pulse Oximetry 95 94 98 Oxygen Delivery Mechanical Ventilation Fraction of Inspired Oxygen 50 12/05/24 18:00 12/05/24 18:00 12/05/24 18:00 Temperature 99.1 F 98.5 F Pulse Rate 98 83 78 Respiratory Rate 18 18 Blood Pressure 130/105 H 120/105 H Pulse Oximetry 92 100 Oxygen Delivery Fraction of Inspired Oxygen 12/05/24 18:00 12/05/24 18:00 12/05/24 18:00 Temperature Pulse Rate 93 78 78 Respiratory Rate 18 18 18 Blood Pressure 133/104 H Pulse Oximetry Oxygen Delivery Fraction of Inspired Oxygen 12/05/24 18:00 12/05/24 18:46 12/05/24 19:00 Temperature 98.3 F Pulse Rate 78 85 81 Respiratory Rate 22 H 22 H Blood Pressure 120/105 H 124/105 H Pulse Oximetry 100 Oxygen Delivery Fraction of Inspired Oxygen 12/05/24 19:00 12/05/24 20:00 12/05/24 20:00 Temperature 98.2 F 98.0 F 98.0 F Pulse Rate 83 74 74 Respiratory Rate 22 H 22 H 22 H Blood Pressure 126/106 H 127/110 H 127/110 H Pulse Oximetry 100 100 100 Oxygen Delivery Fraction of Inspired Oxygen 12/05/24 20:00 12/05/24 20:00 12/05/24 20:00 Temperature 97.8 F Pulse Rate 73 74 74 Respiratory Rate 22 H 22 H Blood Pressure 133/113 H 127/110 H Pulse Oximetry 100 Oxygen Delivery Fraction of Inspired Oxygen 12/05/24 20:00 12/05/24 20:00 12/05/24 20:00 Temperature Pulse Rate 74 74 Respiratory Rate 22 H Blood Pressure Pulse Oximetry Oxygen Delivery Mechanical Ventilation Fraction of Inspired Oxygen 50 12/05/24 20:20 12/05/24 20:26 12/05/24 20:29 Temperature 97.8 F Pulse Rate 73 70 76 Respiratory Rate 22 H 22 H Blood Pressure 133/113 H 133/113 H Pulse Oximetry 100 100 Oxygen Delivery Mechanical Ventilation Fraction of Inspired Oxygen 50 12/05/24 20:51 12/05/24 21:00 12/05/24 21:00 Temperature 97.0 F L 96.8 F L Pulse Rate 68 66 64 Respiratory Rate 22 H 22 H 22 H Blood Pressure 138/115 H 143/113 H 143/113 H Pulse Oximetry 100 100 Oxygen Delivery Fraction of Inspired Oxygen 12/05/24 21:11 12/05/24 21:14 12/05/24 21:24 Temperature 96.6 F L Pulse Rate 66 63 66 Respiratory Rate 22 H Blood Pressure 143/113 H 146/118 H 143/113 H Pulse Oximetry 100 Oxygen Delivery Fraction of Inspired Oxygen 12/05/24 22:00 12/05/24 22:00 12/05/24 22:00 Temperature Pulse Rate 60 60 60 Respiratory Rate 22 H 22 H Blood Pressure 148/114 H 148/114 H Pulse Oximetry Oxygen Delivery Fraction of Inspired Oxygen 12/05/24 22:00 12/05/24 22:00 12/05/24 22:00 Temperature 95.8 F L Pulse Rate 60 60 60 Respiratory Rate 22 H 22 H Blood Pressure 148/114 H Pulse Oximetry 100 Oxygen Delivery Fraction of Inspired Oxygen 12/05/24 22:00 12/05/24 23:00 12/05/24 23:00 Temperature 95.6 F L 94.7 F L 94.5 F L Pulse Rate 62 58 L 56 L Respiratory Rate 22 H 22 H 22 H Blood Pressure 148/114 H 151/117 H 151/117 H Pulse Oximetry 100 100 100 Oxygen Delivery Fraction of Inspired Oxygen 12/05/24 23:47 12/06/24 00:00 12/06/24 00:00 Temperature Pulse Rate 57 L 54 L 54 L Respiratory Rate 22 H 22 H Blood Pressure 156/124 H 156/124 H Pulse Oximetry 100 Oxygen Delivery Mechanical Ventilation Fraction of Inspired Oxygen 50 12/06/24 00:00 12/06/24 00:00 12/06/24 00:00 Temperature 93.3 F L 93.3 F L Pulse Rate 69 69 Respiratory Rate 22 H 22 H Blood Pressure 156/124 H 156/124 H Pulse Oximetry 100 100 Oxygen Delivery Mechanical Ventilation Fraction of Inspired Oxygen 50 12/06/24 00:00 12/06/24 00:00 12/06/24 00:00 Temperature 93.4 F L Pulse Rate 69 54 L Respiratory Rate 22 H Blood Pressure 156/124 H Pulse Oximetry 100 Oxygen Delivery Fraction of Inspired Oxygen 50 12/06/24 00:03 12/06/24 00:04 12/06/24 00:04 Temperature Pulse Rate 71 69 69 Respiratory Rate 22 H 22 H Blood Pressure 156/124 H Pulse Oximetry Oxygen Delivery Fraction of Inspired Oxygen 12/06/24 01:00 12/06/24 01:33 12/06/24 02:00 Temperature 92.4 F L Pulse Rate 50 L 67 Respiratory Rate 22 H Blood Pressure 160/125 H 165/127 H 172/131 H Pulse Oximetry 100 Oxygen Delivery Fraction of Inspired Oxygen 12/06/24 02:00 12/06/24 02:00 12/06/24 02:00 Temperature Pulse Rate 67 67 67 Respiratory Rate 22 H 22 H 22 H Blood Pressure 172/131 H Pulse Oximetry Oxygen Delivery Fraction of Inspired Oxygen 12/06/24 02:00 12/06/24 02:00 12/06/24 02:00 Temperature 91.3 F L 91.4 F L Pulse Rate 72 72 67 Respiratory Rate 22 H 22 H Blood Pressure 172/131 H 172/131 H Pulse Oximetry 100 100 Oxygen Delivery Fraction of Inspired Oxygen 12/06/24 02:55 12/06/24 03:00 12/06/24 03:00 Temperature 90.2 F L 90.3 F L Pulse Rate 66 63 61 Respiratory Rate 22 H 22 H Blood Pressure 145/106 H 141/107 H Pulse Oximetry 100 100 100 Oxygen Delivery Mechanical Ventilation Fraction of Inspired Oxygen 50 12/06/24 03:15 12/06/24 03:15 12/06/24 04:00 Temperature Pulse Rate 63 63 Respiratory Rate 22 H 22 H Blood Pressure Pulse Oximetry Oxygen Delivery Fraction of Inspired Oxygen 50 12/06/24 04:00 12/06/24 04:00 12/06/24 04:00 Temperature Pulse Rate 69 69 69 Respiratory Rate 22 H 22 H Blood Pressure 155/121 H 155/121 H Pulse Oximetry Oxygen Delivery Fraction of Inspired Oxygen 12/06/24 04:00 12/06/24 04:00 12/06/24 04:00 Temperature 90.4 F L Pulse Rate 69 69 Respiratory Rate 22 H 22 H Blood Pressure 155/121 H Pulse Oximetry 100 Oxygen Delivery Mechanical Ventilation Fraction of Inspired Oxygen 50 12/06/24 04:00 12/06/24 04:00 12/06/24 04:50 Temperature 90.3 F L Pulse Rate 69 68 77 Respiratory Rate 22 H Blood Pressure 155/121 H Pulse Oximetry 100 100 Oxygen Delivery Mechanical Ventilation Fraction of Inspired Oxygen 50 12/06/24 05:00 12/06/24 05:46 12/06/24 06:00 Temperature 91.7 F L Pulse Rate 83 109 H Respiratory Rate 22 H Blood Pressure 170/129 H 178/133 H 174/140 H Pulse Oximetry 100 Oxygen Delivery Fraction of Inspired Oxygen 12/06/24 06:00 12/06/24 06:00 12/06/24 06:00 Temperature Pulse Rate 109 H 109 H 109 H Respiratory Rate 22 H 22 H 22 H Blood Pressure 174/140 H Pulse Oximetry Oxygen Delivery Fraction of Inspired Oxygen 12/06/24 06:00 12/06/24 06:00 12/06/24 06:00 Temperature 93.3 F L 93.3 F L Pulse Rate 109 H 109 H 109 H Respiratory Rate 22 H 22 H Blood Pressure 174/140 H 174/140 H Pulse Oximetry 100 100 Oxygen Delivery Fraction of Inspired Oxygen 12/06/24 06:30 12/06/24 07:00 12/06/24 07:00 Temperature 94.2 F L Pulse Rate 113 H 113 H Respiratory Rate 22 H Blood Pressure 167/120 H 172/123 H 172/123 H Pulse Oximetry 99 Oxygen Delivery Fraction of Inspired Oxygen 12/06/24 07:00 12/06/24 07:32 12/06/24 07:39 Temperature 94.2 F L 94.2 F L Pulse Rate 113 H 110 H 108 H Respiratory Rate 22 H 22 H 22 H Blood Pressure 172/123 H 172/124 H Pulse Oximetry 99 98 Oxygen Delivery Fraction of Inspired Oxygen 12/06/24 07:40 12/06/24 08:00 12/06/24 08:00 Temperature Pulse Rate 108 H 104 H 104 H Respiratory Rate 22 H 22 H 22 H Blood Pressure 164/123 H Pulse Oximetry Oxygen Delivery Fraction of Inspired Oxygen 12/06/24 08:00 12/06/24 08:00 12/06/24 08:00 Temperature 94.0 F L 94.0 F L Pulse Rate 104 H 102 H 102 H Respiratory Rate 22 H 22 H 22 H Blood Pressure 164/123 H 164/123 H Pulse Oximetry 99 99 Oxygen Delivery Fraction of Inspired Oxygen 12/06/24 08:00 12/06/24 08:00 12/06/24 08:00 Temperature 93.8 F L Pulse Rate 97 101 H Respiratory Rate 22 H Blood Pressure 164/123 H Pulse Oximetry 100 Oxygen Delivery Fraction of Inspired Oxygen 50 12/06/24 08:12 12/06/24 08:27 12/06/24 08:27 Temperature Pulse Rate 101 H 97 96 Respiratory Rate 22 H Blood Pressure 164/123 H Pulse Oximetry 99 Oxygen Delivery Mechanical Ventilation Fraction of Inspired Oxygen 50 12/06/24 08:27 12/06/24 09:00 12/06/24 09:00 Temperature 93.4 F L 93.4 F L Pulse Rate 96 89 89 Respiratory Rate 22 H 22 H Blood Pressure 164/123 H 160/119 H 160/119 H Pulse Oximetry 100 100 Oxygen Delivery Fraction of Inspired Oxygen 12/06/24 09:27 12/06/24 09:27 12/06/24 10:00 Temperature Pulse Rate 83 83 74 Respiratory Rate 22 H 22 H 22 H Blood Pressure 160/119 H 160/119 H Pulse Oximetry Oxygen Delivery Fraction of Inspired Oxygen 12/06/24 10:00 12/06/24 10:00 12/06/24 10:00 Temperature Pulse Rate 74 74 74 Respiratory Rate 22 H 22 H Blood Pressure 128/88 128/88 Pulse Oximetry Oxygen Delivery Fraction of Inspired Oxygen 12/06/24 10:00 12/06/24 10:00 12/06/24 10:00 Temperature 92.5 F L Pulse Rate 74 77 77 Respiratory Rate 22 H 22 H Blood Pressure 156/122 H Pulse Oximetry 100 Oxygen Delivery Fraction of Inspired Oxygen 12/06/24 10:00 12/06/24 10:41 12/06/24 11:00 Temperature 92.5 F L 90.4 F L 89.9 F L Pulse Rate 77 59 L 58 L Respiratory Rate 22 H 22 H 22 H Blood Pressure 156/122 H 106/83 103/82 Pulse Oximetry 100 100 100 Oxygen Delivery Mechanical Ventilation Fraction of Inspired Oxygen 50 12/06/24 11:00 12/06/24 11:04 12/06/24 11:04 Temperature 89.9 F L Pulse Rate 58 L 58 L 58 L Respiratory Rate 22 H 22 H 22 H Blood Pressure 103/82 Pulse Oximetry 100 Oxygen Delivery Fraction of Inspired Oxygen 12/06/24 11:16 12/06/24 11:18 12/06/24 11:23 Temperature 89.9 F L 89.9 F L Pulse Rate 57 L 52 L 54 L Respiratory Rate 22 H 22 H Blood Pressure 103/82 103/90 Pulse Oximetry 100 100 100 Oxygen Delivery Mechanical Ventilation Mechanical Ventilation Mechanical Ventilation Fraction of Inspired Oxygen 50 50 50 12/06/24 11:26 12/06/24 11:31 12/06/24 11:31 Temperature 89.9 F L 90.0 F L Pulse Rate 55 L 55 L 49 L Respiratory Rate 22 H 22 H 22 H Blood Pressure 106/88 106/84 Pulse Oximetry 100 100 Oxygen Delivery Mechanical Ventilation Mechanical Ventilation Fraction of Inspired Oxygen 50 50 12/06/24 11:31 12/06/24 11:32 12/06/24 11:34 Temperature 89.9 F L 89.9 F L Pulse Rate 49 L 56 L 57 L Respiratory Rate 22 H 22 H Blood Pressure 103/82 103/90 106/84 Pulse Oximetry 100 100 Oxygen Delivery Fraction of Inspired Oxygen 12/06/24 11:44 12/06/24 11:54 12/06/24 12:00 Temperature 90.1 F L 90.1 F L Pulse Rate 59 L 63 64 Respiratory Rate 22 H 22 H 22 H Blood Pressure Pulse Oximetry 100 100 Oxygen Delivery Fraction of Inspired Oxygen 12/06/24 12:00 12/06/24 12:00 12/06/24 12:00 Temperature Pulse Rate 64 64 64 Respiratory Rate 22 H 22 H Blood Pressure 110/84 Pulse Oximetry Oxygen Delivery Fraction of Inspired Oxygen 12/06/24 12:00 12/06/24 12:00 12/06/24 12:00 Temperature 90.5 F L 90.5 F L Pulse Rate 64 64 Respiratory Rate 22 H 22 H Blood Pressure 110/84 110/84 Pulse Oximetry 100 100 Oxygen Delivery Fraction of Inspired Oxygen 40 12/06/24 12:52 12/06/24 12:53 12/06/24 13:00 Temperature 92.6 F L Pulse Rate 67 67 68 Respiratory Rate 22 H 22 H Blood Pressure 107/84 109/85 Pulse Oximetry 100 Oxygen Delivery Fraction of Inspired Oxygen 12/06/24 13:00 Temperature 92.7 F L Pulse Rate 68 Respiratory Rate 22 H Blood Pressure 109/85 Pulse Oximetry 100 Oxygen Delivery Fraction of Inspired Oxygen Exam 2 Narrative: Patient currently sedated paralyzed and intubated, unable to obtain history. The orogastric tube shows evidence of coffee-ground material. Results Labs 12/06/24 05:04 12/06/24 05:04 Labs: Short CBC 12/05/24 12/06/24 12/06/24 Range/Units 15:12 02:04 05:04 WBC 26.0 H 18.5 H 18.4 H (4.5-10.0) K/mm3 Hgb 17.3 18.1 H 18.0 (14.0-18.0) g/dL Hct 52.4 H 54.5 H 53.8 H (42.0-52.0) % Plt Count 338 253 TNP (150-375) k/mm3 BMP 12/05/24 12/06/24 12/06/24 15:12 02:05 05:04 Sodium 135 L 136 L 138 Potassium 6.1 H* 4.6 4.2 Chloride 103 100 100 Carbon Dioxide 25 28 28 BUN 16 14 13 Creatinine 1.42 H 1.15 1.12 Glucose 219 H 266 H 260 H Calcium 8.0 L 8.4 8.5 Cardiac Enzymes 12/05/24 12/05/24 12/06/24 Range/Units 15:12 19:54 02:05 Total Creatine Kinase (55-170) U/L Troponin I > 80.000 H* > 80.000 H* > 80.000 H* (0.000-0.034) ng/mL 12/06/24 Range/Units 08:07 Total Creatine Kinase 6439 H (55-170) U/L Troponin I (0.000-0.034) ng/mL Liver Function 12/05/24 12/06/24 Range/Units 15:12 05:04 Total Bilirubin 1.2 1.2 (0.2-1.3) mg/dL AST 2115 H 1326 H (17-59) U/L ALT 293 H 309 H (6-50) U/L Alkaline Phosphatase 100 92 (38-126) U/L Albumin 3.9 4.0 (3.5-5.1) g/dL Urine 12/05/24 Range/Units 15:08 Urine Color Yellow (Yellow) Urine Appearance Cloudy H (Clear) Urine pH 5.5 (5.0-9.0) Ur Specific [place] > 1.045 H (1.001-1.035) Urine Protein 4+ H (Negative) mg/dL Urine Glucose (UA) 3+ H (Negative) mg/dL
--- NOTE | 2024-12-06 13:54 | WPDGIPROGNO ---
Progress Note: A&P Assessment and Plan (1) Erosive gastritis: Code(s): K29.60 - Other gastritis without bleeding Status: Acute Assessment and Plan: The patient does not have a major source of upper GI bleeding, just small gastric erosions that in combination with anti-platelet agents might bleed but not severely. He can be fed via the orogastric tube. Will sign off for now, please contact us for any other matters pertinent to our specialty. Subjective Date/time seen: 12/06/24 13:54 Objective Data Vital Signs Vital Signs: Vital Signs - 24 hr 12/05/24 14:02 12/05/24 14:15 12/05/24 14:15 Temperature Pulse Rate 102 H 102 H Respiratory Rate 25 H 25 H Blood Pressure Pulse Oximetry 100 Oxygen Delivery Mechanical Ventilation Fraction of Inspired Oxygen 100 12/05/24 14:18 12/05/24 14:32 12/05/24 14:33 Temperature Pulse Rate 96 96 96 Respiratory Rate 28 H 27 H 27 H Blood Pressure 119/95 H 118/99 H 118/99 H Pulse Oximetry 97 96 94 Oxygen Delivery Fraction of Inspired Oxygen 12/05/24 14:48 12/05/24 14:57 12/05/24 15:18 Temperature Pulse Rate 96 99 102 H Respiratory Rate 18 18 18 Blood Pressure 128/108 H 118/99 H 134/103 H Pulse Oximetry 97 96 Oxygen Delivery Fraction of Inspired Oxygen 12/05/24 15:32 12/05/24 15:32 12/05/24 15:34 Temperature 100.1 F H Pulse Rate 105 H 104 H 100 Respiratory Rate 20 Blood Pressure 138/108 H 138/108 H Pulse Oximetry 95 97 Oxygen Delivery Mechanical Ventilation Fraction of Inspired Oxygen 80 12/05/24 15:48 12/05/24 16:00 12/05/24 16:00 Temperature 100.4 F H 100.5 F H Pulse Rate 107 H 103 H 105 H Respiratory Rate 18 18 Blood Pressure 135/105 H 127/96 H Pulse Oximetry 95 98 Oxygen Delivery Fraction of Inspired Oxygen 12/05/24 16:00 12/05/24 16:00 12/05/24 16:00 Temperature Pulse Rate 106 H 98 98 Respiratory Rate 18 18 18 Blood Pressure 127/96 H Pulse Oximetry Oxygen Delivery Fraction of Inspired Oxygen 12/05/24 16:00 12/05/24 16:30 12/05/24 16:48 Temperature Pulse Rate 100 104 H 104 H Respiratory Rate 18 Blood Pressure 126/101 H Pulse Oximetry 94 91 Oxygen Delivery Mechanical Ventilation Fraction of Inspired Oxygen 50 12/05/24 17:00 12/05/24 17:15 12/05/24 17:48 Temperature 99.4 F 99.1 F Pulse Rate 95 102 H 93 Respiratory Rate 22 H 18 Blood Pressure 137/102 H 133/104 H Pulse Oximetry 95 94 98 Oxygen Delivery Mechanical Ventilation Fraction of Inspired Oxygen 50 12/05/24 18:00 12/05/24 18:00 12/05/24 18:00 Temperature 99.1 F 98.5 F Pulse Rate 98 83 78 Respiratory Rate 18 18 Blood Pressure 130/105 H 120/105 H Pulse Oximetry 92 100 Oxygen Delivery Fraction of Inspired Oxygen 12/05/24 18:00 12/05/24 18:00 12/05/24 18:00 Temperature Pulse Rate 93 78 78 Respiratory Rate 18 18 18 Blood Pressure 133/104 H Pulse Oximetry Oxygen Delivery Fraction of Inspired Oxygen 12/05/24 18:00 12/05/24 18:46 12/05/24 19:00 Temperature 98.3 F Pulse Rate 78 85 81 Respiratory Rate 22 H 22 H Blood Pressure 120/105 H 124/105 H Pulse Oximetry 100 Oxygen Delivery Fraction of Inspired Oxygen 12/05/24 19:00 12/05/24 20:00 12/05/24 20:00 Temperature 98.2 F 98.0 F 98.0 F Pulse Rate 83 74 74 Respiratory Rate 22 H 22 H 22 H Blood Pressure 126/106 H 127/110 H 127/110 H Pulse Oximetry 100 100 100 Oxygen Delivery Fraction of Inspired Oxygen 12/05/24 20:00 12/05/24 20:00 12/05/24 20:00 Temperature 97.8 F Pulse Rate 73 74 74 Respiratory Rate 22 H 22 H Blood Pressure 133/113 H 127/110 H Pulse Oximetry 100 Oxygen Delivery Fraction of Inspired Oxygen 12/05/24 20:00 12/05/24 20:00 12/05/24 20:00 Temperature Pulse Rate 74 74 Respiratory Rate 22 H Blood Pressure Pulse Oximetry Oxygen Delivery Mechanical Ventilation Fraction of Inspired Oxygen 50 12/05/24 20:20 12/05/24 20:26 12/05/24 20:29 Temperature 97.8 F Pulse Rate 73 70 76 Respiratory Rate 22 H 22 H Blood Pressure 133/113 H 133/113 H Pulse Oximetry 100 100 Oxygen Delivery Mechanical Ventilation Fraction of Inspired Oxygen 50 12/05/24 20:51 12/05/24 21:00 12/05/24 21:00 Temperature 97.0 F L 96.8 F L Pulse Rate 68 66 64 Respiratory Rate 22 H 22 H 22 H Blood Pressure 138/115 H 143/113 H 143/113 H Pulse Oximetry 100 100 Oxygen Delivery Fraction of Inspired Oxygen 12/05/24 21:11 12/05/24 21:14 12/05/24 21:24 Temperature 96.6 F L Pulse Rate 66 63 66 Respiratory Rate 22 H Blood Pressure 143/113 H 146/118 H 143/113 H Pulse Oximetry 100 Oxygen Delivery Fraction of Inspired Oxygen 12/05/24 22:00 12/05/24 22:00 12/05/24 22:00 Temperature Pulse Rate 60 60 60 Respiratory Rate 22 H 22 H Blood Pressure 148/114 H 148/114 H Pulse Oximetry Oxygen Delivery Fraction of Inspired Oxygen 12/05/24 22:00 12/05/24 22:00 12/05/24 22:00 Temperature 95.8 F L Pulse Rate 60 60 60 Respiratory Rate 22 H 22 H Blood Pressure 148/114 H Pulse Oximetry 100 Oxygen Delivery Fraction of Inspired Oxygen 12/05/24 22:00 12/05/24 23:00 12/05/24 23:00 Temperature 95.6 F L 94.7 F L 94.5 F L Pulse Rate 62 58 L 56 L Respiratory Rate 22 H 22 H 22 H Blood Pressure 148/114 H 151/117 H 151/117 H Pulse Oximetry 100 100 100 Oxygen Delivery Fraction of Inspired Oxygen 12/05/24 23:47 12/06/24 00:00 12/06/24 00:00 Temperature Pulse Rate 57 L 54 L 54 L Respiratory Rate 22 H 22 H Blood Pressure 156/124 H 156/124 H Pulse Oximetry 100 Oxygen Delivery Mechanical Ventilation Fraction of Inspired Oxygen 50 12/06/24 00:00 12/06/24 00:00 12/06/24 00:00 Temperature 93.3 F L 93.3 F L Pulse Rate 69 69 Respiratory Rate 22 H 22 H Blood Pressure 156/124 H 156/124 H Pulse Oximetry 100 100 Oxygen Delivery Mechanical Ventilation Fraction of Inspired Oxygen 50 12/06/24 00:00 12/06/24 00:00 12/06/24 00:00 Temperature 93.4 F L Pulse Rate 69 54 L Respiratory Rate 22 H Blood Pressure 156/124 H Pulse Oximetry 100 Oxygen Delivery Fraction of Inspired Oxygen 50 12/06/24 00:03 12/06/24 00:04 12/06/24 00:04 Temperature Pulse Rate 71 69 69 Respiratory Rate 22 H 22 H Blood Pressure 156/124 H Pulse Oximetry Oxygen Delivery Fraction of Inspired Oxygen 12/06/24 01:00 12/06/24 01:33 12/06/24 02:00 Temperature 92.4 F L Pulse Rate 50 L 67 Respiratory Rate 22 H Blood Pressure 160/125 H 165/127 H 172/131 H Pulse Oximetry 100 Oxygen Delivery Fraction of Inspired Oxygen 12/06/24 02:00 12/06/24 02:00 12/06/24 02:00 Temperature Pulse Rate 67 67 67 Respiratory Rate 22 H 22 H 22 H Blood Pressure 172/131 H Pulse Oximetry Oxygen Delivery Fraction of Inspired Oxygen 12/06/24 02:00 12/06/24 02:00 12/06/24 02:00 Temperature 91.3 F L 91.4 F L Pulse Rate 72 72 67 Respiratory Rate 22 H 22 H Blood Pressure 172/131 H 172/131 H Pulse Oximetry 100 100 Oxygen Delivery Fraction of Inspired Oxygen 12/06/24 02:55 12/06/24 03:00 12/06/24 03:00 Temperature 90.2 F L 90.3 F L Pulse Rate 66 63 61 Respiratory Rate 22 H 22 H Blood Pressure 145/106 H 141/107 H Pulse Oximetry 100 100 100 Oxygen Delivery Mechanical Ventilation Fraction of Inspired Oxygen 50 12/06/24 03:15 12/06/24 03:15 12/06/24 04:00 Temperature Pulse Rate 63 63 Respiratory Rate 22 H 22 H Blood Pressure Pulse Oximetry Oxygen Delivery Fraction of Inspired Oxygen 50 12/06/24 04:00 12/06/24 04:00 12/06/24 04:00 Temperature Pulse Rate 69 69 69 Respiratory Rate 22 H 22 H Blood Pressure 155/121 H 155/121 H Pulse Oximetry Oxygen Delivery Fraction of Inspired Oxygen 12/06/24 04:00 12/06/24 04:00 12/06/24 04:00 Temperature 90.4 F L Pulse Rate 69 69 Respiratory Rate 22 H 22 H Blood Pressure 155/121 H Pulse Oximetry 100 Oxygen Delivery Mechanical Ventilation Fraction of Inspired Oxygen 50 12/06/24 04:00 12/06/24 04:00 12/06/24 04:50 Temperature 90.3 F L Pulse Rate 69 68 77 Respiratory Rate 22 H Blood Pressure 155/121 H Pulse Oximetry 100 100 Oxygen Delivery Mechanical Ventilation Fraction of Inspired Oxygen 50 12/06/24 05:00 12/06/24 05:46 12/06/24 06:00 Temperature 91.7 F L Pulse Rate 83 109 H Respiratory Rate 22 H Blood Pressure 170/129 H 178/133 H 174/140 H Pulse Oximetry 100 Oxygen Delivery Fraction of Inspired Oxygen 12/06/24 06:00 12/06/24 06:00 12/06/24 06:00 Temperature Pulse Rate 109 H 109 H 109 H Respiratory Rate 22 H 22 H 22 H Blood Pressure 174/140 H Pulse Oximetry Oxygen Delivery Fraction of Inspired Oxygen 12/06/24 06:00 12/06/24 06:00 12/06/24 06:00 Temperature 93.3 F L 93.3 F L Pulse Rate 109 H 109 H 109 H Respiratory Rate 22 H 22 H Blood Pressure 174/140 H 174/140 H Pulse Oximetry 100 100 Oxygen Delivery Fraction of Inspired Oxygen 12/06/24 06:30 12/06/24 07:00 12/06/24 07:00 Temperature 94.2 F L Pulse Rate 113 H 113 H Respiratory Rate 22 H Blood Pressure 167/120 H 172/123 H 172/123 H Pulse Oximetry 99 Oxygen Delivery Fraction of Inspired Oxygen 12/06/24 07:00 12/06/24 07:32 12/06/24 07:39 Temperature 94.2 F L 94.2 F L Pulse Rate 113 H 110 H 108 H Respiratory Rate 22 H 22 H 22 H Blood Pressure 172/123 H 172/124 H Pulse Oximetry 99 98 Oxygen Delivery Fraction of Inspired Oxygen 12/06/24 07:40 12/06/24 08:00 12/06/24 08:00 Temperature Pulse Rate 108 H 104 H 104 H Respiratory Rate 22 H 22 H 22 H Blood Pressure 164/123 H Pulse Oximetry Oxygen Delivery Fraction of Inspired Oxygen 12/06/24 08:00 12/06/24 08:00 12/06/24 08:00 Temperature 94.0 F L 94.0 F L Pulse Rate 104 H 102 H 102 H Respiratory Rate 22 H 22 H 22 H Blood Pressure 164/123 H 164/123 H Pulse Oximetry 99 99 Oxygen Delivery Fraction of Inspired Oxygen 12/06/24 08:00 12/06/24 08:00 12/06/24 08:00 Temperature 93.8 F L Pulse Rate 97 101 H Respiratory Rate 22 H Blood Pressure 164/123 H Pulse Oximetry 100 Oxygen Delivery Fraction of Inspired Oxygen 50 12/06/24 08:12 12/06/24 08:27 12/06/24 08:27 Temperature Pulse Rate 101 H 97 96 Respiratory Rate 22 H Blood Pressure 164/123 H Pulse Oximetry 99 Oxygen Delivery Mechanical Ventilation Fraction of Inspired Oxygen 50 12/06/24 08:27 12/06/24 09:00 12/06/24 09:00 Temperature 93.4 F L 93.4 F L Pulse Rate 96 89 89 Respiratory Rate 22 H 22 H Blood Pressure 164/123 H 160/119 H 160/119 H Pulse Oximetry 100 100 Oxygen Delivery Fraction of Inspired Oxygen 12/06/24 09:27 12/06/24 09:27 12/06/24 10:00 Temperature Pulse Rate 83 83 74 Respiratory Rate 22 H 22 H 22 H Blood Pressure 160/119 H 160/119 H Pulse Oximetry Oxygen Delivery Fraction of Inspired Oxygen 12/06/24 10:00 12/06/24 10:00 12/06/24 10:00 Temperature Pulse Rate 74 74 74 Respiratory Rate 22 H 22 H Blood Pressure 128/88 128/88 Pulse Oximetry Oxygen Delivery Fraction of Inspired Oxygen 12/06/24 10:00 12/06/24 10:00 12/06/24 10:00 Temperature 92.5 F L Pulse Rate 74 77 77 Respiratory Rate 22 H 22 H Blood Pressure 156/122 H Pulse Oximetry 100 Oxygen Delivery Fraction of Inspired Oxygen 12/06/24 10:00 12/06/24 10:41 12/06/24 11:00 Temperature 92.5 F L 90.4 F L 89.9 F L Pulse Rate 77 59 L 58 L Respiratory Rate 22 H 22 H 22 H Blood Pressure 156/122 H 106/83 103/82 Pulse Oximetry 100 100 100 Oxygen Delivery Mechanical Ventilation Fraction of Inspired Oxygen 50 12/06/24 11:00 12/06/24 11:04 12/06/24 11:04 Temperature 89.9 F L Pulse Rate 58 L 58 L 58 L Respiratory Rate 22 H 22 H 22 H Blood Pressure 103/82 Pulse Oximetry 100 Oxygen Delivery Fraction of Inspired Oxygen 12/06/24 11:16 12/06/24 11:18 12/06/24 11:23 Temperature 89.9 F L 89.9 F L Pulse Rate 57 L 52 L 54 L Respiratory Rate 22 H 22 H Blood Pressure 103/82 103/90 Pulse Oximetry 100 100 100 Oxygen Delivery Mechanical Ventilation Mechanical Ventilation Mechanical Ventilation Fraction of Inspired Oxygen 50 50 50 12/06/24 11:26 12/06/24 11:31 12/06/24 11:31 Temperature 89.9 F L 90.0 F L Pulse Rate 55 L 55 L 49 L Respiratory Rate 22 H 22 H 22 H Blood Pressure 106/88 106/84 Pulse Oximetry 100 100 Oxygen Delivery Mechanical Ventilation Mechanical Ventilation Fraction of Inspired Oxygen 50 50 12/06/24 11:31 12/06/24 11:32 12/06/24 11:34 Temperature 89.9 F L 89.9 F L Pulse Rate 49 L 56 L 57 L Respiratory Rate 22 H 22 H Blood Pressure 103/82 103/90 106/84 Pulse Oximetry 100 100 Oxygen Delivery Fraction of Inspired Oxygen 12/06/24 11:44 12/06/24 11:54 12/06/24 12:00 Temperature 90.1 F L 90.1 F L Pulse Rate 59 L 63 64 Respiratory Rate 22 H 22 H 22 H Blood Pressure Pulse Oximetry 100 100 Oxygen Delivery Fraction of Inspired Oxygen 12/06/24 12:00 12/06/24 12:00 12/06/24 12:00 Temperature Pulse Rate 64 64 64 Respiratory Rate 22 H 22 H Blood Pressure 110/84 Pulse Oximetry Oxygen Delivery Fraction of Inspired Oxygen 12/06/24 12:00 12/06/24 12:00 12/06/24 12:00 Temperature 90.5 F L 90.5 F L Pulse Rate 64 64 Respiratory Rate 22 H 22 H Blood Pressure 110/84 110/84 Pulse Oximetry 100 100 Oxygen Delivery Fraction of Inspired Oxygen 40 12/06/24 12:52 12/06/24 12:53 12/06/24 13:00 Temperature 92.6 F L Pulse Rate 67 67 68 Respiratory Rate 22 H 22 H Blood Pressure 107/84 109/85 Pulse Oximetry 100 Oxygen Delivery Fraction of Inspired Oxygen 12/06/24 13:00 Temperature 92.7 F L Pulse Rate 68 Respiratory Rate 22 H Blood Pressure 109/85 Pulse Oximetry 100 Oxygen Delivery Fraction of Inspired Oxygen Intake/Output Intake/Output: Intake & Output 12/03/24 12/04/24 12/05/24 12/06/24 23:59 23:59 23:59 23:59 Intake Total 505.6 672.2 Output Total 700 740 Balance -194.4 -67.8 Meds/Results Medications: Active Medications Generic Name Dose Route Start Last Admin Trade Name Freq PRN Reason Stop Dose Admin Albuterol/Ipratropium 3 ml 12/05/24 13:20 Ipratropium 0.5 Mg/Albuterol Sulfate 2.5 Mg Ampul.Neb 3 Ml INHALATION Q6HRT PRN Wheezing Aspirin 81 mg 12/06/24 08:00 12/06/24 08:55 Aspirin 81 Mg Chewable Tablet FEED TUBE 81 mg DAILY@0800 JULIUS Administration Atorvastatin Calcium 80 mg 12/06/24 09:00 12/06/24 08:55 Atorvastatin 40 Mg Tablet FEED TUBE 80 mg DAILY JULIUS Administration Dextrose 12.5 gm 12/06/24 07:25 Dextrose 50% 25 Gm/50 Ml Syringe IV PUSH PRN PRN Hypoglycemia Protocol Glucagon 1 mg 12/06/24 07:25 Glucagon For Inj 1 Mg Vial IM PRN PRN Hypoglycemia Protocol Glucose 15 gm 12/06/24 07:25 Glucose Oral Gel 15 Gm Of Glucse In 37.5 Gm Tube PO PRN PRN Hypoglycemia Protocol Hydralazine HCl 20 mg 12/05/24 22:33 12/06/24 05:46 Hydralazine Hcl 20 Mg/Ml Vial IV PUSH 20 mg Q4HR PRN Administration Blood Pressure - High Fentanyl Citrate 2,500 mcg in 250 mls @ 15 mls/hr 12/05/24 13:50 12/06/24 12:00 Fentanyl 2,500 Mcg/Ns 250 Ml IV CONT 150 mcg/hr .[id number] JULIUS 15 mls/hr Titration Protocol 150 MCG/HR Midazolam HCl 100 mg in 100 mls @ 8 mls/hr 12/05/24 13:50 12/06/24 12:00 Versed 100 Mg/Ns 100 Ml IV CONT 8 mg/hr .[id number] JULIUS 8 mls/hr Titration Protocol 8 MG/HR Cisatracurium Besylate 200 mg/ 100 mls @ 9.353 mls/hr 12/05/24 14:15 12/06/24 12:00 Sodium Chloride IV CONT 2.5 mcg/kg/min .[id number] JULIUS 9.35 mls/hr Titration Protocol 2.5 MCG/KG/MIN Dextrose 1,000 mls @ 100 mls/hr 12/06/24 07:25 Dextrose 5% 1,000 Ml IVPB PRN PRN Hypoglycemia Protocol Lactated Ringer's 1,000 mls @ 100 mls/hr 12/06/24 09:15 12/06/24 09:28 Lr - Lactated Ringers Iv IV CONT 12/06/24 19:14 100 mls/hr .Q10H JULIUS Administration Piperacillin Sod/Tazobactam 50 mls @ 100 mls/hr 12/06/24 15:00 Sod 3.375 gm/ Sodium Chloride IVPB Q6H JULIUS Insulin Aspart 4 - 8 units 12/06/24 09:00 12/06/24 13:30 Insulin Aspart (*Bkc) 100 Units/Ml SUB-Q 5 units Q4HR JULIUS Administration Protocol Insulin Glargine 10 units 12/06/24 09:00 12/06/24 09:27 Insulin Glargine (*Bkc) 100 Units/Ml SUB-Q 10 units QAM JULIUS Administration Labetalol HCl 20 mg 12/06/24 07:34 Labetalol Hcl Inj 100 Mg/20 Ml Vial IV PUSH Q4H PRN SBP > 160 and HR> 60 -1st choice Multi-Ingred Cream/Lotion/Oil/Oint 1 applic 12/05/24 21:00 12/06/24 08:26 Mineral Oil/White Petrolatum Ointment EACH EYE 1 applic Q12HR JULIUS Administration Nitroglycerin 0.4 mg 12/05/24 13:47 Nitroglycerin Sl 0.4 Mg Tablet SUBLINGUAL Q5MIN PRN Chest Pain Pantoprazole Sodium 40 mg 12/06/24 07:40 12/06/24 08:27 Pantoprazole Sodium Iv 40 Mg Vial IV PUSH 40 mg Q12HR JULIUS Administration Sodium Chloride 10 ml 12/05/24 22:00 12/06/24 06:23 Central Line Flush IV PUSH 10 ml Q8HR JULIUS Administration Sodium Chloride 20 ml 12/05/24 15:00 Central Line Flush IV PUSH PRN PRN after blood draws Ticagrelor 90 mg 12/05/24 21:00 12/06/24 08:55 Ticagrelor 90 Mg Tablet FEED TUBE 90 mg Q12HR JULIUS Administration Radiology Results: ITS Impressions Head CT 12/05/24 12:09 Impression: Stable CT examination of the head without change from 2006 examination, without acute intracranial hemorrhage or suspicious mass effect. Cervical Spine CT 12/05/24 12:16 Impression: No acute displaced fracture within the cervical spine. Large right-sided and small left-sided pleural effusions without pneumothorax for which further evaluation post cardiac intervention is suggested (if the patient is clinically able). Chest X-Ray 12/06/24 05:54 Impression: [id number] bilateral pleural effusions with mild pulmonary edema/atelectatic change. Support tubes, as above. Labs Labs: Laboratory Results - last 24 hr 12/05/24 12/05/24 12/05/24 13:51 15:05 15:08 WBC RBC Hgb Hct MCV MCH MCHC RDW Plt Count MPV Immature Gran % (Auto) Neut % (Auto) Lymph % (Auto) [place] % (Auto) Eos % (Auto) Baso % (Auto) Lymph # (Auto) [place] # (Auto) Eos # (Auto) Baso # (Auto) Abs Immat Gran (auto) Absolute Neuts (auto) Absolute Nucleated RBC Total Counted Neutrophils % (Manual) Band Neutrophils % Lymphocytes % (Manual) Monocytes % (Manual) Nucleated RBC % Abs Neuts (Manual) Abs Lymphs (Manual) Abs Monocytes (Manual) Platelet Estimate Clumped Platelets Schistocytes PT INR APTT Activ Coag Time Kaolin 297 H Puncture Site Right radial ABG pH 7.267 L* ABG pCO2 52.1 H ABG pO2 256.9 H ABG PO2/FiO2 Ratio 2.57 ABG HCO3 23.2 ABG O2 Saturation 99.5 ABG O2 Content 27.3 H ABG Base Excess -4.6 A-a Gradient 404.0 Oxyhemoglobin 98.6 Total Hemoglobin 19.3 H O2 Delivery Device Ventilator O2 Liters/Min Not Reportable Minute Volume Not Reportable Vent Rate 18 Vent Mode Assist control FiO2 100 Tidal Volume 450 PEEP 8 Peak Inspir Pressure Not Reportable Pressure Support Not Reportable Sodium Potassium Chloride Carbon Dioxide Anion Gap BUN Creatinine Estim Creat Clear Calc Estimated GFR Glucose POC Capillary Glucose Hemoglobin A1c Lactic Acid Calcium Phosphorus Magnesium Total Bilirubin AST ALT Alkaline Phosphatase Total Creatine Kinase Troponin I NT-Pro-B Natriuret Pep Total Protein Albumin Triglycerides Cholesterol LDL Cholesterol Direct HDL Direct Procalcitonin TSH (Reflex) Urine Color Yellow Urine Appearance Cloudy H Urine pH 5.5 Ur Specific [place] > 1.045 H Urine Protein 4+ H Urine Glucose (UA) 3+ H Urine Ketones Negative Ur Blood (Man) 3+ H Urine Nitrate Negative Urine Bilirubin Negative Urine Urobilinogen 1.0 Leukocyte Esterase Rfl Negative Urine RBC 3-5 H Urine WBC 11-20 H Ur Squamous Epith Cells Occasional Urine Bacteria Rare Urine Casts >20 Hyaline Casts Present Nasal MRSA (PCR) Not detected Urine Opiates Screen Negative Urine Methadone Screen Negative Ur Barbiturates Screen Negative Ur Phencyclidine Scrn Negative Ur Amphetamine Screen Negative U Benzodiazepines Scrn Positive A Urine Cocaine Screen Negative U Cannabinoids Screen Positive A 12/05/24 12/05/24 12/05/24 15:12 16:35 17:46 WBC 26.0 H RBC 5.58 Hgb 17.3 Hct 52.4 H MCV 93.9 MCH 31.0 MCHC 33.0 RDW 13.3 Plt Count 338 MPV 8.6 Immature Gran % (Auto) Not Reportable Neut % (Auto) Not Reportable Lymph % (Auto) Not Reportable [place] % (Auto) Not Reportable Eos % (Auto) Not Reportable Baso % (Auto) Not Reportable Lymph # (Auto) Not Reportable [place] # (Auto) Not Reportable Eos # (Auto) Not Reportable Baso # (Auto) Not Reportable Abs Immat Gran (auto) Not Reportable Absolute Neuts (auto) Not Reportable Absolute Nucleated RBC Not Reportable Total Counted 100 Neutrophils % (Manual) 79 H Band Neutrophils % 4 Lymphocytes % (Manual) 5.0 L Monocytes % (Manual) 12 H Nucleated RBC % Not Reportable Abs Neuts (Manual) 21.58 H Abs Lymphs (Manual) 1.30 Abs Monocytes (Manual) 3.12 H Platelet Estimate Adequate Clumped Platelets Present Schistocytes None seen PT 15.9 H INR 1.3 APTT > 200.0 H* Activ Coag Time Kaolin Puncture Site ABG pH ABG pCO2 ABG pO2 ABG PO2/FiO2 Ratio ABG HCO3 ABG O2 Saturation ABG O2 Content ABG Base Excess A-a Gradient Oxyhemoglobin Total Hemoglobin O2 Delivery Device O2 Liters/Min Minute Volume Vent Rate Vent Mode FiO2 Tidal Volume PEEP Peak Inspir Pressure Pressure Support Sodium 135 L Potassium 6.1 H* Chloride 103 Carbon Dioxide 25 Anion Gap 7 BUN 16 Creatinine 1.42 H Estim Creat Clear Calc 83 Estimated GFR 55 L Glucose 219 H POC Capillary Glucose 205 H 344 H Hemoglobin A1c 8.9 H Lactic Acid 2.6 H Calcium 8.0 L Phosphorus Magnesium 2.2 Total Bilirubin 1.2 AST 2115 H ALT 293 H Alkaline Phosphatase 100 Total Creatine Kinase Troponin I > 80.000 H* NT-Pro-B Natriuret Pep Total Protein 7.0 Albumin 3.9 Triglycerides Cholesterol LDL Cholesterol Direct HDL Direct Procalcitonin 0.5 TSH (Reflex) Urine Color Urine Appearance Urine pH Ur Specific [place] Urine Protein Urine Glucose (UA) Urine Ketones Ur Blood (Man) Urine Nitrate Urine Bilirubin Urine Urobilinogen Leukocyte Esterase Rfl Urine RBC Urine WBC Ur Squamous Epith Cells Urine Bacteria Urine Casts Hyaline Casts Nasal MRSA (PCR) Urine Opiates Screen Urine Methadone Screen Ur Barbiturates Screen Ur Phencyclidine Scrn Ur Amphetamine Screen U Benzodiazepines Scrn Urine Cocaine Screen U Cannabinoids Screen 12/05/24 12/05/24 12/05/24 19:19 19:54 20:20 WBC RBC Hgb Hct MCV MCH MCHC RDW Plt Count MPV Immature Gran % (Auto) Neut % (Auto) Lymph % (Auto) [place] % (Auto) Eos % (Auto) Baso % (Auto) Lymph # (Auto) [place] # (Auto) Eos # (Auto) Baso # (Auto) Abs Immat Gran (auto) Absolute Neuts (auto) Absolute Nucleated RBC Total Counted Neutrophils % (Manual) Band Neutrophils % Lymphocytes % (Manual) Monocytes % (Manual) Nucleated RBC % Abs Neuts (Manual) Abs Lymphs (Manual) Abs Monocytes (Manual) Platelet Estimate Clumped Platelets Schistocytes PT INR APTT Activ Coag Time Kaolin Puncture Site ABG pH ABG pCO2 ABG pO2 ABG PO2/FiO2 Ratio ABG HCO3 ABG O2 Saturation ABG O2 Content ABG Base Excess A-a Gradient Oxyhemoglobin Total Hemoglobin O2 Delivery Device O2 Liters/Min Minute Volume Vent Rate Vent Mode FiO2 Tidal Volume PEEP Peak Inspir Pressure Pressure Support Sodium Potassium Chloride Carbon Dioxide Anion Gap BUN Creatinine Estim Creat Clear Calc Estimated GFR Glucose POC Capillary Glucose 270 H 274 H Hemoglobin A1c Lactic Acid 2.1 H Calcium Phosphorus Magnesium Total Bilirubin AST ALT Alkaline Phosphatase Total Creatine Kinase Troponin I > 80.000 H* NT-Pro-B Natriuret Pep Total Protein Albumin Triglycerides Cholesterol LDL Cholesterol Direct HDL Direct Procalcitonin TSH (Reflex) Urine Color Urine Appearance Urine pH Ur Specific [place] Urine Protein Urine Glucose (UA) Urine Ketones Ur Blood (Man) Urine Nitrate Urine Bilirubin Urine Urobilinogen Leukocyte Esterase Rfl Urine RBC Urine WBC Ur Squamous Epith Cells Urine Bacteria Urine Casts Hyaline Casts Nasal MRSA (PCR) Urine Opiates Screen Urine Methadone Screen Ur Barbiturates Screen Ur Phencyclidine Scrn Ur Amphetamine Screen U Benzodiazepines Scrn Urine Cocaine Screen U Cannabinoids Screen 12/05/24 12/05/24 12/05/24 21:06 22:04 23:05 WBC RBC Hgb Hct MCV MCH MCHC RDW Plt Count MPV Immature Gran % (Auto) Neut % (Auto) Lymph % (Auto) [place] % (Auto) Eos % (Auto) Baso % (Auto) Lymph # (Auto) [place] # (Auto) Eos # (Auto) Baso # (Auto) Abs Immat Gran (auto) Absolute Neuts (auto) Absolute Nucleated RBC Total Counted Neutrophils % (Manual) Band Neutrophils % Lymphocytes % (Manual) Monocytes % (Manual) Nucleated RBC % Abs Neuts (Manual) Abs Lymphs (Manual) Abs Monocytes (Manual) Platelet Estimate Clumped Platelets Schistocytes PT INR APTT Activ Coag Time Kaolin Puncture Site ABG pH ABG pCO2 ABG pO2 ABG PO2/FiO2 Ratio ABG HCO3 ABG O2 Saturation ABG O2 Content ABG Base Excess A-a Gradient Oxyhemoglobin Total Hemoglobin O2 Delivery Device O2 Liters/Min Minute Volume Vent Rate Vent Mode FiO2 Tidal Volume PEEP Peak Inspir Pressure Pressure Support Sodium Potassium Chloride Carbon Dioxide Anion Gap BUN Creatinine Estim Creat Clear Calc Estimated GFR Glucose POC Capillary Glucose 255 H 265 H 257 H Hemoglobin A1c Lactic Acid Calcium Phosphorus Magnesium Total Bilirubin AST ALT Alkaline Phosphatase Total Creatine Kinase Troponin I NT-Pro-B Natriuret Pep Total Protein Albumin Triglycerides Cholesterol LDL Cholesterol Direct HDL Direct Procalcitonin TSH (Reflex) Urine Color Urine Appearance Urine pH Ur Specific [place] Urine Protein Urine Glucose (UA) Urine Ketones Ur Blood (Man) Urine Nitrate Urine Bilirubin Urine Urobilinogen Leukocyte Esterase Rfl Urine RBC Urine WBC Ur Squamous Epith Cells Urine Bacteria Urine Casts Hyaline Casts Nasal MRSA (PCR) Urine Opiates Screen Urine Methadone Screen Ur Barbiturates Screen Ur Phencyclidine Scrn Ur Amphetamine Screen U Benzodiazepines Scrn Urine Cocaine Screen U Cannabinoids Screen 12/06/24 12/06/24 12/06/24 00:04 01:02 01:56 WBC RBC Hgb Hct MCV MCH MCHC RDW Plt Count MPV Immature Gran % (Auto) Neut % (Auto) Lymph % (Auto) [place] % (Auto) Eos % (Auto) Baso % (Auto) Lymph # (Auto) [place] # (Auto) Eos # (Auto) Baso # (Auto) Abs Immat Gran (auto) Absolute Neuts (auto) Absolute Nucleated RBC Total Counted Neutrophils % (Manual) Band Neutrophils % Lymphocytes % (Manual) Monocytes % (Manual) Nucleated RBC % Abs Neuts (Manual) Abs Lymphs (Manual) Abs Monocytes (Manual) Platelet Estimate Clumped Platelets Schistocytes PT INR APTT Activ Coag Time Kaolin Puncture Site ABG pH ABG pCO2 ABG pO2 ABG PO2/FiO2 Ratio ABG HCO3 ABG O2 Saturation ABG O2 Content ABG Base Excess A-a Gradient Oxyhemoglobin Total Hemoglobin O2 Delivery Device O2 Liters/Min Minute Volume Vent Rate Vent Mode FiO2 Tidal Volume PEEP Peak Inspir Pressure Pressure Support Sodium Potassium Chloride Carbon Dioxide Anion Gap BUN Creatinine Estim Creat Clear Calc Estimated GFR Glucose POC Capillary Glucose 279 H 261 H 255 H Hemoglobin A1c Lactic Acid Calcium Phosphorus Magnesium Total Bilirubin AST ALT Alkaline Phosphatase Total Creatine Kinase Troponin I NT-Pro-B Natriuret Pep Total Protein Albumin Triglycerides Cholesterol LDL Cholesterol Direct HDL Direct Procalcitonin TSH (Reflex) Urine Color Urine Appearance Urine pH Ur Specific [place] Urine Protein Urine Glucose (UA) Urine Ketones Ur Blood (Man) Urine Nitrate Urine Bilirubin Urine Urobilinogen Leukocyte Esterase Rfl Urine RBC Urine WBC Ur Squamous Epith Cells Urine Bacteria Urine Casts Hyaline Casts Nasal MRSA (PCR) Urine Opiates Screen Urine Methadone Screen Ur Barbiturates Screen Ur Phencyclidine Scrn Ur Amphetamine Screen U Benzodiazepines Scrn Urine Cocaine Screen U Cannabinoids Screen 12/06/24 12/06/24 12/06/24 02:04 02:05 03:05 WBC 18.5 H RBC 5.80 Hgb 18.1 H Hct 54.5 H MCV 94.0 MCH 31.2 MCHC 33.2 RDW 13.6 Plt Count 253 MPV 8.8 Immature Gran % (Auto) Neut % (Auto) Lymph % (Auto) [place] % (Auto) Eos % (Auto) Baso % (Auto) Lymph # (Auto) [place] # (Auto) Eos # (Auto) Baso # (Auto) Abs Immat Gran (auto) Absolute Neuts (auto) Absolute Nucleated RBC Total Counted Neutrophils % (Manual) Band Neutrophils % Lymphocytes % (Manual) Monocytes % (Manual) Nucleated RBC % Abs Neuts (Manual) Abs Lymphs (Manual) Abs Monocytes (Manual) Platelet Estimate Clumped Platelets Schistocytes PT 14.4 INR 1.1 APTT 28.3 Activ Coag Time Kaolin Puncture Site ABG pH ABG pCO2 ABG pO2 ABG PO2/FiO2 Ratio ABG HCO3 ABG O2 Saturation ABG O2 Content ABG Base Excess A-a Gradient Oxyhemoglobin Total Hemoglobin O2 Delivery Device O2 Liters/Min Minute Volume Vent Rate Vent Mode FiO2 Tidal Volume PEEP Peak Inspir Pressure Pressure Support Sodium 136 L Potassium 4.6 Chloride 100 Carbon Dioxide 28 Anion Gap 8 BUN 14 Creatinine 1.15 Estim Creat Clear Calc 102 Estimated GFR > 60 Glucose 266 H POC Capillary Glucose 265 H Hemoglobin A1c Lactic Acid 2.5 H Calcium 8.4 Phosphorus 3.2 Magnesium Total Bilirubin AST ALT Alkaline Phosphatase Total Creatine Kinase Troponin I > 80.000 H* NT-Pro-B Natriuret Pep Total Protein Albumin Triglycerides 365 H Cholesterol 180 LDL Cholesterol Direct 92 HDL Direct 39 Procalcitonin TSH (Reflex) Urine Color Urine Appearance Urine pH Ur Specific [place] Urine Protein Urine Glucose (UA) Urine Ketones Ur Blood (Man) Urine Nitrate Urine Bilirubin Urine Urobilinogen Leukocyte Esterase Rfl Urine RBC Urine WBC Ur Squamous Epith Cells Urine Bacteria Urine Casts Hyaline Casts Nasal MRSA (PCR) Urine Opiates Screen Urine Methadone Screen Ur Barbiturates Screen Ur Phencyclidine Scrn Ur Amphetamine Screen U Benzodiazepines Scrn Urine Cocaine Screen U Cannabinoids Screen 12/06/24 12/06/24 12/06/24 03:59 04:27 05:04 WBC 18.4 H RBC 5.66 Hgb 18.0 Hct 53.8 H MCV 95.1 MCH 31.8 MCHC 33.5 RDW 13.4 Plt Count TNP MPV TNP Immature Gran % (Auto) 0.7 H Neut % (Auto) 82.8 H Lymph % (Auto) 4.8 L [place] % (Auto) 11.4 H Eos % (Auto) 0.0 Baso % (Auto) 0.3 Lymph # (Auto) 0.89 L [place] # (Auto) 2.1 H Eos # (Auto) 0.0 Baso # (Auto) 0.1 Abs Immat Gran (auto) 0.12 H Absolute Neuts (auto) 15.3 H Absolute Nucleated RBC 0.000 Total Counted Neutrophils % (Manual) Band Neutrophils % Lymphocytes % (Manual) Monocytes % (Manual) Nucleated RBC % 0.0 Abs Neuts (Manual) Abs Lymphs (Manual) Abs Monocytes (Manual) Platelet Estimate Clumped Platelets Schistocytes PT INR APTT Activ Coag Time Kaolin Puncture Site Left radial ABG pH 7.369 ABG pCO2 43.3 ABG pO2 98.3 ABG PO2/FiO2 Ratio 1.97 ABG HCO3 24.4 ABG O2 Saturation 97.3 ABG O2 Content 26.6 H ABG Base Excess -1.1 A-a Gradient 209.5 Oxyhemoglobin 96.9 Total Hemoglobin 19.5 H O2 Delivery Device Ventilator O2 Liters/Min Not Reportable Minute Volume Not Reportable Vent Rate 22 Vent Mode Cmv FiO2 50 Tidal Volume 450 PEEP 8 Peak Inspir Pressure Not Reportable Pressure Support Not Reportable Sodium 138 Potassium 4.2 Chloride 100 Carbon Dioxide 28 Anion Gap 10 BUN 13 Creatinine 1.12 Estim Creat Clear Calc 104 Estimated GFR > 60 Glucose 260 H POC Capillary Glucose 268 H Hemoglobin A1c Lactic Acid Calcium 8.5 Phosphorus 3.5 Magnesium 2.4 H Total Bilirubin 1.2 AST 1326 H ALT 309 H Alkaline Phosphatase 92 Total Creatine Kinase Troponin I NT-Pro-B Natriuret Pep Total Protein 7.1 Albumin 4.0 Triglycerides Cholesterol LDL Cholesterol Direct HDL Direct Procalcitonin TSH (Reflex) Urine Color Urine Appearance Urine pH Ur Specific [place] Urine Protein Urine Glucose (UA) Urine Ketones Ur Blood (Man) Urine Nitrate Urine Bilirubin Urine Urobilinogen Leukocyte Esterase Rfl Urine RBC Urine WBC Ur Squamous Epith Cells Urine Bacteria Urine Casts Hyaline Casts Nasal MRSA (PCR) Urine Opiates Screen Urine Methadone Screen Ur Barbiturates Screen Ur Phencyclidine Scrn Ur Amphetamine Screen U Benzodiazepines Scrn Urine Cocaine Screen U Cannabinoids Screen 12/06/24 12/06/24 12/06/24 05:57 07:28 08:07 WBC RBC Hgb Hct MCV MCH MCHC RDW Plt Count MPV Immature Gran % (Auto) Neut % (Auto) Lymph % (Auto) [place] % (Auto) Eos % (Auto) Baso % (Auto) Lymph # (Auto) [place] # (Auto) Eos # (Auto) Baso # (Auto) Abs Immat Gran (auto) Absolute Neuts (auto) Absolute Nucleated RBC Total Counted Neutrophils % (Manual) Band Neutrophils % Lymphocytes % (Manual) Monocytes % (Manual) Nucleated RBC % Abs Neuts (Manual) Abs Lymphs (Manual) Abs Monocytes (Manual) Platelet Estimate Clumped Platelets Schistocytes PT INR APTT Activ Coag Time Kaolin Puncture Site ABG pH ABG pCO2 ABG pO2 ABG PO2/FiO2 Ratio ABG HCO3 ABG O2 Saturation ABG O2 Content ABG Base Excess A-a Gradient Oxyhemoglobin Total Hemoglobin O2 Delivery Device O2 Liters/Min Minute Volume Vent Rate Vent Mode FiO2 Tidal Volume PEEP Peak Inspir Pressure Pressure Support Sodium Potassium Chloride Carbon Dioxide Anion Gap BUN Creatinine Estim Creat Clear Calc Estimated GFR Glucose POC Capillary Glucose 268 H 284 H Hemoglobin A1c Lactic Acid 3.4 H Calcium Phosphorus Magnesium Total Bilirubin AST ALT Alkaline Phosphatase Total Creatine Kinase 6439 H Troponin I NT-Pro-B Natriuret Pep 4960 H Total Protein Albumin Triglycerides 256 H Cholesterol LDL Cholesterol Direct HDL Direct Procalcitonin TSH (Reflex) 1.610 Urine Color Urine Appearance Urine pH Ur Specific [place] Urine Protein Urine Glucose (UA) Urine Ketones Ur Blood (Man) Urine Nitrate Urine Bilirubin Urine Urobilinogen Leukocyte Esterase Rfl Urine RBC Urine WBC Ur Squamous Epith Cells Urine Bacteria Urine Casts Hyaline Casts Nasal MRSA (PCR) Urine Opiates Screen Urine Methadone Screen Ur Barbiturates Screen Ur Phencyclidine Scrn Ur Amphetamine Screen U Benzodiazepines Scrn Urine Cocaine Screen U Cannabinoids Screen 12/06/24 12/06/24 12/06/24 08:24 09:03 10:01 WBC RBC Hgb Hct MCV MCH MCHC RDW Plt Count MPV Immature Gran % (Auto) Neut % (Auto) Lymph % (Auto) [place] % (Auto) Eos % (Auto) Baso % (Auto) Lymph # (Auto) [place] # (Auto) Eos # (Auto) Baso # (Auto) Abs Immat Gran (auto) Absolute Neuts (auto) Absolute Nucleated RBC Total Counted Neutrophils % (Manual) Band Neutrophils % Lymphocytes % (Manual) Monocytes % (Manual) Nucleated RBC % Abs Neuts (Manual) Abs Lymphs (Manual) Abs Monocytes (Manual) Platelet Estimate Clumped Platelets Schistocytes PT INR APTT Activ Coag Time [place] Puncture Site ABG pH ABG pCO2 ABG pO2 ABG PO2/FiO2 Ratio ABG HCO3 ABG O2 Saturation ABG O2 Content ABG Base Excess A-a Gradient Oxyhemoglobin Total Hemoglobin O2 Delivery Device O2 Liters/Min Minute Volume Vent Rate Vent Mode FiO2 Tidal Volume PEEP Peak Inspir Pressure Pressure Support Sodium Potassium Chloride Carbon Dioxide Anion Gap BUN Creatinine Estim Creat Clear Calc Estimated GFR Glucose POC Capillary Glucose 312 H 306 H 325 H Hemoglobin A1c Lactic Acid Calcium Phosphorus Magnesium Total Bilirubin AST ALT Alkaline Phosphatase Total Creatine Kinase Troponin I NT-Pro-B Natriuret Pep Total Protein Albumin Triglycerides Cholesterol LDL Cholesterol Direct HDL Direct Procalcitonin TSH (Reflex) Urine Color Urine Appearance Urine pH Ur Specific [place] Urine Protein Urine Glucose (UA) Urine Ketones Ur Blood (Man) Urine Nitrate Urine Bilirubin Urine Urobilinogen Leukocyte Esterase Rfl Urine RBC Urine WBC Ur Squamous Epith Cells Urine Bacteria Urine Casts Hyaline Casts Nasal MRSA (PCR) Urine Opiates Screen Urine Methadone Screen Ur Barbiturates Screen Ur Phencyclidine Scrn Ur Amphetamine Screen U Benzodiazepines Scrn Urine Cocaine Screen U Cannabinoids Screen 12/06/24 12/06/24 12/06/24 11:10 11:13 12:31 WBC RBC Hgb Hct MCV MCH MCHC RDW Plt Count MPV Immature Gran % (Auto) Neut % (Auto) Lymph % (Auto) [place] % (Auto) Eos % (Auto) Baso % (Auto) Lymph # (Auto) [place] # (Auto) Eos # (Auto) Baso # (Auto) Abs Immat Gran (auto) Absolute Neuts (auto) Absolute Nucleated RBC Total Counted Neutrophils % (Manual) Band Neutrophils % Lymphocytes % (Manual) Monocytes % (Manual) Nucleated RBC % Abs Neuts (Manual) Abs Lymphs (Manual) Abs Monocytes (Manual) Platelet Estimate Clumped Platelets Schistocytes PT INR APTT Activ Coag Time Kaolin Puncture Site ABG pH ABG pCO2 ABG pO2 ABG PO2/FiO2 Ratio ABG HCO3 ABG O2 Saturation ABG O2 Content ABG Base Excess A-a Gradient Oxyhemoglobin Total Hemoglobin O2 Delivery Device O2 Liters/Min Minute Volume Vent Rate Vent Mode FiO2 Tidal Volume PEEP Peak Inspir Pressure Pressure Support Sodium Potassium Chloride Carbon Dioxide Anion Gap BUN Creatinine Estim Creat Clear Calc Estimated GFR Glucose POC Capillary Glucose 322 H 301 H Hemoglobin A1c Lactic Acid 3.2 H Calcium Phosphorus Magnesium Total Bilirubin AST ALT Alkaline Phosphatase Total Creatine Kinase Troponin I NT-Pro-B Natriuret Pep Total Protein Albumin Triglycerides Cholesterol LDL Cholesterol Direct HDL Direct Procalcitonin TSH (Reflex) Urine Color Urine Appearance Urine pH Ur Specific [place] Urine Protein Urine Glucose (UA) Urine Ketones Ur Blood (Man) Urine Nitrate Urine Bilirubin Urine Urobilinogen Leukocyte Esterase Rfl Urine RBC Urine WBC Ur Squamous Epith Cells Urine Bacteria Urine Casts Hyaline Casts Nasal MRSA (PCR) Urine Opiates Screen Urine Methadone Screen Ur Barbiturates Screen Ur Phencyclidine Scrn Ur Amphetamine Screen U Benzodiazepines Scrn Urine Cocaine Screen U Cannabinoids Screen 12/06/24 13:26 WBC RBC Hgb Hct MCV MCH MCHC RDW Plt Count MPV Immature Gran % (Auto) Neut % (Auto) Lymph % (Auto) [place] % (Auto) Eos % (Auto) Baso % (Auto) Lymph # (Auto) [place] # (Auto) Eos # (Auto) Baso # (Auto) Abs Immat Gran (auto) Absolute Neuts (auto) Absolute Nucleated RBC Total Counted Neutrophils % (Manual) Band Neutrophils % Lymphocytes % (Manual) Monocytes % (Manual) Nucleated RBC % Abs Neuts (Manual) Abs Lymphs (Manual) Abs Monocytes (Manual) Platelet Estimate Clumped Platelets Schistocytes PT INR APTT Activ Coag Time Kaolin Puncture Site ABG pH ABG pCO2 ABG pO2 ABG PO2/FiO2 Ratio ABG HCO3 ABG O2 Saturation ABG O2 Content ABG Base Excess A-a Gradient Oxyhemoglobin Total Hemoglobin O2 Delivery Device O2 Liters/Min Minute Volume Vent Rate Vent Mode FiO2 Tidal Volume PEEP Peak Inspir Pressure Pressure Support Sodium Potassium Chloride Carbon Dioxide Anion Gap BUN Creatinine Estim Creat Clear Calc Estimated GFR Glucose POC Capillary Glucose 288 H Hemoglobin A1c Lactic Acid Calcium Phosphorus Magnesium Total Bilirubin AST ALT Alkaline Phosphatase Total Creatine Kinase Troponin I NT-Pro-B Natriuret Pep Total Protein Albumin Triglycerides Cholesterol LDL Cholesterol Direct HDL Direct Procalcitonin TSH (Reflex) Urine Color Urine Appearance Urine pH Ur Specific [place] Urine Protein Urine Glucose (UA) Urine Ketones Ur Blood (Man) Urine Nitrate Urine Bilirubin Urine Urobilinogen Leukocyte Esterase Rfl Urine RBC Urine WBC Ur Squamous Epith Cells Urine Bacteria Urine Casts Hyaline Casts Nasal MRSA (PCR) Urine Opiates Screen Urine Methadone Screen Ur Barbiturates Screen Ur Phencyclidine Scrn Ur Amphetamine Screen U Benzodiazepines Scrn Urine Cocaine Screen U Cannabinoids Screen
[2024-12-06] MEDS: PIPERACILLIN/TAZOBACTAM SOD 3.375 GM in SODIUM CHLORIDE 0.9% IV 50 ML IVPB ×2 (14:49→20:34)
[2024-12-06 15:20] LABS: Hematocrit 51.3 % (42.0-52.0); Hemoglobin 17.1 g/dL (14.0-18.0); Mean Corpuscular HGB Conc 33.3 g/dl (32-36); Mean Corpuscular Hemoglobin 31.5 pg (26-34); Mean Corpuscular Volume 94.6 fl (80-100); Platelet Count Result 228 k/mm3 (150-375); Red Blood Count 5.42 M/mm3 (4.6-6.20); White Blood Count 14.6 K/mm3 (4.5-10.0)
[2024-12-06 15:34] LABS: Anion Gap 7 mmol/L (4-12); Blood Urea Nitrogen 13 mg/dL (9-20); Calcium 8.5 mg/dL (8.4-10.2); Carbon Dioxide 28 mmol/L (22-30); Chloride 104 mmol/L (98-107); Estimated CRCL calculation 113 ml/min; Estimated Glomerular Filt Rate > 60; Glucose 255 mg/dL (65-110); Potassium 4.1 mmol/L (3.4-5.0); Sodium 139 mmol/L (137-145)
[2024-12-06 15:35] LABS: INR 1.3; Partial Thromboplastin Time 25.3 Seconds (22.3-36.8); Prothrombin Time 15.7 Seconds (11.1-14.7)
[2024-12-06] MEDS: MIDAZOLAM 100MG/NS 100ML(*CRX) 100 MG/100 ML BAG 8 MG IV CONT (16:41)
[2024-12-07] VITALS (61 sets, daily range): BP systolic 92–129; BP diastolic 65–104; PULSE 46–140; RESP 11–26; TEMP 32.4–38.3; O2SAT 90–100
--- NOTE | 2024-12-07 01:18 | PC.NURSE ---
TTM rewarming protocol initiated.
[2024-12-07 02:42] LABS: Anion Gap 3 mmol/L (4-12); Blood Urea Nitrogen 13 mg/dL (9-20); Calcium 8.7 mg/dL (8.4-10.2); Carbon Dioxide 28 mmol/L (22-30); Chloride 107 mmol/L (98-107); Estimated CRCL calculation 125 ml/min; Estimated Glomerular Filt Rate > 60; Glucose 171 mg/dL (65-110); Potassium 3.9 mmol/L (3.4-5.0); Sodium 138 mmol/L (137-145)
--- NOTE | 2024-12-07 02:50 | PC.NURSE ---
OTP update given to Arcadio at [id number].
[2024-12-07] MEDS: PIPERACILLIN/TAZOBACTAM SOD 3.375 GM in SODIUM CHLORIDE 0.9% IV 50 ML IVPB ×4 (03:15→20:35)
[2024-12-07] MEDS: FENTANYL 2,500MCG/NS250ML(*CRX 2,500 MCG/250 ML BAG 15 MCG IV CONT (03:24)
[2024-12-07 04:51] LABS: Hematocrit 52.0 % (42.0-52.0); Hemoglobin 16.7 g/dL (14.0-18.0); Immature Granulocyte Percent A 0.7 % (0-0.5); Immature Platelet Fraction Pct 3.9 % (0.9-11.2); Lymphocytes Absolute Auto 0.76 K/mm3 (0.9-3.2); Mean Corpuscular HGB Conc 32.1 g/dl (32-36); Mean Corpuscular Hemoglobin 30.9 pg (26-34); Mean Corpuscular Volume 96.1 fl (80-100); Nucleated Red Blood Cells Absolute Auto 0.000 K/mm3 (0.0-0.012); Nucleated Red Blood Cells Perc 0.0 % (0.0-0.2); Platelet Count Result 222 k/mm3 (150-375); Red Blood Count 5.41 M/mm3 (4.6-6.20); White Blood Count 14.9 K/mm3 (4.5-10.0)
[2024-12-07 05:04] LABS: Alanine Aminotransferase 198 U/L (6-50); Albumin Level 3.3 g/dL (3.5-5.1); Alkaline Phosphatase 72 U/L (38-126); Anion Gap 5 mmol/L (4-12); Aspartate Amino Transferase 326 U/L (17-59); Bilirubin,Total 1.2 mg/dL (0.2-1.3); Blood Urea Nitrogen 14 mg/dL (9-20); Calcium 8.8 mg/dL (8.4-10.2); Carbon Dioxide 28 mmol/L (22-30); Chloride 107 mmol/L (98-107); Estimated CRCL calculation 118 ml/min; Estimated Glomerular Filt Rate > 60; Glucose 163 mg/dL (65-110); Magnesium 2.4 mg/dL (1.6-2.3); Potassium 3.5 mmol/L (3.4-5.0); Sodium 140 mmol/L (137-145); Total Protein 6.3 g/dL (6.3-8.2); Triglycerides 205 mg/dL (<150)
[2024-12-07] MEDS: CENTRAL LINE FLUSH 10 ML IV PUSH ×3 (05:20→20:44)
[2024-12-07 05:26] LABS: Alveolar/Arterial O2 Gradient 115.0 mmHg; Fractional Inspired Oxygen 30 %; HCO3 ABG 24.0 mEq/l (22.0-26.0); Oxygen Content ABG 21.9 %vol (16.0-22.0); PCO2 ABG 45.0 mmHg (35.0-45.0); PO2 ABG 52.6 mmHg (80.0-100.0); PO2 FiO2 Ratio Arterial Blood 1.75 %
[2024-12-07 05:29] LABS: Modified Allen's Test Unable to perform; Oxygen Saturation ABG 85.3 % (95.0-100.0); Site Drawn RIGHT RADIAL
[2024-12-07 05:30] LABS: Arterial Blood Gas Tidal Volume 450 ml; Arterial Blood Gas Ventilator rate 22 /MIN
--- NOTE | 2024-12-07 06:39 | P.PNCA_ITS ---
Progress Note: A&P Assessment and Plan (1) Acute ST elevation myocardial infarction: Code(s): I21.3 - ST elevation (STEMI) myocardial infarction of unspecified site Status: Acute (2) Cardiac arrest: Code(s): I46.9 - Cardiac arrest, cause unspecified Status: Acute Plan 44-year-old male with history of HTN, low testosterone on supplementation, who presented with OHCA. Initial rhythm was Vfib, Total CPR time almost 20 minutes. EKG suggestive of Acute Ant wall STEMI post ROSC. Cardiac catheterization showed 100% proximal LAD occlusion status post successful aspiration thrombectomy and PCI of proximal mid LAD with overlapping 0rsiro 3.5/22 and 3.0/13 mm IRWIN post dilated distally to 3.0-3.05 and proximally to 4.45-4.50. -Anterior STEMI status post PCI to proximal LAD -Ischemic cardiomyopathy with LVEF of 40-45% and hypokinesis of inferior, apical septum, apical lateral, mid inferoseptal, basal inferoseptal, mid anteroseptal naylor. -Outside hospital cardiac arrest due to VFib status post resuscitation-was initially on amiodarone which was stopped due to bradycardia to the 40s -Cardiogenic shock secondary to above-SBP in the 90s [place] yesterday and now improved to 120s -Bradycardia to the 40s- resolved after stopping amiodarone Plan: -Continue DAPT for 1 year with aspirin 81 mg daily and Brilinta 90 mg b.i.d.. Then continue aspirin 81 mg daily indefinitely -Continue atorvastatin 80 mg daily -Guideline directed medical therapy for cardiomyopathy when blood pressure allows. Start small dose of metoprolol 12.5 mg p.o. b.i.d and monitor blood pressure and heart rate closely. Add empagliflozin 10 mg daily. Continue to hold irbesartan -Amiodarone was stopped due to bradycardia. Continue to monitor on telemetry for any electrical instability -Management of other medical issues per ICU team Subjective Date/time seen: 12/07/24 06:39 Interval history: Reason for encounter: Anterior STEMI status post primary PCI to proximal LAD, out of hospital VFib cardiac arrest status post resuscitation Interval history: Patient is currently intubated and sedated. No further history be obtained from him. Amiodarone drip was stopped yesterday due to bradycardia. Telemetry shows sinus tachycardia with heart rates in the 100s. TTE was done yesterday showed a mildly depressed LVEF of 40-45% with regional wall motion abnormalities. Review of Systems Review of Systems: A complete review of systems could not be performed as patient is intubated and sedated. Exam Narrative: General: Patient intubated and sedated Neck: Supple, unable to assess JVD Chest: Bilaterally clear to auscultation, no rales or rhonchi Cardiac: S1, S2 +, tachycardic, regular rhythm, no murmurs or rubs Extremities: Bilateral lower extremity edema 1+, no skin rash Neurologic: Intubated and sedated Objective Data Vital Signs Vital Signs: Vital Signs - 24 hr 12/06/24 07:00 12/06/24 07:00 12/06/24 07:00 Temperature 34.6 C L 34.6 C L Pulse Rate 113 H 113 H 113 H Respiratory Rate 22 H 22 H Blood Pressure 172/123 H 172/123 H 172/123 H Pulse Oximetry 99 99 Oxygen Delivery Fraction of Inspired Oxygen 12/06/24 07:32 12/06/24 07:39 12/06/24 07:40 Temperature 34.6 C L Pulse Rate 110 H 108 H 108 H Respiratory Rate 22 H 22 H 22 H Blood Pressure 172/124 H Pulse Oximetry 98 Oxygen Delivery Fraction of Inspired Oxygen 12/06/24 08:00 12/06/24 08:00 12/06/24 08:00 Temperature Pulse Rate 104 H 104 H 104 H Respiratory Rate 22 H 22 H 22 H Blood Pressure 164/123 H Pulse Oximetry Oxygen Delivery Fraction of Inspired Oxygen 12/06/24 08:00 12/06/24 08:00 12/06/24 08:00 Temperature 34.4 C L 34.4 C L 34.3 C L Pulse Rate 102 H 102 H 97 Respiratory Rate 22 H 22 H 22 H Blood Pressure 164/123 H 164/123 H 164/123 H Pulse Oximetry 99 99 100 Oxygen Delivery Fraction of Inspired Oxygen 12/06/24 08:00 12/06/24 08:00 12/06/24 08:00 Temperature Pulse Rate 101 H Respiratory Rate Blood Pressure Pulse Oximetry 100 Oxygen Delivery Mechanical Ventilation Fraction of Inspired Oxygen 50 50 12/06/24 08:12 12/06/24 08:27 12/06/24 08:27 Temperature Pulse Rate 101 H 97 96 Respiratory Rate 22 H Blood Pressure 164/123 H Pulse Oximetry 99 Oxygen Delivery Mechanical Ventilation Fraction of Inspired Oxygen 50 12/06/24 08:27 12/06/24 09:00 12/06/24 09:00 Temperature 34.1 C L 34.1 C L Pulse Rate 96 89 89 Respiratory Rate 22 H 22 H Blood Pressure 164/123 H 160/119 H 160/119 H Pulse Oximetry 100 100 Oxygen Delivery Fraction of Inspired Oxygen 12/06/24 09:27 12/06/24 09:27 12/06/24 10:00 Temperature Pulse Rate 83 83 74 Respiratory Rate 22 H 22 H 22 H Blood Pressure 160/119 H 160/119 H Pulse Oximetry Oxygen Delivery Fraction of Inspired Oxygen 12/06/24 10:00 12/06/24 10:00 12/06/24 10:00 Temperature Pulse Rate 74 74 74 Respiratory Rate 22 H 22 H Blood Pressure 128/88 128/88 Pulse Oximetry Oxygen Delivery Fraction of Inspired Oxygen 12/06/24 10:00 12/06/24 10:00 12/06/24 10:00 Temperature 33.6 C L Pulse Rate 74 77 77 Respiratory Rate 22 H 22 H Blood Pressure 156/122 H Pulse Oximetry 100 Oxygen Delivery Fraction of Inspired Oxygen 12/06/24 10:00 12/06/24 10:41 12/06/24 11:00 Temperature 33.6 C L 32.4 C L 32.2 C L Pulse Rate 77 59 L 58 L Respiratory Rate 22 H 22 H 22 H Blood Pressure 156/122 H 106/83 103/82 Pulse Oximetry 100 100 100 Oxygen Delivery Mechanical Ventilation Fraction of Inspired Oxygen 50 12/06/24 11:00 12/06/24 11:04 12/06/24 11:04 Temperature 32.2 C L Pulse Rate 58 L 58 L 58 L Respiratory Rate 22 H 22 H 22 H Blood Pressure 103/82 Pulse Oximetry 100 Oxygen Delivery Fraction of Inspired Oxygen 12/06/24 11:16 12/06/24 11:18 12/06/24 11:23 Temperature 32.2 C L 32.2 C L Pulse Rate 57 L 52 L 54 L Respiratory Rate 22 H 22 H Blood Pressure 103/82 103/90 Pulse Oximetry 100 100 100 Oxygen Delivery Mechanical Ventilation Mechanical Ventilation Mechanical Ventilation Fraction of Inspired Oxygen 50 50 50 12/06/24 11:26 12/06/24 11:31 12/06/24 11:31 Temperature 32.2 C L 32.2 C L Pulse Rate 55 L 55 L 49 L Respiratory Rate 22 H 22 H 22 H Blood Pressure 106/88 106/84 Pulse Oximetry 100 100 Oxygen Delivery Mechanical Ventilation Mechanical Ventilation Fraction of Inspired Oxygen 50 50 12/06/24 11:31 12/06/24 11:32 12/06/24 11:34 Temperature 32.2 C L 32.2 C L Pulse Rate 49 L 56 L 57 L Respiratory Rate 22 H 22 H Blood Pressure 103/82 103/90 106/84 Pulse Oximetry 100 100 Oxygen Delivery Fraction of Inspired Oxygen 12/06/24 11:44 12/06/24 11:54 12/06/24 12:00 Temperature 32.3 C L 32.3 C L Pulse Rate 59 L 63 64 Respiratory Rate 22 H 22 H 22 H Blood Pressure Pulse Oximetry 100 100 Oxygen Delivery Fraction of Inspired Oxygen 12/06/24 12:00 12/06/24 12:00 12/06/24 12:00 Temperature Pulse Rate 64 64 64 Respiratory Rate 22 H 22 H Blood Pressure 110/84 Pulse Oximetry Oxygen Delivery Fraction of Inspired Oxygen 12/06/24 12:00 12/06/24 12:00 12/06/24 12:00 Temperature 32.5 C L 32.5 C L Pulse Rate 64 64 Respiratory Rate 22 H 22 H Blood Pressure 110/84 110/84 Pulse Oximetry 100 100 Oxygen Delivery Fraction of Inspired Oxygen 40 12/06/24 12:00 12/06/24 12:52 12/06/24 12:53 Temperature Pulse Rate 67 67 Respiratory Rate 22 H Blood Pressure 107/84 Pulse Oximetry 100 Oxygen Delivery Mechanical Ventilation Fraction of Inspired Oxygen 40 12/06/24 13:00 12/06/24 13:00 12/06/24 14:00 Temperature 33.7 C L 33.7 C L 33.8 C L Pulse Rate 68 68 63 Respiratory Rate 22 H 22 H 22 H Blood Pressure 109/85 109/85 108/88 Pulse Oximetry 100 100 100 Oxygen Delivery Fraction of Inspired Oxygen 12/06/24 14:00 12/06/24 14:00 12/06/24 14:00 Temperature 33.8 C L Pulse Rate 65 63 63 Respiratory Rate 22 H 22 H Blood Pressure 108/88 Pulse Oximetry 100 Oxygen Delivery Fraction of Inspired Oxygen 12/06/24 14:00 12/06/24 14:00 12/06/24 14:26 Temperature Pulse Rate 63 63 60 Respiratory Rate 22 H 22 H Blood Pressure 108/88 Pulse Oximetry 100 Oxygen Delivery Mechanical Ventilation Fraction of Inspired Oxygen 40 12/06/24 15:00 12/06/24 15:00 12/06/24 15:32 Temperature 33.7 C L 33.7 C L 33.5 C L Pulse Rate 63 63 62 Respiratory Rate 22 H 22 H 22 H Blood Pressure 103/75 103/75 102/84 Pulse Oximetry 100 100 100 Oxygen Delivery Fraction of Inspired Oxygen 12/06/24 16:00 12/06/24 16:00 12/06/24 16:00 Temperature 33.2 C L Pulse Rate 58 L 58 L 58 L Respiratory Rate 22 H 22 H 22 H Blood Pressure 100/79 100/79 Pulse Oximetry 100 Oxygen Delivery Fraction of Inspired Oxygen 12/06/24 16:00 12/06/24 16:00 12/06/24 16:00 Temperature 33.2 C L Pulse Rate 58 L Respiratory Rate 22 H Blood Pressure 100/79 Pulse Oximetry 100 100 Oxygen Delivery Mechanical Ventilation Fraction of Inspired Oxygen 40 40 12/06/24 16:00 12/06/24 16:41 12/06/24 16:41 Temperature Pulse Rate 59 L 55 L 55 L Respiratory Rate 22 H 22 H Blood Pressure Pulse Oximetry Oxygen Delivery Fraction of Inspired Oxygen 12/06/24 17:00 12/06/24 17:00 12/06/24 17:50 Temperature 32.8 C L 32.8 C L Pulse Rate 55 L 55 L 62 Respiratory Rate 22 H 22 H Blood Pressure 101/80 101/80 Pulse Oximetry 100 100 100 Oxygen Delivery Mechanical Ventilation Fraction of Inspired Oxygen 40 12/06/24 18:00 12/06/24 18:00 12/06/24 18:00 Temperature 32.4 C L 32.4 C L Pulse Rate 52 L 52 L 52 L Respiratory Rate 22 H 22 H Blood Pressure 101/89 101/89 Pulse Oximetry 100 100 Oxygen Delivery Fraction of Inspired Oxygen 12/06/24 18:00 12/06/24 18:00 12/06/24 18:00 Temperature Pulse Rate 53 L 52 L 52 L Respiratory Rate 22 H 22 H 22 H Blood Pressure 101/89 Pulse Oximetry Oxygen Delivery Fraction of Inspired Oxygen 12/06/24 19:00 12/06/24 19:00 12/06/24 19:58 Temperature 32.4 C L 32.5 C L Pulse Rate 60 62 66 Respiratory Rate 22 H 22 H 22 H Blood Pressure 108/86 108/86 102/78 Pulse Oximetry 100 100 Oxygen Delivery Fraction of Inspired Oxygen 12/06/24 19:58 12/06/24 20:00 12/06/24 20:00 Temperature 33.2 C L Pulse Rate 66 67 67 Respiratory Rate 22 H 22 H 22 H Blood Pressure 102/78 102/76 Pulse Oximetry 100 Oxygen Delivery Fraction of Inspired Oxygen 12/06/24 20:00 12/06/24 20:00 12/06/24 20:00 Temperature 33.2 C L Pulse Rate 67 67 67 Respiratory Rate 22 H 22 H 22 H Blood Pressure 102/76 102/76 Pulse Oximetry 100 Oxygen Delivery Fraction of Inspired Oxygen 12/06/24 20:00 12/06/24 20:00 12/06/24 20:00 Temperature Pulse Rate 66 Respiratory Rate Blood Pressure Pulse Oximetry 100 Oxygen Delivery Mechanical Ventilation Fraction of Inspired Oxygen 40 40 12/06/24 20:15 12/06/24 21:00 12/06/24 21:00 Temperature 33.8 C L 33.8 C L Pulse Rate 65 64 64 Respiratory Rate 22 H 22 H Blood Pressure 90/70 L 90/70 L Pulse Oximetry 100 100 100 Oxygen Delivery Mechanical Ventilation Fraction of Inspired Oxygen 40 12/06/24 22:00 12/06/24 22:00 12/06/24 22:00 Temperature 33.7 C L 33.7 C L Pulse Rate 62 62 62 Respiratory Rate 22 H 22 H Blood Pressure 91/73 L 91/73 L Pulse Oximetry 100 100 Oxygen Delivery Fraction of Inspired Oxygen 12/06/24 22:00 12/06/24 22:00 12/06/24 22:00 Temperature Pulse Rate 62 62 62 Respiratory Rate 22 H 22 H 22 H Blood Pressure 91/73 L Pulse Oximetry Oxygen Delivery Fraction of Inspired Oxygen 12/06/24 23:00 12/06/24 23:00 12/06/24 23:06 Temperature 33.4 C L 33.4 C L Pulse Rate 58 L 58 L 56 L Respiratory Rate 22 H 22 H Blood Pressure 92/73 L 92/73 L Pulse Oximetry 100 100 100 Oxygen Delivery Mechanical Ventilation Fraction of Inspired Oxygen 35 12/07/24 00:00 12/07/24 00:00 12/07/24 00:00 Temperature Pulse Rate 63 53 L 53 L Respiratory Rate 22 H 22 H 22 H Blood Pressure 94/72 L Pulse Oximetry Oxygen Delivery Fraction of Inspired Oxygen 12/07/24 00:00 12/07/24 00:00 12/07/24 00:00 Temperature 33.1 C L 33.1 C L Pulse Rate 52 L 52 L Respiratory Rate 22 H 22 H Blood Pressure 94/72 L 94/72 L Pulse Oximetry 100 100 Oxygen Delivery Fraction of Inspired Oxygen 30 12/07/24 00:00 12/07/24 00:00 12/07/24 00:15 Temperature Pulse Rate 52 L 46 L Respiratory Rate 22 H Blood Pressure Pulse Oximetry 100 Oxygen Delivery Mechanical Ventilation Fraction of Inspired Oxygen 30 12/07/24 00:15 12/07/24 01:00 12/07/24 01:00 Temperature 32.6 C L 32.6 C L Pulse Rate 46 L 51 L 51 L Respiratory Rate 22 H 22 H 22 H Blood Pressure 95/76 L 93/77 L 93/77 L Pulse Oximetry 100 100 Oxygen Delivery Fraction of Inspired Oxygen 12/07/24 01:59 12/07/24 02:00 12/07/24 02:00 Temperature 32.6 C L 32.6 C L Pulse Rate 56 L 57 L 56 L Respiratory Rate 22 H 22 H 22 H Blood Pressure 92/78 L 92/78 L 92/78 L Pulse Oximetry 99 100 Oxygen Delivery Fraction of Inspired Oxygen 12/07/24 02:00 12/07/24 02:00 12/07/24 02:00 Temperature Pulse Rate 56 L 56 L 56 L Respiratory Rate 22 H 22 H Blood Pressure Pulse Oximetry Oxygen Delivery Fraction of Inspired Oxygen 12/07/24 02:00 12/07/24 02:14 12/07/24 03:00 Temperature 32.4 C L 33.3 C L Pulse Rate 56 L 57 L 71 Respiratory Rate 22 H 22 H Blood Pressure 92/74 L 99/71 L Pulse Oximetry 100 100 99 Oxygen Delivery Mechanical Ventilation Fraction of Inspired Oxygen 30 12/07/24 03:00 12/07/24 03:24 12/07/24 03:24 Temperature 33.3 C L Pulse Rate 71 77 77 Respiratory Rate 22 H 22 H 22 H Blood Pressure 99/71 L Pulse Oximetry 99 Oxygen Delivery Fraction of Inspired Oxygen 12/07/24 04:00 12/07/24 04:00 12/07/24 04:00 Temperature 34.7 C L Pulse Rate 83 83 Respiratory Rate 22 H 22 H Blood Pressure 97/71 L 97/71 L Pulse Oximetry 97 Oxygen Delivery Fraction of Inspired Oxygen 30 12/07/24 04:00 12/07/24 04:00 12/07/24 04:00 Temperature Pulse Rate 83 83 Respiratory Rate 22 H 22 H Blood Pressure Pulse Oximetry 97 Oxygen Delivery Mechanical Ventilation Fraction of Inspired Oxygen 30 12/07/24 04:00 12/07/24 04:00 12/07/24 05:00 Temperature 34.7 C L 35.9 C L Pulse Rate 83 88 103 H Respiratory Rate 22 H 22 H Blood Pressure 97/71 L 127/93 H Pulse Oximetry 97 92 Oxygen Delivery Fraction of Inspired Oxygen 12/07/24 05:00 12/07/24 05:15 12/07/24 06:00 Temperature 35.8 C L 36.2 C L Pulse Rate 103 H 105 H 103 H Respiratory Rate 22 H 22 H Blood Pressure 127/93 H 121/85 Pulse Oximetry 92 90 97 Oxygen Delivery Mechanical Ventilation Fraction of Inspired Oxygen 30 12/07/24 06:00 12/07/24 06:00 12/07/24 06:00 Temperature 36.2 C L Pulse Rate 103 H 103 H 103 H Respiratory Rate 22 H 22 H Blood Pressure 121/85 121/85 Pulse Oximetry 97 Oxygen Delivery Fraction of Inspired Oxygen 12/07/24 06:00 12/07/24 06:00 Temperature Pulse Rate 83 103 H Respiratory Rate 22 H 22 H Blood Pressure Pulse Oximetry Oxygen Delivery Fraction of Inspired Oxygen Intake/Output Intake/Output: Intake & Output 12/04/24 12/05/24 12/06/24 12/07/24 23:59 23:59 23:59 23:59 Intake Total 505.6 2155.7 278.4 Output Total 700 4110 275 Balance -194.4 -1954.3 3.4 Meds/Results Medications: Active Medications Generic Name Dose Route Start Last Admin Trade Name Freq PRN Reason Stop Dose Admin Albuterol/Ipratropium 3 ml 12/05/24 13:20 Ipratropium 0.5 Mg/Albuterol Sulfate 2.5 Mg Ampul.Neb 3 Ml INHALATION Q6HRT PRN Wheezing Aspirin 81 mg 12/06/24 08:00 12/06/24 08:55 Aspirin 81 Mg Chewable Tablet FEED TUBE 81 mg DAILY@0800 JULIUS Administration Atorvastatin Calcium 80 mg 12/06/24 09:00 12/06/24 08:55 Atorvastatin 40 Mg Tablet FEED TUBE 80 mg DAILY JULIUS Administration Dextrose 12.5 gm 12/06/24 07:25 Dextrose 50% 25 Gm/50 Ml Syringe IV PUSH PRN PRN Hypoglycemia Protocol Glucagon 1 mg 12/06/24 07:25 Glucagon For Inj 1 Mg Vial IM PRN PRN Hypoglycemia Protocol Glucose 15 gm 12/06/24 07:25 Glucose Oral Gel 15 Gm Of Glucse In 37.5 Gm Tube PO PRN PRN Hypoglycemia Protocol Hydralazine HCl 20 mg 12/05/24 22:33 12/06/24 05:46 Hydralazine Hcl 20 Mg/Ml Vial IV PUSH 20 mg Q4HR PRN Administration Blood Pressure - High Fentanyl Citrate 2,500 mcg in 250 mls @ 15 mls/hr 12/05/24 13:50 12/07/24 06:00 Fentanyl 2,500 Mcg/Ns 250 Ml IV CONT 150 mcg/hr .[id number] JULIUS 15 mls/hr Titration Protocol 150 MCG/HR Midazolam HCl 100 mg in 100 mls @ 7 mls/hr 12/05/24 13:50 12/07/24 06:00 Versed 100 Mg/Ns 100 Ml IV CONT 7 mg/hr .[id number] JULIUS 7 mls/hr Titration Protocol 7 MG/HR Cisatracurium Besylate 200 mg/ 100 mls @ 7.482 mls/hr 12/05/24 14:15 12/07/24 06:00 Sodium Chloride IV CONT 2 mcg/kg/min .[id number] JULIUS 7.48 mls/hr Titration Protocol 2 MCG/KG/MIN Dextrose 1,000 mls @ 100 mls/hr 12/06/24 07:25 Dextrose 5% 1,000 Ml IVPB PRN PRN Hypoglycemia Protocol Piperacillin Sod/Tazobactam 50 mls @ 100 mls/hr 12/06/24 15:00 12/07/24 03:45 Sod 3.375 gm/ Sodium Chloride IVPB Infused Q6H [facility] Infusion Insulin Aspart 4 - 8 units 12/06/24 09:00 12/07/24 05:20 Insulin Aspart (*Bkc) 100 Units/Ml SUB-Q Not Given Q4HR [facility] Protocol Insulin Glargine 10 units 12/06/24 09:00 12/06/24 09:27 Insulin Glargine (*Bkc) 100 Units/Ml SUB-Q 10 units QAM JULIUS Administration Labetalol HCl 20 mg 12/06/24 07:34 Labetalol Hcl Inj 100 Mg/20 Ml Vial IV PUSH Q4H PRN SBP > 160 and HR> 60 -1st choice Multi-Ingred Cream/Lotion/Oil/Oint 1 applic 12/05/24 21:00 12/06/24 20:36 Mineral Oil/White Petrolatum Ointment EACH EYE 1 applic Q12HR JULIUS Administration Nitroglycerin 0.4 mg 12/05/24 13:47 Nitroglycerin Sl 0.4 Mg Tablet SUBLINGUAL Q5MIN PRN Chest Pain Pantoprazole Sodium 40 mg 12/06/24 07:40 12/06/24 20:36 Pantoprazole Sodium Iv 40 Mg Vial IV PUSH 40 mg Q12HR JULIUS Administration Sodium Chloride 10 ml 12/05/24 22:00 12/07/24 05:20 Central Line Flush IV PUSH 10 ml Q8HR JULIUS Administration Sodium Chloride 20 ml 12/05/24 15:00 Central Line Flush IV PUSH PRN PRN after blood draws Ticagrelor 90 mg 12/05/24 21:00 12/06/24 20:43 Ticagrelor 90 Mg Tablet FEED TUBE 90 mg Q12HR JULIUS Administration Radiology Results: ITS Impressions Head CT 12/05/24 12:09 Impression: Stable CT examination of the head without change from 2006 examination, without acute intracranial hemorrhage or suspicious mass effect. Cervical Spine CT 12/05/24 12:16 Impression: No acute displaced fracture within the cervical spine. Large right-sided and small left-sided pleural effusions without pneumothorax for which further evaluation post cardiac intervention is suggested (if the patient is clinically able). Abdomen X-Ray 12/06/24 14:26 IMPRESSION: Orogastric tube in good position and ready for immediate use. Chest X-Ray 12/07/24 05:49 Impression: Mild pulmonary edema pattern with small bilateral pleural effusions. Support tubes, as above. Labs Labs: Laboratory Results - last 24 hr 12/06/24 12/06/24 12/06/24 07:28 08:07 08:24 WBC RBC Hgb Hct MCV MCH MCHC RDW Plt Count MPV Immature Gran % (Auto) Neut % (Auto) Lymph % (Auto) [place] % (Auto) Eos % (Auto) Baso % (Auto) Lymph # (Auto) [place] # (Auto) Eos # (Auto) Baso # (Auto) Abs Immat Gran (auto) Absolute Neuts (auto) Absolute Nucleated RBC Nucleated RBC % % Immature Plt Fraction PT INR APTT Puncture Site ABG pH ABG pCO2 ABG pO2 ABG PO2/FiO2 Ratio ABG HCO3 ABG O2 Saturation ABG O2 Content ABG Base Excess A-a Gradient Oxyhemoglobin Total Hemoglobin O2 Delivery Device O2 Liters/Min Minute Volume Vent Rate Vent Mode FiO2 Tidal Volume PEEP Peak Inspir Pressure Pressure Support Sodium Potassium Chloride Carbon Dioxide Anion Gap BUN Creatinine Estim Creat Clear Calc Estimated GFR Glucose POC Capillary Glucose 284 H 312 H Lactic Acid 3.4 H Calcium Phosphorus Magnesium Total Bilirubin AST ALT Alkaline Phosphatase Total Creatine Kinase 6439 H NT-Pro-B Natriuret Pep 4960 H Total Protein Albumin Triglycerides 256 H TSH (Reflex) 1.610 12/06/24 12/06/24 12/06/24 09:03 10:01 11:10 WBC RBC Hgb Hct MCV MCH MCHC RDW Plt Count MPV Immature Gran % (Auto) Neut % (Auto) Lymph % (Auto) [place] % (Auto) Eos % (Auto) Baso % (Auto) Lymph # (Auto) [place] # (Auto) Eos # (Auto) Baso # (Auto) Abs Immat Gran (auto) Absolute Neuts (auto) Absolute Nucleated RBC Nucleated RBC % % Immature Plt Fraction PT INR APTT Puncture Site ABG pH ABG pCO2 ABG pO2 ABG PO2/FiO2 Ratio ABG HCO3 ABG O2 Saturation ABG O2 Content ABG Base Excess A-a Gradient Oxyhemoglobin Total Hemoglobin O2 Delivery Device O2 Liters/Min Minute Volume Vent Rate Vent Mode FiO2 Tidal Volume PEEP Peak Inspir Pressure Pressure Support Sodium Potassium Chloride Carbon Dioxide Anion Gap BUN Creatinine Estim Creat Clear Calc Estimated GFR Glucose POC Capillary Glucose 306 H 325 H 322 H Lactic Acid Calcium Phosphorus Magnesium Total Bilirubin AST ALT Alkaline Phosphatase Total Creatine Kinase NT-Pro-B Natriuret Pep Total Protein Albumin Triglycerides TSH (Reflex) 12/06/24 12/06/24 12/06/24 11:13 12:31 13:26 WBC RBC Hgb Hct MCV MCH MCHC RDW Plt Count MPV Immature Gran % (Auto) Neut % (Auto) Lymph % (Auto) [place] % (Auto) Eos % (Auto) Baso % (Auto) Lymph # (Auto) [place] # (Auto) Eos # (Auto) Baso # (Auto) Abs Immat Gran (auto) Absolute Neuts (auto) Absolute Nucleated RBC Nucleated RBC % % Immature Plt Fraction PT INR APTT Puncture Site ABG pH ABG pCO2 ABG pO2 ABG PO2/FiO2 Ratio ABG HCO3 ABG O2 Saturation ABG O2 Content ABG Base Excess A-a Gradient Oxyhemoglobin Total Hemoglobin O2 Delivery Device O2 Liters/Min Minute Volume Vent Rate Vent Mode FiO2 Tidal Volume PEEP Peak Inspir Pressure Pressure Support Sodium Potassium Chloride Carbon Dioxide Anion Gap BUN Creatinine Estim Creat Clear Calc Estimated GFR Glucose POC Capillary Glucose 301 H 288 H Lactic Acid 3.2 H Calcium Phosphorus Magnesium Total Bilirubin AST ALT Alkaline Phosphatase Total Creatine Kinase NT-Pro-B Natriuret Pep Total Protein Albumin Triglycerides TSH (Reflex) 12/06/24 12/06/24 12/06/24 14:43 15:06 15:07 WBC 14.6 H RBC 5.42 Hgb 17.1 Hct 51.3 MCV 94.6 MCH 31.5 MCHC 33.3 RDW 13.7 Plt Count 228 MPV 9.1 Immature Gran % (Auto) Neut % (Auto) Lymph % (Auto) [place] % (Auto) Eos % (Auto) Baso % (Auto) Lymph # (Auto) [place] # (Auto) Eos # (Auto) Baso # (Auto) Abs Immat Gran (auto) Absolute Neuts (auto) Absolute Nucleated RBC Nucleated RBC % % Immature Plt Fraction PT 15.7 H INR 1.3 APTT 25.3 Puncture Site ABG pH ABG pCO2 ABG pO2 ABG PO2/FiO2 Ratio ABG HCO3 ABG O2 Saturation ABG O2 Content ABG Base Excess A-a Gradient Oxyhemoglobin Total Hemoglobin O2 Delivery Device O2 Liters/Min Minute Volume Vent Rate Vent Mode FiO2 Tidal Volume PEEP Peak Inspir Pressure Pressure Support Sodium 139 Potassium 4.1 Chloride 104 Carbon Dioxide 28 Anion Gap 7 BUN 13 Creatinine 1.03 Estim Creat Clear Calc 113 Estimated GFR > 60 Glucose 255 H POC Capillary Glucose 279 H 244 H Lactic Acid 2.6 H Calcium 8.5 Phosphorus 2.4 L Magnesium Total Bilirubin AST ALT Alkaline Phosphatase Total Creatine Kinase NT-Pro-B Natriuret Pep Total Protein Albumin Triglycerides TSH (Reflex) 12/06/24 12/06/24 12/06/24 16:30 17:14 18:18 WBC RBC Hgb Hct MCV MCH MCHC RDW Plt Count MPV Immature Gran % (Auto) Neut % (Auto) Lymph % (Auto) [place] % (Auto) Eos % (Auto) Baso % (Auto) Lymph # (Auto) [place] # (Auto) Eos # (Auto) Baso # (Auto) Abs Immat Gran (auto) Absolute Neuts (auto) Absolute Nucleated RBC Nucleated RBC % % Immature Plt Fraction PT INR APTT Puncture Site ABG pH ABG pCO2 ABG pO2 ABG PO2/FiO2 Ratio ABG HCO3 ABG O2 Saturation ABG O2 Content ABG Base Excess A-a Gradient Oxyhemoglobin Total Hemoglobin O2 Delivery Device O2 Liters/Min Minute Volume Vent Rate Vent Mode FiO2 Tidal Volume PEEP Peak Inspir Pressure Pressure Support Sodium Potassium Chloride Carbon Dioxide Anion Gap BUN Creatinine Estim Creat Clear Calc Estimated GFR Glucose POC Capillary Glucose 236 H 231 H 247 H Lactic Acid Calcium Phosphorus Magnesium Total Bilirubin AST ALT Alkaline Phosphatase Total Creatine Kinase NT-Pro-B Natriuret Pep Total Protein Albumin Triglycerides TSH (Reflex) 12/06/24 12/06/24 12/06/24 19:09 20:19 21:15 WBC RBC Hgb Hct MCV MCH MCHC RDW Plt Count MPV Immature Gran % (Auto) Neut % (Auto) Lymph % (Auto) [place] % (Auto) Eos % (Auto) Baso % (Auto) Lymph # (Auto) [place] # (Auto) Eos # (Auto) Baso # (Auto) Abs Immat Gran (auto) Absolute Neuts (auto) Absolute Nucleated RBC Nucleated RBC % % Immature Plt Fraction PT INR APTT Puncture Site ABG pH ABG pCO2 ABG pO2 ABG PO2/FiO2 Ratio ABG HCO3 ABG O2 Saturation ABG O2 Content ABG Base Excess A-a Gradient Oxyhemoglobin Total Hemoglobin O2 Delivery Device O2 Liters/Min Minute Volume Vent Rate Vent Mode FiO2 Tidal Volume PEEP Peak Inspir Pressure Pressure Support Sodium Potassium Chloride Carbon Dioxide Anion Gap BUN Creatinine Estim Creat Clear Calc Estimated GFR Glucose POC Capillary Glucose 213 H 212 H 182 H Lactic Acid Calcium Phosphorus Magnesium Total Bilirubin AST ALT Alkaline Phosphatase Total Creatine Kinase NT-Pro-B Natriuret Pep Total Protein Albumin Triglycerides TSH (Reflex) 12/06/24 12/06/24 12/06/24 21:26 22:10 23:15 WBC RBC Hgb Hct MCV MCH MCHC RDW Plt Count MPV Immature Gran % (Auto) Neut % (Auto) Lymph % (Auto) [place] % (Auto) Eos % (Auto) Baso % (Auto) Lymph # (Auto) [place] # (Auto) Eos # (Auto) Baso # (Auto) Abs Immat Gran (auto) Absolute Neuts (auto) Absolute Nucleated RBC Nucleated RBC % % Immature Plt Fraction PT INR APTT Puncture Site ABG pH ABG pCO2 ABG pO2 ABG PO2/FiO2 Ratio ABG HCO3 ABG O2 Saturation ABG O2 Content ABG Base Excess A-a Gradient Oxyhemoglobin Total Hemoglobin O2 Delivery Device O2 Liters/Min Minute Volume Vent Rate Vent Mode FiO2 Tidal Volume PEEP Peak Inspir Pressure Pressure Support Sodium Potassium Chloride Carbon Dioxide Anion Gap BUN Creatinine Estim Creat Clear Calc Estimated GFR Glucose POC Capillary Glucose 165 H 177 H Lactic Acid 2.2 H Calcium Phosphorus Magnesium Total Bilirubin AST ALT Alkaline Phosphatase Total Creatine Kinase NT-Pro-B Natriuret Pep Total Protein Albumin Triglycerides TSH (Reflex) 12/07/24 12/07/24 12/07/24 00:07 00:18 01:11 WBC RBC Hgb Hct MCV MCH MCHC RDW Plt Count MPV Immature Gran % (Auto) Neut % (Auto) Lymph % (Auto) [place] % (Auto) Eos % (Auto) Baso % (Auto) Lymph # (Auto) [place] # (Auto) Eos # (Auto) Baso # (Auto) Abs Immat Gran (auto) Absolute Neuts (auto) Absolute Nucleated RBC Nucleated RBC % % Immature Plt Fraction PT INR APTT Puncture Site ABG pH ABG pCO2 ABG pO2 ABG PO2/FiO2 Ratio ABG HCO3 ABG O2 Saturation ABG O2 Content ABG Base Excess A-a Gradient Oxyhemoglobin Total Hemoglobin O2 Delivery Device O2 Liters/Min Minute Volume Vent Rate Vent Mode FiO2 Tidal Volume PEEP Peak Inspir Pressure Pressure Support Sodium Potassium Chloride Carbon Dioxide Anion Gap BUN Creatinine Estim Creat Clear Calc Estimated GFR Glucose POC Capillary Glucose 163 H 162 H Lactic Acid 1.8 Calcium Phosphorus Magnesium Total Bilirubin AST ALT Alkaline Phosphatase Total Creatine Kinase NT-Pro-B Natriuret Pep Total Protein Albumin Triglycerides TSH (Reflex) 12/07/24 12/07/2412/07/25 02:11 02:20 03:10 WBC RBC Hgb Hct MCV MCH MCHC RDW Plt Count MPV Immature Gran % (Auto) Neut % (Auto) Lymph % (Auto) [place] % (Auto) Eos % (Auto) Baso % (Auto) Lymph # (Auto) [place] # (Auto) Eos # (Auto) Baso # (Auto) Abs Immat Gran (auto) Absolute Neuts (auto) Absolute Nucleated RBC Nucleated RBC % % Immature Plt Fraction PT INR APTT Puncture Site ABG pH ABG pCO2 ABG pO2 ABG PO2/FiO2 Ratio ABG HCO3 ABG O2 Saturation ABG O2 Content ABG Base Excess A-a Gradient Oxyhemoglobin Total Hemoglobin O2 Delivery Device O2 Liters/Min Minute Volume Vent Rate Vent Mode FiO2 Tidal Volume PEEP Peak Inspir Pressure Pressure Support Sodium 138 Potassium 3.9 Chloride 107 Carbon Dioxide 28 Anion Gap 3 L BUN 13 Creatinine 0.92 Estim Creat Clear Calc 125 Estimated GFR > 60 Glucose 171 H POC Capillary Glucose 180 H 150 H Lactic Acid 1.8 Calcium 8.7 Phosphorus 1.6 L Magnesium Total Bilirubin AST ALT Alkaline Phosphatase Total Creatine Kinase NT-Pro-B Natriuret Pep Total Protein Albumin Triglycerides TSH (Reflex) 12/07/24 12/07/24 12/07/24 04:23 04:30 05:10 WBC 14.9 H RBC 5.41 Hgb 16.7 Hct 52.0 MCV 96.1 MCH 30.9 MCHC 32.1 RDW 13.8 Plt Count 222 MPV 9.3 Immature Gran % (Auto) 0.7 H Neut % (Auto) 85.8 H Lymph % (Auto) 5.1 L [place] % (Auto) 8.2 Eos % (Auto) 0.1 Baso % (Auto) 0.1 L Lymph # (Auto) 0.76 L [place] # (Auto) 1.2 H Eos # (Auto) 0.0 Baso # (Auto) 0.0 Abs Immat Gran (auto) 0.10 H Absolute Neuts (auto) 12.7 H Absolute Nucleated RBC 0.000 Nucleated RBC % 0.0 % Immature Plt Fraction 3.9 PT INR APTT Puncture Site Right radial ABG pH 7.344 L ABG pCO2 45.0 ABG pO2 52.6 L ABG PO2/FiO2 Ratio 1.75 ABG HCO3 24.0 ABG O2 Saturation 85.3 L* ABG O2 Content 21.9 ABG Base Excess -2.0 A-a Gradient 115.0 Oxyhemoglobin 85.8 L* Total Hemoglobin 18.2 H O2 Delivery Device Ventilator O2 Liters/Min Mathematics Technician Minute Volume Not Reportable Vent Rate 22 Vent Mode Cmv FiO2 30 Tidal Volume 450 PEEP 8 Peak Inspir Pressure Not Reportable Pressure Support Not Reportable Sodium 140 Potassium 3.5 Chloride 107 Carbon Dioxide 28 Anion Gap 5 BUN 14 Creatinine 0.98 Estim Creat Clear Calc 118 Estimated GFR > 60 Glucose 163 H POC Capillary Glucose 152 H Lactic Acid Calcium 8.8 Phosphorus 2.4 L Magnesium 2.4 H Total Bilirubin 1.2 AST 326 H ALT 198 H Alkaline Phosphatase 72 Total Creatine Kinase NT-Pro-B Natriuret Pep Total Protein 6.3 Albumin 3.3 L Triglycerides 205 H TSH (Reflex) 12/07/24 12/07/24 05:13 06:03 WBC RBC Hgb Hct MCV MCH MCHC RDW Plt Count MPV Immature Gran % (Auto) Neut % (Auto) Lymph % (Auto) [place] % (Auto) Eos % (Auto) Baso % (Auto) Lymph # (Auto) [place] # (Auto) Eos # (Auto) Baso # (Auto) Abs Immat Gran (auto) Absolute Neuts (auto) Absolute Nucleated RBC Nucleated RBC % % Immature Plt Fraction PT INR APTT Puncture Site ABG pH ABG pCO2 ABG pO2 ABG PO2/FiO2 Ratio ABG HCO3 ABG O2 Saturation ABG O2 Content ABG Base Excess A-a Gradient Oxyhemoglobin Total Hemoglobin O2 Delivery Device O2 Liters/Min Minute Volume Vent Rate Vent Mode FiO2 Tidal Volume PEEP Peak Inspir Pressure Pressure Support Sodium Potassium Chloride Carbon Dioxide Anion Gap BUN Creatinine Estim Creat Clear Calc Estimated GFR Glucose POC Capillary Glucose 131 H 155 H Lactic Acid Calcium Phosphorus Magnesium Total Bilirubin AST ALT Alkaline Phosphatase Total Creatine Kinase NT-Pro-B Natriuret Pep Total Protein Albumin Triglycerides TSH (Reflex) Imaging My impression: TTE: Mildly depressed LV ejection fraction of 40-45%, hypokinesis of inferior, apical septum, apical lateral, mid inferoseptal, basal inferoseptal, mid anteroseptal naylor. No significant valvular pathology.
[2024-12-07] MEDS: POTASSIUM PHOS,M-BASIC-D-BASIC 20 MMOL in SODIUM CHLORIDE 0.9% IV 250 ML 64.17 MMOL IVPB (08:43)
[2024-12-07] MEDS: ASPIRIN 81 MG CHEWABLE TABLET FEED TUBE (08:43)
[2024-12-07] MEDS: EMPAGLIFLOZIN 10 MG TABLET PO (08:44)
[2024-12-07] MEDS: MINERAL OIL/WHITE PETROLATUM OINTMENT 1 APPLIC EACH EYE ×2 (08:44→20:32)
[2024-12-07] MEDS: PANTOPRAZOLE SODIUM IV 40 MG VIAL IV PUSH ×2 (08:44→20:32)
[2024-12-07] MEDS: ATORVASTATIN 40 MG TABLET 80 MG FEED TUBE (08:44)
[2024-12-07] MEDS: METOPROLOL TARTRATE 12.5 MG TABLET PO ×2 (08:44→20:31)
[2024-12-07] MEDS: TICAGRELOR 90 MG TABLET FEED TUBE ×2 (08:46→20:31)
[2024-12-07] MEDS: INSULIN GLARGINE (*BKC) 100 UNITS/ML 10 UNITS SUB-Q (08:50)
[2024-12-07 09:15] LABS: Creatine Kinase 864 U/L (55-170)
[2024-12-07] MEDS: LORazepam INJ (*CRX) 2 MG/ML VIAL IV PUSH (10:00)
[2024-12-07] MEDS: PROPOFOL IV EMULSION 100 ML 3.76 MG IV CONT (10:15)
[2024-12-07] MEDS: levETIRAcetam 1000MG/NACL100ML 1,000 MG/100 ML BAG 400 MG IVPB (10:15)
[2024-12-07] MEDS: ALTEPLASE 2 MG VIAL (CATHFLO) IV PUSH (10:26)
--- NOTE | 2024-12-07 11:27 | WPDINTPN ---
Progress Note: A&P Assessment and Plan (1) Acute respiratory failure: Code(s): J96.00 - Acute respiratory failure, unspecified whether with hypoxia or hypercapnia Status: Acute Assessment and Plan: Acute Respiratory failure secondary to cardiac arrest 12/05: Intubated Continue full mechanical ventilation support to prevent hypoxemia/hypercarbia and end organ damage. Chest x-ray and ABGs reviewed, ventilator adjusted Continue bronchodilators -Zosyn for possible aspiration pneumonia Sedated with fentanyl and Versed, asked the bedside RN to discontinue the Nimbex, sedation. After which patient had a seizure activity and was started on propofol infusion 12/07 - Fentanyl Versed and have been discontent (2) Cardiac arrest: Code(s): I46.9 - Cardiac arrest, cause unspecified Status: Acute Assessment and Plan: Cardiac arrest secondary to acute ST segment elevation MA Status post cardiac catheterization which showed 100% blockage of proximal LAD status post 2 drug-eluting stent placement -cardiology following the patient, -continue ticagrelor, aspirin, atorvastatin, Jardiance, metoprolol 12/06/2024: Echocardiogram Summary 1. Left ventricular systolic function is normal, estimated at 40-45. 2. There is mildly increased left ventricular wall thickness. 3. The left ventricular diastolic function is abnormal. 4. The inferior wall, apical septum, apical lateral wall, mid inferoseptal, basal anteroseptal, and mid anteroseptal are hypokinetic. (3) Acute ST elevation myocardial infarction: Code(s): I21.3 - ST elevation (STEMI) myocardial infarction of unspecified site Status: Acute Assessment and Plan: See above (4) Ischemic cardiomyopathy: Code(s): I25.5 - Ischemic cardiomyopathy Status: Acute Assessment and Plan: See above (5) Anoxic brain injury: Code(s): G93.1 - Anoxic brain damage, not elsewhere classified Status: Acute Assessment and Plan: Suspected anoxic brain injury from cardiac arrest as patient was unresponsive on presentation -off paralytic, off sedation patient did have a seizure for which she was given Ativan which abated this seizure, -patient status post target temperature management -started patient on Keppra 1000 mg IV x1 followed by 500 mg IV q.12 hours -neurology has been consulted -EEG has been ordered 12/05/2024 CT brain: No intracranial hemorrhage or suspicious mass effect. (6) Gastro-esophageal reflux disease without esophagitis: Code(s): K21.9 - Gastro-esophageal reflux disease without esophagitis Status: Acute Assessment and Plan: PPI IV q.12 hours -patient had some GI bleed, GI was consulted. -12/06/2024 EGD showed gastritis with bleeding Continue Protonix IV q.12 hours (7) Aspiration pneumonia: Code(s): J69.0 - Pneumonitis due to inhalation of food and vomit Status: Acute Assessment and Plan: Thick secretions on suctioning 12/06/2024 Sputum cultures pending Empiric Zosyn (12/06) (8) Elevated liver enzymes: Code(s): R74.8 - Abnormal levels of other serum enzymes Status: Acute (9) Diabetes mellitus: Code(s): E11.9 - Type 2 diabetes mellitus without complications Status: Acute (10) Seizures: Code(s): R56.9 - Unspecified convulsions Status: Acute Assessment and Plan: Off sedation patient did have a seizure-like activity, treated with Ativan x1 with improvement. -started on Keppra Plan DVT prophylaxis -will start heparin subQ, discussed with GI, as patient had erosive gastritis. GI will is agreeable with prophylactic heparin. Stress ulcer prophylaxis -PPI IV q.12 Nutrition -will start tube feeds Code Status - Full Code Total Critical Care Time - 38 minutes Discussed with patient's , parents, sister and updated them with his condition and plan of care. They are aware that the patient had a seizure-like activity after decreasing the sedation. They also aware that he has been started on antiseizure medications, neurology has been consulted, EEG will be done. I answered all the questions Due to a high probability of clinically significant, life threatening deterioration, the patient required my highest level of preparedness to intervene emergently and I personally spent this critical care time directly and personally managing the patient. This critical care time included obtaining a history; examining the patient; pulse oximetry; ordering and review of studies; arranging urgent treatment with development of a management plan; evaluation of patient's response to treatment; frequent reassessment; and discussions with other providers. It was exclusive of separately billable procedures and treating other patients and teaching time. Please see Assessment and Plan section and the rest of the note for further information on patient assessment and treatment This dictation may have been done utilizing a voice recognition system. Attempts have been made to correct errors. However, there may be uncorrected grammatical, spelling, and recognitions errors present. Subjective Date/time seen: 12/07/24 11:27 Interval history: Reason for encounter: 12/06/2019 Anterior STEMI, out of hospital VFib cardiac arrest status post resuscitation, status post TTM 12/07/2024: Patient seen and examined the ICU, is intubated, on CMV mode of ventilation, peep of 8, 30% FiO2. Sedated with fentanyl, Versed. Upon stopping the sedation, patient did have a seizure-like activity with right of fluid gaze, tremors, was given 2 mg Ativan with good response. Has the bedside RN to start propofol infusion. Urine output has been adequate, LFTs trending down. Patient has been reverted to normal body temperature Review of Systems Review of Systems: ROS unobtainable: Yes unobtainable due to endotracheal tube, unobtainable due to medical condition and unobtainable due to mental status Exam Narrative: General: Pt is sedated, intubated and on mechanical ventilation HEENT: Pupils are reactive and equal bilateral, sclera is clear Lungs/Chest: Coarse breath sounds bilaterally, decreased at bases, adequate air entry, no wheeze Cardiac: Patient in sinus tachycardia. Normal S1 S2. No murmurs Circulation: Pedal pulses are palpable, patient has cyanosis of his earlobe and generalized mottling of the whole skin Abdomen: Decreased bowel sounds. Obese. Soft. NT. ND. Extremities: No clubbing, cyanosis or edema. Warm extremities : Agarwal in place Neurologic: Patient is sedated, intubated, does not open his eyes or follow simple commands. Objective Data Vital Signs Vital Signs: Vital Signs - 24 hr 12/06/24 11:31 12/06/24 11:31 12/06/24 11:31 Temperature 90.0 F L Pulse Rate 55 L 49 L 49 L Respiratory Rate 22 H 22 H Blood Pressure 106/84 103/82 Pulse Oximetry 100 Oxygen Delivery Mechanical Ventilation Fraction of Inspired Oxygen 50 12/06/24 11:32 12/06/24 11:34 12/06/24 11:44 Temperature 89.9 F L 89.9 F L 90.1 F L Pulse Rate 56 L 57 L 59 L Respiratory Rate 22 H 22 H 22 H Blood Pressure 103/90 106/84 Pulse Oximetry 100 100 100 Oxygen Delivery Fraction of Inspired Oxygen 12/06/24 11:54 12/06/24 12:00 12/06/24 12:00 Temperature 90.1 F L Pulse Rate 63 64 64 Respiratory Rate 22 H 22 H 22 H Blood Pressure 110/84 Pulse Oximetry 100 Oxygen Delivery Fraction of Inspired Oxygen 12/06/24 12:00 12/06/24 12:00 12/06/24 12:00 Temperature 90.5 F L Pulse Rate 64 64 64 Respiratory Rate 22 H 22 H Blood Pressure 110/84 Pulse Oximetry 100 Oxygen Delivery Fraction of Inspired Oxygen 12/06/24 12:00 12/06/24 12:00 12/06/24 12:00 Temperature 90.5 F L Pulse Rate 64 Respiratory Rate 22 H Blood Pressure 110/84 Pulse Oximetry 100 100 Oxygen Delivery Mechanical Ventilation Fraction of Inspired Oxygen 40 40 12/06/24 12:52 12/06/24 12:53 12/06/24 13:00 Temperature 92.6 F L Pulse Rate 67 67 68 Respiratory Rate 22 H 22 H Blood Pressure 107/84 109/85 Pulse Oximetry 100 Oxygen Delivery Fraction of Inspired Oxygen 12/06/24 13:00 12/06/24 14:00 12/06/24 14:00 Temperature 92.7 F L 92.8 F L Pulse Rate 68 63 65 Respiratory Rate 22 H 22 H Blood Pressure 109/85 108/88 Pulse Oximetry 100 100 Oxygen Delivery Fraction of Inspired Oxygen 12/06/24 14:00 12/06/24 14:00 12/06/24 14:00 Temperature 92.8 F L Pulse Rate 63 63 63 Respiratory Rate 22 H 22 H 22 H Blood Pressure 108/88 108/88 Pulse Oximetry 100 Oxygen Delivery Fraction of Inspired Oxygen 12/06/24 14:00 12/06/24 14:26 12/06/24 15:00 Temperature 92.7 F L Pulse Rate 63 60 63 Respiratory Rate 22 H 22 H Blood Pressure 103/75 Pulse Oximetry 100 100 Oxygen Delivery Mechanical Ventilation Fraction of Inspired Oxygen 40 12/06/24 15:00 12/06/24 15:32 12/06/24 16:00 Temperature 92.7 F L 92.3 F L 91.7 F L Pulse Rate 63 62 58 L Respiratory Rate 22 H 22 H 22 H Blood Pressure 103/75 102/84 100/79 Pulse Oximetry 100 100 100 Oxygen Delivery Fraction of Inspired Oxygen 12/06/24 16:00 12/06/24 16:00 12/06/24 16:00 Temperature 91.7 F L Pulse Rate 58 L 58 L 58 L Respiratory Rate 22 H 22 H 22 H Blood Pressure 100/79 100/79 Pulse Oximetry 100 Oxygen Delivery Fraction of Inspired Oxygen 12/06/24 16:00 12/06/24 16:00 12/06/24 16:00 Temperature Pulse Rate 59 L Respiratory Rate Blood Pressure Pulse Oximetry 100 Oxygen Delivery Mechanical Ventilation Fraction of Inspired Oxygen 40 40 12/06/24 16:41 12/06/24 16:41 12/06/24 17:00 Temperature 91.1 F L Pulse Rate 55 L 55 L 55 L Respiratory Rate 22 H 22 H 22 H Blood Pressure 101/80 Pulse Oximetry 100 Oxygen Delivery Fraction of Inspired Oxygen 12/06/24 17:00 12/06/24 17:50 12/06/24 18:00 Temperature 91.1 F L 90.3 F L Pulse Rate 55 L 62 52 L Respiratory Rate 22 H 22 H Blood Pressure 101/80 101/89 Pulse Oximetry 100 100 100 Oxygen Delivery Mechanical Ventilation Fraction of Inspired Oxygen 40 12/06/24 18:00 12/06/24 18:00 12/06/24 18:00 Temperature 90.3 F L Pulse Rate 52 L 52 L 53 L Respiratory Rate 22 H 22 H Blood Pressure 101/89 101/89 Pulse Oximetry 100 Oxygen Delivery Fraction of Inspired Oxygen 12/06/24 18:00 12/06/24 18:00 12/06/24 19:00 Temperature 90.4 F L Pulse Rate 52 L 52 L 60 Respiratory Rate 22 H 22 H 22 H Blood Pressure 108/86 Pulse Oximetry 100 Oxygen Delivery Fraction of Inspired Oxygen 12/06/24 19:00 12/06/24 19:58 12/06/24 19:58 Temperature 90.5 F L Pulse Rate 62 66 66 Respiratory Rate 22 H 22 H 22 H Blood Pressure 108/86 102/78 102/78 Pulse Oximetry 100 Oxygen Delivery Fraction of Inspired Oxygen 12/06/24 20:00 12/06/24 20:00 12/06/24 20:00 Temperature 91.7 F L Pulse Rate 67 67 67 Respiratory Rate 22 H 22 H 22 H Blood Pressure 102/76 102/76 Pulse Oximetry 100 Oxygen Delivery Fraction of Inspired Oxygen 12/06/24 20:00 12/06/24 20:00 12/06/24 20:00 Temperature 91.7 F L Pulse Rate 67 67 Respiratory Rate 22 H 22 H Blood Pressure 102/76 Pulse Oximetry 100 Oxygen Delivery Fraction of Inspired Oxygen 40 12/06/24 20:00 12/06/24 20:00 12/06/24 20:15 Temperature Pulse Rate 66 65 Respiratory Rate Blood Pressure Pulse Oximetry 100 100 Oxygen Delivery Mechanical Ventilation Mechanical Ventilation Fraction of Inspired Oxygen 40 40 12/06/24 21:00 12/06/24 21:00 12/06/24 22:00 Temperature 92.8 F L 92.8 F L 92.7 F L Pulse Rate 64 64 62 Respiratory Rate 22 H 22 H 22 H Blood Pressure 90/70 L 90/70 L 91/73 L Pulse Oximetry 100 100 100 Oxygen Delivery Fraction of Inspired Oxygen 12/06/24 22:00 12/06/24 22:00 12/06/24 22:00 Temperature 92.7 F L Pulse Rate 62 62 62 Respiratory Rate 22 H 22 H Blood Pressure 91/73 L Pulse Oximetry 100 Oxygen Delivery Fraction of Inspired Oxygen 12/06/24 22:00 12/06/24 22:00 12/06/24 23:00 Temperature 92.2 F L Pulse Rate 62 62 58 L Respiratory Rate 22 H 22 H 22 H Blood Pressure 91/73 L 92/73 L Pulse Oximetry 100 Oxygen Delivery Fraction of Inspired Oxygen 12/06/24 23:00 12/06/24 23:06 12/07/24 00:00 Temperature 92.2 F L Pulse Rate 58 L 56 L 63 Respiratory Rate 22 H 22 H Blood Pressure 92/73 L Pulse Oximetry 100 100 Oxygen Delivery Mechanical Ventilation Fraction of Inspired Oxygen 35 12/07/24 00:00 12/07/24 00:00 12/07/24 00:00 Temperature 91.5 F L Pulse Rate 53 L 53 L 52 L Respiratory Rate 22 H 22 H 22 H Blood Pressure 94/72 L 94/72 L Pulse Oximetry 100 Oxygen Delivery Fraction of Inspired Oxygen 12/07/24 00:00 12/07/24 00:00 12/07/24 00:00 Temperature 91.5 F L Pulse Rate 52 L Respiratory Rate 22 H Blood Pressure 94/72 L Pulse Oximetry 100 100 Oxygen Delivery Mechanical Ventilation Fraction of Inspired Oxygen 30 30 12/07/24 00:00 12/07/24 00:15 12/07/24 00:15 Temperature Pulse Rate 52 L 46 L 46 L Respiratory Rate 22 H 22 H Blood Pressure 95/76 L Pulse Oximetry Oxygen Delivery Fraction of Inspired Oxygen 12/07/24 01:00 12/07/24 01:00 12/07/24 01:59 Temperature 90.7 F L 90.7 F L 90.7 F L Pulse Rate 51 L 51 L 56 L Respiratory Rate 22 H 22 H 22 H Blood Pressure 93/77 L 93/77 L 92/78 L Pulse Oximetry 100 100 99 Oxygen Delivery Fraction of Inspired Oxygen 12/07/24 02:00 12/07/24 02:00 12/07/24 02:00 Temperature 90.7 F L Pulse Rate 57 L 56 L 56 L Respiratory Rate 22 H 22 H 22 H Blood Pressure 92/78 L 92/78 L Pulse Oximetry 100 Oxygen Delivery Fraction of Inspired Oxygen 12/07/24 02:00 12/07/24 02:00 12/07/24 02:00 Temperature 90.4 F L Pulse Rate 56 L 56 L 56 L Respiratory Rate 22 H 22 H Blood Pressure 92/74 L Pulse Oximetry 100 Oxygen Delivery Fraction of Inspired Oxygen 12/07/24 02:14 12/07/24 03:00 12/07/24 03:00 Temperature 91.9 F L 91.9 F L Pulse Rate 57 L 71 71 Respiratory Rate 22 H 22 H Blood Pressure 99/71 L 99/71 L Pulse Oximetry 100 99 99 Oxygen Delivery Mechanical Ventilation Fraction of Inspired Oxygen 30 12/07/24 03:24 12/07/24 03:24 12/07/24 04:00 Temperature Pulse Rate 77 77 Respiratory Rate 22 H 22 H Blood Pressure Pulse Oximetry Oxygen Delivery Fraction of Inspired Oxygen 30 12/07/24 04:00 12/07/24 04:00 12/07/24 04:00 Temperature 94.5 F L Pulse Rate 83 83 83 Respiratory Rate 22 H 22 H 22 H Blood Pressure 97/71 L 97/71 L Pulse Oximetry 97 Oxygen Delivery Fraction of Inspired Oxygen 12/07/24 04:00 12/07/24 04:00 12/07/24 04:00 Temperature 94.5 F L Pulse Rate 83 83 Respiratory Rate 22 H 22 H Blood Pressure 97/71 L Pulse Oximetry 97 97 Oxygen Delivery Mechanical Ventilation Fraction of Inspired Oxygen 30 12/07/24 04:00 12/07/24 05:00 12/07/24 05:00 Temperature 96.7 F L 96.4 F L Pulse Rate 88 103 H 103 H Respiratory Rate 22 H 22 H Blood Pressure 127/93 H 127/93 H Pulse Oximetry 92 92 Oxygen Delivery Fraction of Inspired Oxygen 12/07/24 05:15 12/07/24 06:00 12/07/24 06:00 Temperature 97.1 F L Pulse Rate 105 H 103 H 103 H Respiratory Rate 22 H Blood Pressure 121/85 Pulse Oximetry 90 97 Oxygen Delivery Mechanical Ventilation Fraction of Inspired Oxygen 30 12/07/24 06:00 12/07/24 06:00 12/07/24 06:00 Temperature 97.1 F L Pulse Rate 103 H 103 H 83 Respiratory Rate 22 H 22 H 22 H Blood Pressure 121/85 121/85 Pulse Oximetry 97 Oxygen Delivery Fraction of Inspired Oxygen 12/07/24 06:00 12/07/24 07:00 12/07/24 07:00 Temperature 97.5 F L 97.5 F L Pulse Rate 103 H 107 H 107 H Respiratory Rate 22 H 22 H 22 H Blood Pressure 119/80 119/80 Pulse Oximetry 92 92 Oxygen Delivery Fraction of Inspired Oxygen 12/07/24 07:00 12/07/24 07:00 12/07/24 07:15 Temperature Pulse Rate 107 H 102 H 102 H Respiratory Rate 18 18 18 Blood Pressure Pulse Oximetry Oxygen Delivery Fraction of Inspired Oxygen 12/07/24 07:30 12/07/24 07:30 12/07/24 07:45 Temperature Pulse Rate 109 H 103 H 110 H Respiratory Rate 22 H 18 22 H Blood Pressure 116/80 116/80 Pulse Oximetry Oxygen Delivery Fraction of Inspired Oxygen 12/07/24 07:46 12/07/24 08:00 12/07/24 08:00 Temperature 97.6 F Pulse Rate 110 H 111 H 105 H Respiratory Rate 22 H 22 H 18 Blood Pressure 116/80 114/79 Pulse Oximetry 95 Oxygen Delivery Fraction of Inspired Oxygen 12/07/24 08:00 12/07/24 08:00 12/07/24 08:25 Temperature Pulse Rate 108 H 111 H 114 H Respiratory Rate 18 18 Blood Pressure Pulse Oximetry 93 90 Oxygen Delivery Mechanical Ventilation Mechanical Ventilation Fraction of Inspired Oxygen 35 35 12/07/24 08:30 12/07/24 08:42 12/07/24 08:44 Temperature Pulse Rate 107 H 111 H 111 H Respiratory Rate 22 H 22 H Blood Pressure 113/81 Pulse Oximetry Oxygen Delivery Fraction of Inspired Oxygen 12/07/24 09:00 12/07/24 10:00 12/07/24 10:00 Temperature 98.1 F 98.8 F Pulse Rate 107 H 115 H 102 H Respiratory Rate 22 H 26 H 11 L Blood Pressure 110/87 121/90 121/90 Pulse Oximetry 93 90 Oxygen Delivery Fraction of Inspired Oxygen 12/07/24 10:00 12/07/24 10:15 12/07/24 10:15 Temperature Pulse Rate 110 H 107 H 106 H Respiratory Rate 18 23 H 20 Blood Pressure Pulse Oximetry Oxygen Delivery Fraction of Inspired Oxygen 12/07/24 10:20 12/07/24 10:25 12/07/24 10:35 Temperature Pulse Rate 140 H 122 H 118 H Respiratory Rate 26 H 24 H 22 H Blood Pressure Pulse Oximetry Oxygen Delivery Fraction of Inspired Oxygen 12/07/24 10:40 12/07/24 10:42 12/07/24 10:45 Temperature Pulse Rate 105 H 106 H 101 H Respiratory Rate 24 H 22 H Blood Pressure Pulse Oximetry 91 Oxygen Delivery Mechanical Ventilation Fraction of Inspired Oxygen 50 Intake/Output Intake/Output: Intake & Output 12/04/24 12/05/24 12/06/24 12/07/24 23:59 23:59 23:59 23:59 Intake Total 505.6 2155.7 403.0 Output Total 700 4110 320 Balance -194.4 -1954.3 83.0 Meds/Results Medications: Active Medications Generic Name Dose Route Start Last Admin Trade Name Freq PRN Reason Stop Dose Admin Albuterol/Ipratropium 3 ml 12/05/24 13:20 Ipratropium 0.5 Mg/Albuterol Sulfate 2.5 Mg Ampul.Neb 3 Ml INHALATION Q6HRT PRN Wheezing Alteplase, Recombinant 2 mg 12/07/24 09:34 12/07/24 10:26 Alteplase 2 Mg Vial (Cathflo) IV PUSH 2 mg ONCE PRN Administration Line Occlusion Aspirin 81 mg 12/06/24 08:00 12/07/24 08:43 Aspirin 81 Mg Chewable Tablet FEED TUBE 81 mg DAILY@0800 JULIUS Administration Atorvastatin Calcium 80 mg 12/06/24 09:00 12/07/24 08:44 Atorvastatin 40 Mg Tablet FEED TUBE 80 mg DAILY JULIUS Administration Dextrose 12.5 gm 12/06/24 07:25 Dextrose 50% 25 Gm/50 Ml Syringe IV PUSH PRN PRN Hypoglycemia Protocol Empagliflozin 10 mg 12/07/24 09:00 12/07/24 08:44 Empagliflozin 10 Mg Tablet PO 10 mg DAILY JULIUS Administration Glucagon 1 mg 12/06/24 07:25 Glucagon For Inj 1 Mg Vial IM PRN PRN Hypoglycemia Protocol Glucose 15 gm 12/06/24 07:25 Glucose Oral Gel 15 Gm Of Glucse In 37.5 Gm Tube PO PRN PRN Hypoglycemia Protocol Heparin Sodium (Porcine) 5,000 units 12/07/24 14:00 Heparin Sodium 5,000 Units/Ml Vial SUB-Q Q8HR JULIUS Hydralazine HCl 20 mg 12/05/24 22:33 12/06/24 05:46 Hydralazine Hcl 20 Mg/Ml Vial IV PUSH 20 mg Q4HR PRN Administration Blood Pressure - High Fentanyl Citrate 2,500 mcg in 250 mls @ 0 mls/hr 12/05/24 13:50 12/07/24 10:15 Fentanyl 2,500 Mcg/Ns 250 Ml IV CONT 0 mcg/hr .Q0M JULIUS 0 mls/hr Titration Protocol 0 MCG/HR Midazolam HCl 100 mg in 100 mls @ 7 mls/hr 12/05/24 13:50 12/07/24 08:42 Versed 100 Mg/Ns 100 Ml IV CONT Infused .[id number] JULIUS Titration Protocol 7 MG/HR Cisatracurium Besylate 200 mg/ 100 mls @ 0 mls/hr 12/05/24 14:15 12/07/24 10:00 Sodium Chloride IV CONT 0 mcg/kg/min .Q0M JULIUS 0 mls/hr Titration Protocol Dextrose 1,000 mls @ 100 mls/hr 12/06/24 07:25 Dextrose 5% 1,000 Ml IVPB PRN PRN Hypoglycemia Protocol Piperacillin Sod/Tazobactam 50 mls @ 100 mls/hr 12/06/24 15:00 12/07/24 09:15 Sod 3.375 gm/ Sodium Chloride IVPB Infused Q6H JULIUS Infusion Potassium Phosphate 20 mmol/ 256.6667 mls @ 64.167 mls/hr 12/07/24 08:15 12/07/24 08:43 Sodium Chloride IVPB 12/07/24 12:14 64.17 mls/hr ONCE ONE Administration Levetiracetam 500 mg in 100 mls @ 400 mls/hr 12/07/24 21:00 Keppra Iv IVPB Q12HR JULIUS Propofol 100 mls @ 22.536 mls/hr 12/07/24 09:55 12/07/24 10:45 Diprivan IV CONT 30 mcg/kg/min .Q4H27M UJLIUS 22.54 mls/hr Titration Protocol 30 MCG/KG/MIN Insulin Aspart 4 - 8 units 12/06/24 09:00 12/07/24 08:44 Insulin Aspart (*Bkc) 100 Units/Ml SUB-Q Not Given Q4HR [facility] Protocol Insulin Glargine 10 units 12/06/24 09:00 12/07/24 08:50 Insulin Glargine (*Bkc) 100 Units/Ml SUB-Q 10 units QAM JULIUS Administration Labetalol HCl 20 mg 12/06/24 07:34 Labetalol Hcl Inj 100 Mg/20 Ml Vial IV PUSH Q4H PRN SBP > 160 and HR> 60 -1st choice Metoprolol Tartrate 12.5 mg 12/07/24 09:00 12/07/24 08:44 Metoprolol Tartrate 12.5 Mg Tablet PO 12.5 mg Q12HR JULIUS Administration Multi-Ingred Cream/Lotion/Oil/Oint 1 applic 12/05/24 21:00 12/07/24 08:44 Mineral Oil/White Petrolatum Ointment EACH EYE 1 applic Q12HR JULIUS Administration Nitroglycerin 0.4 mg 12/05/24 13:47 Nitroglycerin Sl 0.4 Mg Tablet SUBLINGUAL Q5MIN PRN Chest Pain Pantoprazole Sodium 40 mg 12/06/24 07:40 12/07/24 08:44 Pantoprazole Sodium Iv 40 Mg Vial IV PUSH 40 mg Q12HR JULIUS Administration Sodium Chloride 10 ml 12/05/24 22:00 12/07/24 05:20 Central Line Flush IV PUSH 10 ml Q8HR JULIUS Administration Sodium Chloride 20 ml 12/05/24 15:00 Central Line Flush IV PUSH PRN PRN after blood draws Ticagrelor 90 mg 12/05/24 21:00 12/07/24 08:46 Ticagrelor 90 Mg Tablet FEED TUBE 90 mg Q12HR JULIUS Administration Radiology Results: ITS Impressions Head CT 12/05/24 12:09 Impression: Stable CT examination of the head without change from 2006 examination, without acute intracranial hemorrhage or suspicious mass effect. Cervical Spine CT 12/05/24 12:16 Impression: No acute displaced fracture within the cervical spine. Large right-sided and small left-sided pleural effusions without pneumothorax for which further evaluation post cardiac intervention is suggested (if the patient is clinically able). Abdomen X-Ray 12/06/24 14:26 IMPRESSION: Orogastric tube in good position and ready for immediate use. Chest X-Ray 12/07/24 05:49 Impression: Mild pulmonary edema pattern with small bilateral pleural effusions. Support tubes, as above. Labs Labs: Laboratory Results - last 24 hr 12/06/24 12/06/24 12/06/24 11:13 12:31 13:26 WBC RBC Hgb Hct MCV MCH MCHC RDW Plt Count MPV Immature Gran % (Auto) Neut % (Auto) Lymph % (Auto) [place] % (Auto) Eos % (Auto) Baso % (Auto) Lymph # (Auto) [place] # (Auto) Eos # (Auto) Baso # (Auto) Abs Immat Gran (auto) Absolute Neuts (auto) Absolute Nucleated RBC Nucleated RBC % % Immature Plt Fraction PT INR APTT Puncture Site ABG pH ABG pCO2 ABG pO2 ABG PO2/FiO2 Ratio ABG HCO3 ABG O2 Saturation ABG O2 Content ABG Base Excess A-a Gradient Oxyhemoglobin Total Hemoglobin O2 Delivery Device O2 Liters/Min Minute Volume Vent Rate Vent Mode FiO2 Tidal Volume PEEP Peak Inspir Pressure Pressure Support Sodium Potassium Chloride Carbon Dioxide Anion Gap BUN Creatinine Estim Creat Clear Calc Estimated GFR Glucose POC Capillary Glucose 301 H 288 H Lactic Acid 3.2 H Calcium Phosphorus Magnesium Total Bilirubin AST ALT Alkaline Phosphatase Total Creatine Kinase Total Protein Albumin Triglycerides 12/06/24 12/06/24 12/06/24 14:43 15:06 15:07 WBC 14.6 H RBC 5.42 Hgb 17.1 Hct 51.3 MCV 94.6 MCH 31.5 MCHC 33.3 RDW 13.7 Plt Count 228 MPV 9.1 Immature Gran % (Auto) Neut % (Auto) Lymph % (Auto) [place] % (Auto) Eos % (Auto) Baso % (Auto) Lymph # (Auto) [place] # (Auto) Eos # (Auto) Baso # (Auto) Abs Immat Gran (auto) Absolute Neuts (auto) Absolute Nucleated RBC Nucleated RBC % % Immature Plt Fraction PT 15.7 H INR 1.3 APTT 25.3 Puncture Site ABG pH ABG pCO2 ABG pO2 ABG PO2/FiO2 Ratio ABG HCO3 ABG O2 Saturation ABG O2 Content ABG Base Excess A-a Gradient Oxyhemoglobin Total Hemoglobin O2 Delivery Device O2 Liters/Min Minute Volume Vent Rate Vent Mode FiO2 Tidal Volume PEEP Peak Inspir Pressure Pressure Support Sodium 139 Potassium 4.1 Chloride 104 Carbon Dioxide 28 Anion Gap 7 BUN 13 Creatinine 1.03 Estim Creat Clear Calc 113 Estimated GFR > 60 Glucose 255 H POC Capillary Glucose 279 H 244 H Lactic Acid 2.6 H Calcium 8.5 Phosphorus 2.4 L Magnesium Total Bilirubin AST ALT Alkaline Phosphatase Total Creatine Kinase Total Protein Albumin Triglycerides 12/06/24 12/06/24 12/06/24 16:30 17:14 18:18 WBC RBC Hgb Hct MCV MCH MCHC RDW Plt Count MPV Immature Gran % (Auto) Neut % (Auto) Lymph % (Auto) [place] % (Auto) Eos % (Auto) Baso % (Auto) Lymph # (Auto) [place] # (Auto) Eos # (Auto) Baso # (Auto) Abs Immat Gran (auto) Absolute Neuts (auto) Absolute Nucleated RBC Nucleated RBC % % Immature Plt Fraction PT INR APTT Puncture Site ABG pH ABG pCO2 ABG pO2 ABG PO2/FiO2 Ratio ABG HCO3 ABG O2 Saturation ABG O2 Content ABG Base Excess A-a Gradient Oxyhemoglobin Total Hemoglobin O2 Delivery Device O2 Liters/Min Minute Volume Vent Rate Vent Mode FiO2 Tidal Volume PEEP Peak Inspir Pressure Pressure Support Sodium Potassium Chloride Carbon Dioxide Anion Gap BUN Creatinine Estim Creat Clear Calc Estimated GFR Glucose POC Capillary Glucose 236 H 231 H 247 H Lactic Acid Calcium Phosphorus Magnesium Total Bilirubin AST ALT Alkaline Phosphatase Total Creatine Kinase Total Protein Albumin Triglycerides 12/06/24 12/06/24 12/06/24 19:09 20:19 21:15 WBC RBC Hgb Hct MCV MCH MCHC RDW Plt Count MPV Immature Gran % (Auto) Neut % (Auto) Lymph % (Auto) [place] % (Auto) Eos % (Auto) Baso % (Auto) Lymph # (Auto) [place] # (Auto) Eos # (Auto) Baso # (Auto) Abs Immat Gran (auto) Absolute Neuts (auto) Absolute Nucleated RBC Nucleated RBC % % Immature Plt Fraction PT INR APTT Puncture Site ABG pH ABG pCO2 ABG pO2 ABG PO2/FiO2 Ratio ABG HCO3 ABG O2 Saturation ABG O2 Content ABG Base Excess A-a Gradient Oxyhemoglobin Total Hemoglobin O2 Delivery Device O2 Liters/Min Minute Volume Vent Rate Vent Mode FiO2 Tidal Volume PEEP Peak Inspir Pressure Pressure Support Sodium Potassium Chloride Carbon Dioxide Anion Gap BUN Creatinine Estim Creat Clear Calc Estimated GFR Glucose POC Capillary Glucose 213 H 212 H 182 H Lactic Acid Calcium Phosphorus Magnesium Total Bilirubin AST ALT Alkaline Phosphatase Total Creatine Kinase Total Protein Albumin Triglycerides 12/06/24 12/06/24 12/06/24 21:26 22:10 23:15 WBC RBC Hgb Hct MCV MCH MCHC RDW Plt Count MPV Immature Gran % (Auto) Neut % (Auto) Lymph % (Auto) [place] % (Auto) Eos % (Auto) Baso % (Auto) Lymph # (Auto) [place] # (Auto) Eos # (Auto) Baso # (Auto) Abs Immat Gran (auto) Absolute Neuts (auto) Absolute Nucleated RBC Nucleated RBC % % Immature Plt Fraction PT INR APTT Puncture Site ABG pH ABG pCO2 ABG pO2 ABG PO2/FiO2 Ratio ABG HCO3 ABG O2 Saturation ABG O2 Content ABG Base Excess A-a Gradient Oxyhemoglobin Total Hemoglobin O2 Delivery Device O2 Liters/Min Minute Volume Vent Rate Vent Mode FiO2 Tidal Volume PEEP Peak Inspir Pressure Pressure Support Sodium Potassium Chloride Carbon Dioxide Anion Gap BUN Creatinine Estim Creat Clear Calc Estimated GFR Glucose POC Capillary Glucose 165 H 177 H Lactic Acid 2.2 H Calcium Phosphorus Magnesium Total Bilirubin AST ALT Alkaline Phosphatase Total Creatine Kinase Total Protein Albumin Triglycerides 12/07/24 12/07/24 12/07/24 00:07 00:18 01:11 WBC RBC Hgb Hct MCV MCH MCHC RDW Plt Count MPV Immature Gran % (Auto) Neut % (Auto) Lymph % (Auto) [place] % (Auto) Eos % (Auto) Baso % (Auto) Lymph # (Auto) [place] # (Auto) Eos # (Auto) Baso # (Auto) Abs Immat Gran (auto) Absolute Neuts (auto) Absolute Nucleated RBC Nucleated RBC % % Immature Plt Fraction PT INR APTT Puncture Site ABG pH ABG pCO2 ABG pO2 ABG PO2/FiO2 Ratio ABG HCO3 ABG O2 Saturation ABG O2 Content ABG Base Excess A-a Gradient Oxyhemoglobin Total Hemoglobin O2 Delivery Device O2 Liters/Min Minute Volume Vent Rate Vent Mode FiO2 Tidal Volume PEEP Peak Inspir Pressure Pressure Support Sodium Potassium Chloride Carbon Dioxide Anion Gap BUN Creatinine Estim Creat Clear Calc Estimated GFR Glucose POC Capillary Glucose 163 H 162 H Lactic Acid 1.8 Calcium Phosphorus Magnesium Total Bilirubin AST ALT Alkaline Phosphatase Total Creatine Kinase Total Protein Albumin Triglycerides 12/07/24 12/07/24 12/07/24 02:11 02:20 03:10 WBC RBC Hgb Hct MCV MCH MCHC RDW Plt Count MPV Immature Gran % (Auto) Neut % (Auto) Lymph % (Auto) [place] % (Auto) Eos % (Auto) Baso % (Auto) Lymph # (Auto) [place] # (Auto) Eos # (Auto) Baso # (Auto) Abs Immat Gran (auto) Absolute Neuts (auto) Absolute Nucleated RBC Nucleated RBC % % Immature Plt Fraction PT INR APTT Puncture Site ABG pH ABG pCO2 ABG pO2 ABG PO2/FiO2 Ratio ABG HCO3 ABG O2 Saturation ABG O2 Content ABG Base Excess A-a Gradient Oxyhemoglobin Total Hemoglobin O2 Delivery Device O2 Liters/Min Minute Volume Vent Rate Vent Mode FiO2 Tidal Volume PEEP Peak Inspir Pressure Pressure Support Sodium 138 Potassium 3.9 Chloride 107 Carbon Dioxide 28 Anion Gap 3 L BUN 13 Creatinine 0.92 Estim Creat Clear Calc 125 Estimated GFR > 60 Glucose 171 H POC Capillary Glucose 180 H 150 H Lactic Acid 1.8 Calcium 8.7 Phosphorus 1.6 L Magnesium Total Bilirubin AST ALT Alkaline Phosphatase Total Creatine Kinase Total Protein Albumin Triglycerides 12/07/24 12/07/24 12/07/24 04:23 04:30 05:10 WBC 14.9 H RBC 5.41 Hgb 16.7 Hct 52.0 MCV 96.1 MCH 30.9 MCHC 32.1 RDW 13.8 Plt Count 222 MPV 9.3 Immature Gran % (Auto) 0.7 H Neut % (Auto) 85.8 H Lymph % (Auto) 5.1 L [place] % (Auto) 8.2 Eos % (Auto) 0.1 Baso % (Auto) 0.1 L Lymph # (Auto) 0.76 L [place] # (Auto) 1.2 H Eos # (Auto) 0.0 Baso # (Auto) 0.0 Abs Immat Gran (auto) 0.10 H Absolute Neuts (auto) 12.7 H Absolute Nucleated RBC 0.000 Nucleated RBC % 0.0 % Immature Plt Fraction 3.9 PT INR APTT Puncture Site Right radial ABG pH 7.344 L ABG pCO2 45.0 ABG pO2 52.6 L ABG PO2/FiO2 Ratio 1.75 ABG HCO3 24.0 ABG O2 Saturation 85.3 L* ABG O2 Content 21.9 ABG Base Excess -2.0 A-a Gradient 115.0 Oxyhemoglobin 85.8 L* Total Hemoglobin 18.2 H O2 Delivery Device Ventilator O2 Liters/Min [employer] 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 Vent Rate 22 Vent Mode Cmv FiO2 30 Tidal Volume 450 PEEP 8 Peak Inspir Pressure Not Reportable Pressure Support Not Reportable Sodium 140 Potassium 3.5 Chloride 107 Carbon Dioxide 28 Anion Gap 5 BUN 14 Creatinine 0.98 Estim Creat Clear Calc 118 Estimated GFR > 60 Glucose 163 H POC Capillary Glucose 152 H Lactic Acid Calcium 8.8 Phosphorus 2.4 L Magnesium 2.4 H Total Bilirubin 1.2 AST 326 H ALT 198 H Alkaline Phosphatase 72 Total Creatine Kinase Total Protein 6.3 Albumin 3.3 L Triglycerides 205 H 12/07/24 12/07/24 12/07/24 05:13 06:03 07:13 WBC RBC Hgb Hct MCV MCH MCHC RDW Plt Count MPV Immature Gran % (Auto) Neut % (Auto) Lymph % (Auto) [place] % (Auto) Eos % (Auto) Baso % (Auto) Lymph # (Auto) [place] # (Auto) Eos # (Auto) Baso # (Auto) Abs Immat Gran (auto) Absolute Neuts (auto) Absolute Nucleated RBC Nucleated RBC % % Immature Plt Fraction PT INR APTT Puncture Site ABG pH ABG pCO2 ABG pO2 ABG PO2/FiO2 Ratio ABG HCO3 ABG O2 Saturation ABG O2 Content ABG Base Excess A-a Gradient Oxyhemoglobin Total Hemoglobin O2 Delivery Device O2 Liters/Min Minute Volume Vent Rate Vent Mode FiO2 Tidal Volume PEEP Peak Inspir Pressure Pressure Support Sodium Potassium Chloride Carbon Dioxide Anion Gap BUN Creatinine Estim Creat Clear Calc Estimated GFR Glucose POC Capillary Glucose 131 H 155 H 143 H Lactic Acid Calcium Phosphorus Magnesium Total Bilirubin AST ALT Alkaline Phosphatase Total Creatine Kinase Total Protein Albumin Triglycerides 12/07/24 12/07/24 08:07 08:34 WBC RBC Hgb Hct MCV MCH MCHC RDW Plt Count MPV Immature Gran % (Auto) Neut % (Auto) Lymph % (Auto) [place] % (Auto) Eos % (Auto) Baso % (Auto) Lymph # (Auto) [place] # (Auto) Eos # (Auto) Baso # (Auto) Abs Immat Gran (auto) Absolute Neuts (auto) Absolute Nucleated RBC Nucleated RBC % % Immature Plt Fraction PT INR APTT Puncture Site ABG pH ABG pCO2 ABG pO2 ABG PO2/FiO2 Ratio ABG HCO3 ABG O2 Saturation ABG O2 Content ABG Base Excess A-a Gradient Oxyhemoglobin Total Hemoglobin O2 Delivery Device O2 Liters/Min Minute Volume Vent Rate Vent Mode FiO2 Tidal Volume PEEP Peak Inspir Pressure Pressure Support Sodium Potassium Chloride Carbon Dioxide Anion Gap BUN Creatinine Estim Creat Clear Calc Estimated GFR Glucose POC Capillary Glucose 144 H Lactic Acid 1.6 Calcium Phosphorus Magnesium Total Bilirubin AST ALT Alkaline Phosphatase Total Creatine Kinase 864 H Total Protein Albumin Triglycerides Quality VTE Prophylaxis VTE prophylaxis: pharmacologic ordered
--- NOTE | 2024-12-07 11:39 | PCNFU ---
Nutrition Follow-Up Complete: Inadequate energy intake related to NPO, mechanical ventilation, as evidenced by need for trophic feeding Goal: Meet estimated nutrition needs within 48 hours Patient will continue current goal. Pt current nutrition is Vital AF 1.2 at 20 ml/hr. Last recorded weight is 125.2 kg, up from 124.4 kg on admit. Bowel Motility: No BM Labs Reviewed: Mg 2.4, PO4 2.4, Alb 3.3, Glu 163 Meds Noted: Zosyn, Lantus, Propofol 30 eihd=476 kcal. Skin: WNL Additional Notes: Patient remains on a mechanical vent. Tube feedings to start today of Vital AF 1.2. at 20 ml/hr. Total Nutrition with Propofol: 1123 kcals/33 gm protein/357 ml water. Flush 30 ml q 4 hours. Plans for neurology consult and EEG today. Monitoring orders, vent settings, meds, weights, labs, vitals, plan of care Follow up Friday/Friday. Daily rounds
[2024-12-07] MEDS: ACETAMINOPHEN 325 MG TABLET 650 MG PO (13:29)
[2024-12-07] MEDS: PROPOFOL IV EMULSION 100 ML 18.78 MG IV CONT ×2 (14:01→18:46)
--- NOTE | 2024-12-07 14:35 | P.CONNEU_ITS ---
Assessment and Plan Assessment and plan (1) Seizures: Code(s): R56.9 - Unspecified convulsions Status: Acute (2) Anoxic brain injury: Code(s): G93.1 - Anoxic brain damage, not elsewhere classified Status: Acute Plan status post cardiopulmonary arrest with comatose status and all the treatment as explained above ,at this stage is off the sedative medications, paralytic medications will have an EEG for further recommendations. Consult date: 12/07/24 HPI: Jason Kelsey Jr. is a 44 year old male , Admitted to the hospital through the emergency room subsequent to cardiopulmonary arrest . patient was last seen 5minutes prior being found unresponsive and collapsed in the bathroom specifically lying in the bathtub and was also noted to be by the EMS initially in VFib he was cardioverted went to be tachycardia but received several counter of shocks during that time he was also loaded with amiodarone then he returned to spontaneous circulation and was brought to the ER with supraglottic airway and spontaneous respiration. As per the information available he is reportedly allergic to lisinopril And has ongoing history of hypertension, his smoking half a pack of cigarettes per day, chewing tobacco, and currently 20 drinks per week, though never substance use, as mentioned before on initial examination he was unresponsive, pupils were 5mm unreactive, lungs were clear to auscultation, and he was not moving his upper or lower extremities. Subsequently he was intubated, received succinylcholine, etomidate, and was intubated, was also noted to have acute ST elevation, his medications also included duloxetine 60mg daily in addition to alprazolam 0.5mg tablet 3 times a day and pantoprazole, hydrochlorothiazide, furosemide, irbesartan, atenolol, verapamil, and Depo testosterone. His routine lab studies revealed WBC is 26.0 with hemoglobin 17.3 and platelet count of 338, INR was 1.3, initial chest x-ray was normal, CT scan of the head was normal and CT of the cervical spine revealed no displaced fracture within the cervical spine. Subsequently he has had echocardiogram which has documented hypokinesia of anteroseptal . patient has been seen by the civil manager as well for the GI bleed. Neuro consultation at this stage has been obtained to evaluate the neurological status, patient was on fentanyl and Versed which have been discontinued. Review of Systems 2 Review of Systems: All systems reviewed & are unremarkable except as noted in HPI and below PMFSH Past Medical History Medical History History of acute anterior wall [place] (11/2024) Obstructive sleep apnea (adult) (pediatric) (12/2023) Severe with AHI 101 Gastro-esophageal reflux disease without esophagitis Hypogonadism in male Obesity (BMI 30-39.9) Generalized anxiety disorder Hypertension Surgical History Surgical History History of coronary artery stent placement (11/2024) 2 stents in LAD Family History Family History Grandparent Diabetes mellitus Hypertension Father Hypertension Mother Hypertension Grandparent Hypertension Other Asthma Social History Social History Smoking packs per day: 0.25 Smoking cigarettes per day: 5.0 Years smoked: 25 Smoking pack-years: 6.25 Smoking status: Current every day smoker Tobacco type: cigarettes Smokeless tobacco user: chewing tobacco Second hand tobacco smoke exposure: No Alcohol intake: current Drinks per week: 70 Substance use: current Substance use type: marijuana Lack of Transportation: No Lack of Food: Never True Current Housing: I Have Housing Concerned About Future Housing: No Difficulty Paying Gas/Electric Bills: No Difficulty Paying for Meds: No Currently Unemployed: No Education: High School Diploma/GED Difficulty w/ Childcare or Family Care: No Living arrangements: with family Occupation/Education: occupation Gender identity (if verbalized by the patient): Male Sexual Orientation (if Verbalized by the Patient): Straight or Heterosexual Spiritual care concerns: No Agree to blood products: Yes Meds Home Medications and Allergies Home Medications ?Medication ?Instructions ?Recorded ?Confirmed ?Type sildenafil 100 mg tablet 100 mg PO DAILY PRN sexual 11/04/22 12/06/24 Rx activity #6 tabs alprazolam 0.5 mg tablet 0.5 mg PO TID PRN anxiety #30 tabs 02/11/23 12/06/24 Rx fluticasone 113 mcg-salmeterol 14 See Rx Instructions .Route 06/25/23 12/06/24 Rx mcg/actuation breath activated .COMPLEX #1 ea powdr pantoprazole 40 mg tablet,delayed See Rx Instructions .Route 10/27/23 12/06/24 Rx release .COMPLEX #90 tabs syringe with needle 3 mL 21 gauge #3 ea 12/09/23 08/26/24 Rx x 1 (BD Luer-Kellie Syringe) duloxetine 60 mg capsule,delayed See Rx Instructions .Route 01/25/24 12/06/24 Rx release .COMPLEX #90 ea hydrochlorothiazide 25 mg tablet See Rx Instructions .Route 01/25/24 12/06/24 Rx .COMPLEX #90 tabs furosemide 20 mg tablet 20 mg PO DAILY PRN edema #39 tabs 03/26/24 12/06/24 Rx Symbicort 80 mcg-4.5 mcg/actuation See Rx Instructions .Route 05/09/24 12/06/24 Rx HFA aerosol inhaler .COMPLEX #11 grams (budesonide-formoterol) albuterol sulfate 90 mcg/actuation See Rx Instructions .Route 05/25/24 12/06/24 Rx aerosol inhaler .COMPLEX #9 grams atenolol 100 mg tablet See Rx Instructions .Route 07/24/24 12/06/24 Rx .COMPLEX #90 tabs irbesartan 300 mg tablet See Rx Instructions .Route 07/24/24 08/26/24 Rx .COMPLEX #90 tabs montelukast 10 mg tablet 10 mg PO QHS #90 tabs 08/26/24 12/06/24 Rx verapamil 240 mg tablet,extended See Rx Instructions .Route 09/29/24 12/06/24 Rx release .COMPLEX #90 tabs testosterone cypionate 200 mg/mL 300 mg (1.5 mL) IM .every 2 weeks 10/25/24 12/06/24 Rx intramuscular oil #10 mL (Depo-Testosterone) syringe with needle 3 mL 21 gauge #6 ea 11/08/24 Rx x 1 1/2 (BD Luer-Klelie Syringe) Allergies Allergy/AdvReac Type Severity Reaction Status Date / Time lisinopril AdvReac Mild Cough Verified 12/05/24 18:28 Vital Signs Vital Signs - 24 hr 12/06/24 15:00 12/06/24 15:00 12/06/24 15:32 Temperature 33.7 C L 33.7 C L 33.5 C L Pulse Rate 63 63 62 Respiratory Rate 22 H 22 H 22 H Blood Pressure 103/75 103/75 102/84 Pulse Oximetry 100 100 100 Oxygen Delivery Fraction of Inspired Oxygen 12/06/24 16:00 12/06/24 16:00 12/06/24 16:00 Temperature 33.2 C L Pulse Rate 58 L 58 L 58 L Respiratory Rate 22 H 22 H 22 H Blood Pressure 100/79 100/79 Pulse Oximetry 100 Oxygen Delivery Fraction of Inspired Oxygen 12/06/24 16:00 12/06/24 16:00 12/06/24 16:00 Temperature 33.2 C L Pulse Rate 58 L Respiratory Rate 22 H Blood Pressure 100/79 Pulse Oximetry 100 100 Oxygen Delivery Mechanical Ventilation Fraction of Inspired Oxygen 40 40 12/06/24 16:00 12/06/24 16:41 12/06/24 16:41 Temperature Pulse Rate 59 L 55 L 55 L Respiratory Rate 22 H 22 H Blood Pressure Pulse Oximetry Oxygen Delivery Fraction of Inspired Oxygen 12/06/24 17:00 12/06/24 17:00 12/06/24 17:50 Temperature 32.8 C L 32.8 C L Pulse Rate 55 L 55 L 62 Respiratory Rate 22 H 22 H Blood Pressure 101/80 101/80 Pulse Oximetry 100 100 100 Oxygen Delivery Mechanical Ventilation Fraction of Inspired Oxygen 40 12/06/24 18:00 12/06/24 18:00 12/06/24 18:00 Temperature 32.4 C L 32.4 C L Pulse Rate 52 L 52 L 52 L Respiratory Rate 22 H 22 H Blood Pressure 101/89 101/89 Pulse Oximetry 100 100 Oxygen Delivery Fraction of Inspired Oxygen 12/06/24 18:00 12/06/24 18:00 12/06/24 18:00 Temperature Pulse Rate 53 L 52 L 52 L Respiratory Rate 22 H 22 H 22 H Blood Pressure 101/89 Pulse Oximetry Oxygen Delivery Fraction of Inspired Oxygen 12/06/24 19:00 12/06/24 19:00 12/06/24 19:58 Temperature 32.4 C L 32.5 C L Pulse Rate 60 62 66 Respiratory Rate 22 H 22 H 22 H Blood Pressure 108/86 108/86 102/78 Pulse Oximetry 100 100 Oxygen Delivery Fraction of Inspired Oxygen 12/06/24 19:58 12/06/24 20:00 12/06/24 20:00 Temperature 33.2 C L Pulse Rate 66 67 67 Respiratory Rate 22 H 22 H 22 H Blood Pressure 102/78 102/76 Pulse Oximetry 100 Oxygen Delivery Fraction of Inspired Oxygen 12/06/24 20:00 12/06/24 20:00 12/06/24 20:00 Temperature 33.2 C L Pulse Rate 67 67 67 Respiratory Rate 22 H 22 H 22 H Blood Pressure 102/76 102/76 Pulse Oximetry 100 Oxygen Delivery Fraction of Inspired Oxygen 12/06/24 20:00 12/06/24 20:00 12/06/24 20:00 Temperature Pulse Rate 66 Respiratory Rate Blood Pressure Pulse Oximetry 100 Oxygen Delivery Mechanical Ventilation Fraction of Inspired Oxygen 40 40 12/06/24 20:15 12/06/24 21:00 12/06/24 21:00 Temperature 33.8 C L 33.8 C L Pulse Rate 65 64 64 Respiratory Rate 22 H 22 H Blood Pressure 90/70 L 90/70 L Pulse Oximetry 100 100 100 Oxygen Delivery Mechanical Ventilation Fraction of Inspired Oxygen 40 12/06/24 22:00 12/06/24 22:00 12/06/24 22:00 Temperature 33.7 C L 33.7 C L Pulse Rate 62 62 62 Respiratory Rate 22 H 22 H Blood Pressure 91/73 L 91/73 L Pulse Oximetry 100 100 Oxygen Delivery Fraction of Inspired Oxygen 12/06/24 22:00 12/06/24 22:00 12/06/24 22:00 Temperature Pulse Rate 62 62 62 Respiratory Rate 22 H 22 H 22 H Blood Pressure 91/73 L Pulse Oximetry Oxygen Delivery Fraction of Inspired Oxygen 12/06/24 23:00 12/06/24 23:00 12/06/24 23:06 Temperature 33.4 C L 33.4 C L Pulse Rate 58 L 58 L 56 L Respiratory Rate 22 H 22 H Blood Pressure 92/73 L 92/73 L Pulse Oximetry 100 100 100 Oxygen Delivery Mechanical Ventilation Fraction of Inspired Oxygen 35 12/07/24 00:00 12/07/24 00:00 12/07/24 00:00 Temperature Pulse Rate 63 53 L 53 L Respiratory Rate 22 H 22 H 22 H Blood Pressure 94/72 L Pulse Oximetry Oxygen Delivery Fraction of Inspired Oxygen 12/07/24 00:00 12/07/24 00:00 12/07/24 00:00 Temperature 33.1 C L 33.1 C L Pulse Rate 52 L 52 L Respiratory Rate 22 H 22 H Blood Pressure 94/72 L 94/72 L Pulse Oximetry 100 100 Oxygen Delivery Fraction of Inspired Oxygen 30 12/07/24 00:00 12/07/24 00:00 12/07/24 00:15 Temperature Pulse Rate 52 L 46 L Respiratory Rate 22 H Blood Pressure Pulse Oximetry 100 Oxygen Delivery Mechanical Ventilation Fraction of Inspired Oxygen 30 12/07/24 00:15 12/07/24 01:00 12/07/24 01:00 Temperature 32.6 C L 32.6 C L Pulse Rate 46 L 51 L 51 L Respiratory Rate 22 H 22 H 22 H Blood Pressure 95/76 L 93/77 L 93/77 L Pulse Oximetry 100 100 Oxygen Delivery Fraction of Inspired Oxygen 12/07/24 01:59 12/07/24 02:00 12/07/24 02:00 Temperature 32.6 C L 32.6 C L Pulse Rate 56 L 57 L 56 L Respiratory Rate 22 H 22 H 22 H Blood Pressure 92/78 L 92/78 L 92/78 L Pulse Oximetry 99 100 Oxygen Delivery Fraction of Inspired Oxygen 12/07/24 02:00 12/07/24 02:00 12/07/24 02:00 Temperature Pulse Rate 56 L 56 L 56 L Respiratory Rate 22 H 22 H Blood Pressure Pulse Oximetry Oxygen Delivery Fraction of Inspired Oxygen 12/07/24 02:00 12/07/24 02:14 12/07/24 03:00 Temperature 32.4 C L 33.3 C L Pulse Rate 56 L 57 L 71 Respiratory Rate 22 H 22 H Blood Pressure 92/74 L 99/71 L Pulse Oximetry 100 100 99 Oxygen Delivery Mechanical Ventilation Fraction of Inspired Oxygen 30 12/07/24 03:00 12/07/24 03:24 12/07/24 03:24 Temperature 33.3 C L Pulse Rate 71 77 77 Respiratory Rate 22 H 22 H 22 H Blood Pressure 99/71 L Pulse Oximetry 99 Oxygen Delivery Fraction of Inspired Oxygen 12/07/24 04:00 12/07/24 04:00 12/07/24 04:00 Temperature 34.7 C L Pulse Rate 83 83 Respiratory Rate 22 H 22 H Blood Pressure 97/71 L 97/71 L Pulse Oximetry 97 Oxygen Delivery Fraction of Inspired Oxygen 30 12/07/24 04:00 12/07/24 04:00 12/07/24 04:00 Temperature Pulse Rate 83 83 Respiratory Rate 22 H 22 H Blood Pressure Pulse Oximetry 97 Oxygen Delivery Mechanical Ventilation Fraction of Inspired Oxygen 30 12/07/24 04:00 12/07/24 04:00 12/07/24 05:00 Temperature 34.7 C L 35.9 C L Pulse Rate 83 88 103 H Respiratory Rate 22 H 22 H Blood Pressure 97/71 L 127/93 H Pulse Oximetry 97 92 Oxygen Delivery Fraction of Inspired Oxygen 12/07/24 05:00 12/07/24 05:15 12/07/24 06:00 Temperature 35.8 C L 36.2 C L Pulse Rate 103 H 105 H 103 H Respiratory Rate 22 H 22 H Blood Pressure 127/93 H 121/85 Pulse Oximetry 92 90 97 Oxygen Delivery Mechanical Ventilation Fraction of Inspired Oxygen 30 12/07/24 06:00 12/07/24 06:00 12/07/24 06:00 Temperature 36.2 C L Pulse Rate 103 H 103 H 103 H Respiratory Rate 22 H 22 H Blood Pressure 121/85 121/85 Pulse Oximetry 97 Oxygen Delivery Fraction of Inspired Oxygen 12/07/24 06:00 12/07/24 06:00 12/07/24 07:00 Temperature 36.4 C L Pulse Rate 83 103 H 107 H Respiratory Rate 22 H 22 H 22 H Blood Pressure 119/80 Pulse Oximetry 92 Oxygen Delivery Fraction of Inspired Oxygen 12/07/24 07:00 12/07/24 07:00 12/07/24 07:00 Temperature 36.4 C L Pulse Rate 107 H 107 H 102 H Respiratory Rate 22 H 18 18 Blood Pressure 119/80 Pulse Oximetry 92 Oxygen Delivery Fraction of Inspired Oxygen 12/07/24 07:15 12/07/24 07:30 12/07/24 07:30 Temperature Pulse Rate 102 H 109 H 103 H Respiratory Rate 18 22 H 18 Blood Pressure 116/80 Pulse Oximetry Oxygen Delivery Fraction of Inspired Oxygen 12/07/24 07:45 12/07/24 07:46 12/07/24 08:00 Temperature 36.4 C Pulse Rate 110 H 110 H 111 H Respiratory Rate 22 H 22 H 22 H Blood Pressure 116/80 116/80 114/79 Pulse Oximetry 95 Oxygen Delivery Fraction of Inspired Oxygen 12/07/24 08:00 12/07/24 08:00 12/07/24 08:00 Temperature Pulse Rate 105 H 108 H 111 H Respiratory Rate 18 18 18 Blood Pressure Pulse Oximetry 93 Oxygen Delivery Mechanical Ventilation Fraction of Inspired Oxygen 35 12/07/24 08:00 12/07/24 08:00 12/07/24 08:25 Temperature Pulse Rate 111 H 114 H Respiratory Rate Blood Pressure Pulse Oximetry 90 Oxygen Delivery Mechanical Ventilation Fraction of Inspired Oxygen 35 35 12/07/24 08:30 12/07/24 08:42 12/07/24 08:44 Temperature Pulse Rate 107 H 111 H 111 H Respiratory Rate 22 H 22 H Blood Pressure 113/81 Pulse Oximetry Oxygen Delivery Fraction of Inspired Oxygen 12/07/24 09:00 12/07/24 10:00 12/07/24 10:00 Temperature 36.7 C 37.1 C Pulse Rate 107 H 115 H 102 H Respiratory Rate 22 H 26 H 11 L Blood Pressure 110/87 121/90 121/90 Pulse Oximetry 93 90 Oxygen Delivery Fraction of Inspired Oxygen 12/07/24 10:00 12/07/24 10:00 12/07/24 10:15 Temperature Pulse Rate 110 H 105 H 107 H Respiratory Rate 18 23 H Blood Pressure Pulse Oximetry Oxygen Delivery Fraction of Inspired Oxygen 12/07/24 10:15 12/07/24 10:20 12/07/24 10:25 Temperature Pulse Rate 106 H 140 H 122 H Respiratory Rate 20 26 H 24 H Blood Pressure Pulse Oximetry Oxygen Delivery Fraction of Inspired Oxygen 12/07/24 10:35 12/07/24 10:40 12/07/24 10:42 Temperature Pulse Rate 118 H 105 H 106 H Respiratory Rate 22 H 24 H Blood Pressure Pulse Oximetry 91 Oxygen Delivery Mechanical Ventilation Fraction of Inspired Oxygen 50 12/07/24 10:45 12/07/24 11:00 12/07/24 11:44 Temperature 37.5 C Pulse Rate 101 H 102 H 106 H Respiratory Rate 22 H 21 H 25 H Blood Pressure 95/68 L Pulse Oximetry 95 Oxygen Delivery Fraction of Inspired Oxygen 12/07/24 11:45 12/07/24 11:57 12/07/24 12:00 Temperature 37.7 C H Pulse Rate 106 H 107 H 111 H Respiratory Rate 24 H 22 H 22 H Blood Pressure 95/71 L 114/79 Pulse Oximetry 92 Oxygen Delivery Fraction of Inspired Oxygen 12/07/24 12:00 12/07/24 12:00 12/07/24 12:00 Temperature Pulse Rate 111 H 110 H Respiratory Rate 22 H Blood Pressure Pulse Oximetry 92 Oxygen Delivery Mechanical Ventilation Fraction of Inspired Oxygen 50 50 12/07/24 12:03 12/07/24 12:15 12/07/24 12:15 Temperature Pulse Rate 105 H 108 H 107 H Respiratory Rate 22 H 23 H 25 H Blood Pressure Pulse Oximetry Oxygen Delivery Fraction of Inspired Oxygen 12/07/24 13:00 12/07/24 13:29 12/07/24 13:38 Temperature 36.4 C 38.2 C H Pulse Rate 116 H 117 H Respiratory Rate 18 Blood Pressure 101/73 Pulse Oximetry 93 93 Oxygen Delivery Mechanical Ventilation Fraction of Inspired Oxygen 50 12/07/24 14:01 12/07/24 14:01 Temperature Pulse Rate 120 H 120 H Respiratory Rate 17 17 Blood Pressure Pulse Oximetry Oxygen Delivery Fraction of Inspired Oxygen Exam 2 Narrative: Exam today revealed him to be intubated, unresponsive to the verbal commands, unresponsive to the painful stimuli, head normocephalic, neck without any meningeal signs, no spontaneous or responsive movements of the upper and lower extremities on deep sternal rub, no deep tendon reflexes could be elicited, and the neutral plantar responses, he was not noted to have any myoclonic jerks throughout the examination. Results Labs 12/07/24 04:30 12/07/24 04:30 Labs: Short CBC 12/06/24 12/07/24 Range/Units 15:06 04:30 WBC 14.6 H 14.9 H (4.5-10.0) K/mm3 Hgb 17.1 16.7 (14.0-18.0) g/dL Hct 51.3 52.0 (42.0-52.0) % Plt Count 228 222 (150-375) k/mm3 BMP 12/06/24 12/07/24 12/07/24 15:06 02:20 04:30 Sodium 139 138 140 Potassium 4.1 3.9 3.5 Chloride 104 107 107 Carbon Dioxide 28 28 28 BUN 13 13 14 Creatinine 1.03 0.92 0.98 Glucose 255 H 171 H 163 H Calcium 8.5 8.7 8.8 Cardiac Enzymes 12/07/24 Range/Units 08:34 Total Creatine Kinase 864 H (55-170) U/L Liver Function 12/07/24 Range/Units 04:30 Total Bilirubin 1.2 (0.2-1.3) mg/dL AST 326 H (17-59) U/L ALT 198 H (6-50) U/L Alkaline Phosphatase 72 (38-126) U/L Albumin 3.3 L (3.5-5.1) g/dL
[2024-12-07] MEDS: levETIRAcetam 500MG/NACL 100ML 500 MG/100 ML BAG 400 MG IVPB (20:35)
[2024-12-07] MEDS: INSULIN ASPART (*BKC) 100 UNITS/ML SUB-Q (20:46)
[2024-12-07] MEDS: PROPOFOL IV EMULSION 100 ML 22.54 MG IV CONT (23:12)
[2024-12-07] MEDS: ACETAMINOPHEN ELIXIR 325 MG/10.15 ML UDC 650 MG PO (23:21)
[2024-12-08] VITALS (68 sets, daily range): BP systolic 82–153; BP diastolic 49–111; PULSE 92–142; RESP 18–35; TEMP 38.1–39.1; O2SAT 86–100
[2024-12-08] MEDS: PIPERACILLIN/TAZOBACTAM SOD 3.375 GM in SODIUM CHLORIDE 0.9% IV 50 ML IVPB ×2 (03:24→08:34)
[2024-12-08] MEDS: PROPOFOL IV EMULSION 100 ML 26.29 MG IV CONT (03:40)
[2024-12-08 04:08] LABS: Hematocrit 45.8 % (42.0-52.0); Hemoglobin 14.7 g/dL (14.0-18.0); Immature Granulocyte Percent A 0.6 % (0-0.5); Lymphocytes Absolute Auto 0.54 K/mm3 (0.9-3.2); Mean Corpuscular HGB Conc 32.1 g/dl (32-36); Mean Corpuscular Hemoglobin 31.3 pg (26-34); Mean Corpuscular Volume 97.7 fl (80-100); Nucleated Red Blood Cells Absolute Auto 0.000 K/mm3 (0.0-0.012); Nucleated Red Blood Cells Perc 0.0 % (0.0-0.2); Platelet Count Result 254 k/mm3 (150-375); Red Blood Count 4.69 M/mm3 (4.6-6.20); White Blood Count 12.2 K/mm3 (4.5-10.0)
[2024-12-08 04:22] LABS: Alveolar/Arterial O2 Gradient 451.0 mmHg; Carboxyhemoglobin 0.4 % THb (0-2.0); Fractional Inspired Oxygen 100 %; HCO3 ABG 27.9 mEq/l (22.0-26.0); Methemoglobin ABG 0.3 %THb (0-1.5); Oxygen Content ABG 22.5 %vol (16.0-22.0); Oxygen Saturation ABG 99.4 % (95.0-100.0); PCO2 ABG 45.5 mmHg (35.0-45.0); PO2 ABG 216.5 mmHg (80.0-100.0); PO2 FiO2 Ratio Arterial Blood 2.16 %; Reduced Hemoglobin 0.6 %THb (0-5.0)
[2024-12-08 04:26] LABS: Alanine Aminotransferase 124 U/L (6-50); Albumin Level 3.2 g/dL (3.5-5.1); Alkaline Phosphatase 62 U/L (38-126); Anion Gap 8 mmol/L (4-12); Aspartate Amino Transferase 143 U/L (17-59); Bilirubin,Total 0.8 mg/dL (0.2-1.3); Blood Urea Nitrogen 25 mg/dL (9-20); Calcium 7.7 mg/dL (8.4-10.2); Carbon Dioxide 31 mmol/L (22-30); Chloride 104 mmol/L (98-107); Estimated CRCL calculation 73 ml/min; Estimated Glomerular Filt Rate 47; Glucose 157 mg/dL (65-110); Magnesium 2.2 mg/dL (1.6-2.3); Potassium 3.5 mmol/L (3.4-5.0); Sodium 143 mmol/L (137-145); Total Protein 6.2 g/dL (6.3-8.2); Triglycerides 499 mg/dL (<150)
[2024-12-08 04:26] LABS: Arterial Blood Gas Ventilator rate 22 /MIN; Modified Allen's Test Pass; Site Drawn RIGHT RADIAL
[2024-12-08 04:27] LABS: Arterial Blood Gas Tidal Volume 450 ml
[2024-12-08] MEDS: CENTRAL LINE FLUSH 10 ML IV PUSH ×3 (05:05→21:01)
[2024-12-08] MEDS: ACETAMINOPHEN ELIXIR 325 MG/10.15 ML UDC 650 MG PO ×3 (05:54→20:47)
[2024-12-08] MEDS: PROPOFOL IV EMULSION 100 ML 30.05 MG IV CONT (06:22)
[2024-12-08] MEDS: MINERAL OIL/WHITE PETROLATUM OINTMENT 1 APPLIC EACH EYE ×2 (08:30→20:43)
[2024-12-08] MEDS: ATORVASTATIN 40 MG TABLET 80 MG FEED TUBE (08:30)
[2024-12-08] MEDS: TICAGRELOR 90 MG TABLET FEED TUBE ×2 (08:30→20:43)
[2024-12-08] MEDS: METOPROLOL TARTRATE 12.5 MG TABLET PO ×2 (08:31→10:30)
[2024-12-08] MEDS: ASPIRIN 81 MG CHEWABLE TABLET FEED TUBE (08:31)
[2024-12-08] MEDS: PANTOPRAZOLE SODIUM IV 40 MG VIAL IV PUSH ×2 (08:31→20:43)
[2024-12-08] MEDS: INSULIN GLARGINE (*BKC) 100 UNITS/ML 10 UNITS SUB-Q (08:36)
[2024-12-08] MEDS: dexmedeTOMIDine 400 MCG/100 ML 400 MCG/100 ML BAG 6.22 MCG IV CONT (08:38)
[2024-12-08] MEDS: VANCOMYCIN 1,250 MG/NS 250 ML 1,250 MG/250 ML BAG 166.67 MG IVPB ×2 (08:39→10:43)
[2024-12-08] MEDS: EMPAGLIFLOZIN 10 MG TABLET PO (08:41)
[2024-12-08] MEDS: LACTATED RINGERS 1,000 ML 100 ML IV CONT ×2 (08:42→21:58)
--- NOTE | 2024-12-08 09:19 | WPDINTPN ---
Progress Note: A&P Assessment and Plan (1) Acute respiratory failure: Code(s): J96.00 - Acute respiratory failure, unspecified whether with hypoxia or hypercapnia Status: Acute Assessment and Plan: Acute Respiratory failure secondary to cardiac arrest 12/05: Intubated Continue full mechanical ventilation support to prevent hypoxemia/hypercarbia and end organ damage. Chest x-ray and ABGs reviewed, ventilator adjusted Continue bronchodilators -currently on propofol infusion, triglycerides elevated, will switch to Precedex infusion only (12/08) -off fentanyl and Versed infusion (2) Cardiac arrest: Code(s): I46.9 - Cardiac arrest, cause unspecified Status: Acute Assessment and Plan: Cardiac arrest secondary to acute ST segment elevation MD Status post cardiac catheterization which showed 100% blockage of proximal LAD status post IRWIN x2 to proximal LAD -cardiology following the patient, -continue ticagrelor, aspirin, atorvastatin, Jardiance, metoprolol -patient tachycardic, will increase metoprolol 12/06/2024: Echocardiogram Summary 1. Left ventricular systolic function is normal, estimated at 40-45. 2. There is mildly increased left ventricular wall thickness. 3. The left ventricular diastolic function is abnormal. 4. The inferior wall, apical septum, apical lateral wall, mid inferoseptal, basal anteroseptal, and mid anteroseptal are hypokinetic. (3) Acute ST elevation myocardial infarction: Code(s): I21.3 - ST elevation (STEMI) myocardial infarction of unspecified site Status: Acute Assessment and Plan: See above (4) Ischemic cardiomyopathy: Code(s): I25.5 - Ischemic cardiomyopathy Status: Acute Assessment and Plan: See above (5) Anoxic brain injury: Code(s): G93.1 - Anoxic brain damage, not elsewhere classified Status: Acute Assessment and Plan: Suspected anoxic brain injury from cardiac arrest as patient was unresponsive on presentation, 20-25 minutes of downtime -12/07: off paralytic, off sedation patient did have a seizure for which she was given Ativan which abated this seizure, -patient status post target temperature management -increase Keppra to 1000 mg IV q.12 hours -appreciate Neurology evaluation and recommendation -EEG to be done today 12/05/2024 CT brain: No intracranial hemorrhage or suspicious mass effect. (6) Gastro-esophageal reflux disease without esophagitis: Code(s): K21.9 - Gastro-esophageal reflux disease without esophagitis Status: Acute Assessment and Plan: PPI IV q.12 hours -patient had some GI bleed, GI was consulted. -12/06/2024 EGD showed gastritis with bleeding -Continue Protonix IV q.12 hours Discussed with GI regarding starting heparin for DVT prophylaxis, GI was okay with it (7) Elevated liver enzymes: Code(s): R74.8 - Abnormal levels of other serum enzymes Status: Acute Assessment and Plan: Liver enzymes trending down most likely related to cardiac arrest and STEMI (8) Diabetes mellitus: Code(s): E11.9 - Type 2 diabetes mellitus without complications Status: Acute Assessment and Plan: Continue sliding scale insulin Accu-Cheks, -continue plan (9) Seizures: Code(s): R56.9 - Unspecified convulsions Status: Acute Assessment and Plan: Off sedation patient did have a seizure-like activity, treated with Ativan x1 with improvement. -increased Keppra as above (10) Fever: Code(s): R50.9 - Fever, unspecified Status: Acute Assessment and Plan: Patient is febrile T-max of 101.2? -could be related to central fever -possible aspiration pneumonia, on Zosyn (12/06) -12/08: blood cultures obtained -12/08: Sputum cultures ordered -added vancomycin (12/08) (11) Acute kidney injury: Code(s): N17.9 - Acute kidney failure, unspecified Status: Acute Assessment and Plan: 12/08: Creatinine increased to 1.62 from 0.98 -patient is in negative fluid balance -will give additional IV fluid LR at 100 mL/hour for a total of 1500 mL -will check urine lytes -check renal ultrasound -CK levels and urine eosinophils Plan DVT prophylaxis -heparin subQ, discussed with GI, as patient had erosive gastritis. GI will is agreeable with prophylactic heparin. Stress ulcer prophylaxis -PPI IV q.12 Nutrition -tolerating tube feeds at 20 mL/hour, will increase to goal today Code Status - Full Code Total Critical Care Time - 35 minutes Discussed with patient's , parents, sister and updated them with his condition and plan of care. I answered all the questions Due to a high probability of clinically significant, life threatening deterioration, the patient required my highest level of preparedness to intervene emergently and I personally spent this critical care time directly and personally managing the patient. This critical care time included obtaining a history; examining the patient; pulse oximetry; ordering and review of studies; arranging urgent treatment with development of a management plan; evaluation of patient's response to treatment; frequent reassessment; and discussions with other providers. It was exclusive of separately billable procedures and treating other patients and teaching time. Please see Assessment and Plan section and the rest of the note for further information on patient assessment and treatment This dictation may have been done utilizing a voice recognition system. Attempts have been made to correct errors. However, there may be uncorrected grammatical, spelling, and recognitions errors present. Subjective Date/time seen: 12/08/24 09:19 Interval history: Reason for encounter: 12/06/2019 Anterior STEMI, out of hospital VFib cardiac arrest status post resuscitation, status post TTM 12/08/2024: Patient seen and examined the ICU, is intubated, on CMV mode of ventilation, peep of 8, 30% FiO2. Sedated with propofol infusion, or fentanyl. Patient does not open his eyes or follow simple commands. Patient has been febrile with T-max of 101.2 ?. WBC count trending down. Patient is tachycardic. Blood pressures have been stable. Adequate urine output, elevated creatinine this morning. Review of Systems Review of Systems: ROS unobtainable: Yes unobtainable due to endotracheal tube, unobtainable due to medical condition and unobtainable due to mental status Exam Narrative: General: Pt is sedated, intubated and on mechanical ventilation HEENT: Pupils are reactive and equal bilaterally, sclera is clear, ETT in place Lungs/Chest: Coarse breath sounds bilaterally, decreased at bases, adequate air entry, no wheeze Cardiac: sinus tachycardia. Normal S1 S2. No murmurs Circulation: Pedal pulses are palpable, mottling noted on abdomen, and lower extremities bilaterally Abdomen: Decreased bowel sounds. Obese. Soft. NT. ND. Extremities: No clubbing, cyanosis or edema. Warm extremities : Agarwal in place Neurologic: Patient is sedated, intubated, does not open his eyes or follow simple commands. Objective Data Vital Signs Vital Signs: Vital Signs - 24 hr 12/07/24 10:12/07/24 10:12/07/24 10:00 Temperature 98.8 F Pulse Rate 115 H 102 H 110 H Respiratory Rate 26 H 11 L 18 Blood Pressure 121/90 121/90 Pulse Oximetry 90 Oxygen Delivery Fraction of Inspired Oxygen 12/07/24 10:00 12/07/24 10:15 12/07/24 10:15 Temperature Pulse Rate 105 H 107 H 106 H Respiratory Rate 23 H 20 Blood Pressure Pulse Oximetry Oxygen Delivery Fraction of Inspired Oxygen 12/07/24 10:20 12/07/24 10:25 12/07/24 10:35 Temperature Pulse Rate 140 H 122 H 118 H Respiratory Rate 26 H 24 H 22 H Blood Pressure Pulse Oximetry Oxygen Delivery Fraction of Inspired Oxygen 12/07/24 10:40 12/07/24 10:42 12/07/24 10:45 Temperature Pulse Rate 105 H 106 H 101 H Respiratory Rate 24 H 22 H Blood Pressure Pulse Oximetry 91 Oxygen Delivery Mechanical Ventilation Fraction of Inspired Oxygen 50 12/07/24 11:00 12/07/24 11:44 12/07/24 11:45 Temperature 99.5 F Pulse Rate 102 H 106 H 106 H Respiratory Rate 21 H 25 H 24 H Blood Pressure 95/68 L Pulse Oximetry 95 Oxygen Delivery Fraction of Inspired Oxygen 12/07/24 11:57 12/07/24 12:00 12/07/24 12:00 Temperature 100 F H Pulse Rate 107 H 111 H 111 H Respiratory Rate 22 H 22 H Blood Pressure 95/71 L 114/79 Pulse Oximetry 92 Oxygen Delivery Fraction of Inspired Oxygen 12/07/24 12:00 12/07/24 12:00 12/07/24 12:03 Temperature Pulse Rate 110 H 105 H Respiratory Rate 22 H 22 H Blood Pressure Pulse Oximetry 92 Oxygen Delivery Mechanical Ventilation Fraction of Inspired Oxygen 50 50 12/07/24 12:15 12/07/24 12:15 12/07/24 13:00 Temperature 97.6 F Pulse Rate 108 H 107 H 116 H Respiratory Rate 23 H 25 H 18 Blood Pressure 101/73 Pulse Oximetry 93 Oxygen Delivery Fraction of Inspired Oxygen 12/07/24 13:29 12/07/24 13:38 12/07/24 14:00 Temperature 100.7 F H Pulse Rate 117 H 117 H Respiratory Rate Blood Pressure Pulse Oximetry 93 Oxygen Delivery Mechanical Ventilation Fraction of Inspired Oxygen 50 12/07/24 14:00 12/07/24 14:00 12/07/24 14:00 Temperature 101 F H Pulse Rate 117 H 115 H 114 H Respiratory Rate 20 20 19 Blood Pressure 100/65 105/77 Pulse Oximetry 92 Oxygen Delivery Fraction of Inspired Oxygen 12/07/24 14:01 12/07/24 14:01 12/07/24 14:50 Temperature 101 F H Pulse Rate 120 H 120 H Respiratory Rate 17 17 Blood Pressure Pulse Oximetry Oxygen Delivery Fraction of Inspired Oxygen 12/07/24 15:00 12/07/24 16:00 12/07/24 16:00 Temperature 101 F H 100.9 F H Pulse Rate 117 H 110 H 111 H Respiratory Rate 20 20 Blood Pressure 100/65 102/73 Pulse Oximetry 92 92 Oxygen Delivery Fraction of Inspired Oxygen 12/07/24 16:00 12/07/24 16:00 12/07/24 16:00 Temperature Pulse Rate 115 H 102 H Respiratory Rate 22 H 19 Blood Pressure Pulse Oximetry 95 Oxygen Delivery Mechanical Ventilation Fraction of Inspired Oxygen 50 50 12/07/24 16:00 12/07/24 17:00 12/07/24 17:07 Temperature 99.9 F H Pulse Rate 102 H 100 101 H Respiratory Rate 19 19 Blood Pressure 107/71 Pulse Oximetry 97 98 Oxygen Delivery Mechanical Ventilation Fraction of Inspired Oxygen 50 12/07/24 18:00 12/07/24 18:00 12/07/24 18:00 Temperature Pulse Rate 101 H 101 H 110 H Respiratory Rate 18 17 Blood Pressure Pulse Oximetry Oxygen Delivery Fraction of Inspired Oxygen 12/07/24 18:00 12/07/24 18:46 12/07/24 18:46 Temperature 99.1 F Pulse Rate 110 H 109 H 109 H Respiratory Rate 18 18 18 Blood Pressure 110/87 Pulse Oximetry 98 Oxygen Delivery Fraction of Inspired Oxygen 12/07/24 19:00 12/07/24 19:00 12/07/24 19:35 Temperature 99.1 F Pulse Rate 111 H 110 H 110 H Respiratory Rate 18 22 H Blood Pressure 129/104 H Pulse Oximetry 99 99 Oxygen Delivery Mechanical Ventilation Fraction of Inspired Oxygen 40 12/07/24 20:00 12/07/24 20:00 12/07/24 20:00 Temperature 99.7 F H Pulse Rate 108 H 108 H 108 H Respiratory Rate 22 H 22 H 22 H Blood Pressure 112/81 Pulse Oximetry 93 Oxygen Delivery Fraction of Inspired Oxygen 12/07/24 20:00 12/07/24 20:00 12/07/24 20:00 Temperature Pulse Rate 108 H 108 H Respiratory Rate 22 H 22 H Blood Pressure Pulse Oximetry 93 Oxygen Delivery Mechanical Ventilation Fraction of Inspired Oxygen 40 40 12/07/24 20:00 12/07/24 20:30 12/07/24 20:31 Temperature Pulse Rate 108 H 109 H 108 H Respiratory Rate 22 H Blood Pressure Pulse Oximetry Oxygen Delivery Fraction of Inspired Oxygen 12/07/24 21:00 12/07/24 22:00 12/07/24 22:00 Temperature 99.7 F H Pulse Rate 110 H 103 H 103 H Respiratory Rate 22 H 22 H 22 H Blood Pressure 126/84 Pulse Oximetry 100 Oxygen Delivery Fraction of Inspired Oxygen 12/07/24 22:00 12/07/24 22:00 12/07/24 22:17 Temperature 100.0 F H Pulse Rate 105 H 105 H 105 H Respiratory Rate 22 H Blood Pressure 103/72 Pulse Oximetry 92 92 Oxygen Delivery Mechanical Ventilation Fraction of Inspired Oxygen 40 12/07/24 23:00 12/07/24 23:12 12/07/24 23:12 Temperature 100.1 F H Pulse Rate 110 H 114 H 114 H Respiratory Rate 22 H 22 H 22 H Blood Pressure 114/81 Pulse Oximetry 92 Oxygen Delivery Fraction of Inspired Oxygen 12/07/24 23:21 12/08/24 00:00 12/08/24 00:00 Temperature 100.2 F H Pulse Rate 118 H 118 H Respiratory Rate 22 H 22 H Blood Pressure Pulse Oximetry Oxygen Delivery Fraction of Inspired Oxygen 12/08/24 00:00 12/08/24 00:00 12/08/24 00:00 Temperature 100.6 F H Pulse Rate 118 H 118 H Respiratory Rate 22 H 22 H Blood Pressure 119/79 Pulse Oximetry 92 92 Oxygen Delivery Mechanical Ventilation Fraction of Inspired Oxygen 40 40 12/08/24 00:00 12/08/24 00:21 12/08/24 00:21 Temperature 100.5 F H 100.9 F H Pulse Rate 120 H Respiratory Rate Blood Pressure Pulse Oximetry Oxygen Delivery Fraction of Inspired Oxygen 12/08/24 01:00 12/08/24 01:32 12/08/24 02:00 Temperature 101.1 F H Pulse Rate 120 H 119 H 119 H Respiratory Rate 22 H 22 H Blood Pressure 108/71 Pulse Oximetry 91 93 Oxygen Delivery Mechanical Ventilation Fraction of Inspired Oxygen 40 12/08/24 02:00 12/08/24 02:00 12/08/24 02:00 Temperature 101.1 F H Pulse Rate 119 H 119 H 119 H Respiratory Rate 22 H 22 H Blood Pressure 108/78 Pulse Oximetry 92 Oxygen Delivery Fraction of Inspired Oxygen 12/08/24 02:30 12/08/24 03:00 12/08/24 03:24 Temperature 101.2 F H Pulse Rate 133 H 126 H Respiratory Rate 30 H 22 H Blood Pressure 123/88 Pulse Oximetry 92 Oxygen Delivery Fraction of Inspired Oxygen 100 12/08/24 03:29 12/08/24 03:40 12/08/24 04:00 Temperature Pulse Rate 124 H 124 H 121 H Respiratory Rate 22 H 22 H 22 H Blood Pressure Pulse Oximetry Oxygen Delivery Fraction of Inspired Oxygen 12/08/24 04:00 12/08/24 04:00 12/08/24 04:00 Temperature 101.2 F H Pulse Rate 121 H 121 H 121 H Respiratory Rate 22 H 22 H 22 H Blood Pressure 112/72 Pulse Oximetry 92 92 Oxygen Delivery Mechanical Ventilation Fraction of Inspired Oxygen 100 12/08/24 04:00 12/08/24 04:00 12/08/24 04:28 Temperature Pulse Rate 121 H 120 H Respiratory Rate Blood Pressure Pulse Oximetry 92 Oxygen Delivery Mechanical Ventilation Fraction of Inspired Oxygen 100 50 12/08/24 05:00 12/08/24 05:54 12/08/24 06:00 Temperature 101.0 F H 100.9 F H Pulse Rate 120 H 121 H Respiratory Rate 22 H Blood Pressure 116/76 Pulse Oximetry 98 Oxygen Delivery Fraction of Inspired Oxygen 12/08/24 06:00 12/08/24 06:00 12/08/24 06:00 Temperature 101.0 F H Pulse Rate 121 H 121 H 121 H Respiratory Rate 22 H 22 H 22 H Blood Pressure 118/81 Pulse Oximetry 100 Oxygen Delivery Fraction of Inspired Oxygen 12/08/24 06:22 12/08/24 06:22 12/08/24 06:27 Temperature Pulse Rate 122 H 122 H 121 H Respiratory Rate 22 H 22 H 22 H Blood Pressure Pulse Oximetry Oxygen Delivery Fraction of Inspired Oxygen 12/08/24 06:54 12/08/24 07:40 12/08/24 07:48 Temperature 101.0 F H 101 F H Pulse Rate 124 H 124 H Respiratory Rate 22 H Blood Pressure 116/78 Pulse Oximetry 100 100 Oxygen Delivery Mechanical Ventilation Fraction of Inspired Oxygen 40 12/08/24 08:00 12/08/24 08:00 12/08/24 08:31 Temperature Pulse Rate 126 H 126 H 126 H Respiratory Rate 22 H 22 H Blood Pressure Pulse Oximetry Oxygen Delivery Fraction of Inspired Oxygen 12/08/24 08:38 12/08/24 09:10 Temperature Pulse Rate 126 H 122 H Respiratory Rate 22 H 22 H Blood Pressure Pulse Oximetry Oxygen Delivery Fraction of Inspired Oxygen Intake/Output Intake/Output: Intake & Output 12/05/24 12/06/24 12/07/24 12/08/24 23:59 23:59 23:59 23:59 Intake Total 505.6 2155.7 967.8 715.3 Output Total 700 4110 1070 1000 Balance -194.4 -1954.3 -102.2 -284.7 Meds/Results Medications: Active Medications Generic Name Dose Route Start Last Admin Trade Name Freq PRN Reason Stop Dose Admin Acetaminophen 650 mg 12/07/24 23:17 12/08/24 05:54 Acetaminophen Elixir 325 Mg/10.15 Ml Udc PO 650 mg Q6H PRN Administration Mild Pain (1-3) or Fever Albuterol/Ipratropium 3 ml 12/05/24 13:20 Ipratropium 0.5 Mg/Albuterol Sulfate 2.5 Mg Ampul.Neb 3 Ml INHALATION Q6HRT PRN Wheezing Alteplase, Recombinant 2 mg 12/07/24 09:34 12/07/24 10:26 Alteplase 2 Mg Vial (Cathflo) IV PUSH 2 mg ONCE PRN Administration Line Occlusion Aspirin 81 mg 12/06/24 08:00 12/08/24 08:31 Aspirin 81 Mg Chewable Tablet FEED TUBE 81 mg DAILY@0800 JULIUS Administration Atorvastatin Calcium 80 mg 12/06/24 09:00 12/08/24 08:30 Atorvastatin 40 Mg Tablet FEED TUBE 80 mg DAILY JULIUS Administration Dextrose 12.5 gm 12/06/24 07:25 Dextrose 50% 25 Gm/50 Ml Syringe IV PUSH PRN PRN Hypoglycemia Protocol Empagliflozin 10 mg 12/07/24 09:00 12/08/24 08:41 Empagliflozin 10 Mg Tablet PO 10 mg DAILY JULIUS Administration Glucagon 1 mg 12/06/24 07:25 Glucagon For Inj 1 Mg Vial IM PRN PRN Hypoglycemia Protocol Glucose 15 gm 12/06/24 07:25 Glucose Oral Gel 15 Gm Of Glucse In 37.5 Gm Tube PO PRN PRN Hypoglycemia Protocol Heparin Sodium (Porcine) 5,000 units 12/07/24 14:00 12/08/24 05:05 Heparin Sodium 5,000 Units/Ml Vial SUB-Q 5,000 units Q8HR JULIUS Administration Hydralazine HCl 20 mg 12/05/24 22:33 12/06/24 05:46 Hydralazine Hcl 20 Mg/Ml Vial IV PUSH 20 mg Q4HR PRN Administration Blood Pressure - High Fentanyl Citrate 2,500 mcg in 250 mls @ 0 mls/hr 12/05/24 13:50 12/08/24 08:00 Fentanyl 2,500 Mcg/Ns 250 Ml IV CONT 0 mcg/hr .Q0M JULIUS 0 mls/hr Titration Protocol 0 MCG/HR Dextrose 1,000 mls @ 100 mls/hr 12/06/24 07:25 Dextrose 5% 1,000 Ml IVPB PRN PRN Hypoglycemia Protocol Piperacillin Sod/Tazobactam 50 mls @ 100 mls/hr 12/06/24 15:00 12/08/24 08:34 Sod 3.375 gm/ Sodium Chloride IVPB 100 mls/hr Q6H JULIUS Administration Propofol 100 mls @ 30.048 mls/hr 12/07/24 09:55 12/08/24 09:10 Diprivan IV CONT 30 mcg/kg/min .Q3H20M JULIUS 22.54 mls/hr Titration Protocol 40 MCG/KG/MIN Levetiracetam 1,000 mg in 100 mls @ 400 mls/hr 12/08/24 09:00 Keppra Iv IVPB Q12HR JULIUS Lactated Ringer's 1,000 mls @ 100 mls/hr 12/08/24 07:25 12/08/24 08:42 Lr - Lactated Ringers Iv IV CONT 12/08/24 22:24 100 mls/hr .Q10H JULIUS Administration Dexmedetomidine HCl 400 mcg in 100 mls @ 6.215 mls/hr 12/08/24 07:40 12/08/24 08:38 Precedex 400 Mcg/100 Ml IV CONT 0.2 mcg/kg/hr .Q16H6M JULIUS 6.22 mls/hr Administration Protocol 0.2 MCG/KG/HR Vancomycin HCl 1,250 mg in 250 mls @ 166.667 mls/hr 12/08/24 08:00 12/08/24 08:39 Vancomycin 1,250 Mg/Ns 250 Ml IVPB 12/08/24 09:29 166.67 mls/hr ONCE ONE Administration Vancomycin HCl 1,250 mg in 250 mls @ 166.667 mls/hr 12/08/24 09:30 Vancomycin 1,250 Mg/Ns 250 Ml IVPB 12/08/24 10:59 ONCE ONE Vancomycin HCl 1,500 mg in 500 mls @ 250 mls/hr 12/09/24 02:00 Vancomycin 1,500 Mg/Ns 500 Ml IVPB Q18H [facility] Insulin Aspart 4 - 8 units 12/06/24 09:00 12/08/24 08:38 Insulin Aspart (*Bkc) 100 Units/Ml SUB-Q Not Given Q4HR [facility] Protocol Insulin Glargine 10 units 12/06/24 09:00 12/08/24 08:36 Insulin Glargine (*Bkc) 100 Units/Ml SUB-Q 10 units QAM JULIUS Administration Labetalol HCl 20 mg 12/06/24 07:34 Labetalol Hcl Inj 100 Mg/20 Ml Vial IV PUSH Q4H PRN SBP > 160 and HR> 60 -1st choice Metoprolol Tartrate 25 mg 12/08/24 09:00 Metoprolol Tartrate 25 Mg Tablet PO Q12HR [facility] Metoprolol Tartrate 12.5 mg 12/08/24 09:00 Metoprolol Tartrate 12.5 Mg Tablet PO 12/08/24 09:01 ONCE ONE Multi-Ingred Cream/Lotion/Oil/Oint 1 applic 12/05/24 21:00 12/08/24 08:30 Mineral Oil/White Petrolatum Ointment EACH EYE 1 applic Q12HR JULIUS Administration Nitroglycerin 0.4 mg 12/05/24 13:47 Nitroglycerin Sl 0.4 Mg Tablet SUBLINGUAL Q5MIN PRN Chest Pain Pantoprazole Sodium 40 mg 12/06/24 07:40 12/08/24 08:31 Pantoprazole Sodium Iv 40 Mg Vial IV PUSH 40 mg Q12HR JULIUS Administration Sodium Chloride 10 ml 12/05/24 22:00 12/08/24 05:05 Central Line Flush IV PUSH 10 ml Q8HR JULIUS Administration Sodium Chloride 20 ml 12/05/24 15:00 Central Line Flush IV PUSH PRN PRN after blood draws Ticagrelor 90 mg 12/05/24 21:00 12/08/24 08:30 Ticagrelor 90 Mg Tablet FEED TUBE 90 mg Q12HR JULIUS Administration Radiology Results: ITS Impressions Head CT 12/05/24 12:09 Impression: Stable CT examination of the head without change from 2006 examination, without acute intracranial hemorrhage or suspicious mass effect. Cervical Spine CT 12/05/24 12:16 Impression: No acute displaced fracture within the cervical spine. Large right-sided and small left-sided pleural effusions without pneumothorax for which further evaluation post cardiac intervention is suggested (if the patient is clinically able). Abdomen X-Ray 12/06/24 14:26 IMPRESSION: Orogastric tube in good position and ready for immediate use. Chest X-Ray 12/08/24 05:43 Impression: [id number] bilateral pleural effusions with mild pulmonary edema pattern. Support tubes, as above. Labs Labs: Laboratory Results - last 24 hr 12/07/24 12/07/24 12/07/24 11:24 17:19 20:17 WBC RBC Hgb Hct MCV MCH MCHC RDW Plt Count MPV Immature Gran % (Auto) Neut % (Auto) Lymph % (Auto) [place] % (Auto) Eos % (Auto) Baso % (Auto) Lymph # (Auto) [place] # (Auto) Eos # (Auto) Baso # (Auto) Abs Immat Gran (auto) Absolute Neuts (auto) Absolute Nucleated RBC Nucleated RBC % Puncture Site ABG pH ABG pCO2 ABG pO2 ABG PO2/FiO2 Ratio ABG HCO3 ABG O2 Saturation ABG O2 Content ABG Base Excess A-a Gradient Oxyhemoglobin Carboxyhemoglobin Methemoglobin Reduced Hemoglobin Total Hemoglobin O2 Delivery Device O2 Liters/Min Minute Volume FiO2 Peak Inspir Pressure Pressure Support Sodium Potassium Chloride Carbon Dioxide Anion Gap BUN Creatinine Estim Creat Clear Calc Estimated GFR Glucose POC Capillary Glucose 178 H 154 H 202 H Calcium Phosphorus Magnesium Total Bilirubin AST ALT Alkaline Phosphatase Total Protein Albumin Triglycerides 12/08/24 12/08/24 12/08/24 00:28 03:53 04:16 WBC 12.2 H RBC 4.69 Hgb 14.7 Hct 45.8 MCV 97.7 MCH 31.3 MCHC 32.1 RDW 14.6 H Plt Count 254 MPV 9.6 Immature Gran % (Auto) 0.6 H Neut % (Auto) 81.2 H Lymph % (Auto) 4.4 L [place] % (Auto) 13.6 H Eos % (Auto) 0.0 Baso % (Auto) 0.2 Lymph # (Auto) 0.54 L [place] # (Auto) 1.7 H Eos # (Auto) 0.0 Baso # (Auto) 0.0 Abs Immat Gran (auto) 0.07 H Absolute Neuts (auto) 9.9 H Absolute Nucleated RBC 0.000 Nucleated RBC % 0.0 Puncture Site Right radial ABG pH 7.405 ABG pCO2 45.5 H ABG pO2 216.5 H ABG PO2/FiO2 Ratio 2.16 ABG HCO3 27.9 H ABG O2 Saturation 99.4 ABG O2 Content 22.5 H ABG Base Excess 2.5 A-a Gradient 451.0 Oxyhemoglobin 98.7 Carboxyhemoglobin 0.4 Methemoglobin 0.3 Reduced Hemoglobin 0.6 Total Hemoglobin 15.9 O2 Delivery Device Ventilator O2 Liters/Min Not Reportable Minute Volume Not Reportable FiO2 100 Peak Inspir Pressure Not Reportable Pressure Support Not Reportable Sodium 143 Potassium 3.5 Chloride 104 Carbon Dioxide 31 H Anion Gap 8 BUN 25 H D Creatinine 1.62 H Estim Creat Clear Calc 73 Estimated GFR 47 L Glucose 157 H POC Capillary Glucose 169 H Calcium 7.7 L Phosphorus 4.7 H Magnesium 2.2 Total Bilirubin 0.8 AST 143 H ALT 124 H Alkaline Phosphatase 62 Total Protein 6.2 L Albumin 3.2 L Triglycerides 499 H 12/08/24 12/08/24 05:02 07:07 WBC RBC Hgb Hct MCV MCH MCHC RDW Plt Count MPV Immature Gran % (Auto) Neut % (Auto) Lymph % (Auto) [place] % (Auto) Eos % (Auto) Baso % (Auto) Lymph # (Auto) [place] # (Auto) Eos # (Auto) Baso # (Auto) Abs Immat Gran (auto) Absolute Neuts (auto) Absolute Nucleated RBC Nucleated RBC % Puncture Site ABG pH ABG pCO2 ABG pO2 ABG PO2/FiO2 Ratio ABG HCO3 ABG O2 Saturation ABG O2 Content ABG Base Excess A-a Gradient Oxyhemoglobin Carboxyhemoglobin Methemoglobin Reduced Hemoglobin Total Hemoglobin O2 Delivery Device O2 Liters/Min Minute Volume FiO2 Peak Inspir Pressure Pressure Support Sodium Potassium Chloride Carbon Dioxide Anion Gap BUN Creatinine Estim Creat Clear Calc Estimated GFR Glucose POC Capillary Glucose 163 H 166 H Calcium Phosphorus Magnesium Total Bilirubin AST ALT Alkaline Phosphatase Total Protein Albumin Triglycerides Quality VTE Prophylaxis VTE prophylaxis: pharmacologic ordered
[2024-12-08] MEDS: PROPOFOL IV EMULSION 100 ML 22.54 MG IV CONT (09:41)
[2024-12-08] MEDS: levETIRAcetam 1000MG/NACL100ML 1,000 MG/100 ML BAG 400 MG IVPB ×2 (10:29→20:39)
--- NOTE | 2024-12-08 11:14 | P.NEURO_ITS ---
Neurology EEG Report General Information Date of Study: 12/08/24 TEST EEG DIAGNOSIS Status post cardiopulmonary arres With subsequent seizures. CONDITION OF RECORDING intubated, sedated, subsequently became more restless. EEG NUMBER [id number] CLINICAL HISTORY 44 years old admitted after collapsing after cardiac arrest. Patient had seizure activity after being taken off sedation when his arm stiffened, his back arched and his eyes looking up at the ceiling that lasted for 60 to 75 seconds. Patient experiences shorter episode during tracing of EEG patient was opening eyes sticking out tongue and coughing upon entering the room. Patient also began coughing and trying to sit up during beginning of the recording so nurses started propofol again, history of seizure prior to this particular incident, but family states that he is a heavy drinker that is 70 beers per week. EEG DESCRIPTION Abnormal record due to the presence of bihemispheric medium to high voltage theta and delta activity admixed with multiple movement artifacts. Obviously no hyperventilation or photic stimulation done. Non paroxysmal nonfocal and nonlateralizing. IMPRESSION Abnormal record due to the presence of bihemispheric theta and delta activity and due to the absence of normal background rhythm. Clinical correlation recommended these abnormalities are suggestive of organic or metabolic encephal opathy or postictal state.
--- NOTE | 2024-12-08 11:19 | P.PNCA_ITS ---
Progress Note: A&P Assessment and Plan (1) Acute ST elevation myocardial infarction: Code(s): I21.3 - ST elevation (STEMI) myocardial infarction of unspecified site Status: Acute (2) Cardiac arrest: Code(s): I46.9 - Cardiac arrest, cause unspecified Status: Acute Plan 44-year-old male with history of HTN, low testosterone on supplementation, who presented with OHCA. Initial rhythm was Vfib, Total CPR time almost 20 minutes. EKG suggestive of Acute Ant wall STEMI post ROSC. Cardiac catheterization showed 100% proximal LAD occlusion status post successful aspiration thrombectomy and PCI of proximal mid LAD with overlapping 0rsiro 3.5/22 and 3.0/13 mm IRWIN post dilated distally to 3.0-3.05 and proximally to 4.45-4.50. -Anterior STEMI status post PCI to proximal LAD -Ischemic cardiomyopathy with LVEF of 40-45% and hypokinesis of inferior, apical septum, apical lateral, mid inferoseptal, basal inferoseptal, mid anteroseptal naylor. -Outside hospital cardiac arrest due to VFib status post resuscitation-was initially on amiodarone which was stopped due to bradycardia to the 40s; he has not had any further VT/VF episodes Plan: -Continue DAPT for 1 year with aspirin 81 mg daily and Brilinta 90 mg b.i.d.. Then continue aspirin 81 mg daily indefinitely -Continue atorvastatin 80 mg daily -Guideline directed medical therapy for cardiomyopathy when blood pressure allows. Continue metoprolol and empagliflozin. Resume irbesartan as blood pressure tolerates -he appears comatose even after sedation is weaned off. Neurology has been consulted for further evaluation and EEG is being performed -Management of other medical issues per ICU team Subjective Date/time seen: 12/08/24 11:19 Interval history: Reason for encounter: Anterior STEMI status post primary PCI to proximal LAD, out of hospital VFib cardiac arrest status post resuscitation Interval history: Patient is currently intubated. His sedation is being weaned off but he still remains comatose. Neurology consulted and EEG is being done to evaluate neurological status. Telemetry shows sinus tachycardia with heart rates in the 100s. TTE shows mildly depressed LVEF of 40-45% with regional wall motion abnormalities. Review of Systems Review of Systems: A complete review of systems could not be performed as patient is intubated and sedated. Exam Narrative: General: Patient intubated, trying to move extremities Neck: Supple, unable to assess JVD Chest: Bilaterally clear to auscultation, no rales or rhonchi Cardiac: S1, S2 +, tachycardic, regular rhythm, no murmurs or rubs Extremities: Bilateral lower extremity edema 1+, no skin rash Neurologic: Intubated, appears comatose after sedation is weaned off, trying to move extremities, opens eyes to command but not tracking Objective Data Vital Signs Vital Signs: Vital Signs - 24 hr 12/07/24 11:44 12/07/24 11:45 12/07/24 11:57 Temperature 37.7 C H Pulse Rate 106 H 106 H 107 H Respiratory Rate 25 H 24 H 22 H Blood Pressure 95/71 L Pulse Oximetry 92 Oxygen Delivery Fraction of Inspired Oxygen 12/07/24 12:00 12/07/24 12:00 12/07/24 12:00 Temperature Pulse Rate 111 H 111 H Respiratory Rate 22 H Blood Pressure 114/79 Pulse Oximetry Oxygen Delivery Fraction of Inspired Oxygen 50 12/07/24 12:00 12/07/24 12:03 12/07/24 12:15 Temperature Pulse Rate 110 H 105 H 108 H Respiratory Rate 22 H 22 H 23 H Blood Pressure Pulse Oximetry 92 Oxygen Delivery Mechanical Ventilation Fraction of Inspired Oxygen 50 12/07/24 12:15 12/07/24 13:00 12/07/24 13:29 Temperature 36.4 C 38.2 C H Pulse Rate 107 H 116 H Respiratory Rate 25 H 18 Blood Pressure 101/73 Pulse Oximetry 93 Oxygen Delivery Fraction of Inspired Oxygen 12/07/24 13:38 12/07/24 14:00 12/07/24 14:00 Temperature 38.3 C H Pulse Rate 117 H 117 H 117 H Respiratory Rate 20 Blood Pressure 100/65 Pulse Oximetry 93 92 Oxygen Delivery Mechanical Ventilation Fraction of Inspired Oxygen 50 12/07/24 14:00 12/07/24 14:00 12/07/24 14:01 Temperature Pulse Rate 115 H 114 H 120 H Respiratory Rate 20 19 17 Blood Pressure 105/77 Pulse Oximetry Oxygen Delivery Fraction of Inspired Oxygen 12/07/24 14:01 12/07/24 14:50 12/07/24 15:00 Temperature 38.3 C H 38.3 C H Pulse Rate 120 H 117 H Respiratory Rate 17 20 Blood Pressure 100/65 Pulse Oximetry 92 Oxygen Delivery Fraction of Inspired Oxygen 12/07/24 16:00 12/07/24 16:00 12/07/24 16:00 Temperature 38.3 C H Pulse Rate 110 H 111 H Respiratory Rate 20 Blood Pressure 102/73 Pulse Oximetry 92 Oxygen Delivery Fraction of Inspired Oxygen 50 12/07/24 16:00 12/07/24 16:00 12/07/24 16:00 Temperature Pulse Rate 115 H 102 H 102 H Respiratory Rate 22 H 19 19 Blood Pressure Pulse Oximetry 95 Oxygen Delivery Mechanical Ventilation Fraction of Inspired Oxygen 50 12/07/24 17:00 12/07/24 17:07 12/07/24 18:00 Temperature 37.7 C H Pulse Rate 100 101 H 101 H Respiratory Rate 19 18 Blood Pressure 107/71 Pulse Oximetry 97 98 Oxygen Delivery Mechanical Ventilation Fraction of Inspired Oxygen 50 12/07/24 18:00 12/07/24 18:00 12/07/24 18:00 Temperature 37.3 C Pulse Rate 101 H 110 H 110 H Respiratory Rate 17 18 Blood Pressure 110/87 Pulse Oximetry 98 Oxygen Delivery Fraction of Inspired Oxygen 12/07/24 18:46 12/07/24 18:46 12/07/24 19:00 Temperature Pulse Rate 109 H 109 H 111 H Respiratory Rate 18 18 18 Blood Pressure Pulse Oximetry Oxygen Delivery Fraction of Inspired Oxygen 12/07/24 19:00 12/07/24 19:35 12/07/24 20:00 Temperature 37.3 C 37.6 C H Pulse Rate 110 H 110 H 108 H Respiratory Rate 22 H 22 H Blood Pressure 129/104 H 112/81 Pulse Oximetry 99 99 93 Oxygen Delivery Mechanical Ventilation Fraction of Inspired Oxygen 40 12/07/24 20:00 12/07/24 20:00 12/07/24 20:00 Temperature Pulse Rate 108 H 108 H 108 H Respiratory Rate 22 H 22 H 22 H Blood Pressure Pulse Oximetry Oxygen Delivery Fraction of Inspired Oxygen 12/07/24 20:00 12/07/24 20:00 12/07/24 20:00 Temperature Pulse Rate 108 H 108 H Respiratory Rate 22 H Blood Pressure Pulse Oximetry 93 Oxygen Delivery Mechanical Ventilation Fraction of Inspired Oxygen 40 40 12/07/24 20:30 12/07/24 20:31 12/07/24 21:00 Temperature 37.6 C H Pulse Rate 109 H 108 H 110 H Respiratory Rate 22 H 22 H Blood Pressure 126/84 Pulse Oximetry 100 Oxygen Delivery Fraction of Inspired Oxygen 12/07/24 22:00 12/07/24 22:00 12/07/24 22:00 Temperature Pulse Rate 103 H 103 H 105 H Respiratory Rate 22 H 22 H Blood Pressure Pulse Oximetry Oxygen Delivery Fraction of Inspired Oxygen 12/07/24 22:00 12/07/24 22:17 12/07/24 23:00 Temperature 37.8 C H 37.8 C H Pulse Rate 105 H 105 H 110 H Respiratory Rate 22 H 22 H Blood Pressure 103/72 114/81 Pulse Oximetry 92 92 92 Oxygen Delivery Mechanical Ventilation Fraction of Inspired Oxygen 40 12/07/24 23:12 12/07/24 23:12 12/07/24 23:21 Temperature 37.9 C H Pulse Rate 114 H 114 H Respiratory Rate 22 H 22 H Blood Pressure Pulse Oximetry Oxygen Delivery Fraction of Inspired Oxygen 12/08/24 00:00 12/08/24 00:00 12/08/24 00:00 Temperature Pulse Rate 118 H 118 H 118 H Respiratory Rate 22 H 22 H 22 H Blood Pressure Pulse Oximetry 92 Oxygen Delivery Mechanical Ventilation Fraction of Inspired Oxygen 40 12/08/24 00:00 12/08/24 00:00 12/08/24 00:00 Temperature 38.1 C H Pulse Rate 118 H 120 H Respiratory Rate 22 H Blood Pressure 119/79 Pulse Oximetry 92 Oxygen Delivery Fraction of Inspired Oxygen 40 12/08/24 00:21 12/08/24 00:21 12/08/24 01:00 Temperature 38.1 C H 38.3 C H 38.4 C H Pulse Rate 120 H Respiratory Rate 22 H Blood Pressure 108/71 Pulse Oximetry 91 Oxygen Delivery Fraction of Inspired Oxygen 12/08/24 01:32 12/08/24 02:00 12/08/24 02:00 Temperature Pulse Rate 119 H 119 H 119 H Respiratory Rate 22 H 22 H Blood Pressure Pulse Oximetry 93 Oxygen Delivery Mechanical Ventilation Fraction of Inspired Oxygen 40 12/08/24 02:00 12/08/24 02:00 12/08/24 02:30 Temperature 38.4 C H Pulse Rate 119 H 119 H 133 H Respiratory Rate 22 H 30 H Blood Pressure 108/78 Pulse Oximetry 92 Oxygen Delivery Fraction of Inspired Oxygen 12/08/24 03:00 12/08/24 03:24 12/08/24 03:29 Temperature 38.4 C H Pulse Rate 126 H 124 H Respiratory Rate 22 H 22 H Blood Pressure 123/88 Pulse Oximetry 92 Oxygen Delivery Fraction of Inspired Oxygen 100 12/08/24 03:40 12/08/24 04:00 12/08/24 04:00 Temperature Pulse Rate 124 H 121 H 121 H Respiratory Rate 22 H 22 H 22 H Blood Pressure Pulse Oximetry Oxygen Delivery Fraction of Inspired Oxygen 12/08/24 04:00 12/08/24 04:00 12/08/24 04:00 Temperature 38.4 C H Pulse Rate 121 H 121 H Respiratory Rate 22 H 22 H Blood Pressure 112/72 Pulse Oximetry 92 92 Oxygen Delivery Mechanical Ventilation Fraction of Inspired Oxygen 100 100 12/08/24 04:00 12/08/24 04:28 12/08/24 05:00 Temperature 38.3 C H Pulse Rate 121 H 120 H 120 H Respiratory Rate 22 H Blood Pressure 116/76 Pulse Oximetry 92 98 Oxygen Delivery Mechanical Ventilation Fraction of Inspired Oxygen 50 12/08/24 05:54 12/08/24 06:00 12/08/24 06:00 Temperature 38.3 C H 38.3 C H Pulse Rate 121 H 121 H Respiratory Rate 22 H Blood Pressure 118/81 Pulse Oximetry 100 Oxygen Delivery Fraction of Inspired Oxygen 12/08/24 06:00 12/08/24 06:00 12/08/24 06:22 Temperature Pulse Rate 121 H 121 H 122 H Respiratory Rate 22 H 22 H 22 H Blood Pressure Pulse Oximetry Oxygen Delivery Fraction of Inspired Oxygen 12/08/24 06:22 12/08/24 06:27 12/08/24 06:54 Temperature 38.3 C H Pulse Rate 122 H 121 H Respiratory Rate 22 H 22 H Blood Pressure Pulse Oximetry Oxygen Delivery Fraction of Inspired Oxygen 12/08/24 07:40 12/08/24 07:48 12/08/24 08:00 Temperature 38.3 C H Pulse Rate 124 H 124 H 126 H Respiratory Rate 22 H 22 H Blood Pressure 116/78 Pulse Oximetry 100 100 Oxygen Delivery Mechanical Ventilation Fraction of Inspired Oxygen 40 12/08/24 08:00 12/08/24 08:31 12/08/24 08:38 Temperature Pulse Rate 126 H 126 H 126 H Respiratory Rate 22 H 22 H Blood Pressure Pulse Oximetry Oxygen Delivery Fraction of Inspired Oxygen 12/08/24 09:00 12/08/24 09:10 12/08/24 09:41 Temperature 38.4 C H Pulse Rate 123 H 122 H 124 H Respiratory Rate 22 H 22 H 25 H Blood Pressure 119/77 Pulse Oximetry 100 Oxygen Delivery Fraction of Inspired Oxygen 12/08/24 09:41 12/08/24 09:55 12/08/24 10:00 Temperature 38.6 C H Pulse Rate 124 H 114 H 111 H Respiratory Rate 25 H 22 H 22 H Blood Pressure 96/61 L Pulse Oximetry 97 Oxygen Delivery Fraction of Inspired Oxygen 12/08/24 10:22 12/08/24 10:23 12/08/24 10:30 Temperature Pulse Rate 107 H 107 H 103 H Respiratory Rate 22 H 22 H Blood Pressure Pulse Oximetry Oxygen Delivery Fraction of Inspired Oxygen 12/08/24 11:00 Temperature 38.3 C H Pulse Rate 96 Respiratory Rate 23 H Blood Pressure 89/52 L Pulse Oximetry 100 Oxygen Delivery Fraction of Inspired Oxygen Intake/Output Intake/Output: Intake & Output 12/05/24 12/06/24 12/07/24 12/08/24 23:59 23:59 23:59 23:59 Intake Total 505.6 2155.7 967.8 764.7 Output Total 700 4110 1070 1000 Balance -194.4 -1954.3 -102.2 -235.3 Meds/Results Medications: Active Medications Generic Name Dose Route Start Last Admin Trade Name Freq PRN Reason Stop Dose Admin Acetaminophen 650 mg 12/07/24 23:17 12/08/24 05:54 Acetaminophen Elixir 325 Mg/10.15 Ml Udc PO 650 mg Q6H PRN Administration Mild Pain (1-3) or Fever Albuterol/Ipratropium 3 ml 12/08/24 14:00 Ipratropium 0.5 Mg/Albuterol Sulfate 2.5 Mg Ampul.Neb 3 Ml INHALATION Q6HRT [facility] Alteplase, Recombinant 2 mg 12/07/24 09:34 12/07/24 10:26 Alteplase 2 Mg Vial (Cathflo) IV PUSH 2 mg ONCE PRN Administration Line Occlusion Aspirin 81 mg 12/06/24 08:00 12/08/24 08:31 Aspirin 81 Mg Chewable Tablet FEED TUBE 81 mg DAILY@0800 [facility] Administration Atorvastatin Calcium 80 mg 12/06/24 09:00 12/08/24 08:30 Atorvastatin 40 Mg Tablet FEED TUBE 80 mg DAILY JULIUS Administration Dextrose 12.5 gm 12/06/24 07:25 Dextrose 50% 25 Gm/50 Ml Syringe IV PUSH PRN PRN Hypoglycemia Protocol Empagliflozin 10 mg 12/07/24 09:00 12/08/24 08:41 Empagliflozin 10 Mg Tablet PO 10 mg DAILY JULIUS Administration Glucagon 1 mg 12/06/24 07:25 Glucagon For Inj 1 Mg Vial IM PRN PRN Hypoglycemia Protocol Glucose 15 gm 12/06/24 07:25 Glucose Oral Gel 15 Gm Of Glucse In 37.5 Gm Tube PO PRN PRN Hypoglycemia Protocol Heparin Sodium (Porcine) 5,000 units 12/07/24 14:00 12/08/24 05:05 Heparin Sodium 5,000 Units/Ml Vial SUB-Q 5,000 units Q8HR JULIUS Administration Hydralazine HCl 20 mg 12/05/24 22:33 12/06/24 05:46 Hydralazine Hcl 20 Mg/Ml Vial IV PUSH 20 mg Q4HR PRN Administration Blood Pressure - High Fentanyl Citrate 2,500 mcg in 250 mls @ 0 mls/hr 12/05/24 13:50 12/08/24 08:00 Fentanyl 2,500 Mcg/Ns 250 Ml IV CONT 0 mcg/hr .Q0M JULIUS 0 mls/hr Titration Protocol 0 MCG/HR Dextrose 1,000 mls @ 100 mls/hr 12/06/24 07:25 Dextrose 5% 1,000 Ml IVPB PRN PRN Hypoglycemia Protocol Piperacillin Sod/Tazobactam 50 mls @ 100 mls/hr 12/06/24 15:00 12/08/24 08:34 Sod 3.375 gm/ Sodium Chloride IVPB 100 mls/hr Q6H JULIUS Administration Propofol 100 mls @ 0 mls/hr 12/07/24 09:55 12/08/24 10:23 Diprivan IV CONT 0 mcg/kg/min .Q0M JULIUS 0 mls/hr Titration Protocol 0 MCG/KG/MIN Levetiracetam 1,000 mg in 100 mls @ 400 mls/hr 12/08/24 09:00 12/08/24 10:29 Keppra Iv IVPB 400 mls/hr Q12HR JULIUS Administration Lactated Ringer's 1,000 mls @ 100 mls/hr 12/08/24 07:25 12/08/24 08:42 Lr - Lactated Ringers Iv IV CONT 12/08/24 22:24 100 mls/hr .Q10H JULIUS Administration Dexmedetomidine HCl 400 mcg in 100 mls @ 46.613 mls/hr 12/08/24 07:40 12/08/24 10:22 Precedex 400 Mcg/100 Ml IV CONT 1.5 mcg/kg/hr .Q2H9M JULIUS 46.61 mls/hr Titration Protocol 1.5 MCG/KG/HR Vancomycin HCl 1,500 mg in 500 mls @ 250 mls/hr 12/09/24 02:00 Vancomycin 1,500 Mg/Ns 500 Ml IVPB Q18H [facility] Insulin Aspart 4 - 8 units 12/06/24 09:00 12/08/24 08:38 Insulin Aspart (*Bkc) 100 Units/Ml SUB-Q Not Given Q4HR [facility] Protocol Insulin Glargine 10 units 12/06/24 09:00 12/08/24 08:36 Insulin Glargine (*Bkc) 100 Units/Ml SUB-Q 10 units QAM JULIUS Administration Labetalol HCl 20 mg 12/06/24 07:34 Labetalol Hcl Inj 100 Mg/20 Ml Vial IV PUSH Q4H PRN SBP > 160 and HR> 60 -1st choice Levalbuterol HCl 0.63 mg 12/08/24 14:00 Levalbuterol Neb 1.25 Mg/3 Ml INHALATION Q6HRT [facility] Metoprolol Tartrate 25 mg 12/08/24 21:00 Metoprolol Tartrate 25 Mg Tablet PO Q12HR [facility] Multi-Ingred Cream/Lotion/Oil/Oint 1 applic 12/05/24 21:00 12/08/24 08:30 Mineral Oil/White Petrolatum Ointment EACH EYE 1 applic Q12HR [facility] Administration Nitroglycerin 0.4 mg 12/05/24 13:47 Nitroglycerin Sl 0.4 Mg Tablet SUBLINGUAL Q5MIN PRN Chest Pain Pantoprazole Sodium 40 mg 12/06/24 07:40 12/08/24 08:31 Pantoprazole Sodium Iv 40 Mg Vial IV PUSH 40 mg Q12HR [facility] Administration Sodium Chloride 10 ml 12/05/24 22:00 12/08/24 05:05 Central Line Flush IV PUSH 10 ml Q8HR JULIUS Administration Sodium Chloride 20 ml 12/05/24 15:00 Central Line Flush IV PUSH PRN PRN after blood draws Ticagrelor 90 mg 12/05/24 21:00 12/08/24 08:30 Ticagrelor 90 Mg Tablet FEED TUBE 90 mg Q12HR [facility]UL[facility] Administration Radiology Results: ITS Impressions Head CT 12/05/24 12:09 Impression: Stable CT examination of the head without change from 2006 examination, without acute intracranial hemorrhage or suspicious mass effect. Cervical Spine CT 12/05/24 12:16 Impression: No acute displaced fracture within the cervical spine. Large right-sided and small left-sided pleural effusions without pneumothorax for which further evaluation post cardiac intervention is suggested (if the patient is clinically able). Abdomen X-Ray 12/06/24 14:26 IMPRESSION: Orogastric tube in good position and ready for immediate use. Chest X-Ray 12/08/24 05:43 Impression: [id number] bilateral pleural effusions with mild pulmonary edema pattern. Support tubes, as above. Labs Labs: Laboratory Results - last 24 hr 12/07/24 12/07/24 12/07/24 11:24 17:19 20:17 WBC RBC Hgb Hct MCV MCH MCHC RDW Plt Count MPV Immature Gran % (Auto) Neut % (Auto) Lymph % (Auto) [place] % (Auto) Eos % (Auto) Baso % (Auto) Lymph # (Auto) [place] # (Auto) Eos # (Auto) Baso # (Auto) Abs Immat Gran (auto) Absolute Neuts (auto) Absolute Nucleated RBC Nucleated RBC % Puncture Site ABG pH ABG pCO2 ABG pO2 ABG PO2/FiO2 Ratio ABG HCO3 ABG O2 Saturation ABG O2 Content ABG Base Excess A-a Gradient Oxyhemoglobin Carboxyhemoglobin Methemoglobin Reduced Hemoglobin Total Hemoglobin O2 Delivery Device O2 Liters/Min Minute Volume FiO2 Peak Inspir Pressure Pressure Support Sodium Potassium Chloride Carbon Dioxide Anion Gap BUN Creatinine Estim Creat Clear Calc Estimated GFR Glucose POC Capillary Glucose 178 H 154 H 202 H Calcium Phosphorus Magnesium Total Bilirubin AST ALT Alkaline Phosphatase Total Protein Albumin Triglycerides 12/08/24 12/08/24 12/08/24 00:28 03:53 04:16 WBC 12.2 H RBC 4.69 Hgb 14.7 Hct 45.8 MCV 97.7 MCH 31.3 MCHC 32.1 RDW 14.6 H Plt Count 254 MPV 9.6 Immature Gran % (Auto) 0.6 H Neut % (Auto) 81.2 H Lymph % (Auto) 4.4 L [place] % (Auto) 13.6 H Eos % (Auto) 0.0 Baso % (Auto) 0.2 Lymph # (Auto) 0.54 L [place] # (Auto) 1.7 H Eos # (Auto) 0.0 Baso # (Auto) 0.0 Abs Immat Gran (auto) 0.07 H Absolute Neuts (auto) 9.9 H Absolute Nucleated RBC 0.000 Nucleated RBC % 0.0 Puncture Site Right radial ABG pH 7.405 ABG pCO2 45.5 H ABG pO2 216.5 H ABG PO2/FiO2 Ratio 2.16 ABG HCO3 27.9 H ABG O2 Saturation 99.4 ABG O2 Content 22.5 H ABG Base Excess 2.5 A-a Gradient 451.0 Oxyhemoglobin 98.7 Carboxyhemoglobin 0.4 Methemoglobin 0.3 Reduced Hemoglobin 0.6 Total Hemoglobin 15.9 O2 Delivery Device Ventilator O2 Liters/Min Not Reportable Minute Volume Not Reportable FiO2 100 Peak Inspir Pressure Not Reportable Pressure Support Not Reportable Sodium 143 Potassium 3.5 Chloride 104 Carbon Dioxide 31 H Anion Gap 8 BUN 25 H D Creatinine 1.62 H Estim Creat Clear Calc 73 Estimated GFR 47 L Glucose 157 H POC Capillary Glucose 169 H Calcium 7.7 L Phosphorus 4.7 H Magnesium 2.2 Total Bilirubin 0.8 AST 143 H ALT 124 H Alkaline Phosphatase 62 Total Protein 6.2 L Albumin 3.2 L Triglycerides 499 H 12/08/24 12/08/24 05:02 07:07 WBC RBC Hgb Hct MCV MCH MCHC RDW Plt Count MPV Immature Gran % (Auto) Neut % (Auto) Lymph % (Auto) [place] % (Auto) Eos % (Auto) Baso % (Auto) Lymph # (Auto) [place] # (Auto) Eos # (Auto) Baso # (Auto) Abs Immat Gran (auto) Absolute Neuts (auto) Absolute Nucleated RBC Nucleated RBC % Puncture Site ABG pH ABG pCO2 ABG pO2 ABG PO2/FiO2 Ratio ABG HCO3 ABG O2 Saturation ABG O2 Content ABG Base Excess A-a Gradient Oxyhemoglobin Carboxyhemoglobin Methemoglobin Reduced Hemoglobin Total Hemoglobin O2 Delivery Device O2 Liters/Min Minute Volume FiO2 Peak Inspir Pressure Pressure Support Sodium Potassium Chloride Carbon Dioxide Anion Gap BUN Creatinine Estim Creat Clear Calc Estimated GFR Glucose POC Capillary Glucose 163 H 166 H Calcium Phosphorus Magnesium Total Bilirubin AST ALT Alkaline Phosphatase Total Protein Albumin Triglycerides
[2024-12-08] MEDS: fentaNYL CITRATE INJ (*CRX) 100 MCG/2 ML VIAL IV PUSH (11:22)
[2024-12-08] MEDS: dexmedeTOMIDine 400 MCG/100 ML 400 MCG/100 ML BAG 46.61 MCG IV CONT ×2 (11:34→13:19)
--- NOTE | 2024-12-08 11:51 | PCFNICU ---
ICU Rounding Note: Pt current nutrition is Vital AF 1.2 at 20 m/hr. Nutrition recommendation: 40 ml/hr. Last recorded weight is 124.3 kg, stable Bowel Motility: No BM reported. Labs Reviewed: Gu 157, Alb 3.2, PO4 4.7, BUN 25 Meds Noted: Lantus, Protonix, Heparin, Vancomycin, Zosyn, Propofol 40 [id number] kcals. Skin: WNL Additional Notes: Patient remains on mechanical vent. Tube feedings are being tolerated with plans to advance to 40 ml/hr of Vital AF 1.2. Total Nutrition: 1849 kcal/66 gm protein/714 ml water. Flush 30 ml q 4 hours. Agree with diet orders at time. Following daily in ICU rounds. Monitoring orders, vent settings, meds, weights, labs, vitals, plan of care Follow up Friday/Friday.
[2024-12-08 11:56] LABS: Potassium 3.5 mmol/L (3.4-5.0)
[2024-12-08 11:57] LABS: Anion Gap 8 mmol/L (4-12); Blood Urea Nitrogen 25 mg/dL (9-20); Calcium 7.9 mg/dL (8.4-10.2); Carbon Dioxide 31 mmol/L (22-30); Chloride 106 mmol/L (98-107); Estimated CRCL calculation 74 ml/min; Estimated Glomerular Filt Rate 47; Glucose 169 mg/dL (65-110); Sodium 145 mmol/L (137-145)
[2024-12-08 11:59] LABS: Urine Eos QC 2nd Tech Confirmed
[2024-12-08] MEDS: MIDAZOLAM HCL (*CRX) 2 MG/2 ML VIAL 4 MG IV PUSH ×3 (12:00→19:48)
[2024-12-08] MEDS: MIDAZOLAM 100MG/NS 100ML(*CRX) 100 MG/100 ML BAG IV CONT (12:01)
[2024-12-08 12:37] LABS: Creatine Kinase 587 U/L (55-170)
[2024-12-08] MEDS: NOREPINEPHRINE 8 MG/D5W 250 ML 8 MG/250 ML BAG 9.38 MG IV CONT (13:25)
[2024-12-08] MEDS: MEROPENEM 1 GM in SODIUM CHLORIDE 0.9% IV 100 ML 200 ML IVPB ×2 (13:34→21:01)
[2024-12-08] MEDS: FOLIC ACID 1 MG/0.2 ML INJ IV PUSH (14:23)
[2024-12-08] MEDS: THIAMINE HCL 200 MG/2 ML VIAL 100 MG IV PUSH (14:23)
[2024-12-08] MEDS: dexmedeTOMIDine 400 MCG/100 ML 400 MCG/100 ML BAG 43.51 MCG IV CONT ×4 (15:27→22:16)
[2024-12-08] MEDS: FENTANYL 2,500MCG/NS250ML(*CRX 2,500 MCG/250 ML BAG 10 MCG IV CONT (18:17)
[2024-12-08] MEDS: IPRATROPIUM 0.5 MG/ALBUTEROL SULFATE 2.5 MG AMPUL.NEB 3 ML INHALATION (20:15)
[2024-12-08] MEDS: METOPROLOL TARTRATE 25 MG TABLET PO (20:43)
[2024-12-09] VITALS (58 sets, daily range): BP systolic 100–121; BP diastolic 57–88; PULSE 84–110; RESP 18–27; TEMP 38.2–39.4; O2SAT 92–100
[2024-12-09] MEDS: dexmedeTOMIDine 400 MCG/100 ML 400 MCG/100 ML BAG 43.51 MCG IV CONT ×4 (00:39→07:35)
[2024-12-09] MEDS: VANCOMYCIN 1,500 MG/NS 500 ML 1,500 MG/500 ML BAG 250 MG IVPB (02:01)
--- NOTE | 2024-12-09 02:07 | PC.NURSE ---
Cooling blanket applied at 0030. Patient's temperature 102.5.
[2024-12-09] MEDS: IPRATROPIUM 0.5 MG/ALBUTEROL SULFATE 2.5 MG AMPUL.NEB 3 ML INHALATION (02:38)
[2024-12-09 05:05] LABS: Creatine Kinase 726 U/L (55-170)
[2024-12-09] MEDS: PROPOFOL IV EMULSION 100 ML 3.73 MG IV CONT (05:05)
[2024-12-09 05:06] LABS: Triglycerides 271 mg/dL (<150)
[2024-12-09 05:13] LABS: Alanine Aminotransferase 76 U/L (6-50); Albumin Level 2.8 g/dL (3.5-5.1); Alkaline Phosphatase 50 U/L (38-126); Anion Gap 4 mmol/L (4-12); Aspartate Amino Transferase 93 U/L (17-59); Bilirubin,Total 1.1 mg/dL (0.2-1.3); Blood Urea Nitrogen 21 mg/dL (9-20); Calcium 7.7 mg/dL (8.4-10.2); Carbon Dioxide 30 mmol/L (22-30); Chloride 109 mmol/L (98-107); Estimated CRCL calculation 85 ml/min; Estimated Glomerular Filt Rate 56; Glucose 240 mg/dL (65-110); Magnesium 2.6 mg/dL (1.6-2.3); Potassium 3.6 mmol/L (3.4-5.0); Sodium 143 mmol/L (137-145); Total Protein 5.5 g/dL (6.3-8.2)
[2024-12-09 05:17] LABS: Alveolar/Arterial O2 Gradient 87.4 mmHg; Carboxyhemoglobin 1.1 % THb (0-2.0); Fractional Inspired Oxygen 30 %; HCO3 ABG 20.0 mEq/l (22.0-26.0); Methemoglobin ABG 0.1 %THb (0-1.5); Oxygen Content ABG 16.7 %vol (16.0-22.0); PCO2 ABG 58.0 mmHg (35.0-45.0); PO2 ABG 58.4 mmHg (80.0-100.0); PO2 FiO2 Ratio Arterial Blood 1.95 %; Reduced Hemoglobin 18.3 %THb (0-5.0)
[2024-12-09 05:22] LABS: Oxygen Saturation ABG 81.9 % (95.0-100.0); Site Drawn RIGHT RADIAL
[2024-12-09 05:23] LABS: Arterial Blood Gas Tidal Volume 450 ml; Arterial Blood Gas Ventilator rate 22 /MIN
[2024-12-09] MEDS: MIDAZOLAM HCL (*CRX) 2 MG/2 ML VIAL 4 MG IV PUSH (05:25)
[2024-12-09 05:42] LABS: Hematocrit 45.6 % (42.0-52.0); Hemoglobin 14.1 g/dL (14.0-18.0); Immature Granulocyte Percent A 0.6 % (0-0.5); Lymphocytes Absolute Auto 3.09 K/mm3 (0.9-3.2); Mean Corpuscular HGB Conc 30.9 g/dl (32-36); Mean Corpuscular Hemoglobin 31.5 pg (26-34); Mean Corpuscular Volume 102.0 fl (80-100); Nucleated Red Blood Cells Absolute Auto 0.000 K/mm3 (0.0-0.012); Nucleated Red Blood Cells Perc 0.0 % (0.0-0.2); Platelet Count Result 275 k/mm3 (150-375); Red Blood Count 4.47 M/mm3 (4.6-6.20); White Blood Count 17.4 K/mm3 (4.5-10.0)
[2024-12-09 05:54] LABS: Triglycerides 349 mg/dL (<150)
[2024-12-09] MEDS: CENTRAL LINE FLUSH 10 ML IV PUSH ×3 (05:55→21:22)
[2024-12-09 05:57] LABS: Alveolar/Arterial O2 Gradient 102.1 mmHg; Fractional Inspired Oxygen 30 %; HCO3 ABG 26.3 mEq/l (22.0-26.0); Oxygen Content ABG 16.8 %vol (16.0-22.0); Oxygen Saturation ABG 91.0 % (95.0-100.0); PCO2 ABG 43.8 mmHg (35.0-45.0); PO2 ABG 60.3 mmHg (80.0-100.0); PO2 FiO2 Ratio Arterial Blood 2.01 %
[2024-12-09] MEDS: MEROPENEM 1 GM in SODIUM CHLORIDE 0.9% IV 100 ML 200 ML IVPB ×3 (05:57→21:23)
[2024-12-09 05:58] LABS: Site Drawn RIGHT RADIAL
[2024-12-09 05:59] LABS: Arterial Blood Gas Tidal Volume 450 ml; Arterial Blood Gas Ventilator rate 22 /MIN
--- NOTE | 2024-12-09 07:46 | PM.PNCARD ---
Progress Note: A&P Assessment and Plan (1) Acute ST elevation myocardial infarction: Code(s): I21.3 - ST elevation (STEMI) myocardial infarction of unspecified site Status: Acute (2) Cardiac arrest: Code(s): I46.9 - Cardiac arrest, cause unspecified Status: Acute Plan 44-year-old male with history of HTN, low testosterone on supplementation, who presented with OHCA. Initial rhythm was Vfib, Total CPR time almost 20 minutes. EKG suggestive of Acute Ant wall STEMI post ROSC. Cardiac catheterization showed 100% proximal LAD occlusion status post successful aspiration thrombectomy and PCI of proximal mid LAD with overlapping 0rsiro 3.5/22 and 3.0/13 mm IRWIN post dilated distally to 3.0-3.05 and proximally to 4.45-4.50. -Anterior STEMI status post PCI to proximal LAD -Ischemic cardiomyopathy with LVEF of 40-45% and hypokinesis of inferior, apical septum, apical lateral, mid inferoseptal, basal inferoseptal, mid anteroseptal naylor. -Outside hospital cardiac arrest due to VFib status post resuscitation-was initially on amiodarone which was stopped due to bradycardia to the 40s; he has not had any further VT/VF episodes Plan: -Continue DAPT for 1 year with aspirin 81 mg daily and Brilinta 90 mg b.i.d.. Then continue aspirin 81 mg daily indefinitely -Continue atorvastatin 80 mg daily -Guideline directed medical therapy for cardiomyopathy. Continue metoprolol and empagliflozin. Resume irbesartan as blood pressure tolerates -Management of other medical issues per ICU team Subjective Date/time seen: 12/09/24 07:46 Interval history: Reason for encounter: Anterior STEMI status post primary PCI to proximal LAD, out of hospital VFib cardiac arrest status post resuscitation Interval history: Patient remains sedated this morning. No further history could be obtained. Per RN patient was combative last night when sedation was weaned of. He was following commands. He was started on CIWA protocol for alcohol withdrawal. Telemetry shows sinus tachycardia. Review of Systems Review of Systems: A complete review of systems could not be performed as patient is intubated and sedated. Exam Narrative: General: Patient intubated and sedated Neck: Supple, unable to assess JVD Chest: Bilaterally clear to auscultation, no rales or rhonchi Cardiac: S1, S2 +, tachycardic, regular rhythm, no murmurs or rubs Extremities: Bilateral lower extremity edema 1+, no skin rash Neurologic: Intubated and sedated Objective Data Vital Signs Vital Signs: Vital Signs - 24 hr 12/08/24 07:48 12/08/24 08:00 12/08/24 08:00 Temperature 38.3 C H Pulse Rate 124 H 126 H 126 H Respiratory Rate 22 H 22 H 22 H Blood Pressure 116/78 Pulse Oximetry 100 Oxygen Delivery Fraction of Inspired Oxygen 12/08/24 08:00 12/08/24 08:00 12/08/24 08:31 Temperature Pulse Rate 124 H 126 H Respiratory Rate Blood Pressure Pulse Oximetry Oxygen Delivery Fraction of Inspired Oxygen 40 12/08/24 08:38 12/08/24 09:00 12/08/24 09:10 Temperature 38.4 C H Pulse Rate 126 H 123 H 122 H Respiratory Rate 22 H 22 H 22 H Blood Pressure 119/77 Pulse Oximetry 100 Oxygen Delivery Fraction of Inspired Oxygen 12/08/24 09:41 12/08/24 09:41 12/08/24 09:55 Temperature Pulse Rate 124 H 124 H 114 H Respiratory Rate 25 H 25 H 22 H Blood Pressure Pulse Oximetry Oxygen Delivery Fraction of Inspired Oxygen 12/08/24 10:00 12/08/24 10:00 12/08/24 10:00 Temperature 38.6 C H Pulse Rate 111 H 120 H 113 H Respiratory Rate 22 H 22 H Blood Pressure 96/61 L Pulse Oximetry 97 Oxygen Delivery Fraction of Inspired Oxygen 12/08/24 10:22 12/08/24 10:23 12/08/24 10:30 Temperature Pulse Rate 107 H 107 H 103 H Respiratory Rate 22 H 22 H Blood Pressure Pulse Oximetry Oxygen Delivery Fraction of Inspired Oxygen 12/08/24 11:00 12/08/24 11:23 12/08/24 11:30 Temperature 38.3 C H Pulse Rate 96 102 H 106 H Respiratory Rate 23 H 24 H Blood Pressure 89/52 L Pulse Oximetry 100 100 Oxygen Delivery Mechanical Ventilation Fraction of Inspired Oxygen 30 12/08/24 11:34 12/08/24 11:34 12/08/24 11:37 Temperature Pulse Rate 106 H 106 H 107 H Respiratory Rate 24 H 24 H 30 H Blood Pressure Pulse Oximetry Oxygen Delivery Fraction of Inspired Oxygen 12/08/24 11:46 12/08/24 12:00 12/08/24 12:00 Temperature 38.6 C H 38.7 C H Pulse Rate 99 108 H Respiratory Rate 28 H 28 H Blood Pressure 106/69 Pulse Oximetry 100 Oxygen Delivery Fraction of Inspired Oxygen 12/08/24 12:00 12/08/24 12:00 12/08/24 12:00 Temperature Pulse Rate 108 H 100 Respiratory Rate 28 H Blood Pressure Pulse Oximetry Oxygen Delivery Fraction of Inspired Oxygen 30 12/08/24 12:01 12/08/24 12:37 12/08/24 12:46 Temperature 38.6 C H Pulse Rate 102 H 94 Respiratory Rate 31 H 22 H Blood Pressure Pulse Oximetry Oxygen Delivery Fraction of Inspired Oxygen 12/08/24 13:19 12/08/24 13:19 12/08/24 13:25 Temperature Pulse Rate 93 93 92 Respiratory Rate 22 H 22 H Blood Pressure 82/49 L Pulse Oximetry Oxygen Delivery Fraction of Inspired Oxygen 12/08/24 13:50 12/08/24 13:50 12/08/24 14:00 Temperature Pulse Rate 93 93 97 Respiratory Rate 22 H 22 H Blood Pressure Pulse Oximetry 100 Oxygen Delivery Mechanical Ventilation Fraction of Inspired Oxygen 30 12/08/24 14:00 12/08/24 14:00 12/08/24 14:00 Temperature 38.6 C H Pulse Rate 97 97 94 Respiratory Rate 23 H 22 H 22 H Blood Pressure 135/85 Pulse Oximetry 100 Oxygen Delivery Fraction of Inspired Oxygen 12/08/24 14:00 12/08/24 14:00 12/08/24 14:22 Temperature Pulse Rate 140 H 98 96 Respiratory Rate 22 H Blood Pressure 135/85 Pulse Oximetry Oxygen Delivery Fraction of Inspired Oxygen 12/08/24 14:33 12/08/24 14:52 12/08/24 14:55 Temperature Pulse Rate 97 132 H 142 H Respiratory Rate 35 H 32 H Blood Pressure 121/74 Pulse Oximetry Oxygen Delivery Fraction of Inspired Oxygen 12/08/24 15:00 12/08/24 15:27 12/08/24 15:27 Temperature 38.8 C H Pulse Rate 140 H 104 H 104 H Respiratory Rate 24 H 22 H 22 H Blood Pressure 153/111 H Pulse Oximetry 86 L Oxygen Delivery Fraction of Inspired Oxygen 12/08/24 16:00 12/08/24 16:00 12/08/24 16:00 Temperature 39.1 C H Pulse Rate 99 100 100 Respiratory Rate 18 22 H 22 H Blood Pressure 106/69 Pulse Oximetry 100 Oxygen Delivery Fraction of Inspired Oxygen 12/08/24 16:00 12/08/24 16:00 12/08/24 16:00 Temperature Pulse Rate 100 100 100 Respiratory Rate 22 H Blood Pressure 100/60 Pulse Oximetry Oxygen Delivery Fraction of Inspired Oxygen 12/08/24 16:00 12/08/24 16:00 12/08/24 16:30 Temperature Pulse Rate 98 Respiratory Rate Blood Pressure 108/69 Pulse Oximetry Oxygen Delivery Mechanical Ventilation Fraction of Inspired Oxygen 30 30 12/08/24 17:08 12/08/24 17:30 12/08/24 17:42 Temperature Pulse Rate 96 96 94 Respiratory Rate 22 H Blood Pressure 113/74 Pulse Oximetry 100 Oxygen Delivery Mechanical Ventilation Fraction of Inspired Oxygen 30 12/08/24 17:42 12/08/24 18:00 12/08/24 18:00 Temperature 38.7 C H Pulse Rate 94 93 93 Respiratory Rate 22 H 22 H Blood Pressure 107/69 Pulse Oximetry 100 Oxygen Delivery Fraction of Inspired Oxygen 12/08/24 18:00 12/08/24 18:00 12/08/24 18:00 Temperature Pulse Rate 94 94 94 Respiratory Rate 22 H 22 H 22 H Blood Pressure Pulse Oximetry Oxygen Delivery Fraction of Inspired Oxygen 12/08/24 18:00 12/08/24 18:17 12/08/24 18:17 Temperature Pulse Rate 94 93 93 Respiratory Rate 22 H 22 H Blood Pressure 107/69 Pulse Oximetry Oxygen Delivery Fraction of Inspired Oxygen 12/08/24 19:45 12/08/24 19:56 12/08/24 19:56 Temperature Pulse Rate 121 H 104 H 104 H Respiratory Rate 28 H 28 H 28 H Blood Pressure Pulse Oximetry Oxygen Delivery Fraction of Inspired Oxygen 12/08/24 20:00 12/08/24 20:00 12/08/24 20:00 Temperature Pulse Rate 103 H 103 H 103 H Respiratory Rate 22 H 22 H 22 H Blood Pressure Pulse Oximetry Oxygen Delivery Fraction of Inspired Oxygen 12/08/24 20:00 12/08/24 20:00 12/08/24 20:00 Temperature Pulse Rate 103 H 103 H Respiratory Rate 22 H Blood Pressure 101/63 Pulse Oximetry 95 Oxygen Delivery Mechanical Ventilation Fraction of Inspired Oxygen 30 30 12/08/24 20:00 12/08/24 20:00 12/08/24 20:15 Temperature 38.8 C H Pulse Rate 104 H 102 H 99 Respiratory Rate 28 H Blood Pressure 101/63 Pulse Oximetry 96 98 Oxygen Delivery Mechanical Ventilation Fraction of Inspired Oxygen 30 12/08/24 20:15 12/08/24 20:32 12/08/24 20:43 Temperature Pulse Rate 99 101 H 101 H Respiratory Rate 22 H 22 H Blood Pressure Pulse Oximetry Oxygen Delivery Fraction of Inspired Oxygen 12/08/24 20:47 12/08/24 22:00 12/08/24 22:00 Temperature 38.9 C H 38.8 C H 38.8 C H Pulse Rate 95 Respiratory Rate 22 H Blood Pressure 106/72 Pulse Oximetry 100 Oxygen Delivery Fraction of Inspired Oxygen 12/08/24 22:00 12/08/24 22:00 12/08/24 22:00 Temperature Pulse Rate 95 95 95 Respiratory Rate 22 H 22 H 22 H Blood Pressure Pulse Oximetry Oxygen Delivery Fraction of Inspired Oxygen 12/08/24 22:00 12/08/24 22:00 12/08/24 22:14 Temperature Pulse Rate 95 95 96 Respiratory Rate 22 H Blood Pressure 108/70 Pulse Oximetry Oxygen Delivery Fraction of Inspired Oxygen 12/08/24 22:16 12/08/24 23:00 12/09/24 00:00 Temperature Pulse Rate 95 94 95 Respiratory Rate 22 H 23 H Blood Pressure Pulse Oximetry 99 Oxygen Delivery Mechanical Ventilation Fraction of Inspired Oxygen 30 12/09/24 00:00 12/09/24 00:00 12/09/24 00:00 Temperature Pulse Rate 94 95 95 Respiratory Rate 25 H 25 H Blood Pressure Pulse Oximetry Oxygen Delivery Fraction of Inspired Oxygen 12/09/24 00:00 12/09/24 00:00 12/09/24 00:00 Temperature Pulse Rate 95 95 Respiratory Rate 25 H Blood Pressure 111/69 Pulse Oximetry 98 Oxygen Delivery Mechanical Ventilation Fraction of Inspired Oxygen 30 30 12/09/24 00:00 12/09/24 00:34 12/09/24 00:39 Temperature 39.1 C H Pulse Rate 95 94 94 Respiratory Rate 25 H 27 H 27 H Blood Pressure 111/69 Pulse Oximetry 98 Oxygen Delivery Fraction of Inspired Oxygen 12/09/24 02:00 12/09/24 02:00 12/09/24 02:00 Temperature 38.9 C H Pulse Rate 92 92 92 Respiratory Rate 24 H 24 H Blood Pressure 110/74 Pulse Oximetry 99 Oxygen Delivery Fraction of Inspired Oxygen 12/09/24 02:00 12/09/24 02:00 12/09/24 02:00 Temperature Pulse Rate 92 92 92 Respiratory Rate 24 H 24 H Blood Pressure 110/74 Pulse Oximetry Oxygen Delivery Fraction of Inspired Oxygen 12/09/24 02:38 12/09/24 02:38 12/09/24 02:49 Temperature Pulse Rate 90 90 91 Respiratory Rate 22 H 22 H Blood Pressure Pulse Oximetry 97 Oxygen Delivery Mechanical Ventilation Fraction of Inspired Oxygen 30 12/09/24 02:57 12/09/24 02:57 12/09/24 04:00 Temperature Pulse Rate 91 91 90 Respiratory Rate 22 H 22 H 22 H Blood Pressure Pulse Oximetry Oxygen Delivery Fraction of Inspired Oxygen 12/09/24 04:00 12/09/24 04:00 12/09/24 04:00 Temperature Pulse Rate 90 90 90 Respiratory Rate 22 H 22 H Blood Pressure 118/82 Pulse Oximetry Oxygen Delivery Fraction of Inspired Oxygen 12/09/24 04:00 12/09/24 04:00 12/09/24 04:00 Temperature 38.2 C H Pulse Rate 90 90 Respiratory Rate 22 H 22 H Blood Pressure 118/82 Pulse Oximetry 96 96 Oxygen Delivery Mechanical Ventilation Fraction of Inspired Oxygen 30 30 12/09/24 04:00 12/09/24 04:45 12/09/24 05:05 Temperature Pulse Rate 88 87 102 H Respiratory Rate 26 H Blood Pressure Pulse Oximetry 95 Oxygen Delivery Mechanical Ventilation Fraction of Inspired Oxygen 30 12/09/24 05:15 12/09/24 05:15 12/09/24 05:23 Temperature Pulse Rate 102 H 110 H 102 H Respiratory Rate 26 H 26 H 26 H Blood Pressure Pulse Oximetry Oxygen Delivery Fraction of Inspired Oxygen 12/09/24 06:00 12/09/24 06:00 12/09/24 06:00 Temperature Pulse Rate 96 96 96 Respiratory Rate 23 H 23 H 23 H Blood Pressure Pulse Oximetry Oxygen Delivery Fraction of Inspired Oxygen 12/09/24 06:00 12/09/24 06:00 12/09/24 06:00 Temperature 38.3 C H Pulse Rate 96 96 96 Respiratory Rate 23 H 23 H Blood Pressure 100/57 L 100/57 L Pulse Oximetry 93 Oxygen Delivery Fraction of Inspired Oxygen 12/09/24 06:00 12/09/24 07:35 12/09/24 07:35 Temperature Pulse Rate 96 92 92 Respiratory Rate 22 H 22 H Blood Pressure Pulse Oximetry Oxygen Delivery Fraction of Inspired Oxygen Intake/Output Intake/Output: Intake & Output 12/06/24 12/07/24 12/08/24 12/09/24 23:59 23:59 23:59 23:59 Intake Total 2155.7 967.8 3847.9 2202.9 Output Total 4110 1070 2450 1900 Balance -1954.3 -102.2 1397.9 302.9 Meds/Results Medications: Active Medications Generic Name Dose Route Start Last Admin Trade Name Freq PRN Reason Stop Dose Admin Acetaminophen 650 mg 12/07/24 23:17 12/08/24 20:47 Acetaminophen Elixir 325 Mg/10.15 Ml Udc PO 650 mg Q6H PRN Administration Mild Pain (1-3) or Fever Albuterol/Ipratropium 3 ml 12/08/24 14:00 12/09/24 02:38 Ipratropium 0.5 Mg/Albuterol Sulfate 2.5 Mg Ampul.Neb 3 Ml INHALATION 3 ml Q6HRT JULIUS Administration Alteplase, Recombinant 2 mg 12/07/24 09:34 12/07/24 10:26 Alteplase 2 Mg Vial (Cathflo) IV PUSH 2 mg ONCE PRN Administration Line Occlusion Aspirin 81 mg 12/06/24 08:00 12/08/24 08:31 Aspirin 81 Mg Chewable Tablet FEED TUBE 81 mg DAILY@0800 JULIUS Administration Atorvastatin Calcium 80 mg 12/06/24 09:00 12/08/24 08:30 Atorvastatin 40 Mg Tablet FEED TUBE 80 mg DAILY JULIUS Administration Dextrose 12.5 gm 12/06/24 07:25 Dextrose 50% 25 Gm/50 Ml Syringe IV PUSH PRN PRN Hypoglycemia Protocol Empagliflozin 10 mg 12/07/24 09:00 12/08/24 08:41 Empagliflozin 10 Mg Tablet PO 10 mg DAILY JULIUS Administration Folic Acid 1 mg 12/09/24 09:00 Folic Acid 1 Mg/0.2 Ml Inj IV PUSH QAM JULIUS Glucagon 1 mg 12/06/24 07:25 Glucagon For Inj 1 Mg Vial IM PRN PRN Hypoglycemia Protocol Glucose 15 gm 12/06/24 07:25 Glucose Oral Gel 15 Gm Of Glucse In 37.5 Gm Tube PO PRN PRN Hypoglycemia Protocol Heparin Sodium (Porcine) 5,000 units 12/07/24 14:00 12/09/24 05:57 Heparin Sodium 5,000 Units/Ml Vial SUB-Q 5,000 units Q8HR JULIUS Administration Hydralazine HCl 20 mg 12/05/24 22:33 12/06/24 05:46 Hydralazine Hcl 20 Mg/Ml Vial IV PUSH 20 mg Q4HR PRN Administration Blood Pressure - High Fentanyl Citrate 2,500 mcg in 250 mls @ 10 mls/hr 12/05/24 13:50 12/09/24 06:00 Fentanyl 2,500 Mcg/Ns 250 Ml IV CONT 100 mcg/hr .Q25H JULIUS 10 mls/hr Titration Protocol 100 MCG/HR Dextrose 1,000 mls @ 100 mls/hr 12/06/24 07:25 Dextrose 5% 1,000 Ml IVPB PRN PRN Hypoglycemia Protocol Levetiracetam 1,000 mg in 100 mls @ 400 mls/hr 12/08/24 09:00 12/08/24 20:54 Keppra Iv IVPB Infused Q12HR JULIUS Infusion Dexmedetomidine HCl 400 mcg in 100 mls @ 43.505 mls/hr 12/08/24 07:40 12/09/24 07:35 Precedex 400 Mcg/100 Ml IV CONT 1.4 mcg/kg/hr .Q2H18M JULIUS 43.51 mls/hr Administration Protocol 1.4 MCG/KG/HR Vancomycin HCl 1,500 mg in 500 mls @ 250 mls/hr 12/09/24 02:00 12/09/24 04:01 Vancomycin 1,500 Mg/Ns 500 Ml IVPB Infused Q18H JULIUS Infusion Midazolam HCl 100 mg in 100 mls @ 4 mls/hr 12/08/24 12:00 12/09/24 06:00 Versed 100 Mg/Ns 100 Ml IV CONT 4 mg/hr .Q25H JULIUS 4 mls/hr Titration Protocol 4 MG/HR Meropenem 1 gm/ Sodium 100 mls @ 200 mls/hr 12/08/24 13:00 12/09/24 06:27 Chloride IVPB Infused Q8HR JULIUS Infusion Norepinephrine Bitartrate 8 mg in 250 mls @ 0 mls/hr 12/08/24 13:15 12/09/24 06:00 Levophed 8 Mg/D5w 250 Ml IV CONT 0 mcg/min .Q0M JULIUS 0 mls/hr Titration Protocol Propofol 100 mls @ 7.458 mls/hr 12/09/24 05:10 12/09/24 06:00 Diprivan IV CONT 10 mcg/kg/min .[id number] JULIUS 7.46 mls/hr Titration Protocol 10 MCG/KG/MIN Ketamine HCl 1,000 mg/ Sodium 100 mls @ 3.09 mls/hr 12/09/24 07:15 Chloride IV CONT .Q24H JULIUS Protocol 0.25 MG/KG/HR Albumin Human 100 mls @ 60 mls/hr 12/09/24 07:19 Albutein IVPB 12/10/24 01:39 Q6HR JULIUS Insulin Aspart 4 - 8 units 12/06/24 09:00 12/09/24 05:54 Insulin Aspart (*Bkc) 100 Units/Ml SUB-Q Not Given Q4HR [facility] Protocol Insulin Glargine 10 units 12/06/24 09:00 12/08/24 08:36 Insulin Glargine (*Bkc) 100 Units/Ml SUB-Q 10 units QAM JULIUS Administration Labetalol HCl 20 mg 12/06/24 07:34 Labetalol Hcl Inj 100 Mg/20 Ml Vial IV PUSH Q4H PRN SBP > 160 and HR> 60 -1st choice Levalbuterol HCl 0.63 mg 12/08/24 14:00 12/09/24 02:37 Levalbuterol Neb 1.25 Mg/3 Ml INHALATION 0.63 mg Q6HRT JULIUS Administration Metoprolol Tartrate 25 mg 12/08/24 21:00 12/08/24 20:43 Metoprolol Tartrate 25 Mg Tablet PO 25 mg Q12HR JULIUS Administration Multi-Ingred Cream/Lotion/Oil/Oint 1 applic 12/05/24 21:00 12/08/24 20:43 Mineral Oil/White Petrolatum Ointment EACH EYE 1 applic Q12HR JULIUS Administration Multi-Ingred Cream/Lotion/Oil/Oint 1 applic 12/09/24 09:00 Mineral Oil/White Petrolatum Ointment EACH EYE Q12HR [facility] Nitroglycerin 0.4 mg 12/05/24 13:47 Nitroglycerin Sl 0.4 Mg Tablet SUBLINGUAL Q5MIN PRN Chest Pain Pantoprazole Sodium 40 mg 12/06/24 07:40 12/08/24 20:43 Pantoprazole Sodium Iv 40 Mg Vial IV PUSH 40 mg Q12HR JULIUS Administration Sodium Chloride 10 ml 12/05/24 22:00 12/09/24 05:55 Central Line Flush IV PUSH 10 ml Q8HR JULIUS Administration Sodium Chloride 20 ml 12/05/24 15:00 Central Line Flush IV PUSH PRN PRN after blood draws Thiamine HCl 100 mg 12/09/24 09:00 Thiamine Hcl 200 Mg/2 Ml Vial IV PUSH QAM JULIUS Ticagrelor 90 mg 12/05/24 21:00 12/08/24 20:43 Ticagrelor 90 Mg Tablet FEED TUBE 90 mg Q12HR JULIUS Administration Radiology Results: ITS Impressions Head CT 12/05/24 12:09 Impression: Stable CT examination of the head without change from 2006 examination, without acute intracranial hemorrhage or suspicious mass effect. Cervical Spine CT 12/05/24 12:16 Impression: No acute displaced fracture within the cervical spine. Large right-sided and small left-sided pleural effusions without pneumothorax for which further evaluation post cardiac intervention is suggested (if the patient is clinically able). Abdomen X-Ray 12/06/24 14:26 IMPRESSION: Orogastric tube in good position and ready for immediate use. Renal Ultrasound 12/08/24 11:43 IMPRESSION: Normal ultrasound evaluation of the kidneys. Chest X-Ray 12/09/24 06:11 Impression: [id number] bilateral pleural effusions with mild pulmonary edema. Support tubes, as above. Labs Labs: Laboratory Results - last 24 hr 12/08/24 12/08/24 12/08/24 03:53 11:13 11:15 WBC RBC Hgb Hct MCV MCH MCHC RDW Plt Count MPV Immature Gran % (Auto) Neut % (Auto) Lymph % (Auto) [place] % (Auto) Eos % (Auto) Baso % (Auto) Lymph # (Auto) [place] # (Auto) Eos # (Auto) Baso # (Auto) Abs Immat Gran (auto) Absolute Neuts (auto) Absolute Nucleated RBC Nucleated RBC % Puncture Site ABG pH ABG pCO2 ABG pO2 ABG PO2/FiO2 Ratio ABG HCO3 ABG O2 Saturation ABG O2 Content ABG Base Excess A-a Gradient Oxyhemoglobin Carboxyhemoglobin Methemoglobin Reduced Hemoglobin Total Hemoglobin O2 Delivery Device O2 Liters/Min Minute Volume Vent Rate Vent Mode FiO2 Tidal Volume PEEP Peak Inspir Pressure Pressure Support Sodium 145 Potassium 3.5 Chloride 106 Carbon Dioxide 31 H Anion Gap 8 BUN 25 H Creatinine 1.61 H Estim Creat Clear Calc 74 Estimated GFR 47 L Glucose 169 H POC Capillary Glucose Calcium 7.9 L Phosphorus Magnesium Total Bilirubin AST ALT Alkaline Phosphatase Total Creatine Kinase 587 H Total Protein Albumin Triglycerides Urine Eosinophils None seen Ur Random Creatinine Cancelled Ur Random Sodium 13 Ur Random Potassium 45.9 Ur Random Chloride Cancelled U Random Chloride/Creat Cancelled Urine Creatinine 119.0 12/08/24 12/08/24 12/08/24 11:31 15:44 20:39 WBC RBC Hgb Hct MCV MCH MCHC RDW Plt Count MPV Immature Gran % (Auto) Neut % (Auto) Lymph % (Auto) [place] % (Auto) Eos % (Auto) Baso % (Auto) Lymph # (Auto) [place] # (Auto) Eos # (Auto) Baso # (Auto) Abs Immat Gran (auto) Absolute Neuts (auto) Absolute Nucleated RBC Nucleated RBC % Puncture Site ABG pH ABG pCO2 ABG pO2 ABG PO2/FiO2 Ratio ABG HCO3 ABG O2 Saturation ABG O2 Content ABG Base Excess A-a Gradient Oxyhemoglobin Carboxyhemoglobin Methemoglobin Reduced Hemoglobin Total Hemoglobin O2 Delivery Device O2 Liters/Min Minute Volume Vent Rate Vent Mode FiO2 Tidal Volume PEEP Peak Inspir Pressure Pressure Support Sodium Potassium Chloride Carbon Dioxide Anion Gap BUN Creatinine Estim Creat Clear Calc Estimated GFR Glucose POC Capillary Glucose 157 H 194 H 184 H Calcium Phosphorus Magnesium Total Bilirubin AST ALT Alkaline Phosphatase Total Creatine Kinase Total Protein Albumin Triglycerides Urine Eosinophils Ur Random Creatinine Ur Random Sodium Ur Random Potassium Ur Random Chloride U Random Chloride/Creat Urine Creatinine 12/09/24 12/09/24 12/09/24 00:54 04:45 05:24 WBC 17.4 H RBC 4.47 L Hgb 14.1 Hct 45.6 MCV 102.0 H MCH 31.5 MCHC 30.9 L RDW 13.3 Plt Count 275 MPV 9.7 Immature Gran % (Auto) 0.6 H Neut % (Auto) 67.8 Lymph % (Auto) 17.8 L [place] % (Auto) 13.4 H Eos % (Auto) 0.0 Baso % (Auto) 0.4 Lymph # (Auto) 3.09 [place] # (Auto) 2.3 H Eos # (Auto) 0.0 Baso # (Auto) 0.1 Abs Immat Gran (auto) 0.10 H Absolute Neuts (auto) 11.8 H Absolute Nucleated RBC 0.000 Nucleated RBC % 0.0 Puncture Site Right radial ABG pH 7.156 L* ABG pCO2 58.0 H ABG pO2 58.4 L ABG PO2/FiO2 Ratio 1.95 ABG HCO3 20.0 L ABG O2 Saturation 81.9 L* ABG O2 Content 16.7 ABG Base Excess -9.4 A-a Gradient 87.4 Oxyhemoglobin 80.5 L* Carboxyhemoglobin 1.1 Methemoglobin 0.1 Reduced Hemoglobin 18.3 H Total Hemoglobin 14.8 O2 Delivery Device Ventilator O2 Liters/Min Not Reportable Minute Volume Not Reportable Vent Rate 22 Vent Mode Cmv FiO2 30 Tidal Volume 450 PEEP 8 Peak Inspir Pressure Not Reportable Pressure Support Not Reportable Sodium 143 Potassium 3.6 Chloride 109 H Carbon Dioxide 30 Anion Gap 4 BUN 21 H Creatinine 1.39 H Estim Creat Clear Calc 85 Estimated GFR 56 L Glucose 240 H POC Capillary Glucose 174 H Calcium 7.7 L Phosphorus 3.4 Magnesium 2.6 H Total Bilirubin 1.1 AST 93 H ALT 76 H Alkaline Phosphatase 50 Total Creatine Kinase 726 H Total Protein 5.5 L Albumin 2.8 L Triglycerides 271 H 349 H Urine Eosinophils Ur Random Creatinine Ur Random Sodium Ur Random Potassium Ur Random Chloride U Random Chloride/Creat Urine Creatinine 12/09/24 12/09/24 05:51 05:53 WBC RBC Hgb Hct MCV MCH MCHC RDW Plt Count MPV Immature Gran % (Auto) Neut % (Auto) Lymph % (Auto) [place] % (Auto) Eos % (Auto) Baso % (Auto) Lymph # (Auto) [place] # (Auto) Eos # (Auto) Baso # (Auto) Abs Immat Gran (auto) Absolute Neuts (auto) Absolute Nucleated RBC Nucleated RBC % Puncture Site Right radial ABG pH 7.396 ABG pCO2 43.8 ABG pO2 60.3 L ABG PO2/FiO2 Ratio 2.01 ABG HCO3 26.3 H ABG O2 Saturation 91.0 L ABG O2 Content 16.8 ABG Base Excess 1.1 A-a Gradient 102.1 Oxyhemoglobin 89.3 L Carboxyhemoglobin Methemoglobin Reduced Hemoglobin Total Hemoglobin 13.4 O2 Delivery Device Ventilator O2 Liters/Min Not Reportable Minute Volume Not Reportable Vent Rate 22 Vent Mode Cmv FiO2 30 Tidal Volume 450 PEEP 8 Peak Inspir Pressure Not Reportable Pressure Support Not Reportable Sodium Potassium Chloride Carbon Dioxide Anion Gap BUN Creatinine Estim Creat Clear Calc Estimated GFR Glucose POC Capillary Glucose 184 H Calcium Phosphorus Magnesium Total Bilirubin AST ALT Alkaline Phosphatase Total Creatine Kinase Total Protein Albumin Triglycerides Urine Eosinophils Ur Random Creatinine Ur Random Sodium Ur Random Potassium Ur Random Chloride U Random Chloride/Creat Urine Creatinine
--- NOTE | 2024-12-09 08:15 | P.PNINT_ITS ---
Progress Note: A&P Assessment and Plan (1) Alcohol withdrawal: Code(s): F10.939 - Alcohol use, unspecified with withdrawal, unspecified Status: Acute Assessment and Plan: According to patient's , the patient drinks 10 beers per day (admitted on 12/05/2024) -patient very agitated despite being on multiple sedation medications -start phenobarb x1, and will give a taper of phenobarbital -continue versed infusion (2) Acute respiratory failure: Code(s): J96.00 - Acute respiratory failure, unspecified whether with hypoxia or hypercapnia Status: Acute Assessment and Plan: Acute Respiratory failure secondary to cardiac arrest 12/05: Intubated Continue full mechanical ventilation support to prevent hypoxemia/hypercarbia and end organ damage. Chest x-ray and ABGs reviewed, ventilator adjusted Continue bronchodilators -currently fentanyl, Versed, Precedex infusion for sedation, early this morning patient was agitated and required 4 staff members to hold him down. Propofol was started briefly. -12/09 added ketamine drip and will discontinue propofol infusion given elevated triglycerides -patient likely requiring some and sedation possibly due to alcohol withdrawal (3) Cardiac arrest: Code(s): I46.9 - Cardiac arrest, cause unspecified Status: Acute Assessment and Plan: Cardiac arrest secondary to acute ST segment elevation ND Status post cardiac catheterization which showed 100% blockage of proximal LAD status post IRWIN x2 to proximal LAD -cardiology following the patient, -continue ticagrelor, aspirin, atorvastatin, Jardiance, metoprolol 12/06/2024: Echocardiogram Summary 1. Left ventricular systolic function is normal, estimated at 40-45. 2. There is mildly increased left ventricular wall thickness. 3. The left ventricular diastolic function is abnormal. 4. The inferior wall, apical septum, apical lateral wall, mid inferoseptal, basal anteroseptal, and mid anteroseptal are hypokinetic. (4) Acute ST elevation myocardial infarction: Code(s): I21.3 - ST elevation (STEMI) myocardial infarction of unspecified site Status: Acute Assessment and Plan: See above (5) Ischemic cardiomyopathy: Code(s): I25.5 - Ischemic cardiomyopathy Status: Acute Assessment and Plan: See above (6) Anoxic brain injury: Code(s): G93.1 - Anoxic brain damage, not elsewhere classified Status: Acute Assessment and Plan: Suspected anoxic brain injury from cardiac arrest as patient was unresponsive on presentation, 20-25 minutes of downtime -12/07: off paralytic, off sedation patient did have a seizure for which she was given Ativan which abated this seizure, -patient status post target temperature management -increase Keppra to 1000 mg IV q.12 hours -appreciate Neurology evaluation and recommendation -12/08 EEG: Suggestive organic or metabolic encephalopathy or postictal state, will discuss with Urology 12/05/2024 CT brain: No intracranial hemorrhage or suspicious mass effect. (7) Gastro-esophageal reflux disease without esophagitis: Code(s): K21.9 - Gastro-esophageal reflux disease without esophagitis Status: Acute Assessment and Plan: PPI IV q.12 hours -patient had some GI bleed, GI was consulted. -12/06/2024 EGD showed gastritis with bleeding -Continue Protonix IV q.12 hours -hemoglobin remained stable Discussed with GI regarding starting heparin for DVT prophylaxis, GI was okay with it (8) Elevated liver enzymes: Code(s): R74.8 - Abnormal levels of other serum enzymes Status: Acute Assessment and Plan: Liver enzymes trending down most likely related to cardiac arrest and STEMI (9) Diabetes mellitus: Code(s): E11.9 - Type 2 diabetes mellitus without complications Status: Acute Assessment and Plan: Continue sliding scale insulin Accu-Cheks, -continue Lantus (10) Seizures: Code(s): R56.9 - Unspecified convulsions Status: Acute Assessment and Plan: Off sedation patient did have a seizure-like activity, treated with Ativan x1 with improvement. -continue Keppra (11) Fever: Code(s): R50.9 - Fever, unspecified Status: Acute Assessment and Plan: Patient is febrile T-max of 101.2? -could be related to central fever -possible aspiration pneumonia, on Zosyn (12/06) -12/06: Sputum culture growing Klebsiella pneumonia -12/08: blood cultures obtained -12/08: Sputum cultures ordered -added vancomycin (12/08) -12/08: Zosyn was discontinued and started on meropenem (12/08) Will check venous Dopplers -given the fevers, will obtain CT of the chest abdomen and pelvis (12) Acute kidney injury: Code(s): N17.9 - Acute kidney failure, unspecified Status: Acute Assessment and Plan: 12/08: Creatinine increased to 1.62 from 0.98 -patient is in negative fluid balance -urine lytes reflective of prerenal -12/08: Renal ultrasound: Normal ultrasound evaluation of the kidneys -CK levels mildly elevated, and urine eosinophils were negative -status post IV fluids overnight with improvement in creatinine, adequate urine output Plan DVT prophylaxis -heparin subQ, discussed with GI, as patient had erosive gastritis. GI will is agreeable with prophylactic heparin. Stress ulcer prophylaxis -PPI IV q.12 Nutrition -tolerating tube feeds at 40 mL/hour, will increase to goal today, positive bowel movement Code Status - Full Code Total Critical Care Time - 33 minutes Discussed with patient's , parents, sister and updated them with his condition and plan of care. I answered all the questions Due to a high probability of clinically significant, life threatening deterioration, the patient required my highest level of preparedness to intervene emergently and I personally spent this critical care time directly and personally managing the patient. This critical care time included obtaining a history; examining the patient; pulse oximetry; ordering and review of studies; arranging urgent treatment with development of a management plan; evaluation of patient's response to treatment; frequent reassessment; and discussions with other providers. It was exclusive of separately billable procedures and treating other patients and teaching time. Please see Assessment and Plan section and the rest of the note for further information on patient assessment and treatment This dictation may have been done utilizing a voice recognition system. Attempts have been made to correct errors. However, there may be uncorrected grammatical, spelling, and recognitions errors present. Subjective Date/time seen: 12/09/24 08:15 Interval history: Reason for encounter: 12/06/2019 Anterior STEMI, out of hospital VFib cardiac arrest status post resuscitation, status post TTM 12/09/2024: Patient seen and examined the ICU, remains intubated, on CMV mode of ventilation, peep of 8, 30% FiO2. Sedated with Versed, Fentanyl, Precedex infusion, patient got agitated early this morning, 4 staff members had to hold him down, patient was started on low-dose propofol, which helped. Patient does not open his eyes or follow simple commands. Patient has been febrile with T- max of 102.4 ?. WBC count trending up. Hemodynamically stable, not requiring any pressors. Good urine output, creatinine trending, LFTs continue to trend down. Tolerating tube feeds Patient's states that he drinks 10 beers a day Review of Systems Review of Systems: ROS unobtainable: Yes unobtainable due to endotracheal tube, unobtainable due to medical condition and unobtainable due to mental status Exam Narrative: General: Pt is sedated, intubated and on mechanical ventilation HEENT: Pupils are small, equal and reactive bilaterally, sclera is clear, ETT in place Lungs/Chest: Coarse breath sounds bilaterally, decreased at bases, adequate air entry, no wheeze Cardiac: Regular rate and rhythm. Normal S1 S2. No murmurs Circulation: Pedal pulses are palpable, mottling noted on abdomen, and lower extremities bilaterally Abdomen: Decreased bowel sounds. Obese. Soft. NT. ND. Extremities: No clubbing, cyanosis or edema. Warm extremities : Agarwal in place Neurologic: Patient is sedated, intubated, does not open his eyes or follow simple commands. (On 12/08: Patient did follow commands consistently on upper and lower extremities when sedation was totally taken off and he was agitated) Objective Data Vital Signs Vital Signs: Vital Signs - 24 hr 12/08/24 08:31 12/08/24 08:38 12/08/24 09:00 Temperature 101.2 F H Pulse Rate 126 H 126 H 123 H Respiratory Rate 22 H 22 H Blood Pressure 119/77 Pulse Oximetry 100 Oxygen Delivery Fraction of Inspired Oxygen 12/08/24 09:10 12/08/24 09:41 12/08/24 09:41 Temperature Pulse Rate 122 H 124 H 124 H Respiratory Rate 22 H 25 H 25 H Blood Pressure Pulse Oximetry Oxygen Delivery Fraction of Inspired Oxygen 12/08/24 09:55 12/08/24 10:00 12/08/24 10:00 Temperature 101.4 F H Pulse Rate 114 H 111 H 120 H Respiratory Rate 22 H 22 H 22 H Blood Pressure 96/61 L Pulse Oximetry 97 Oxygen Delivery Fraction of Inspired Oxygen 12/08/24 10:00 12/08/24 10:22 12/08/24 10:23 Temperature Pulse Rate 113 H 107 H 107 H Respiratory Rate 22 H 22 H Blood Pressure Pulse Oximetry Oxygen Delivery Fraction of Inspired Oxygen 12/08/24 10:30 12/08/24 11:00 12/08/24 11:23 Temperature 101 F H Pulse Rate 103 H 96 102 H Respiratory Rate 23 H 24 H Blood Pressure 89/52 L Pulse Oximetry 100 Oxygen Delivery Fraction of Inspired Oxygen 12/08/24 11:30 12/08/24 11:34 12/08/24 11:34 Temperature Pulse Rate 106 H 106 H 106 H Respiratory Rate 24 H 24 H Blood Pressure Pulse Oximetry 100 Oxygen Delivery Mechanical Ventilation Fraction of Inspired Oxygen 30 12/08/24 11:37 12/08/24 11:46 12/08/24 12:00 Temperature 101.4 F H 101.7 F H Pulse Rate 107 H 99 Respiratory Rate 30 H 28 H Blood Pressure 106/69 Pulse Oximetry 100 Oxygen Delivery Fraction of Inspired Oxygen 12/08/24 12:00 12/08/24 12:00 12/08/24 12:00 Temperature Pulse Rate 108 H 108 H 100 Respiratory Rate 28 H 28 H Blood Pressure Pulse Oximetry Oxygen Delivery Fraction of Inspired Oxygen 12/08/24 12:00 12/08/24 12:01 12/08/24 12:37 Temperature Pulse Rate 102 H 94 Respiratory Rate 31 H 22 H Blood Pressure Pulse Oximetry Oxygen Delivery Fraction of Inspired Oxygen 30 12/08/24 12:46 12/08/24 13:19 12/08/24 13:19 Temperature 101.5 F H Pulse Rate 93 93 Respiratory Rate 22 H 22 H Blood Pressure Pulse Oximetry Oxygen Delivery Fraction of Inspired Oxygen 12/08/24 13:25 12/08/24 13:50 12/08/24 13:50 Temperature Pulse Rate 92 93 93 Respiratory Rate 22 H Blood Pressure 82/49 L Pulse Oximetry 100 Oxygen Delivery Mechanical Ventilation Fraction of Inspired Oxygen 30 12/08/24 14:00 12/08/24 14:00 12/08/24 14:00 Temperature Pulse Rate 97 97 97 Respiratory Rate 22 H 23 H 22 H Blood Pressure Pulse Oximetry Oxygen Delivery Fraction of Inspired Oxygen 12/08/24 14:00 12/08/24 14:00 12/08/24 14:00 Temperature 101.4 F H Pulse Rate 94 140 H 98 Respiratory Rate 22 H 22 H Blood Pressure 135/85 Pulse Oximetry 100 Oxygen Delivery Fraction of Inspired Oxygen 12/08/24 14:22 12/08/24 14:33 12/08/24 14:52 Temperature Pulse Rate 96 97 132 H Respiratory Rate 35 H Blood Pressure 135/85 121/74 Pulse Oximetry Oxygen Delivery Fraction of Inspired Oxygen 12/08/24 14:55 12/08/24 15:00 12/08/24 15:27 Temperature 101.8 F H Pulse Rate 142 H 140 H 104 H Respiratory Rate 32 H 24 H 22 H Blood Pressure 153/111 H Pulse Oximetry 86 L Oxygen Delivery Fraction of Inspired Oxygen 12/08/24 15:27 12/08/24 16:00 12/08/24 16:00 Temperature 102.4 F H Pulse Rate 104 H 99 100 Respiratory Rate 22 H 18 22 H Blood Pressure 106/69 Pulse Oximetry 100 Oxygen Delivery Fraction of Inspired Oxygen 12/08/24 16:00 12/08/24 16:00 12/08/24 16:00 Temperature Pulse Rate 100 100 100 Respiratory Rate 22 H 22 H Blood Pressure 100/60 Pulse Oximetry Oxygen Delivery Fraction of Inspired Oxygen 12/08/24 16:00 12/08/24 16:00 12/08/24 16:00 Temperature Pulse Rate 100 Respiratory Rate Blood Pressure Pulse Oximetry Oxygen Delivery Mechanical Ventilation Fraction of Inspired Oxygen 30 30 12/08/24 16:30 12/08/24 17:08 12/08/24 17:30 Temperature Pulse Rate 98 96 96 Respiratory Rate Blood Pressure 108/69 113/74 Pulse Oximetry 100 Oxygen Delivery Mechanical Ventilation Fraction of Inspired Oxygen 30 12/08/24 17:42 12/08/24 17:42 12/08/24 18:00 Temperature Pulse Rate 94 94 93 Respiratory Rate 22 H 22 H Blood Pressure Pulse Oximetry Oxygen Delivery Fraction of Inspired Oxygen 12/08/24 18:00 12/08/24 18:00 12/08/24 18:00 Temperature 101.6 F H Pulse Rate 93 94 94 Respiratory Rate 22 H 22 H 22 H Blood Pressure 107/69 Pulse Oximetry 100 Oxygen Delivery Fraction of Inspired Oxygen 12/08/24 18:00 12/08/24 18:00 12/08/24 18:17 Temperature Pulse Rate 94 94 93 Respiratory Rate 22 H 22 H Blood Pressure 107/69 Pulse Oximetry Oxygen Delivery Fraction of Inspired Oxygen 12/08/24 18:17 12/08/24 19:45 12/08/24 19:56 Temperature Pulse Rate 93 121 H 104 H Respiratory Rate 22 H 28 H 28 H Blood Pressure Pulse Oximetry Oxygen Delivery Fraction of Inspired Oxygen 12/08/24 19:56 12/08/24 20:00 12/08/24 20:00 Temperature Pulse Rate 104 H 103 H 103 H Respiratory Rate 28 H 22 H 22 H Blood Pressure Pulse Oximetry Oxygen Delivery Fraction of Inspired Oxygen 12/08/24 20:00 12/08/24 20:00 12/08/24 20:00 Temperature Pulse Rate 103 H 103 H 103 H Respiratory Rate 22 H 22 H Blood Pressure 101/63 Pulse Oximetry 95 Oxygen Delivery Mechanical Ventilation Fraction of Inspired Oxygen 30 12/08/24 20:00 12/08/24 20:00 12/08/24 20:00 Temperature 101.8 F H Pulse Rate 104 H 102 H Respiratory Rate 28 H Blood Pressure 101/63 Pulse Oximetry 96 Oxygen Delivery Fraction of Inspired Oxygen 30 12/08/24 20:15 12/08/24 20:15 12/08/24 20:32 Temperature Pulse Rate 99 99 101 H Respiratory Rate 22 H 22 H Blood Pressure Pulse Oximetry 98 Oxygen Delivery Mechanical Ventilation Fraction of Inspired Oxygen 30 12/08/24 20:43 12/08/24 20:47 12/08/24 22:00 Temperature 102.0 F H 101.9 F H Pulse Rate 101 H Respiratory Rate Blood Pressure Pulse Oximetry Oxygen Delivery Fraction of Inspired Oxygen 12/08/24 22:00 12/08/24 22:00 12/08/24 22:00 Temperature 101.9 F H Pulse Rate 95 95 95 Respiratory Rate 22 H 22 H 22 H Blood Pressure 106/72 Pulse Oximetry 100 Oxygen Delivery Fraction of Inspired Oxygen 12/08/24 22:00 12/08/24 22:00 12/08/24 22:00 Temperature Pulse Rate 95 95 95 Respiratory Rate 22 H Blood Pressure 108/70 Pulse Oximetry Oxygen Delivery Fraction of Inspired Oxygen 12/08/24 22:14 12/08/24 22:16 12/08/24 23:00 Temperature Pulse Rate 96 95 94 Respiratory Rate 22 H 22 H Blood Pressure Pulse Oximetry 99 Oxygen Delivery Mechanical Ventilation Fraction of Inspired Oxygen 30 12/09/24 00:00 12/09/24 00:00 12/09/24 00:00 Temperature Pulse Rate 95 94 95 Respiratory Rate 23 H 25 H Blood Pressure Pulse Oximetry Oxygen Delivery Fraction of Inspired Oxygen 12/09/24 00:00 12/09/24 00:00 12/09/24 00:00 Temperature Pulse Rate 95 95 95 Respiratory Rate 25 H 25 H Blood Pressure 111/69 Pulse Oximetry 98 Oxygen Delivery Mechanical Ventilation Fraction of Inspired Oxygen 30 12/09/24 00:00 12/09/24 00:00 12/09/24 00:34 Temperature 102.3 F H Pulse Rate 95 94 Respiratory Rate 25 H 27 H Blood Pressure 111/69 Pulse Oximetry 98 Oxygen Delivery Fraction of Inspired Oxygen 30 12/09/24 00:39 12/09/24 02:00 12/09/24 02:00 Temperature 102.0 F H Pulse Rate 94 92 92 Respiratory Rate 27 H 24 H Blood Pressure 110/74 Pulse Oximetry 99 Oxygen Delivery Fraction of Inspired Oxygen 12/09/24 02:00 12/09/24 02:00 12/09/24 02:00 Temperature Pulse Rate 92 92 92 Respiratory Rate 24 H 24 H 24 H Blood Pressure Pulse Oximetry Oxygen Delivery Fraction of Inspired Oxygen 12/09/24 02:00 12/09/24 02:38 12/09/24 02:38 Temperature Pulse Rate 92 90 90 Respiratory Rate 22 H Blood Pressure 110/74 Pulse Oximetry 97 Oxygen Delivery Mechanical Ventilation Fraction of Inspired Oxygen 30 12/09/24 02:49 12/09/24 02:57 12/09/24 02:57 Temperature Pulse Rate 91 91 91 Respiratory Rate 22 H 22 H 22 H Blood Pressure Pulse Oximetry Oxygen Delivery Fraction of Inspired Oxygen 12/09/24 04:00 12/09/24 04:00 12/09/24 04:00 Temperature Pulse Rate 90 90 90 Respiratory Rate 22 H 22 H Blood Pressure 118/82 Pulse Oximetry Oxygen Delivery Fraction of Inspired Oxygen 12/09/24 04:00 12/09/24 04:00 12/09/24 04:00 Temperature Pulse Rate 90 90 Respiratory Rate 22 H 22 H Blood Pressure Pulse Oximetry 96 Oxygen Delivery Mechanical Ventilation Fraction of Inspired Oxygen 30 30 12/09/24 04:00 12/09/24 04:00 12/09/24 04:45 Temperature 100.8 F H Pulse Rate 90 88 87 Respiratory Rate 22 H Blood Pressure 118/82 Pulse Oximetry 96 95 Oxygen Delivery Mechanical Ventilation Fraction of Inspired Oxygen 30 12/09/24 05:05 12/09/24 05:15 12/09/24 05:15 Temperature Pulse Rate 102 H 102 H 110 H Respiratory Rate 26 H 26 H 26 H Blood Pressure Pulse Oximetry Oxygen Delivery Fraction of Inspired Oxygen 12/09/24 05:23 12/09/24 06:00 12/09/24 06:00 Temperature Pulse Rate 102 H 96 96 Respiratory Rate 26 H 23 H 23 H Blood Pressure Pulse Oximetry Oxygen Delivery Fraction of Inspired Oxygen 12/09/24 06:00 12/09/24 06:00 12/09/24 06:00 Temperature Pulse Rate 96 96 96 Respiratory Rate 23 H 23 H Blood Pressure 100/57 L Pulse Oximetry Oxygen Delivery Fraction of Inspired Oxygen 12/09/24 06:00 12/09/24 06:00 12/09/24 07:35 Temperature 101.0 F H Pulse Rate 96 96 92 Respiratory Rate 23 H 22 H Blood Pressure 100/57 L Pulse Oximetry 93 Oxygen Delivery Fraction of Inspired Oxygen 12/09/24 07:35 12/09/24 08:00 Temperature 101.5 F H Pulse Rate 92 91 Respiratory Rate 22 H 23 H Blood Pressure 105/71 Pulse Oximetry 96 Oxygen Delivery Fraction of Inspired Oxygen Intake/Output Intake/Output: Intake & Output 12/06/24 12/07/24 12/08/24 12/09/24 23:59 23:59 23:59 23:59 Intake Total 2155.7 967.8 3847.9 2202.9 Output Total 4110 1070 2450 1900 Balance -1954.3 -102.2 1397.9 302.9 Meds/Results Medications: Active Medications Generic Name Dose Route Start Last Admin Trade Name Freq PRN Reason Stop Dose Admin Acetaminophen 650 mg 12/07/24 23:17 12/08/24 20:47 Acetaminophen Elixir 325 Mg/10.15 Ml Udc PO 650 mg Q6H PRN Administration Mild Pain (1-3) or Fever Albuterol/Ipratropium 3 ml 12/08/24 14:00 12/09/24 02:38 Ipratropium 0.5 Mg/Albuterol Sulfate 2.5 Mg Ampul.Neb 3 Ml INHALATION 3 ml Q6HRT [facility] Administration Alteplase, Recombinant 2 mg 12/07/24 09:34 12/07/24 10:26 Alteplase 2 Mg Vial (Cathflo) IV PUSH 2 mg ONCE PRN Administration Line Occlusion Aspirin 81 mg 12/06/24 08:00 12/08/24 08:31 Aspirin 81 Mg Chewable Tablet FEED TUBE 81 mg DAILY@0800 [facility] Administration Atorvastatin Calcium 80 mg 12/06/24 09:00 12/08/24 08:30 Atorvastatin 40 Mg Tablet FEED TUBE 80 mg DAILY [facility] Administration Dextrose 12.5 gm 12/06/24 07:25 Dextrose 50% 25 Gm/50 Ml Syringe IV PUSH PRN PRN Hypoglycemia Protocol Empagliflozin 10 mg 12/07/24 09:00 12/08/24 08:41 Empagliflozin 10 Mg Tablet PO 10 mg DAILY [facility]US Administration Folic Acid 1 mg 12/09/24 09:00 Folic Acid 1 Mg/0.2 Ml Inj IV PUSH QAM [facility] Glucagon 1 mg 12/06/24 07:25 Glucagon For Inj 1 Mg Vial IM PRN PRN Hypoglycemia Protocol Glucose 15 gm 12/06/24 07:25 Glucose Oral Gel 15 Gm Of Glucse In 37.5 Gm Tube PO PRN PRN Hypoglycemia Protocol Heparin Sodium (Porcine) 5,000 units 12/07/24 14:00 12/09/24 05:57 Heparin Sodium 5,000 Units/Ml Vial SUB-Q 5,000 units Q8HR [facility] Administration Hydralazine HCl 20 mg 12/05/24 22:33 12/06/24 05:46 Hydralazine Hcl 20 Mg/Ml Vial IV PUSH 20 mg Q4HR PRN Administration Blood Pressure - High Fentanyl Citrate 2,500 mcg in 250 mls @ 10 mls/hr 12/05/24 13:50 12/09/24 06:00 Fentanyl 2,500 Mcg/Ns 250 Ml IV CONT 100 mcg/hr .Q25H [facility] 10 mls/hr Titration Protocol 100 MCG/HR Dextrose 1,000 mls @ 100 mls/hr 12/06/24 07:25 Dextrose 5% 1,000 Ml IVPB PRN PRN Hypoglycemia Protocol Levetiracetam 1,000 mg in 100 mls @ 400 mls/hr 12/08/24 09:00 12/08/24 20:54 Keppra Iv IVPB Infused Q12HR [facility] Infusion Dexmedetomidine HCl 400 mcg in 100 mls @ 43.505 mls/hr 12/08/24 07:40 12/09/24 07:35 Precedex 400 Mcg/100 Ml IV CONT 1.4 mcg/kg/hr .Q2H18M [facility]ULIUS 43.51 mls/hr Administration Protocol 1.4 MCG/KG/HR Vancomycin HCl 1,500 mg in 500 mls @ 250 mls/hr 12/09/24 02:00 12/09/24 04:01 Vancomycin 1,500 Mg/Ns 500 Ml IVPB Infused Q18H [facility] Infusion Midazolam HCl 100 mg in 100 mls @ 4 mls/hr 12/08/24 12:00 12/09/24 06:00 Versed 100 Mg/Ns 100 Ml IV CONT 4 mg/hr .Q25H [facility] 4 mls/hr Titration Protocol 4 MG/HR Meropenem 1 gm/ Sodium 100 mls @ 200 mls/hr 12/08/24 13:00 12/09/24 06:27 Chloride IVPB Infused Q8HR [facility] Infusion Norepinephrine Bitartrate 8 mg in 250 mls @ 0 mls/hr 12/08/24 13:15 12/09/24 06:00 Levophed 8 Mg/D5w 250 Ml IV CONT 0 mcg/min .Q0M [facility]ULIUS 0 mls/hr Titration Protocol Propofol 100 mls @ 7.458 mls/hr 12/09/24 05:10 12/09/24 06:00 Diprivan IV CONT 10 mcg/kg/min .[id number] [facility]UL[facility] 7.46 mls/hr Titration Protocol 10 MCG/KG/MIN Ketamine HCl 1,000 mg/ Sodium 100 mls @ 3.09 mls/hr 12/09/24 07:15 Chloride IV CONT .Q24H [facility] Protocol 0.25 MG/KG/HR Albumin Human 100 mls @ 60 mls/hr 12/09/24 07:19 Albutein IVPB 12/10/24 01:39 Q6HR [facility] Insulin Aspart 4 - 8 units 12/06/24 09:00 12/09/24 05:54 Insulin Aspart (*Bkc) 100 Units/Ml SUB-Q Not Given Q4HR [facility] Protocol Insulin Glargine 10 units 12/06/24 09:00 12/08/24 08:36 Insulin Glargine (*Bkc) 100 Units/Ml SUB-Q 10 units QAM [facility] Administration Labetalol HCl 20 mg 12/06/24 07:34 Labetalol Hcl Inj 100 Mg/20 Ml Vial IV PUSH Q4H PRN SBP > 160 and HR> 60 -1st choice Levalbuterol HCl 0.63 mg 12/08/24 14:00 12/09/24 02:37 Levalbuterol Neb 1.25 Mg/3 Ml INHALATION 0.63 mg Q6HRT [facility] Administration Metoprolol Tartrate 25 mg 12/08/24 21:00 12/08/24 20:43 Metoprolol Tartrate 25 Mg Tablet PO 25 mg Q12HR [facility] Administration Multi-Ingred Cream/Lotion/Oil/Oint 1 applic 12/05/24 21:00 12/08/24 20:43 Mineral Oil/White Petrolatum Ointment EACH EYE 1 applic Q12HR [facility] Administration Multi-Ingred Cream/Lotion/Oil/Oint 1 applic 12/09/24 09:00 Mineral Oil/White Petrolatum Ointment EACH EYE Q12HR [facility] Nitroglycerin 0.4 mg 12/05/24 13:47 Nitroglycerin Sl 0.4 Mg Tablet SUBLINGUAL Q5MIN PRN Chest Pain Pantoprazole Sodium 40 mg 12/06/24 07:40 12/08/24 20:43 Pantoprazole Sodium Iv 40 Mg Vial IV PUSH 40 mg Q12HR [facility] Administration Sodium Chloride 10 ml 12/05/24 22:00 12/09/24 05:55 Central Line Flush IV PUSH 10 ml Q8HR [facility] Administration Sodium Chloride 20 ml 12/05/24 15:00 Central Line Flush IV PUSH PRN PRN after blood draws Thiamine HCl 100 mg 12/09/24 09:00 Thiamine Hcl 200 Mg/2 Ml Vial IV PUSH QAM [facility] Ticagrelor 90 mg 12/05/24 21:00 12/08/24 20:43 Ticagrelor 90 Mg Tablet FEED TUBE 90 mg Q12HR [facility] Administration Radiology Results: ITS Impressions Head CT 12/05/24 12:09 Impression: Stable CT examination of the head without change from 2006 examination, without acute intracranial hemorrhage or suspicious mass effect. Cervical Spine CT 12/05/24 12:16 Impression: No acute displaced fracture within the cervical spine. Large right-sided and small left-sided pleural effusions without pneumothorax for which further evaluation post cardiac intervention is suggested (if the patient is clinically able). Abdomen X-Ray 12/06/24 14:26 IMPRESSION: Orogastric tube in good position and ready for immediate use. Renal Ultrasound 12/08/24 11:43 IMPRESSION: Normal ultrasound evaluation of the kidneys. Chest X-Ray 12/09/24 06:11 Impression: [id number] bilateral pleural effusions with mild pulmonary edema. Support tubes, as above. Labs Labs: Laboratory Results - last 24 hr 12/08/24 12/08/24 12/08/24 03:53 11:13 11:15 WBC RBC Hgb Hct MCV MCH MCHC RDW Plt Count MPV Immature Gran % (Auto) Neut % (Auto) Lymph % (Auto) Wright % (Auto) Eos % (Auto) Baso % (Auto) Lymph # (Auto) Wright # (Auto) Eos # (Auto) Baso # (Auto) Abs Immat Gran (auto) Absolute Neuts (auto) Absolute Nucleated RBC Nucleated RBC % Puncture Site ABG pH ABG pCO2 ABG pO2 ABG PO2/FiO2 Ratio ABG HCO3 ABG O2 Saturation ABG O2 Content ABG Base Excess A-a Gradient Oxyhemoglobin Carboxyhemoglobin Methemoglobin Reduced Hemoglobin Total Hemoglobin O2 Delivery Device O2 Liters/Min Minute Volume Vent Rate Vent Mode FiO2 Tidal Volume PEEP Peak Inspir Pressure Pressure Support Sodium 145 Potassium 3.5 Chloride 106 Carbon Dioxide 31 H Anion Gap 8 BUN 25 H Creatinine 1.61 H Estim Creat Clear Calc 74 Estimated GFR 47 L Glucose 169 H POC Capillary Glucose Calcium 7.9 L Phosphorus Magnesium Total Bilirubin AST ALT Alkaline Phosphatase Total Creatine Kinase 587 H Total Protein Albumin Triglycerides Urine Eosinophils None seen Ur Random Creatinine Cancelled Ur Random Sodium 13 Ur Random Potassium 45.9 Ur Random Chloride Cancelled U Random Chloride/Creat Cancelled Urine Creatinine 119.0 12/08/24 12/08/24 12/08/24 11:31 15:44 20:39 WBC RBC Hgb Hct MCV MCH MCHC RDW Plt Count MPV Immature Gran % (Auto) Neut % (Auto) Lymph % (Auto) Wright % (Auto) Eos % (Auto) Baso % (Auto) Lymph # (Auto) Wright # (Auto) Eos # (Auto) Baso # (Auto) Abs Immat Gran (auto) Absolute Neuts (auto) Absolute Nucleated RBC Nucleated RBC % Puncture Site ABG pH ABG pCO2 ABG pO2 ABG PO2/FiO2 Ratio ABG HCO3 ABG O2 Saturation ABG O2 Content ABG Base Excess A-a Gradient Oxyhemoglobin Carboxyhemoglobin Methemoglobin Reduced Hemoglobin Total Hemoglobin O2 Delivery Device O2 Liters/Min Minute Volume Vent Rate Vent Mode FiO2 Tidal Volume PEEP Peak Inspir Pressure Pressure Support Sodium Potassium Chloride Carbon Dioxide Anion Gap BUN Creatinine Estim Creat Clear Calc Estimated GFR Glucose POC Capillary Glucose 157 H 194 H 184 H Calcium Phosphorus Magnesium Total Bilirubin AST ALT Alkaline Phosphatase Total Creatine Kinase Total Protein Albumin Triglycerides Urine Eosinophils Ur Random Creatinine Ur Random Sodium Ur Random Potassium Ur Random Chloride U Random Chloride/Creat Urine Creatinine 12/09/24 12/09/24 12/09/24 00:54 04:45 05:24 WBC 17.4 H RBC 4.47 L Hgb 14.1 Hct 45.6 MCV 102.0 H MCH 31.5 MCHC 30.9 L RDW 13.3 Plt Count 275 MPV 9.7 Immature Gran % (Auto) 0.6 H Neut % (Auto) 67.8 Lymph % (Auto) 17.8 L Wright % (Auto) 13.4 H Eos % (Auto) 0.0 Baso % (Auto) 0.4 Lymph # (Auto) 3.09 Wright # (Auto) 2.3 H Eos # (Auto) 0.0 Baso # (Auto) 0.1 Abs Immat Gran (auto) 0.10 H Absolute Neuts (auto) 11.8 H Absolute Nucleated RBC 0.000 Nucleated RBC % 0.0 Puncture Site Right radial ABG pH 7.156 L* ABG pCO2 58.0 H ABG pO2 58.4 L ABG PO2/FiO2 Ratio 1.95 ABG HCO3 20.0 L ABG O2 Saturation 81.9 L* ABG O2 Content 16.7 ABG Base Excess -9.4 A-a Gradient 87.4 Oxyhemoglobin 80.5 L* Carboxyhemoglobin 1.1 Methemoglobin 0.1 Reduced Hemoglobin 18.3 H Total Hemoglobin 14.8 O2 Delivery Device Ventilator O2 Liters/Min Not Reportable Minute Volume Not Reportable Vent Rate 22 Vent Mode Cmv FiO2 30 Tidal Volume 450 PEEP 8 Peak Inspir Pressure Not Reportable Pressure Support Not Reportable Sodium 143 Potassium 3.6 Chloride 109 H Carbon Dioxide 30 Anion Gap 4 BUN 21 H Creatinine 1.39 H Estim Creat Clear Calc 85 Estimated GFR 56 L Glucose 240 H POC Capillary Glucose 174 H Calcium 7.7 L Phosphorus 3.4 Magnesium 2.6 H Total Bilirubin 1.1 AST 93 H ALT 76 H Alkaline Phosphatase 50 Total Creatine Kinase 726 H Total Protein 5.5 L Albumin 2.8 L Triglycerides 271 H 349 H Urine Eosinophils Ur Random Creatinine Ur Random Sodium Ur Random Potassium Ur Random Chloride U Random Chloride/Creat Urine Creatinine 12/09/24 12/09/24 12/09/24 05:51 05:53 08:01 WBC RBC Hgb Hct MCV MCH MCHC RDW Plt Count MPV Immature Gran % (Auto) Neut % (Auto) Lymph % (Auto) Wright % (Auto) Eos % (Auto) Baso % (Auto) Lymph # (Auto) Wright # (Auto) Eos # (Auto) Baso # (Auto) Abs Immat Gran (auto) Absolute Neuts (auto) Absolute Nucleated RBC Nucleated RBC % Puncture Site Right radial ABG pH 7.396 ABG pCO2 43.8 ABG pO2 60.3 L ABG PO2/FiO2 Ratio 2.01 ABG HCO3 26.3 H ABG O2 Saturation 91.0 L ABG O2 Content 16.8 ABG Base Excess 1.1 A-a Gradient 102.1 Oxyhemoglobin 89.3 L Carboxyhemoglobin Methemoglobin Reduced Hemoglobin Total Hemoglobin 13.4 O2 Delivery Device Ventilator O2 Liters/Min Not Reportable Minute Volume Not Reportable Vent Rate 22 Vent Mode Cmv FiO2 30 Tidal Volume 450 PEEP 8 Peak Inspir Pressure Not Reportable Pressure Support Not Reportable Sodium Potassium Chloride Carbon Dioxide Anion Gap BUN Creatinine Estim Creat Clear Calc Estimated GFR Glucose POC Capillary Glucose 184 H 179 H Calcium Phosphorus Magnesium Total Bilirubin AST ALT Alkaline Phosphatase Total Creatine Kinase Total Protein Albumin Triglycerides Urine Eosinophils Ur Random Creatinine Ur Random Sodium Ur Random Potassium Ur Random Chloride U Random Chloride/Creat Urine Creatinine Quality VTE Prophylaxis VTE prophylaxis: pharmacologic ordered
[2024-12-09] MEDS: levETIRAcetam 1000MG/NACL100ML 1,000 MG/100 ML BAG 400 MG IVPB ×2 (08:28→21:08)
[2024-12-09] MEDS: POTASSIUM CHLORIDE 20 MEQ PACKET (FOR LIQUID) FEED TUBE (08:35)
[2024-12-09] MEDS: POTASSIUM CHLORIDE 20 MEQ PACKET (FOR LIQUID) 40 MEQ FEED TUBE (08:36)
[2024-12-09] MEDS: TICAGRELOR 90 MG TABLET FEED TUBE ×2 (08:36→21:15)
[2024-12-09] MEDS: ATORVASTATIN 40 MG TABLET 80 MG FEED TUBE (08:36)
[2024-12-09] MEDS: EMPAGLIFLOZIN 10 MG TABLET PO (08:36)
[2024-12-09] MEDS: PANTOPRAZOLE SODIUM IV 40 MG VIAL IV PUSH ×2 (08:36→21:15)
[2024-12-09] MEDS: ASPIRIN 81 MG CHEWABLE TABLET FEED TUBE (08:37)
[2024-12-09] MEDS: THIAMINE HCL 200 MG/2 ML VIAL 100 MG IV PUSH (08:37)
[2024-12-09] MEDS: MINERAL OIL/WHITE PETROLATUM OINTMENT 1 APPLIC EACH EYE ×3 (08:38→21:16)
[2024-12-09] MEDS: FOLIC ACID 1 MG/0.2 ML INJ IV PUSH (08:39)
[2024-12-09] MEDS: PHENobarbitaL sodium (*CRX) 130 MG/ML VIAL 260 MG IV PUSH (08:39)
[2024-12-09] MEDS: INSULIN GLARGINE (*BKC) 100 UNITS/ML 10 UNITS SUB-Q (08:40)
[2024-12-09] MEDS: METOPROLOL TARTRATE 25 MG TABLET PO ×2 (08:41→21:15)
[2024-12-09] MEDS: ALBUMIN HUMAN 25% 25 GM/100 ML 100 ML IVPB ×3 (08:52→18:09)
[2024-12-09] MEDS: IPRATROPIUM BR 0.02% INH SOLN 0.5 MG/2.5 ML VIAL INHALATION ×3 (08:58→19:57)
[2024-12-09] MEDS: KETAMINE HCL IV CONT ×2 (09:34→18:59)
[2024-12-09] MEDS: SODIUM CHLORIDE 0.9% IV CONT ×2 (09:34→18:59)
[2024-12-09] MEDS: dexmedeTOMIDine 400 MCG/100 ML 400 MCG/100 ML BAG 46.61 MCG IV CONT ×4 (09:43→23:04)
[2024-12-09] MEDS: LORazepam INJ (*CRX) 2 MG/ML VIAL IV PUSH (10:45)
--- NOTE | 2024-12-09 10:56 | PCFNICU ---
ICU Rounding Note: Pt current nutrition is Vital AF 1.2 at 40 ml/hr. Nutrition recommendation: 65 ml/hr. Last recorded weight is 123.6 kg, down form 124.4 kg on admit. Bowel Motility: +BM reported 12/09 Labs Reviewed:Mg 2.6, Cr 1.39, TG 349, Alb 2.8 Meds Noted: Lantus, Vancomycin,Protonix, Heparin, Precedex, Fentanyl, Versed, Thiamine, Folic Acid. Skin: WNL Additional Notes: Patient remains on mechanical vent. Tube feedings are being tolerated of Vital AF 1.2 at 40 ml/hr. Propofol has been discontinued. Recommend increasing tube feeding rate to 65 ml/hr. Total Nutrition: 1716 kcal/107 gm protein/1160 ml water. Flush 30 ml q 4 hours. Agree with diet orders. Following daily in ICU rounds. Monitoring orders, vent settings, meds, weights, labs, vitals, plan of care Follow up Friday/Friday. Daily rounds.
[2024-12-09] MEDS: ACETAMINOPHEN ELIXIR 325 MG/10.15 ML UDC 650 MG PO (11:14)
[2024-12-09] MEDS: MIDAZOLAM 100MG/NS 100ML(*CRX) 100 MG/100 ML BAG 6 MG IV CONT (11:39)
[2024-12-09] MEDS: FENTANYL 2,500MCG/NS250ML(*CRX 2,500 MCG/250 ML BAG 10 MCG IV CONT (11:41)
[2024-12-09] MEDS: dexmedeTOMIDine 400 MCG/100 ML 400 MCG/100 ML BAG 40.4 MCG IV CONT ×3 (11:43→16:17)
--- NOTE | 2024-12-09 12:09 | CY_PTH ---
PATIENT: Jason Kelsey Jr. LOC: ANHICU U#:[id number] AGE/SX: 44/M ROOM: ICU RE12/05/[address]: Alexa Ledesma MD : [id number] BED: 6 DIS: 12/11/2024 SPEC #: [id number] RECD: 12/13/24 11:21 STATUS: RICKY REQ #: [id number] BESS: 12/09/24 12:[address]: Alexa Ledesma DEPT: [facility] [place] Cytology RECD BY: Jean Braga ENTERED: 12/13/24 11:22 SP TYPE: Cytology OTHR DR: MD Ynes Aguilera MD Gary M. Hatch, MD Mikey Price MD Lisa R. Rubenstein, MD Leroy Jones, MD Scott Celestin, MD Donald Voss, MD Ann Sanders, MD Manan Robles, MD Km Shelton MD Tissues: A - Pleural Fluid Procedures: Hematoxylin and Eosin Stain Cell Block Cytopathology Cytospin
[2024-12-09] MEDS: dexAMETHasone SOD PHOS INJ 10 MG/ML 1 ML VIAL IV PUSH (12:52)
[2024-12-09] MEDS: MANNITOL 20% 250 ML 50 ML IV CONT (13:05)
[2024-12-09 13:17] LABS: Albumin Level 3.2 g/dL (3.5-5.1); Glucose 158 mg/dL (65-110); Total Protein 5.8 g/dL (6.3-8.2)
[2024-12-09 13:32] LABS: INR 1.3; Prothrombin Time 15.8 Seconds (11.1-14.7)
[2024-12-09 13:33] LABS: Partial Thromboplastin Time 30.3 Seconds (22.3-36.8)
[2024-12-09 17:49] LABS: Appearance Pleural Fluid Bloody (Clear)
[2024-12-09 17:49] LABS: Anion Gap 9 mmol/L (4-12); Blood Urea Nitrogen 21 mg/dL (9-20); Calcium 8.1 mg/dL (8.4-10.2); Carbon Dioxide 27 mmol/L (22-30); Chloride 111 mmol/L (98-107); Estimated CRCL calculation 85 ml/min; Estimated Glomerular Filt Rate 57; Glucose 169 mg/dL (65-110); Potassium 4.3 mmol/L (3.4-5.0); Sodium 147 mmol/L (137-145)
[2024-12-09 17:50] LABS: Color Pleural Fluid Red (Colorless); Lymphocytes Pleural Fluid 21 %; Macrophages Pleural Fluid 11 %; Mesothelial Cells Pleural Flui 0 %; Monocytes Pleural Fluid 6 %; Neutrophils Pleural Fluid 62 % (0-25); Nucleated Cell Pleural Fluid 4379 /uL (0-1000)
[2024-12-09] MEDS: VANCOMYCIN 2,000 MG/NS 500 ML 2,000 MG/500 ML BAG 250 MG IVPB (22:00)
[2024-12-10] VITALS (72 sets, daily range): BP systolic 113–132; BP diastolic 77–101; PULSE 84–113; RESP 18–35; TEMP 37.6–39.9; O2SAT 91–100
[2024-12-10] MEDS: ALBUMIN HUMAN 25% 25 GM/100 ML 100 ML IVPB (00:01)
[2024-12-10] MEDS: SODIUM CHLORIDE 0.9% IV CONT ×7 (00:04→22:19)
[2024-12-10] MEDS: KETAMINE HCL IV CONT ×7 (00:04→22:19)
[2024-12-10] MEDS: dexmedeTOMIDine 400 MCG/100 ML 400 MCG/100 ML BAG 46.61 MCG IV CONT ×12 (01:03→23:29)
[2024-12-10] MEDS: ACETAMINOPHEN ELIXIR 325 MG/10.15 ML UDC 650 MG PO ×2 (01:26→12:54)
[2024-12-10] MEDS: IPRATROPIUM BR 0.02% INH SOLN 0.5 MG/2.5 ML VIAL INHALATION ×4 (02:06→20:04)
[2024-12-10] MEDS: ALTEPLASE 2 MG VIAL (CATHFLO) IV PUSH (04:09)
[2024-12-10 05:00] LABS: Alanine Aminotransferase 55 U/L (6-50); Albumin Level 4.0 g/dL (3.5-5.1); Alkaline Phosphatase 41 U/L (38-126); Anion Gap 9 mmol/L (4-12); Aspartate Amino Transferase 67 U/L (17-59); Bilirubin,Total 1.3 mg/dL (0.2-1.3); Blood Urea Nitrogen 25 mg/dL (9-20); Calcium 8.5 mg/dL (8.4-10.2); Carbon Dioxide 25 mmol/L (22-30); Chloride 115 mmol/L (98-107); Creatine Kinase 601 U/L (55-170); Estimated CRCL calculation 86 ml/min; Estimated Glomerular Filt Rate 57; Glucose 210 mg/dL (65-110); Magnesium 3.1 mg/dL (1.6-2.3); Potassium 4.6 mmol/L (3.4-5.0); Sodium 149 mmol/L (137-145); Total Protein 6.8 g/dL (6.3-8.2); Triglycerides 231 mg/dL (<150)
[2024-12-10] MEDS: CENTRAL LINE FLUSH 10 ML IV PUSH ×5 (05:05→22:21)
[2024-12-10] MEDS: MEROPENEM 1 GM in SODIUM CHLORIDE 0.9% IV 100 ML 200 ML IVPB ×3 (05:06→22:02)
[2024-12-10 05:30] LABS: Hematocrit 39.9 % (42.0-52.0); Hemoglobin 12.3 g/dL (14.0-18.0); Immature Granulocyte Percent A 0.4 % (0-0.5); Lymphocytes Absolute Auto 1.21 K/mm3 (0.9-3.2); Mean Corpuscular HGB Conc 30.8 g/dl (32-36); Mean Corpuscular Hemoglobin 31.2 pg (26-34); Mean Corpuscular Volume 101.3 fl (80-100); Nucleated Red Blood Cells Absolute Auto 0.000 K/mm3 (0.0-0.012); Nucleated Red Blood Cells Perc 0.0 % (0.0-0.2); Platelet Count Result 202 k/mm3 (150-375); Red Blood Count 3.94 M/mm3 (4.6-6.20); White Blood Count 11.8 K/mm3 (4.5-10.0)
[2024-12-10 05:31] LABS: Alveolar/Arterial O2 Gradient 123.7 mmHg; Carboxyhemoglobin 0.5 % THb (0-2.0); Fractional Inspired Oxygen 35 %; HCO3 ABG 21.4 mEq/l (22.0-26.0); Methemoglobin ABG 0.1 %THb (0-1.5); Oxygen Content ABG 16.6 %vol (16.0-22.0); Oxygen Saturation ABG 96.0 % (95.0-100.0); PCO2 ABG 37.3 mmHg (35.0-45.0); PO2 ABG 82.5 mmHg (80.0-100.0); PO2 FiO2 Ratio Arterial Blood 2.36 %; Reduced Hemoglobin 4.7 %THb (0-5.0)
[2024-12-10 05:41] LABS: Modified Allen's Test Pass; Site Drawn LEFT RADIAL
[2024-12-10 05:42] LABS: Arterial Blood Gas Tidal Volume 450 ml; Arterial Blood Gas Ventilator rate 26 /MIN
--- NOTE | 2024-12-10 06:29 | PM.PNCARD ---
Progress Note: A&P Assessment and Plan (1) Acute ST elevation myocardial infarction: Code(s): I21.3 - ST elevation (STEMI) myocardial infarction of unspecified site Status: Acute (2) Cardiac arrest: Code(s): I46.9 - Cardiac arrest, cause unspecified Status: Acute Plan 44-year-old male with history of HTN, low testosterone on supplementation, who presented with OHCA. Initial rhythm was Vfib, Total CPR time almost 20 minutes. EKG suggestive of Acute Ant wall STEMI post ROSC. Cardiac catheterization showed 100% proximal LAD occlusion status post successful aspiration thrombectomy and PCI of proximal mid LAD with overlapping 0rsiro 3.5/22 and 3.0/13 mm IRWIN post dilated distally to 3.0-3.05 and proximally to 4.45-4.50. -Anterior STEMI status post PCI to proximal LAD -Ischemic cardiomyopathy with LVEF of 40-45% and hypokinesis of inferior, apical septum, apical lateral, mid inferoseptal, basal inferoseptal, mid anteroseptal naylor. -Outside hospital cardiac arrest due to VFib status post resuscitation-was initially on amiodarone which was stopped due to bradycardia to the 40s; he has not had any further VT/VF episodes Plan: -Continue DAPT for 1 year with aspirin 81 mg daily and Brilinta 90 mg b.i.d.. Then continue aspirin 81 mg daily indefinitely -Continue atorvastatin 80 mg daily -Guideline directed medical therapy for cardiomyopathy. Continue metoprolol, irbesartan, and empagliflozin -Recommend limited TTE prior to discharge to evaluate LVEF -Management of other medical issues per ICU team Subjective Date/time seen: 12/10/24 06:29 Interval history: Reason for encounter: Anterior STEMI status post primary PCI to proximal LAD, out of hospital VFib cardiac arrest status post resuscitation Interval history: Patient remains intubated and sedated this morning. No further history could be obtained. He is on [facility] protocol for alcohol withdrawal. Telemetry shows sinus rhythm with heart rate in the 90s. Review of Systems Review of Systems: A complete review of systems could not be performed as patient is intubated and sedated. Exam Narrative: General: Patient intubated and sedated Neck: Supple, unable to assess JVD Chest: Bilaterally clear to auscultation, no rales or rhonchi Cardiac: S1, S2 +, tachycardic, regular rhythm, no murmurs or rubs Extremities: Bilateral lower extremity edema 1+, no skin rash Neurologic: Intubated and sedated Objective Data Vital Signs Vital Signs: Vital Signs - 24 hr 12/09/24 07:35 12/09/24 07:35 12/09/24 08:00 Temperature 38.6 C H Pulse Rate 92 92 91 Respiratory Rate 22 H 22 H 23 H Blood Pressure 105/71 Pulse Oximetry 96 Oxygen Delivery Fraction of Inspired Oxygen 12/09/24 08:00 12/09/24 08:00 12/09/24 08:00 Temperature Pulse Rate 92 92 92 Respiratory Rate 24 H 24 H 24 H Blood Pressure Pulse Oximetry Oxygen Delivery Fraction of Inspired Oxygen 12/09/24 08:00 12/09/24 08:00 12/09/24 08:00 Temperature Pulse Rate 92 92 Respiratory Rate 24 H Blood Pressure 105/71 Pulse Oximetry Oxygen Delivery Fraction of Inspired Oxygen 45 12/09/24 08:00 12/09/24 08:00 12/09/24 08:20 Temperature Pulse Rate 96 92 92 Respiratory Rate 24 H 24 H Blood Pressure Pulse Oximetry 96 Oxygen Delivery Mechanical Ventilation Fraction of Inspired Oxygen 30 12/09/24 08:20 12/09/24 08:41 12/09/24 08:45 Temperature Pulse Rate 94 91 90 Respiratory Rate 24 H Blood Pressure Pulse Oximetry 97 Oxygen Delivery Mechanical Ventilation Fraction of Inspired Oxygen 45 12/09/24 08:58 12/09/24 09:11 12/09/24 09:34 Temperature Pulse Rate 91 93 93 Respiratory Rate 22 H 22 H 22 H Blood Pressure Pulse Oximetry Oxygen Delivery Fraction of Inspired Oxygen 12/09/24 09:43 12/09/24 09:43 12/09/24 10:00 Temperature 38.8 C H Pulse Rate 94 94 90 Respiratory Rate 22 H 22 H 22 H Blood Pressure 105/72 Pulse Oximetry 97 Oxygen Delivery Fraction of Inspired Oxygen 12/09/24 10:00 12/09/24 10:00 12/09/24 10:00 Temperature Pulse Rate 91 91 91 Respiratory Rate 22 H 22 H 22 H Blood Pressure Pulse Oximetry Oxygen Delivery Fraction of Inspired Oxygen 12/09/24 10:00 12/09/24 10:00 12/09/24 10:00 Temperature Pulse Rate 91 91 91 Respiratory Rate 22 H 22 H Blood Pressure 105/72 Pulse Oximetry Oxygen Delivery Fraction of Inspired Oxygen 12/09/24 10:00 12/09/24 10:45 12/09/24 10:45 Temperature Pulse Rate 89 104 H 104 H Respiratory Rate 18 18 Blood Pressure Pulse Oximetry Oxygen Delivery Fraction of Inspired Oxygen 12/09/24 10:45 12/09/24 11:00 12/09/24 11:00 Temperature Pulse Rate 104 H 94 94 Respiratory Rate 18 22 H 22 H Blood Pressure Pulse Oximetry Oxygen Delivery Fraction of Inspired Oxygen 12/09/24 11:14 12/09/24 11:23 12/09/24 11:39 Temperature 39.4 C H Pulse Rate 97 95 Respiratory Rate 25 H Blood Pressure Pulse Oximetry 92 Oxygen Delivery Mechanical Ventilation Fraction of Inspired Oxygen 45 12/09/24 11:39 12/09/24 11:41 12/09/24 11:41 Temperature Pulse Rate 95 95 95 Respiratory Rate 25 H 25 H 25 H Blood Pressure Pulse Oximetry Oxygen Delivery Fraction of Inspired Oxygen 12/09/24 11:43 12/09/24 11:43 12/09/24 11:44 Temperature Pulse Rate 96 96 96 Respiratory Rate 25 H 25 H 26 H Blood Pressure Pulse Oximetry Oxygen Delivery Fraction of Inspired Oxygen 12/09/24 12:00 12/09/24 12:00 12/09/24 12:00 Temperature 39.4 C H Pulse Rate 96 92 Respiratory Rate 23 H Blood Pressure 107/71 Pulse Oximetry 92 Oxygen Delivery Fraction of Inspired Oxygen 45 12/09/24 12:00 12/09/24 12:00 12/09/24 12:00 Temperature Pulse Rate 95 94 94 Respiratory Rate 26 H 26 H 26 H Blood Pressure Pulse Oximetry Oxygen Delivery Fraction of Inspired Oxygen 12/09/24 12:00 12/09/24 12:00 12/09/24 12:00 Temperature Pulse Rate 94 94 94 Respiratory Rate 26 H 26 H Blood Pressure 107/71 Pulse Oximetry Oxygen Delivery Fraction of Inspired Oxygen 12/09/24 12:00 12/09/24 12:07 12/09/24 12:14 Temperature 39.4 C H 38.8 C H Pulse Rate 95 95 Respiratory Rate 24 H 26 H Blood Pressure 107/71 Pulse Oximetry 98 98 Oxygen Delivery Mechanical Ventilation Fraction of Inspired Oxygen 45 12/09/24 12:17 12/09/24 13:55 12/09/24 13:55 Temperature Pulse Rate 91 91 Respiratory Rate 26 H 26 H Blood Pressure Pulse Oximetry Oxygen Delivery Mechanical Ventilation Fraction of Inspired Oxygen 45 12/09/24 14:00 12/09/24 14:00 12/09/24 14:00 Temperature 39.1 C H Pulse Rate 90 91 91 Respiratory Rate 26 H 26 H Blood Pressure 117/83 Pulse Oximetry 96 Oxygen Delivery Fraction of Inspired Oxygen 12/09/24 14:00 12/09/24 14:00 12/09/24 14:00 Temperature Pulse Rate 91 91 91 Respiratory Rate 26 H 26 H 26 H Blood Pressure Pulse Oximetry Oxygen Delivery Fraction of Inspired Oxygen 12/09/24 14:00 12/09/24 14:00 12/09/24 14:37 Temperature Pulse Rate 91 91 92 Respiratory Rate 26 H 26 H Blood Pressure 117/83 Pulse Oximetry Oxygen Delivery Fraction of Inspired Oxygen 12/09/24 14:41 12/09/24 14:47 12/09/24 15:10 Temperature Pulse Rate 91 91 93 Respiratory Rate 26 H 26 H Blood Pressure Pulse Oximetry 95 Oxygen Delivery Mechanical Ventilation Fraction of Inspired Oxygen 45 12/09/24 15:14 12/09/24 16:00 12/09/24 16:00 Temperature 38.5 C H Pulse Rate 92 91 90 Respiratory Rate 26 H 26 H 26 H Blood Pressure 121/85 Pulse Oximetry 97 Oxygen Delivery Fraction of Inspired Oxygen 12/09/24 16:00 12/09/24 16:00 12/09/24 16:00 Temperature Pulse Rate 90 90 90 Respiratory Rate 26 H 26 H 26 H Blood Pressure Pulse Oximetry Oxygen Delivery Fraction of Inspired Oxygen 12/09/24 16:00 12/09/24 16:00 12/09/24 16:00 Temperature Pulse Rate 90 90 Respiratory Rate 26 H Blood Pressure 121/85 Pulse Oximetry 97 Oxygen Delivery Mechanical Ventilation Fraction of Inspired Oxygen 45 45 12/09/24 16:00 12/09/24 16:17 12/09/24 16:17 Temperature Pulse Rate 90 89 89 Respiratory Rate 26 H 26 H Blood Pressure Pulse Oximetry Oxygen Delivery Fraction of Inspired Oxygen 12/09/24 17:08 12/09/24 17:28 12/09/24 18:00 Temperature 38.2 C H Pulse Rate 86 87 85 Respiratory Rate 27 H 26 H Blood Pressure 113/81 Pulse Oximetry 98 98 Oxygen Delivery Mechanical Ventilation Fraction of Inspired Oxygen 45 12/09/24 18:00 12/09/24 18:00 12/09/24 18:00 Temperature Pulse Rate 85 85 84 Respiratory Rate 26 H 26 H 26 H Blood Pressure Pulse Oximetry Oxygen Delivery Fraction of Inspired Oxygen 12/09/24 18:00 12/09/24 18:00 12/09/24 18:00 Temperature Pulse Rate 85 85 85 Respiratory Rate 26 H Blood Pressure Pulse Oximetry Oxygen Delivery Fraction of Inspired Oxygen 12/09/24 18:33 12/09/24 18:33 12/09/24 18:59 Temperature Pulse Rate 84 84 84 Respiratory Rate 26 H 26 H 26 H Blood Pressure Pulse Oximetry Oxygen Delivery Fraction of Inspired Oxygen 12/09/24 18:59 12/09/24 19:56 12/09/24 19:57 Temperature Pulse Rate 84 87 87 Respiratory Rate 26 H 26 H Blood Pressure Pulse Oximetry 100 Oxygen Delivery Mechanical Ventilation Fraction of Inspired Oxygen 40 12/09/24 20:00 12/09/24 20:00 12/09/24 20:00 Temperature Pulse Rate 86 86 86 Respiratory Rate 26 H 26 H 26 H Blood Pressure Pulse Oximetry Oxygen Delivery Fraction of Inspired Oxygen 12/09/24 20:00 12/09/24 20:00 12/09/24 20:00 Temperature 38.5 C H Pulse Rate 86 86 Respiratory Rate 26 H 26 H Blood Pressure 120/88 Pulse Oximetry 100 Oxygen Delivery Fraction of Inspired Oxygen 40 12/09/24 20:00 12/09/24 20:00 12/09/24 20:09 Temperature Pulse Rate 86 87 87 Respiratory Rate 26 H 26 H Blood Pressure Pulse Oximetry 100 Oxygen Delivery Mechanical Ventilation Fraction of Inspired Oxygen 40 12/09/24 20:55 12/09/24 20:55 12/09/24 21:15 Temperature Pulse Rate 90 90 90 Respiratory Rate 26 H 26 H Blood Pressure Pulse Oximetry Oxygen Delivery Fraction of Inspired Oxygen 12/09/24 21:45 12/09/24 22:00 12/09/24 22:00 Temperature 38.9 C H 38.9 C H Pulse Rate 92 92 Respiratory Rate 26 H Blood Pressure 114/83 Pulse Oximetry 100 Oxygen Delivery Fraction of Inspired Oxygen 12/09/24 22:00 12/09/24 22:00 12/09/24 22:00 Temperature Pulse Rate 92 92 92 Respiratory Rate 26 H 26 H 26 H Blood Pressure Pulse Oximetry Oxygen Delivery Fraction of Inspired Oxygen 12/09/24 22:00 12/09/24 23:04 12/09/24 23:04 Temperature Pulse Rate 92 90 90 Respiratory Rate 26 H 26 H 26 H Blood Pressure Pulse Oximetry Oxygen Delivery Fraction of Inspired Oxygen 12/09/24 23:15 12/10/24 00:00 12/10/24 00:00 Temperature Pulse Rate 90 89 89 Respiratory Rate 26 H 26 H Blood Pressure Pulse Oximetry 100 97 Oxygen Delivery Mechanical Ventilation Mechanical Ventilation Fraction of Inspired Oxygen 35 35 12/10/24 00:00 12/10/24 00:00 12/10/24 00:00 Temperature 39.1 C H Pulse Rate 89 90 Respiratory Rate 26 H Blood Pressure 122/90 Pulse Oximetry 97 Oxygen Delivery Fraction of Inspired Oxygen 35 12/10/24 00:00 12/10/24 00:00 12/10/24 00:00 Temperature Pulse Rate 89 89 89 Respiratory Rate 26 H 26 H 26 H Blood Pressure Pulse Oximetry Oxygen Delivery Fraction of Inspired Oxygen 12/10/24 00:04 12/10/24 00:04 12/10/24 00:15 Temperature Pulse Rate 89 89 90 Respiratory Rate 26 H 26 H 26 H Blood Pressure Pulse Oximetry Oxygen Delivery Fraction of Inspired Oxygen 12/10/24 00:53 12/10/24 01:03 12/10/24 01:03 Temperature Pulse Rate 90 90 90 Respiratory Rate 26 H 26 H 26 H Blood Pressure Pulse Oximetry Oxygen Delivery Fraction of Inspired Oxygen 12/10/24 01:26 12/10/24 02:00 12/10/24 02:00 Temperature 39.3 C H Pulse Rate 90 90 Respiratory Rate 26 H 26 H Blood Pressure Pulse Oximetry Oxygen Delivery Fraction of Inspired Oxygen 12/10/24 02:00 12/10/24 02:00 12/10/24 02:00 Temperature Pulse Rate 90 90 90 Respiratory Rate 26 H 26 H Blood Pressure Pulse Oximetry Oxygen Delivery Fraction of Inspired Oxygen 12/10/24 02:00 12/10/24 02:07 12/10/24 02:08 Temperature 39.3 C H Pulse Rate 90 90 90 Respiratory Rate 26 H 26 H Blood Pressure 123/90 Pulse Oximetry 96 97 Oxygen Delivery Mechanical Ventilation Fraction of Inspired Oxygen 35 12/10/24 02:15 12/10/24 02:26 12/10/24 03:12 Temperature 39.2 C H Pulse Rate 91 91 Respiratory Rate 26 H 26 H Blood Pressure Pulse Oximetry Oxygen Delivery Fraction of Inspired Oxygen 12/10/24 03:14 12/10/24 04:00 12/10/24 04:00 Temperature 39.2 C H Pulse Rate 91 89 89 Respiratory Rate 26 H 26 H 26 H Blood Pressure 132/101 H Pulse Oximetry 97 97 Oxygen Delivery Mechanical Ventilation Fraction of Inspired Oxygen 35 12/10/24 04:00 12/10/24 04:00 12/10/24 04:00 Temperature Pulse Rate 90 90 Respiratory Rate 26 H Blood Pressure Pulse Oximetry Oxygen Delivery Fraction of Inspired Oxygen 35 12/10/24 04:00 12/10/24 04:00 12/10/24 04:00 Temperature Pulse Rate 90 90 90 Respiratory Rate 26 H 26 H 26 H Blood Pressure Pulse Oximetry Oxygen Delivery Fraction of Inspired Oxygen 12/10/24 04:49 12/10/24 04:50 12/10/24 05:14 Temperature Pulse Rate 88 88 89 Respiratory Rate 26 H 26 H Blood Pressure Pulse Oximetry 97 Oxygen Delivery Mechanical Ventilation Fraction of Inspired Oxygen 35 12/10/24 05:23 12/10/24 05:24 12/10/24 06:00 Temperature 39.1 C H Pulse Rate 87 87 91 Respiratory Rate 26 H 26 H 26 H Blood Pressure 127/88 Pulse Oximetry 99 Oxygen Delivery Fraction of Inspired Oxygen 12/10/24 06:00 12/10/24 06:00 12/10/24 06:00 Temperature Pulse Rate 91 91 91 Respiratory Rate 26 H 26 H Blood Pressure Pulse Oximetry Oxygen Delivery Fraction of Inspired Oxygen 12/10/24 06:00 12/10/24 06:00 Temperature Pulse Rate 91 91 Respiratory Rate 26 H 26 H Blood Pressure Pulse Oximetry Oxygen Delivery Fraction of Inspired Oxygen Intake/Output Intake/Output: Intake & Output 12/07/24 12/08/24 12/09/24 12/10/24 23:59 23:59 23:59 23:59 Intake Total 967.8 3847.9 4588.3 1646.0 Output Total 1070 2450 4250 2200 Balance -102.2 1397.9 338.3 -554.0 Meds/Results Medications: Active Medications Generic Name Dose Route Start Last Admin Trade Name Freq PRN Reason Stop Dose Admin Acetaminophen 650 mg 12/07/24 23:17 12/10/24 01:26 Acetaminophen Elixir 325 Mg/10.15 Ml Udc PO 650 mg Q6H PRN Administration Mild Pain (1-3) or Fever Alteplase, Recombinant 2 mg 12/07/24 09:34 12/10/24 04:09 Alteplase 2 Mg Vial (Cathflo) IV PUSH 2 mg ONCE PRN Administration Line Occlusion Aspirin 81 mg 12/06/24 08:00 12/09/24 08:37 Aspirin 81 Mg Chewable Tablet FEED TUBE 81 mg DAILY@0800 JULIUS Administration Atorvastatin Calcium 80 mg 12/06/24 09:00 12/09/24 08:36 Atorvastatin 40 Mg Tablet FEED TUBE 80 mg DAILY JULIUS Administration Dextrose 12.5 gm 12/06/24 07:25 Dextrose 50% 25 Gm/50 Ml Syringe IV PUSH PRN PRN Hypoglycemia Protocol Empagliflozin 10 mg 12/07/24 09:00 12/09/24 08:36 Empagliflozin 10 Mg Tablet PO 10 mg DAILY JULIUS Administration Folic Acid 1 mg 12/09/24 09:00 12/09/24 08:39 Folic Acid 1 Mg/0.2 Ml Inj IV PUSH 1 mg QAM JULIUS Administration Glucagon 1 mg 12/06/24 07:25 Glucagon For Inj 1 Mg Vial IM PRN PRN Hypoglycemia Protocol Glucose 15 gm 12/06/24 07:25 Glucose Oral Gel 15 Gm Of Glucse In 37.5 Gm Tube PO PRN PRN Hypoglycemia Protocol Heparin Sodium (Porcine) 5,000 units 12/07/24 14:00 12/10/24 05:04 Heparin Sodium 5,000 Units/Ml Vial SUB-Q 5,000 units Q8HR JULIUS Administration Hydralazine HCl 20 mg 12/05/24 22:33 12/06/24 05:46 Hydralazine Hcl 20 Mg/Ml Vial IV PUSH 20 mg Q4HR PRN Administration Blood Pressure - High Fentanyl Citrate 2,500 mcg in 250 mls @ 10 mls/hr 12/05/24 13:50 12/10/24 06:00 Fentanyl 2,500 Mcg/Ns 250 Ml IV CONT 100 mcg/hr .Q25H JULIUS 10 mls/hr Titration Protocol 100 MCG/HR Dextrose 1,000 mls @ 100 mls/hr 12/06/24 07:25 Dextrose 5% 1,000 Ml IVPB PRN PRN Hypoglycemia Protocol Levetiracetam 1,000 mg in 100 mls @ 400 mls/hr 12/08/24 09:00 12/09/24 21:23 Keppra Iv IVPB Infused Q12HR JULIUS Infusion Dexmedetomidine HCl 400 mcg in 100 mls @ 46.613 mls/hr 12/08/24 07:40 12/10/24 06:00 Precedex 400 Mcg/100 Ml IV CONT 1.5 mcg/kg/hr .Q2H9M JULIUS 46.61 mls/hr Titration Protocol 1.5 MCG/KG/HR Midazolam HCl 100 mg in 100 mls @ 3 mls/hr 12/08/24 12:00 12/10/24 06:00 Versed 100 Mg/Ns 100 Ml IV CONT 3 mg/hr .[id number] JULIUS 3 mls/hr Titration Protocol 3 MG/HR Meropenem 1 gm/ Sodium 100 mls @ 200 mls/hr 12/08/24 13:00 12/10/24 05:06 Chloride IVPB 200 mls/hr Q8HR JULIUS Administration Ketamine HCl 1,000 mg/ Sodium 100 mls @ 21.63 mls/hr 12/09/24 07:15 12/10/24 06:00 Chloride IV CONT 1.75 mg/kg/hr .Q4H38M JULIUS 21.63 mls/hr Titration Protocol 1.75 MG/KG/HR Vancomycin HCl 2,000 mg in 500 mls @ 250 mls/hr 12/09/24 21:00 12/10/24 00:00 Vancomycin 2,000 Mg/Ns 500 Ml IVPB Infused Q12H JULIUS Infusion Insulin Aspart 4 - 8 units 12/06/24 09:00 12/10/24 05:28 Insulin Aspart (*Bkc) 100 Units/Ml SUB-Q Not Given Q4HR [facility] Protocol Insulin Glargine 10 units 12/06/24 09:00 12/09/24 08:40 Insulin Glargine (*Bkc) 100 Units/Ml SUB-Q 10 units QAM JULIUS Administration Ipratropium [place] 0.5 mg 12/09/24 08:00 12/10/24 02:06 Ipratropium Br 0.02% Inh Soln 0.5 Mg/2.5 Ml Vial INHALATION 0.5 mg Q6HRT JULIUS Administration Labetalol HCl 20 mg 12/06/24 07:34 Labetalol Hcl Inj 100 Mg/20 Ml Vial IV PUSH Q4H PRN SBP > 160 and HR> 60 -1st choice Levalbuterol HCl 0.63 mg 12/09/24 08:00 12/10/24 02:06 Levalbuterol Neb 1.25 Mg/3 Ml INHALATION 0.63 mg Q6HRT JULIUS Administration Metoprolol Tartrate 25 mg 12/08/24 21:00 12/09/24 21:15 Metoprolol Tartrate 25 Mg Tablet PO 25 mg Q12HR JULIUS Administration Multi-Ingred Cream/Lotion/Oil/Oint 1 applic 12/05/24 21:00 12/09/24 21:16 Mineral Oil/White Petrolatum Ointment EACH EYE 1 applic Q12HR JULIUS Administration Nitroglycerin 0.4 mg 12/05/24 13:47 Nitroglycerin Sl 0.4 Mg Tablet SUBLINGUAL Q5MIN PRN Chest Pain Pantoprazole Sodium 40 mg 12/06/24 07:40 12/09/24 21:15 Pantoprazole Sodium Iv 40 Mg Vial IV PUSH 40 mg Q12HR JULIUS Administration Sodium Chloride 10 ml 12/05/24 22:00 12/10/24 05:05 Central Line Flush IV PUSH 10 ml Q8HR JULIUS Administration Sodium Chloride 20 ml 12/05/24 15:00 Central Line Flush IV PUSH PRN PRN after blood draws Thiamine HCl 100 mg 12/09/24 09:00 12/09/24 08:37 Thiamine Hcl 200 Mg/2 Ml Vial IV PUSH 100 mg QAM JULIUS Administration Ticagrelor 90 mg 12/05/24 21:00 12/09/24 21:15 Ticagrelor 90 Mg Tablet FEED TUBE 90 mg Q12HR JULIUS Administration Radiology Results: ITS Impressions Cervical Spine CT 12/05/24 12:16 Impression: No acute displaced fracture within the cervical spine. Large right-sided and small left-sided pleural effusions without pneumothorax for which further evaluation post cardiac intervention is suggested (if the patient is clinically able). Abdomen X-Ray 12/06/24 14:26 IMPRESSION: Orogastric tube in good position and ready for immediate use. Renal Ultrasound 12/08/24 11:43 IMPRESSION: Normal ultrasound evaluation of the kidneys. Head CT 12/09/24 11:17 Impression: No acute intracranial hemorrhage or significant mass effect. Subtle loss of the mckenzie-white matter differentiation within the posterior cranial fossa, an interval change from 12/05/2024 for which cerebral edema is suspected. Chest/Abdomen/Pelvis CT 12/09/24 11:24 IMPRESSION: Multiple right-sided rib fractures (5th, 7th, 8th and 11th) with a large (likely a combination of blood and serosanguineous fluid) with adjacent compressive atelectasis. Small left-sided pleural effusion without associated rib fractures. Layering sludge within the gallbladder, without surrounding inflammatory change. Right common femoral vascular access with trace induration of the superficial soft tissues of the right groin. No additional findings as an infectious source, as detailed above. Venous Doppler Study 12/09/24 11:51 Impression: No evidence of deep venous thrombosis Thoracentesis Ultrasound 12/09/24 17:38 IMPRESSION: 1. Successful ultrasound-guided thoracentesis yielding 600 mL of bloody dark maroon-colored fluid. Chest X-Ray 12/10/24 05:42 Impression: Stable bilateral pleural effusions with mild bibasilar pulmonary edema. Stable support tubes. Labs Labs: Laboratory Results - last 24 hr 12/08/24 12/08/24 12/09/24 04:16 11:15 08:01 WBC RBC Hgb Hct MCV MCH MCHC RDW Plt Count MPV Immature Gran % (Auto) Neut % (Auto) Lymph % (Auto) [place] % (Auto) Eos % (Auto) Baso % (Auto) Lymph # (Auto) [place] # (Auto) Eos # (Auto) Baso # (Auto) Abs Immat Gran (auto) Absolute Neuts (auto) Absolute Nucleated RBC Nucleated RBC % PT INR APTT Puncture Site ABG pH ABG pCO2 ABG pO2 ABG PO2/FiO2 Ratio ABG HCO3 ABG O2 Saturation ABG O2 Content ABG Base Excess A-a Gradient Oxyhemoglobin Carboxyhemoglobin Methemoglobin Reduced Hemoglobin Total Hemoglobin O2 Delivery Device O2 Liters/Min Minute Volume Vent Rate 22 Vent Mode Cmv FiO2 Tidal Volume 450 PEEP 8 Peak Inspir Pressure Pressure Support Sodium Potassium Chloride Carbon Dioxide Anion Gap BUN Creatinine Estim Creat Clear Calc Estimated GFR Glucose POC Capillary Glucose 179 H Serum Osmolality Calcium Phosphorus Magnesium Total Bilirubin AST ALT Alkaline Phosphatase Lactate Dehydrogenase Total Creatine Kinase Total Protein Albumin Triglycerides Pleural Fluid Source Pleural Color Pleural Appearance Pleural pH Pleural RBC Pleural Nuc Cells Pleural Neutrophils Pleural Lymphocytes Pleural Monocytes Pleural Macrophages Pleural Mesothelial Vancomycin Trough Miscellaneous Test Comment 12/09/24 12/09/24 12/09/24 11:33 12:45 13:05 WBC RBC Hgb Hct MCV MCH MCHC RDW Plt Count MPV Immature Gran % (Auto) Neut % (Auto) Lymph % (Auto) [place] % (Auto) Eos % (Auto) Baso % (Auto) Lymph # (Auto) [place] # (Auto) Eos # (Auto) Baso # (Auto) Abs Immat Gran (auto) Absolute Neuts (auto) Absolute Nucleated RBC Nucleated RBC % PT 15.8 H INR 1.3 APTT 30.3 Puncture Site ABG pH ABG pCO2 ABG pO2 ABG PO2/FiO2 Ratio ABG HCO3 ABG O2 Saturation ABG O2 Content ABG Base Excess A-a Gradient Oxyhemoglobin Carboxyhemoglobin Methemoglobin Reduced Hemoglobin Total Hemoglobin O2 Delivery Device O2 Liters/Min Minute Volume Vent Rate Vent Mode FiO2 Tidal Volume PEEP Peak Inspir Pressure Pressure Support Sodium Potassium Chloride Carbon Dioxide Anion Gap BUN Creatinine Estim Creat Clear Calc Estimated GFR Glucose 158 H POC Capillary Glucose 161 H Serum Osmolality Calcium Phosphorus Magnesium Total Bilirubin AST ALT Alkaline Phosphatase Lactate Dehydrogenase 950 H Total Creatine Kinase Total Protein 5.8 L Albumin 3.2 L Triglycerides Pleural Fluid Source Pleural Color Pleural Appearance Pleural pH Pleural RBC Pleural Nuc Cells Pleural Neutrophils Pleural Lymphocytes Pleural Monocytes Pleural Macrophages Pleural Mesothelial Vancomycin Trough Miscellaneous Test 12/09/24 12/09/24 12/09/24 16:00 16:04 16:10 WBC RBC Hgb Hct MCV MCH MCHC RDW Plt Count MPV Immature Gran % (Auto) Neut % (Auto) Lymph % (Auto) [place] % (Auto) Eos % (Auto) Baso % (Auto) Lymph # (Auto) [place] # (Auto) Eos # (Auto) Baso # (Auto) Abs Immat Gran (auto) Absolute Neuts (auto) Absolute Nucleated RBC Nucleated RBC % PT INR APTT Puncture Site ABG pH ABG pCO2 ABG pO2 ABG PO2/FiO2 Ratio ABG HCO3 ABG O2 Saturation ABG O2 Content ABG Base Excess A-a Gradient Oxyhemoglobin Carboxyhemoglobin Methemoglobin Reduced Hemoglobin Total Hemoglobin O2 Delivery Device O2 Liters/Min Minute Volume Vent Rate Vent Mode FiO2 Tidal Volume PEEP Peak Inspir Pressure Pressure Support Sodium Potassium Chloride Carbon Dioxide Anion Gap BUN Creatinine Estim Creat Clear Calc Estimated GFR Glucose POC Capillary Glucose 173 H Serum Osmolality Calcium Phosphorus Magnesium Total Bilirubin AST ALT Alkaline Phosphatase Lactate Dehydrogenase Total Creatine Kinase Total Protein Albumin Triglycerides Pleural Fluid Source Pleural fluid Pleural Color Red Pleural Appearance Bloody Pleural pH 7.266 Pleural RBC 8900222 H Pleural Nuc Cells 4379 H Pleural Neutrophils 62 H Pleural Lymphocytes 21 Pleural Monocytes 6 Pleural Macrophages 11 Pleural Mesothelial 0 Vancomycin Trough Miscellaneous Test 12/09/24 12/09/24 12/09/24 17:15 18:58 21:19 WBC RBC Hgb Hct MCV MCH MCHC RDW Plt Count MPV Immature Gran % (Auto) Neut % (Auto) Lymph % (Auto) [place] % (Auto) Eos % (Auto) Baso % (Auto) Lymph # (Auto) [place] # (Auto) Eos # (Auto) Baso # (Auto) Abs Immat Gran (auto) Absolute Neuts (auto) Absolute Nucleated RBC Nucleated RBC % PT INR APTT Puncture Site ABG pH ABG pCO2 ABG pO2 ABG PO2/FiO2 Ratio ABG HCO3 ABG O2 Saturation ABG O2 Content ABG Base Excess A-a Gradient Oxyhemoglobin Carboxyhemoglobin Methemoglobin Reduced Hemoglobin Total Hemoglobin O2 Delivery Device O2 Liters/Min Minute Volume Vent Rate Vent Mode FiO2 Tidal Volume PEEP Peak Inspir Pressure Pressure Support Sodium 147 H Potassium 4.3 Chloride 111 H Carbon Dioxide 27 Anion Gap 9 BUN 21 H Creatinine 1.38 H Estim Creat Clear Calc 85 Estimated GFR 57 L Glucose 169 H POC Capillary Glucose 198 H Serum Osmolality Cancelled Calcium 8.1 L Phosphorus Magnesium Total Bilirubin AST ALT Alkaline Phosphatase Lactate Dehydrogenase Total Creatine Kinase Total Protein Albumin Triglycerides Pleural Fluid Source Pleural Color Pleural Appearance Pleural pH Pleural RBC Pleural Nuc Cells Pleural Neutrophils Pleural Lymphocytes Pleural Monocytes Pleural Macrophages Pleural Mesothelial Vancomycin Trough < 5.0 L Miscellaneous Test 12/10/24 12/10/24 12/10/24 00:47 04:41 05:11 WBC 11.8 H RBC 3.94 L Hgb 12.3 L Hct 39.9 L MCV 101.3 H MCH 31.2 MCHC 30.8 L RDW 13.2 Plt Count 202 MPV 9.8 Immature Gran % (Auto) 0.4 Neut % (Auto) 77.5 H Lymph % (Auto) 10.3 L [place] % (Auto) 11.6 H Eos % (Auto) 0.0 Baso % (Auto) 0.2 Lymph # (Auto) 1.21 [place] # (Auto) 1.4 H Eos # (Auto) 0.0 Baso # (Auto) 0.0 Abs Immat Gran (auto) 0.05 H Absolute Neuts (auto) 9.1 H Absolute Nucleated RBC 0.000 Nucleated RBC % 0.0 PT INR APTT Puncture Site Left radial ABG pH 7.376 ABG pCO2 37.3 ABG pO2 82.5 ABG PO2/FiO2 Ratio 2.36 ABG HCO3 21.4 L ABG O2 Saturation 96.0 ABG O2 Content 16.6 ABG Base Excess -3.3 A-a Gradient 123.7 Oxyhemoglobin 94.7 Carboxyhemoglobin 0.5 Methemoglobin 0.1 Reduced Hemoglobin 4.7 Total Hemoglobin 12.4 O2 Delivery Device Ventilator O2 Liters/Min Not Reportable Minute Volume Not Reportable Vent Rate 26 Vent Mode Cmv FiO2 35 Tidal Volume 450 PEEP 8 Peak Inspir Pressure Not Reportable Pressure Support Not Reportable Sodium 149 H Potassium 4.6 Chloride 115 H Carbon Dioxide 25 Anion Gap 9 BUN 25 H Creatinine 1.37 H Estim Creat Clear Calc 86 Estimated GFR 57 L Glucose 210 H POC Capillary Glucose 193 H Serum Osmolality Calcium 8.5 Phosphorus 3.6 Magnesium 3.1 H Total Bilirubin 1.3 AST 67 H ALT 55 H Alkaline Phosphatase 41 Lactate Dehydrogenase Total Creatine Kinase 601 H Total Protein 6.8 Albumin 4.0 Triglycerides 231 H Pleural Fluid Source Pleural Color Pleural Appearance Pleural pH Pleural RBC Pleural Nuc Cells Pleural Neutrophils Pleural Lymphocytes Pleural Monocytes Pleural Macrophages Pleural Mesothelial Vancomycin Trough Miscellaneous Test 12/10/24 05:20 WBC RBC Hgb Hct MCV MCH MCHC RDW Plt Count MPV Immature Gran % (Auto) Neut % (Auto) Lymph % (Auto) [place] % (Auto) Eos % (Auto) Baso % (Auto) Lymph # (Auto) [place] # (Auto) Eos # (Auto) Baso # (Auto) Abs Immat Gran (auto) Absolute Neuts (auto) Absolute Nucleated RBC Nucleated RBC % PT INR APTT Puncture Site ABG pH ABG pCO2 ABG pO2 ABG PO2/FiO2 Ratio ABG HCO3 ABG O2 Saturation ABG O2 Content ABG Base Excess A-a Gradient Oxyhemoglobin Carboxyhemoglobin Methemoglobin Reduced Hemoglobin Total Hemoglobin O2 Delivery Device O2 Liters/Min Minute Volume Vent Rate Vent Mode FiO2 Tidal Volume PEEP Peak Inspir Pressure Pressure Support Sodium Potassium Chloride Carbon Dioxide Anion Gap BUN Creatinine Estim Creat Clear Calc Estimated GFR Glucose POC Capillary Glucose 191 H Serum Osmolality Calcium Phosphorus Magnesium Total Bilirubin AST ALT Alkaline Phosphatase Lactate Dehydrogenase Total Creatine Kinase Total Protein Albumin Triglycerides Pleural Fluid Source Pleural Color Pleural Appearance Pleural pH Pleural RBC Pleural Nuc Cells Pleural Neutrophils Pleural Lymphocytes Pleural Monocytes Pleural Macrophages Pleural Mesothelial Vancomycin Trough Miscellaneous Test
[2024-12-10] MEDS: PHENobarbitaL sodium (*CRX) 130 MG/ML VIAL IV PUSH (08:04)
[2024-12-10] MEDS: LIDOCAINE 1% PF INJ 5 ML VIAL INFILTRATE (08:15)
[2024-12-10] MEDS: METOPROLOL TARTRATE 25 MG TABLET PO ×2 (08:52→20:29)
[2024-12-10] MEDS: ASPIRIN 81 MG CHEWABLE TABLET FEED TUBE (08:53)
[2024-12-10] MEDS: TICAGRELOR 90 MG TABLET FEED TUBE ×2 (08:53→20:29)
[2024-12-10] MEDS: EMPAGLIFLOZIN 10 MG TABLET PO (08:53)
[2024-12-10] MEDS: ATORVASTATIN 40 MG TABLET 80 MG FEED TUBE (08:53)
[2024-12-10] MEDS: THIAMINE HCL 200 MG/2 ML VIAL 100 MG IV PUSH (08:53)
[2024-12-10] MEDS: PANTOPRAZOLE SODIUM IV 40 MG VIAL IV PUSH ×2 (08:53→20:29)
[2024-12-10] MEDS: levETIRAcetam 1000MG/NACL100ML 1,000 MG/100 ML BAG 400 MG IVPB ×2 (08:54→20:29)
[2024-12-10] MEDS: MINERAL OIL/WHITE PETROLATUM OINTMENT 1 APPLIC EACH EYE ×2 (08:54→20:30)
[2024-12-10] MEDS: IRBESARTAN 75 MG TABLET PO (08:57)
--- NOTE | 2024-12-10 08:58 | WPDINTPN ---
Progress Note: A&P Assessment and Plan (1) Fever: Code(s): R50.9 - Fever, unspecified Status: Acute Assessment and Plan: Patient continues to remain febrile -could be related to central fever -possible aspiration pneumonia, on Zosyn (12/06) -12/06: Sputum culture growing Klebsiella pneumonia -12/08: blood cultures obtained -12/08: Sputum cultures ordered -added vancomycin (12/08) -12/08: Zosyn was discontinued and started on meropenem (12/08) 12/10: Will place PICC line, remove femoral central line, replace dave catheter 12/09: Venous Dopplers: No DVTs bilaterally 12/09: CT brain: No acute intracranial hemorrhage or significant mass effect. Subtle loss of the mckenzie-white matter differentiation within the posterior cranial fossa, an interval change from 12/05/2024 for which cerebral edema is suspected. 12/09: CT scan of the chest, abdomen and pelvis IMPRESSION: Multiple right-sided rib fractures (5th, 7th, 8th and 11th) with a large (likely a combination of blood and serosanguineous fluid) with adjacent compressive atelectasis. Small left-sided pleural effusion without associated rib fractures. Layering sludge within the gallbladder, without surrounding inflammatory change. Right common femoral vascular access with trace induration of the superficial soft tissues of the right groin. No additional findings as an infectious source, as detailed above. (2) Alcohol withdrawal: Code(s): F10.939 - Alcohol use, unspecified with withdrawal, unspecified Status: Acute Assessment and Plan: According to patient's , the patient drinks 10 beers per day (admitted on 12/05/2024) -patient very agitated despite being on multiple sedation medications -12/09: patient given phenobarbital loading dose, will start phenobarbital taper -continue versed infusion (3) Acute respiratory failure: Code(s): J96.00 - Acute respiratory failure, unspecified whether with hypoxia or hypercapnia Status: Acute Assessment and Plan: Acute Respiratory failure secondary to cardiac arrest 12/05: Intubated Continue full mechanical ventilation support to prevent hypoxemia/hypercarbia and end organ damage. Chest x-ray and ABGs reviewed, ventilator adjusted Continue bronchodilators -currently fentanyl, Versed, Precedex infusion for sedation, early this morning patient was agitated and required 4 staff members to hold him down. Propofol was started briefly. -12/09 added ketamine drip and will discontinue propofol infusion given elevated triglycerides -patient likely requiring some and sedation possibly due to alcohol withdrawal start to taper/wean sedation gradually today (4) Cardiac arrest: Code(s): I46.9 - Cardiac arrest, cause unspecified Status: Acute Assessment and Plan: Cardiac arrest secondary to acute ST segment elevation SC Status post cardiac catheterization which showed 100% blockage of proximal LAD status post IRWIN x2 to proximal LAD -cardiology following the patient, -continue ticagrelor, aspirin, atorvastatin, Jardiance, metoprolol - added Irbesartan as recommended by Cardiology for cardiomyopathy 12/06/2024: Echocardiogram Summary 1. Left ventricular systolic function is normal, estimated at 40-45. 2. There is mildly increased left ventricular wall thickness. 3. The left ventricular diastolic function is abnormal. 4. The inferior wall, apical septum, apical lateral wall, mid inferoseptal, basal anteroseptal, and mid anteroseptal are hypokinetic. (5) Acute ST elevation myocardial infarction: Code(s): I21.3 - ST elevation (STEMI) myocardial infarction of unspecified site Status: Acute Assessment and Plan: See above (6) Ischemic cardiomyopathy: Code(s): I25.5 - Ischemic cardiomyopathy Status: Acute Assessment and Plan: See above (7) Anoxic brain injury: Code(s): G93.1 - Anoxic brain damage, not elsewhere classified Status: Acute Assessment and Plan: Suspected anoxic brain injury from cardiac arrest as patient was unresponsive on presentation, 20-25 minutes of downtime -12/07: off paralytic, off sedation patient did have a seizure for which she was given Ativan which abated this seizure, -patient status post target temperature management -increase Keppra to 1000 mg IV q.12 hours -appreciate Neurology evaluation and recommendation -12/08 EEG: Suggestive organic or metabolic encephalopathy or postictal state, will discuss with Urology 12/05/2024 CT brain: No intracranial hemorrhage or suspicious mass effect. 12/09: CT brain: No acute intracranial hemorrhage or significant mass effect. Subtle loss of the mckenzie-white matter differentiation within the posterior cranial fossa, an interval change from 12/05/2024 for which cerebral edema is suspected. Discussed with neurology, recommended giving a dose of mannitol, Decadron,, hyperventilation. Neurologist stated that this suspected edema is normally seen after cardiac arrest (8) Gastro-esophageal reflux disease without esophagitis: Code(s): K21.9 - Gastro-esophageal reflux disease without esophagitis Status: Acute Assessment and Plan: PPI IV q.12 hours -patient had some GI bleed, GI was consulted. -12/06/2024 EGD showed gastritis with bleeding -Continue Protonix IV q.12 hours -hemoglobin remained stable Discussed with GI regarding starting heparin for DVT prophylaxis, GI was okay with it (9) Elevated liver enzymes: Code(s): R74.8 - Abnormal levels of other serum enzymes Status: Acute Assessment and Plan: Liver enzymes trending down most likely related to cardiac arrest and STEMI, low-flow state (10) Diabetes mellitus: Code(s): E11.9 - Type 2 diabetes mellitus without complications Status: Acute Assessment and Plan: Continue sliding scale insulin Accu-Cheks, -continue Lantus (11) Seizures: Code(s): R56.9 - Unspecified convulsions Status: Acute Assessment and Plan: Off sedation patient did have a seizure-like activity, treated with Ativan x1 with improvement. -continue Keppra (12) Acute kidney injury: Code(s): N17.9 - Acute kidney failure, unspecified Status: Acute Assessment and Plan: 12/08: Creatinine increased to 1.62 from 0.98 -patient is in negative fluid balance -urine lytes reflective of prerenal -12/08: Renal ultrasound: Normal ultrasound evaluation of the kidneys -CK levels mildly elevated, and urine eosinophils were negative -status post IV fluids overnight with improvement in creatinine, adequate urine output -mild elevation in the sodium likely related to mannitol, continue to monitor Plan DVT prophylaxis -heparin subQ, discussed with GI, as patient had erosive gastritis. GI will is agreeable with prophylactic heparin. Stress ulcer prophylaxis -PPI IV q.12 Nutrition -tolerating tube feeds at 65 mL/hour, bowel movement on 12/08 Code Status - Full Code Total Critical Care Time - 34 minutes Discussed with patient's , parents, sister and updated them with his condition and plan of care. I answered all the questions Due to a high probability of clinically significant, life threatening deterioration, the patient required my highest level of preparedness to intervene emergently and I personally spent this critical care time directly and personally managing the patient. This critical care time included obtaining a history; examining the patient; pulse oximetry; ordering and review of studies; arranging urgent treatment with development of a management plan; evaluation of patient's response to treatment; frequent reassessment; and discussions with other providers. It was exclusive of separately billable procedures and treating other patients and teaching time. Please see Assessment and Plan section and the rest of the note for further information on patient assessment and treatment This dictation may have been done utilizing a voice recognition system. Attempts have been made to correct errors. However, there may be uncorrected grammatical, spelling, and recognitions errors present. Subjective Date/time seen: 12/10/24 08:58 Interval history: Reason for encounter: 12/06/2019 Anterior STEMI, out of hospital VFib cardiac arrest status post resuscitation, status post TTM 12/05: intubated 12/09: Right thoracentesis by IR 12/10/2024: Patient seen and examined the ICU, remains intubated on CMV mode of ventilation, peep of 8, 35% FiO2, sedated with Versed, fentanyl, Precedex, ketamine infusions. Patient has not been agitated through the night. Urine output has been good, creatinine has been stable, adequate blood pressures, not requiring any pressors. Patient remains febrile with a T-max of 102.8. White blood cell count trending down. LFTs for almost normalized, CK levels trending down Review of Systems Review of Systems: ROS unobtainable: Yes unobtainable due to endotracheal tube, unobtainable due to medical condition and unobtainable due to mental status Exam Narrative: General: Pt is sedated, intubated and on mechanical ventilation HEENT: Pupils are small, equal and reactive bilaterally, sclera is clear, ETT in place Lungs/Chest: Coarse breath sounds bilaterally, decreased at bases, adequate air entry, no wheeze Cardiac: Regular rate and rhythm. Normal S1 S2. No murmurs Circulation: Pedal pulses are palpable, mottling noted on abdomen, and lower extremities bilaterally Abdomen: Decreased bowel sounds. Obese. Soft. NT. ND. Extremities: No clubbing, cyanosis or edema. Warm extremities : Dave in place Neurologic: Patient is sedated, intubated, does not open his eyes or follow simple commands. (On 12/08: Patient did follow commands consistently on upper and lower extremities when sedation was totally taken off and he was agitated) Objective Data Vital Signs Vital Signs: Vital Signs - 24 hr 12/09/24 09:11 12/09/24 09:34 12/09/24 09:43 Temperature Pulse Rate 93 93 94 Respiratory Rate 22 H 22 H 22 H Blood Pressure Pulse Oximetry Oxygen Delivery Fraction of Inspired Oxygen 12/09/24 09:43 12/09/24 10:00 12/09/24 10:00 Temperature 101.9 F H Pulse Rate 94 90 91 Respiratory Rate 22 H 22 H 22 H Blood Pressure 105/72 Pulse Oximetry 97 Oxygen Delivery Fraction of Inspired Oxygen 12/09/24 10:00 12/09/24 10:00 12/09/24 10:00 Temperature Pulse Rate 91 91 91 Respiratory Rate 22 H 22 H 22 H Blood Pressure Pulse Oximetry Oxygen Delivery Fraction of Inspired Oxygen 12/09/24 10:00 12/09/24 10:00 12/09/24 10:00 Temperature Pulse Rate 91 91 89 Respiratory Rate 22 H Blood Pressure 105/72 Pulse Oximetry Oxygen Delivery Fraction of Inspired Oxygen 12/09/24 10:45 12/09/24 10:45 12/09/24 10:45 Temperature Pulse Rate 104 H 104 H 104 H Respiratory Rate 18 18 18 Blood Pressure Pulse Oximetry Oxygen Delivery Fraction of Inspired Oxygen 12/09/24 11:00 12/09/24 11:00 12/09/24 11:14 Temperature 102.9 F H Pulse Rate 94 94 Respiratory Rate 22 H 22 H Blood Pressure Pulse Oximetry Oxygen Delivery Fraction of Inspired Oxygen 12/09/24 11:23 12/09/24 11:39 12/09/24 11:39 Temperature Pulse Rate 97 95 95 Respiratory Rate 25 H 25 H Blood Pressure Pulse Oximetry 92 Oxygen Delivery Mechanical Ventilation Fraction of Inspired Oxygen 45 12/09/24 11:41 12/09/24 11:41 12/09/24 11:43 Temperature Pulse Rate 95 95 96 Respiratory Rate 25 H 25 H 25 H Blood Pressure Pulse Oximetry Oxygen Delivery Fraction of Inspired Oxygen 12/09/24 11:43 12/09/24 11:44 12/09/24 12:00 Temperature 103.0 F H Pulse Rate 96 96 96 Respiratory Rate 25 H 26 H 23 H Blood Pressure 107/71 Pulse Oximetry 92 Oxygen Delivery Fraction of Inspired Oxygen 12/09/24 12:00 12/09/24 12:00 12/09/24 12:00 Temperature Pulse Rate 92 95 Respiratory Rate 26 H Blood Pressure Pulse Oximetry Oxygen Delivery Fraction of Inspired Oxygen 45 12/09/24 12:00 12/09/24 12:00 12/09/24 12:00 Temperature Pulse Rate 94 94 94 Respiratory Rate 26 H 26 H 26 H Blood Pressure Pulse Oximetry Oxygen Delivery Fraction of Inspired Oxygen 12/09/24 12:00 12/09/24 12:00 12/09/24 12:00 Temperature Pulse Rate 94 94 95 Respiratory Rate 26 H 24 H Blood Pressure 107/71 Pulse Oximetry 98 Oxygen Delivery Mechanical Ventilation Fraction of Inspired Oxygen 45 12/09/24 12:07 12/09/24 12:14 12/09/24 12:17 Temperature 102.9 F H 102 F H Pulse Rate 95 Respiratory Rate 26 H Blood Pressure 107/71 Pulse Oximetry 98 Oxygen Delivery Mechanical Ventilation Fraction of Inspired Oxygen 45 12/09/24 13:55 12/09/24 13:55 12/09/24 14:00 Temperature 102.3 F H Pulse Rate 91 91 90 Respiratory Rate 26 H 26 H 26 H Blood Pressure 117/83 Pulse Oximetry 96 Oxygen Delivery Fraction of Inspired Oxygen 12/09/24 14:00 12/09/24 14:00 12/09/24 14:00 Temperature Pulse Rate 91 91 91 Respiratory Rate 26 H 26 H Blood Pressure Pulse Oximetry Oxygen Delivery Fraction of Inspired Oxygen 12/09/24 14:00 12/09/24 14:00 12/09/24 14:00 Temperature Pulse Rate 91 91 91 Respiratory Rate 26 H 26 H 26 H Blood Pressure Pulse Oximetry Oxygen Delivery Fraction of Inspired Oxygen 12/09/24 14:00 12/09/24 14:37 12/09/24 14:41 Temperature Pulse Rate 91 92 91 Respiratory Rate 26 H Blood Pressure 117/83 Pulse Oximetry 95 Oxygen Delivery Mechanical Ventilation Fraction of Inspired Oxygen 45 12/09/24 14:47 12/09/24 15:10 12/09/24 15:14 Temperature Pulse Rate 91 93 92 Respiratory Rate 26 H 26 H 26 H Blood Pressure Pulse Oximetry Oxygen Delivery Fraction of Inspired Oxygen 12/09/24 16:00 12/09/24 16:00 12/09/24 16:00 Temperature 101.3 F H Pulse Rate 91 90 90 Respiratory Rate 26 H 26 H 26 H Blood Pressure 121/85 Pulse Oximetry 97 Oxygen Delivery Fraction of Inspired Oxygen 12/09/24 16:00 12/09/24 16:00 12/09/24 16:00 Temperature Pulse Rate 90 90 90 Respiratory Rate 26 H 26 H Blood Pressure 121/85 Pulse Oximetry Oxygen Delivery Fraction of Inspired Oxygen 12/09/24 16:00 12/09/24 16:00 12/09/24 16:00 Temperature Pulse Rate 90 90 Respiratory Rate 26 H Blood Pressure Pulse Oximetry 97 Oxygen Delivery Mechanical Ventilation Fraction of Inspired Oxygen 45 45 12/09/24 16:17 12/09/24 16:17 12/09/24 17:08 Temperature Pulse Rate 89 89 86 Respiratory Rate 26 H 26 H Blood Pressure Pulse Oximetry 98 Oxygen Delivery Mechanical Ventilation Fraction of Inspired Oxygen 45 12/09/24 17:28 12/09/24 18:00 12/09/24 18:00 Temperature 100.8 F H Pulse Rate 87 85 85 Respiratory Rate 27 H 26 H 26 H Blood Pressure 113/81 Pulse Oximetry 98 Oxygen Delivery Fraction of Inspired Oxygen 12/09/24 18:00 12/09/24 18:00 12/09/24 18:00 Temperature Pulse Rate 85 84 85 Respiratory Rate 26 H 26 H 26 H Blood Pressure Pulse Oximetry Oxygen Delivery Fraction of Inspired Oxygen 12/09/24 18:00 12/09/24 18:00 12/09/24 18:33 Temperature Pulse Rate 85 85 84 Respiratory Rate 26 H Blood Pressure Pulse Oximetry Oxygen Delivery Fraction of Inspired Oxygen 12/09/24 18:33 12/09/24 18:59 12/09/24 18:59 Temperature Pulse Rate 84 84 84 Respiratory Rate 26 H 26 H 26 H Blood Pressure Pulse Oximetry Oxygen Delivery Fraction of Inspired Oxygen 12/09/24 19:56 12/09/24 19:57 12/09/24 20:00 Temperature Pulse Rate 87 87 86 Respiratory Rate 26 H 26 H Blood Pressure Pulse Oximetry 100 Oxygen Delivery Mechanical Ventilation Fraction of Inspired Oxygen 40 12/09/24 20:00 12/09/24 20:00 12/09/24 20:00 Temperature Pulse Rate 86 86 86 Respiratory Rate 26 H 26 H 26 H Blood Pressure Pulse Oximetry Oxygen Delivery Fraction of Inspired Oxygen 12/09/24 20:00 12/09/24 20:00 12/09/24 20:00 Temperature 101.3 F H Pulse Rate 86 86 Respiratory Rate 26 H 26 H Blood Pressure 120/88 Pulse Oximetry 100 100 Oxygen Delivery Mechanical Ventilation Fraction of Inspired Oxygen 40 40 12/09/24 20:00 12/09/24 20:09 12/09/24 20:55 Temperature Pulse Rate 87 87 90 Respiratory Rate 26 H 26 H Blood Pressure Pulse Oximetry Oxygen Delivery Fraction of Inspired Oxygen 12/09/24 20:55 12/09/24 21:15 12/09/24 21:45 Temperature 102.0 F H Pulse Rate 90 90 Respiratory Rate 26 H Blood Pressure Pulse Oximetry Oxygen Delivery Fraction of Inspired Oxygen 12/09/24 22:00 12/09/24 22:00 12/09/24 22:00 Temperature 102.1 F H Pulse Rate 92 92 92 Respiratory Rate 26 H 26 H Blood Pressure 114/83 Pulse Oximetry 100 Oxygen Delivery Fraction of Inspired Oxygen 12/09/24 22:00 12/09/24 22:00 12/09/24 22:00 Temperature Pulse Rate 92 92 92 Respiratory Rate 26 H 26 H 26 H Blood Pressure Pulse Oximetry Oxygen Delivery Fraction of Inspired Oxygen 12/09/24 23:04 12/09/24 23:04 12/09/24 23:15 Temperature Pulse Rate 90 90 90 Respiratory Rate 26 H 26 H Blood Pressure Pulse Oximetry 100 Oxygen Delivery Mechanical Ventilation Fraction of Inspired Oxygen 35 12/10/24 00:00 12/10/24 00:00 12/10/24 00:00 Temperature 102.3 F H Pulse Rate 89 89 89 Respiratory Rate 26 H 26 H 26 H Blood Pressure 122/90 Pulse Oximetry 97 97 Oxygen Delivery Mechanical Ventilation Fraction of Inspired Oxygen 35 12/10/24 00:00 12/10/24 00:00 12/10/24 00:00 Temperature Pulse Rate 90 89 Respiratory Rate 26 H Blood Pressure Pulse Oximetry Oxygen Delivery Fraction of Inspired Oxygen 35 12/10/24 00:00 12/10/24 00:00 12/10/24 00:04 Temperature Pulse Rate 89 89 89 Respiratory Rate 26 H 26 H 26 H Blood Pressure Pulse Oximetry Oxygen Delivery Fraction of Inspired Oxygen 12/10/24 00:04 12/10/24 00:15 12/10/24 00:53 Temperature Pulse Rate 89 90 90 Respiratory Rate 26 H 26 H 26 H Blood Pressure Pulse Oximetry Oxygen Delivery Fraction of Inspired Oxygen 12/10/24 01:03 12/10/24 01:03 12/10/24 01:26 Temperature 102.8 F H Pulse Rate 90 90 Respiratory Rate 26 H 26 H Blood Pressure Pulse Oximetry Oxygen Delivery Fraction of Inspired Oxygen 12/10/24 02:00 12/10/24 02:00 12/10/24 02:00 Temperature Pulse Rate 90 90 90 Respiratory Rate 26 H 26 H 26 H Blood Pressure Pulse Oximetry Oxygen Delivery Fraction of Inspired Oxygen 12/10/24 02:00 12/10/24 02:00 12/10/24 02:00 Temperature 102.7 F H Pulse Rate 90 90 90 Respiratory Rate 26 H 26 H Blood Pressure 123/90 Pulse Oximetry 96 Oxygen Delivery Fraction of Inspired Oxygen 12/10/24 02:07 12/10/24 02:08 12/10/24 02:15 Temperature Pulse Rate 90 90 91 Respiratory Rate 26 H 26 H Blood Pressure Pulse Oximetry 97 Oxygen Delivery Mechanical Ventilation Fraction of Inspired Oxygen 35 12/10/24 02:26 12/10/24 03:12 12/10/24 03:14 Temperature 102.6 F H Pulse Rate 91 91 Respiratory Rate 26 H 26 H Blood Pressure Pulse Oximetry Oxygen Delivery Fraction of Inspired Oxygen 12/10/24 04:00 12/10/24 04:00 12/10/24 04:00 Temperature 102.5 F H Pulse Rate 89 89 90 Respiratory Rate 26 H 26 H Blood Pressure 132/101 H Pulse Oximetry 97 97 Oxygen Delivery Mechanical Ventilation Fraction of Inspired Oxygen 35 12/10/24 04:00 12/10/24 04:00 12/10/24 04:00 Temperature Pulse Rate 90 90 Respiratory Rate 26 H 26 H Blood Pressure Pulse Oximetry Oxygen Delivery Fraction of Inspired Oxygen 35 12/10/24 04:00 12/10/24 04:00 12/10/24 04:49 Temperature Pulse Rate 90 90 88 Respiratory Rate 26 H 26 H 26 H Blood Pressure Pulse Oximetry Oxygen Delivery Fraction of Inspired Oxygen 12/10/24 04:50 12/10/24 05:14 12/10/24 05:23 Temperature Pulse Rate 88 89 87 Respiratory Rate 26 H 26 H Blood Pressure Pulse Oximetry 97 Oxygen Delivery Mechanical Ventilation Fraction of Inspired Oxygen 35 12/10/24 05:24 12/10/24 06:00 12/10/24 06:00 Temperature 102.3 F H Pulse Rate 87 91 91 Respiratory Rate 26 H 26 H Blood Pressure 127/88 Pulse Oximetry 99 Oxygen Delivery Fraction of Inspired Oxygen 12/10/24 06:00 07/11/25 06:00 12/10/24 06:00 Temperature Pulse Rate 91 91 91 Respiratory Rate 26 H 26 H 26 H Blood Pressure Pulse Oximetry Oxygen Delivery Fraction of Inspired Oxygen 12/10/24 06:00 12/10/24 07:33 12/10/24 07:42 Temperature Pulse Rate 91 89 89 Respiratory Rate 26 H 26 H 26 H Blood Pressure Pulse Oximetry Oxygen Delivery Fraction of Inspired Oxygen Intake/Output Intake/Output: Intake & Output 12/07/24 12/08/24 12/09/24 12/10/24 23:59 23:59 23:59 23:59 Intake Total 967.8 3847.9 4588.3 1718.0 Output Total 1070 2450 4250 2200 Balance -102.2 1397.9 338.3 -482.0 Meds/Results Medications: Active Medications Generic Name Dose Route Start Last Admin Trade Name Freq PRN Reason Stop Dose Admin Acetaminophen 650 mg 12/07/24 23:17 12/10/24 01:26 Acetaminophen Elixir 325 Mg/10.15 Ml Udc PO 650 mg Q6H PRN Administration Mild Pain (1-3) or Fever Alteplase, Recombinant 2 mg 12/07/24 09:34 12/10/24 04:09 Alteplase 2 Mg Vial (Cathflo) IV PUSH 2 mg ONCE PRN Administration Line Occlusion Aspirin 81 mg 12/06/24 08:00 12/09/24 08:37 Aspirin 81 Mg Chewable Tablet FEED TUBE 81 mg DAILY@0800 JULIUS Administration Atorvastatin Calcium 80 mg 12/06/24 09:00 12/09/24 08:36 Atorvastatin 40 Mg Tablet FEED TUBE 80 mg DAILY JULIUS Administration Dextrose 12.5 gm 12/06/24 07:25 Dextrose 50% 25 Gm/50 Ml Syringe IV PUSH PRN PRN Hypoglycemia Protocol Empagliflozin 10 mg 12/07/24 09:00 12/09/24 08:36 Empagliflozin 10 Mg Tablet PO 10 mg DAILY JULIUS Administration Folic Acid 1 mg 12/09/24 09:00 12/09/24 08:39 Folic Acid 1 Mg/0.2 Ml Inj IV PUSH 1 mg QAM JULIUS Administration Glucagon 1 mg 12/06/24 07:25 Glucagon For Inj 1 Mg Vial IM PRN PRN Hypoglycemia Protocol Glucose 15 gm 12/06/24 07:25 Glucose Oral Gel 15 Gm Of Glucse In 37.5 Gm Tube PO PRN PRN Hypoglycemia Protocol Heparin Sodium (Porcine) 5,000 units 12/07/24 14:00 12/10/24 05:04 Heparin Sodium 5,000 Units/Ml Vial SUB-Q 5,000 units Q8HR JULIUS Administration Hydralazine HCl 20 mg 12/05/24 22:33 12/06/24 05:46 Hydralazine Hcl 20 Mg/Ml Vial IV PUSH 20 mg Q4HR PRN Administration Blood Pressure - High Fentanyl Citrate 2,500 mcg in 250 mls @ 10 mls/hr 12/05/24 13:50 12/10/24 06:00 Fentanyl 2,500 Mcg/Ns 250 Ml IV CONT 100 mcg/hr .Q25H JULIUS 10 mls/hr Titration Protocol 100 MCG/HR Dextrose 1,000 mls @ 100 mls/hr 12/06/24 07:25 Dextrose 5% 1,000 Ml IVPB PRN PRN Hypoglycemia Protocol Levetiracetam 1,000 mg in 100 mls @ 400 mls/hr 12/08/24 09:00 12/09/24 21:23 Keppra Iv IVPB Infused Q12HR JULIUS Infusion Dexmedetomidine HCl 400 mcg in 100 mls @ 46.613 mls/hr 12/08/24 07:40 12/10/24 07:42 Precedex 400 Mcg/100 Ml IV CONT 1.5 mcg/kg/hr .Q2H9M JULIUS 46.61 mls/hr Administration Protocol 1.5 MCG/KG/HR Midazolam HCl 100 mg in 100 mls @ 3 mls/hr 12/08/24 12:00 12/10/24 06:00 Versed 100 Mg/Ns 100 Ml IV CONT 3 mg/hr .[id number] JULIUS 3 mls/hr Titration Protocol 3 MG/HR Meropenem 1 gm/ Sodium 100 mls @ 200 mls/hr 12/08/24 13:00 12/10/24 05:06 Chloride IVPB 200 mls/hr Q8HR JULIUS Administration Ketamine HCl 1,000 mg/ Sodium 100 mls @ 21.63 mls/hr 12/09/24 07:15 12/10/24 06:00 Chloride IV CONT 1.75 mg/kg/hr .Q4H38M JULIUS 21.63 mls/hr Titration Protocol 1.75 MG/KG/HR Vancomycin HCl 2,000 mg in 500 mls @ 250 mls/hr 12/09/24 21:00 12/10/24 00:00 Vancomycin 2,000 Mg/Ns 500 Ml IVPB Infused Q12H JULIUS Infusion Insulin Aspart 4 - 8 units 12/06/24 09:00 12/10/24 05:28 Insulin Aspart (*Bkc) 100 Units/Ml SUB-Q Not Given Q4HR [facility] Protocol Insulin Glargine 10 units 12/06/24 09:00 12/09/24 08:40 Insulin Glargine (*Bkc) 100 Units/Ml SUB-Q 10 units QAM [facility] Administration Ipratropium [place] 0.5 mg 12/09/24 08:00 12/10/24 02:06 Ipratropium Br 0.02% Inh Soln 0.5 Mg/2.5 Ml Vial INHALATION 0.5 mg Q6HRT JULIUS Administration Irbesartan 75 mg 12/10/24 09:00 Irbesartan 75 Mg Tablet PO QAM JULIUS Labetalol HCl 20 mg 12/06/24 07:34 Labetalol Hcl Inj 100 Mg/20 Ml Vial IV PUSH Q4H PRN SBP > 160 and HR> 60 -1st choice Levalbuterol HCl 0.63 mg 12/09/24 08:00 12/10/24 02:06 Levalbuterol Neb 1.25 Mg/3 Ml INHALATION 0.63 mg Q6HRT JULIUS Administration Metoprolol Tartrate 25 mg 12/08/24 21:00 12/09/24 21:15 Metoprolol Tartrate 25 Mg Tablet PO 25 mg Q12HR [facility] Administration Multi-Ingred Cream/Lotion/Oil/Oint 1 applic 12/05/24 21:00 12/09/24 21:16 Mineral Oil/White Petrolatum Ointment EACH EYE 1 applic Q12HR [facility] Administration Nitroglycerin 0.4 mg 12/05/24 13:47 Nitroglycerin Sl 0.4 Mg Tablet SUBLINGUAL Q5MIN PRN Chest Pain Pantoprazole Sodium 40 mg 12/06/24 07:40 12/09/24 21:15 Pantoprazole Sodium Iv 40 Mg Vial IV PUSH 40 mg Q12HR [facility] Administration Sodium Chloride 10 ml 12/05/24 22:00 12/10/24 05:05 Central Line Flush IV PUSH 10 ml Q8HR JULIUS Administration Sodium Chloride 20 ml 12/05/24 15:00 Central Line Flush IV PUSH PRN PRN after blood draws Thiamine HCl 100 mg 12/09/24 09:00 12/09/24 08:37 Thiamine Hcl 200 Mg/2 Ml Vial IV PUSH 100 mg QAM JULIUS Administration Ticagrelor 90 mg 12/05/24 21:00 12/09/24 21:15 Ticagrelor 90 Mg Tablet FEED TUBE 90 mg Q12HR JUL[facility] Administration Radiology Results: ITS Impressions Cervical Spine CT 12/05/24 12:16 Impression: No acute displaced fracture within the cervical spine. Large right-sided and small left-sided pleural effusions without pneumothorax for which further evaluation post cardiac intervention is suggested (if the patient is clinically able). Abdomen X-Ray 12/06/24 14:26 IMPRESSION: Orogastric tube in good position and ready for immediate use. Renal Ultrasound 12/08/24 11:43 IMPRESSION: Normal ultrasound evaluation of the kidneys. Head CT 12/09/24 11:17 Impression: No acute intracranial hemorrhage or significant mass effect. Subtle loss of the mckenzie-white matter differentiation within the posterior cranial fossa, an interval change from 12/05/2024 for which cerebral edema is suspected. Chest/Abdomen/Pelvis CT 12/09/24 11:24 IMPRESSION: Multiple right-sided rib fractures (5th, 7th, 8th and 11th) with a large (likely a combination of blood and serosanguineous fluid) with adjacent compressive atelectasis. Small left-sided pleural effusion without associated rib fractures. Layering sludge within the gallbladder, without surrounding inflammatory change. Right common femoral vascular access with trace induration of the superficial soft tissues of the right groin. No additional findings as an infectious source, as detailed above. Venous Doppler Study 12/09/24 11:51 Impression: No evidence of deep venous thrombosis Thoracentesis Ultrasound 12/09/24 17:38 IMPRESSION: 1. Successful ultrasound-guided thoracentesis yielding 600 mL of bloody dark maroon-colored fluid. Chest X-Ray 12/10/24 05:42 Impression: Stable bilateral pleural effusions with mild bibasilar pulmonary edema. Stable support tubes. Labs Labs: Laboratory Results - last 24 hr 12/08/24 12/09/24 12/09/24 11:15 11:33 12:45 WBC RBC Hgb Hct MCV MCH MCHC RDW Plt Count MPV Immature Gran % (Auto) Neut % (Auto) Lymph % (Auto) [place] % (Auto) Eos % (Auto) Baso % (Auto) Lymph # (Auto) [place] # (Auto) Eos # (Auto) Baso # (Auto) Abs Immat Gran (auto) Absolute Neuts (auto) Absolute Nucleated RBC Nucleated RBC % PT INR APTT Puncture Site ABG pH ABG pCO2 ABG pO2 ABG PO2/FiO2 Ratio ABG HCO3 ABG O2 Saturation ABG O2 Content ABG Base Excess A-a Gradient Oxyhemoglobin Carboxyhemoglobin Methemoglobin Reduced Hemoglobin Total Hemoglobin O2 Delivery Device O2 Liters/Min Minute Volume Vent Rate Vent Mode FiO2 Tidal Volume PEEP Peak Inspir Pressure Pressure Support Sodium Potassium Chloride Carbon Dioxide Anion Gap BUN Creatinine Estim Creat Clear Calc Estimated GFR Glucose 158 H POC Capillary Glucose 161 H Serum Osmolality Calcium Phosphorus Magnesium Total Bilirubin AST ALT Alkaline Phosphatase Lactate Dehydrogenase 950 H Total Creatine Kinase Total Protein 5.8 L Albumin 3.2 L Triglycerides Pleural Fluid Source Pleural Color Pleural Appearance Pleural pH Pleural RBC Pleural Nuc Cells Pleural Neutrophils Pleural Lymphocytes Pleural Monocytes Pleural Macrophages Pleural Mesothelial Vancomycin Trough Miscellaneous Test Comment 12/09/24 12/09/24 12/09/24 13:05 16:00 16:04 WBC RBC Hgb Hct MCV MCH MCHC RDW Plt Count MPV Immature Gran % (Auto) Neut % (Auto) Lymph % (Auto) [place] % (Auto) Eos % (Auto) Baso % (Auto) Lymph # (Auto) [place] # (Auto) Eos # (Auto) Baso # (Auto) Abs Immat Gran (auto) Absolute Neuts (auto) Absolute Nucleated RBC Nucleated RBC % PT 15.8 H INR 1.3 APTT 30.3 Puncture Site ABG pH ABG pCO2 ABG pO2 ABG PO2/FiO2 Ratio ABG HCO3 ABG O2 Saturation ABG O2 Content ABG Base Excess A-a Gradient Oxyhemoglobin Carboxyhemoglobin Methemoglobin Reduced Hemoglobin Total Hemoglobin O2 Delivery Device O2 Liters/Min Minute Volume Vent Rate Vent Mode FiO2 Tidal Volume PEEP Peak Inspir Pressure Pressure Support Sodium Potassium Chloride Carbon Dioxide Anion Gap BUN Creatinine Estim Creat Clear Calc Estimated GFR Glucose POC Capillary Glucose Serum Osmolality Calcium Phosphorus Magnesium Total Bilirubin AST ALT Alkaline Phosphatase Lactate Dehydrogenase Total Creatine Kinase Total Protein Albumin Triglycerides Pleural Fluid Source Pleural fluid Pleural Color Red Pleural Appearance Bloody Pleural pH 7.266 Pleural RBC 1053926 H Pleural Nuc Cells 4379 H Pleural Neutrophils 62 H Pleural Lymphocytes 21 Pleural Monocytes 6 Pleural Macrophages 11 Pleural Mesothelial 0 Vancomycin Trough Miscellaneous Test 12/09/24 12/09/24 12/09/24 16:10 17:15 18:58 WBC RBC Hgb Hct MCV MCH MCHC RDW Plt Count MPV Immature Gran % (Auto) Neut % (Auto) Lymph % (Auto) [place] % (Auto) Eos % (Auto) Baso % (Auto) Lymph # (Auto) [place] # (Auto) Eos # (Auto) Baso # (Auto) Abs Immat Gran (auto) Absolute Neuts (auto) Absolute Nucleated RBC Nucleated RBC % PT INR APTT Puncture Site ABG pH ABG pCO2 ABG pO2 ABG PO2/FiO2 Ratio ABG HCO3 ABG O2 Saturation ABG O2 Content ABG Base Excess A-a Gradient Oxyhemoglobin Carboxyhemoglobin Methemoglobin Reduced Hemoglobin Total Hemoglobin O2 Delivery Device O2 Liters/Min Minute Volume Vent Rate Vent Mode FiO2 Tidal Volume PEEP Peak Inspir Pressure Pressure Support Sodium 147 H Potassium 4.3 Chloride 111 H Carbon Dioxide 27 Anion Gap 9 BUN 21 H Creatinine 1.38 H Estim Creat Clear Calc 85 Estimated GFR 57 L Glucose 169 H POC Capillary Glucose 173 H Serum Osmolality Cancelled Calcium 8.1 L Phosphorus Magnesium Total Bilirubin AST ALT Alkaline Phosphatase Lactate Dehydrogenase Total Creatine Kinase Total Protein Albumin Triglycerides Pleural Fluid Source Pleural Color Pleural Appearance Pleural pH Pleural RBC Pleural Nuc Cells Pleural Neutrophils Pleural Lymphocytes Pleural Monocytes Pleural Macrophages Pleural Mesothelial Vancomycin Trough < 5.0 L Miscellaneous Test 12/09/24 12/10/24 12/10/24 21:19 00:47 04:41 WBC 11.8 H RBC 3.94 L Hgb 12.3 L Hct 39.9 L MCV 101.3 H MCH 31.2 MCHC 30.8 L RDW 13.2 Plt Count 202 MPV 9.8 Immature Gran % (Auto) 0.4 Neut % (Auto) 77.5 H Lymph % (Auto) 10.3 L [place] % (Auto) 11.6 H Eos % (Auto) 0.0 Baso % (Auto) 0.2 Lymph # (Auto) 1.21 [place] # (Auto) 1.4 H Eos # (Auto) 0.0 Baso # (Auto) 0.0 Abs Immat Gran (auto) 0.05 H Absolute Neuts (auto) 9.1 H Absolute Nucleated RBC 0.000 Nucleated RBC % 0.0 PT INR APTT Puncture Site ABG pH ABG pCO2 ABG pO2 ABG PO2/FiO2 Ratio ABG HCO3 ABG O2 Saturation ABG O2 Content ABG Base Excess A-a Gradient Oxyhemoglobin Carboxyhemoglobin Methemoglobin Reduced Hemoglobin Total Hemoglobin O2 Delivery Device O2 Liters/Min Minute Volume Vent Rate Vent Mode FiO2 Tidal Volume PEEP Peak Inspir Pressure Pressure Support Sodium 149 H Potassium 4.6 Chloride 115 H Carbon Dioxide 25 Anion Gap 9 BUN 25 H Creatinine 1.37 H Estim Creat Clear Calc 86 Estimated GFR 57 L Glucose 210 H POC Capillary Glucose 198 H 193 H Serum Osmolality Calcium 8.5 Phosphorus 3.6 Magnesium 3.1 H Total Bilirubin 1.3 AST 67 H ALT 55 H Alkaline Phosphatase 41 Lactate Dehydrogenase Total Creatine Kinase 601 H Total Protein 6.8 Albumin 4.0 Triglycerides 231 H Pleural Fluid Source Pleural Color Pleural Appearance Pleural pH Pleural RBC Pleural Nuc Cells Pleural Neutrophils Pleural Lymphocytes Pleural Monocytes Pleural Macrophages Pleural Mesothelial Vancomycin Trough Miscellaneous Test 12/10/24 12/10/24 05:11 05:20 WBC RBC Hgb Hct MCV MCH MCHC RDW Plt Count MPV Immature Gran % (Auto) Neut % (Auto) Lymph % (Auto) [place] % (Auto) Eos % (Auto) Baso % (Auto) Lymph # (Auto) [place] # (Auto) Eos # (Auto) Baso # (Auto) Abs Immat Gran (auto) Absolute Neuts (auto) Absolute Nucleated RBC Nucleated RBC % PT INR APTT Puncture Site Left radial ABG pH 7.376 ABG pCO2 37.3 ABG pO2 82.5 ABG PO2/FiO2 Ratio 2.36 ABG HCO3 21.4 L ABG O2 Saturation 96.0 ABG O2 Content 16.6 ABG Base Excess -3.3 A-a Gradient 123.7 Oxyhemoglobin 94.7 Carboxyhemoglobin 0.5 Methemoglobin 0.1 Reduced Hemoglobin 4.7 Total Hemoglobin 12.4 O2 Delivery Device Ventilator O2 Liters/Min Not Reportable Minute Volume Not Reportable Vent Rate 26 Vent Mode Cmv FiO2 35 Tidal Volume 450 PEEP 8 Peak Inspir Pressure Not Reportable Pressure Support Not Reportable Sodium Potassium Chloride Carbon Dioxide Anion Gap BUN Creatinine Estim Creat Clear Calc Estimated GFR Glucose POC Capillary Glucose 191 H Serum Osmolality Calcium Phosphorus Magnesium Total Bilirubin AST ALT Alkaline Phosphatase Lactate Dehydrogenase Total Creatine Kinase Total Protein Albumin Triglycerides Pleural Fluid Source Pleural Color Pleural Appearance Pleural pH Pleural RBC Pleural Nuc Cells Pleural Neutrophils Pleural Lymphocytes Pleural Monocytes Pleural Macrophages Pleural Mesothelial Vancomycin Trough Miscellaneous Test Quality VTE Prophylaxis VTE prophylaxis: pharmacologic ordered
[2024-12-10] MEDS: INSULIN GLARGINE (*BKC) 100 UNITS/ML 10 UNITS SUB-Q (09:06)
[2024-12-10] MEDS: FENTANYL 2,500MCG/NS250ML(*CRX 2,500 MCG/250 ML BAG 20 MCG IV CONT ×2 (09:44→10:21)
[2024-12-10] MEDS: VANCOMYCIN 2,000 MG/NS 500 ML 2,000 MG/500 ML BAG 250 MG IVPB ×2 (09:46→22:02)
--- NOTE | 2024-12-10 11:24 | PCNFU ---
Nutrition Follow-Up Complete: Inadequate energy intake related to NPO, mechanical ventilation, as evidenced by need for trophic feeding Meet estimated nutrition needs within 48 hours Patient is meeting goal. We will continue current goal. Pt current nutrition is Vital AF 1.2 at 65 ml/hr. Last recorded weight is 122.8 kg, down from 124.4 kg on admit. Bowel Motility: Last reported BM 12/08 Labs Reviewed: Mg 3.1, Na 149, BUN 25, Glu 210 Meds Noted: Protonix, Lantus, Heparin, Precedex, Versed, Fentanyl. Skin: WNL Additional Notes: Patient remains on a mechanical vent. Tube feedings are being tolerated of Vital AF 1.2 at 65 ml/hr with flush 30 ml q 4 hours. Total Nutrition: 1716 kcal/107 gm protein/1120 ml water. Meeting 97% kcal needs at 22 kcal/kg IBW and 86% protein needs at 1.0 kcal/kg. Spoke with [employer] today regarding flush. We will continue current flush at 30 ml QID patient given 1 time dose of Mannitol. Agree with diet orders at this time. Monitoring orders, vent settings, meds, weights, labs, vitals, plan of care Follow up Friday/Friday.
[2024-12-10] MEDS: FOLIC ACID 1 MG/0.2 ML INJ IV PUSH (11:32)
[2024-12-10] MEDS: MICAFUNGIN SODIUM 100 MG in SODIUM CHLORIDE 0.9% IV 100 ML IVPB (16:20)
--- NOTE | 2024-12-10 21:30 | PC.NURSE ---
Received room at [facility] on [address] room 812-00. Called report to Notified spouse Arcadio of new room number.
--- NOTE | 2024-12-10 23:20 | PC.NURSE ---
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
[2024-12-11] VITALS: BP 126/93; PULSE 83; PULSE 84; PULSE 85; PULSE 88; RESP 22; RESP 26; TEMP 37.7; O2SAT 100
[2024-12-11 00:21] VITALS: PULSE 85; RESP 26
[2024-12-11] MEDS: SODIUM CHLORIDE 0.9% IV CONT (00:21)
[2024-12-11] MEDS: KETAMINE HCL IV CONT (00:21)
--- NOTE | 2024-12-11 01:14 | PC.NURSE ---
Patient transported via [facility] to [facility]. [facility] staff notified this nurse that no staff needed to go on transport with them. Notified CAT Brito at [facility] that patient is on his way. Notified Arcadio (Spouse) that patient has left.
[2024-12-11 16:07] LABS: Albumin, Body Fluid 2.2 g/dL (Not Estab.); Glucose, Body Fluid 52 mg/dL (.); LD, Body Fluid 893 IU/L (.)
--- NOTE | 2024-12-22 09:51 | PM.TDS ---
Transfer Discharge Sum: Prov Provider Date of admission: 12/05/24 11:28 Primary care physician: Km Shelton MD Admitting clinician: Pato Sousa MD Consults: 12/05/24 Consult to Physician Routine Comment: Consulting Provider: Leroy Jones Reason for consultation: icu admission Has provider been notified: Yes 12/05/24 13:47 Cardiopulmonary Rehabilitation Consult Routine Comment: Consult Plan: Evaluate for Eligibility 12/06/24 Consult to Physician Routine Comment: Spoke with provider 12/06 @ 0814 Consulting Provider: Scott Celestin director business management/MD group to consult: Gastroenterology Reason for consultation: Upper GI bleed Has provider been notified: No 12/07/24 09:57 Consult to Physician Routine Comment: Spoke with provider 12/07 @ 1104 Consulting Provider: Mikey Loya director business management/MD group to consult: Neurology Reason for consultation: Cardiac arrest, seizures Has provider been notified: Yes Attending physician on discharge: Alexa Ledesma Discharging clinician: Alexa Ledesma Anticipated date of transfer: 12/10/24 Receiving physician/facility: [facility] DS: Admitting Diagnosis Discharge Date 12/11/24 Admitting Diagnosis Cardiac arrest, STEMI, acute respiratory failure, ischemic cardiomyopathy DS: Discharge Diagnosis Discharge Diagnosis (1) Fever: Code(s): R50.9 - Fever, unspecified Status: Acute Assessment and Plan: Patient continues to remain febrile -could be related to central fever -possible aspiration pneumonia, on Zosyn (12/06) -12/06: Sputum culture growing Klebsiella pneumonia -12/08: blood cultures obtained -12/08: Sputum cultures ordered -added vancomycin (12/08) -12/08: Zosyn was discontinued and started on meropenem (12/08) 12/10: Will place PICC line, remove femoral central line, replace dave catheter 12/10: Patient continued to have fevers, CT scan showed cerebral edema, patient was accepted to [facility] in [place] for higher level of care since we known have Infectious Disease and Neurosurgery 12/09: Venous Dopplers: No DVTs bilaterally 12/09: CT brain: No acute intracranial hemorrhage or significant mass effect. Subtle loss of the mckenzie-white matter differentiation within the posterior cranial fossa, an interval change from 12/05/2024 for which cerebral edema is suspected. 12/09: CT scan of the chest, abdomen and pelvis IMPRESSION: Multiple right-sided rib fractures (5th, 7th, 8th and 11th) with a large (likely a combination of blood and serosanguineous fluid) with adjacent compressive atelectasis. Small left-sided pleural effusion without associated rib fractures. Layering sludge within the gallbladder, without surrounding inflammatory change. Right common femoral vascular access with trace induration of the superficial soft tissues of the right groin. No additional findings as an infectious source, as detailed above. (2) Alcohol withdrawal: Code(s): F10.939 - Alcohol use, unspecified with withdrawal, unspecified Status: Acute Assessment and Plan: According to patient's , the patient drinks 10 beers per day (admitted on 12/05/2024) -patient very agitated despite being on multiple sedation medications -12/09: patient given phenobarbital loading dose, will start phenobarbital taper -continue versed infusion (3) Acute respiratory failure: Code(s): J96.00 - Acute respiratory failure, unspecified whether with hypoxia or hypercapnia Status: Acute Assessment and Plan: Acute Respiratory failure secondary to cardiac arrest 12/05: Intubated Continue full mechanical ventilation support to prevent hypoxemia/hypercarbia and end organ damage. Chest x-ray and ABGs reviewed, ventilator adjusted Continue bronchodilators -currently fentanyl, Versed, Precedex infusion for sedation, early this morning patient was agitated and required 4 staff members to hold him down. Propofol was started briefly. -12/09 added ketamine drip and will discontinue propofol infusion given elevated triglycerides -patient likely requiring some and sedation possibly due to alcohol withdrawal start to taper/wean sedation gradually today (4) Cardiac arrest: Code(s): I46.9 - Cardiac arrest, cause unspecified Status: Acute Assessment and Plan: Cardiac arrest secondary to acute ST segment elevation SD Status post cardiac catheterization which showed 100% blockage of proximal LAD status post IRWIN x2 to proximal LAD -cardiology following the patient, -continue ticagrelor, aspirin, atorvastatin, Jardiance, metoprolol - added Irbesartan as recommended by Cardiology for cardiomyopathy 12/06/2024: Echocardiogram Summary 1. Left ventricular systolic function is normal, estimated at 40-45. 2. There is mildly increased left ventricular wall thickness. 3. The left ventricular diastolic function is abnormal. 4. The inferior wall, apical septum, apical lateral wall, mid inferoseptal, basal anteroseptal, and mid anteroseptal are hypokinetic. (5) Acute ST elevation myocardial infarction: Code(s): I21.3 - ST elevation (STEMI) myocardial infarction of unspecified site Status: Acute Assessment and Plan: See above (6) Ischemic cardiomyopathy: Code(s): I25.5 - Ischemic cardiomyopathy Status: Acute Assessment and Plan: See above (7) Anoxic brain injury: Code(s): G93.1 - Anoxic brain damage, not elsewhere classified Status: Acute Assessment and Plan: Suspected anoxic brain injury from cardiac arrest as patient was unresponsive on presentation, 20-25 minutes of downtime -12/07: off paralytic, off sedation patient did have a seizure for which she was given Ativan which abated this seizure, -patient status post target temperature management -increase Keppra to 1000 mg IV q.12 hours -appreciate Neurology evaluation and recommendation -12/08 EEG: Suggestive organic or metabolic encephalopathy or postictal state, will discuss with Urology 12/05/2024 CT brain: No intracranial hemorrhage or suspicious mass effect. 12/09: CT brain: No acute intracranial hemorrhage or significant mass effect. Subtle loss of the mckenzie-white matter differentiation within the posterior cranial fossa, an interval change from 12/05/2024 for which cerebral edema is suspected. Discussed with neurology, recommended giving a dose of mannitol, Decadron,, hyperventilation. Neurologist stated that this suspected edema is normally seen after cardiac arrest (8) Gastro-esophageal reflux disease without esophagitis: Code(s): K21.9 - Gastro-esophageal reflux disease without esophagitis Status: Acute Assessment and Plan: PPI IV q.12 hours -patient had some GI bleed, GI was consulted. -12/06/2024 EGD showed gastritis with bleeding -Continue Protonix IV q.12 hours -hemoglobin remained stable Discussed with GI regarding starting heparin for DVT prophylaxis, GI was okay with it (9) Elevated liver enzymes: Code(s): R74.8 - Abnormal levels of other serum enzymes Status: Acute Assessment and Plan: Liver enzymes trending down most likely related to cardiac arrest and STEMI, low-flow state (10) Diabetes mellitus: Code(s): E11.9 - Type 2 diabetes mellitus without complications Status: Acute Assessment and Plan: Continue sliding scale insulin Accu-Cheks, -continue Lantus (11) Seizures: Code(s): R56.9 - Unspecified convulsions Status: Acute Assessment and Plan: Off sedation patient did have a seizure-like activity, treated with Ativan x1 with improvement. -continue Keppra (12) Acute kidney injury: Code(s): N17.9 - Acute kidney failure, unspecified Status: Acute Assessment and Plan: 12/08: Creatinine increased to 1.62 from 0.98 -patient is in negative fluid balance -urine lytes reflective of prerenal -12/08: Renal ultrasound: Normal ultrasound evaluation of the kidneys -CK levels mildly elevated, and urine eosinophils were negative -status post IV fluids overnight with improvement in creatinine, adequate urine output -mild elevation in the sodium likely related to mannitol, continue to monitor Plan DVT prophylaxis -heparin subQ, discussed with GI, as patient had erosive gastritis. GI will is agreeable with prophylactic heparin. Stress ulcer prophylaxis -PPI IV q.12 Nutrition -tolerating tube feeds at 65 mL/hour, bowel movement on 12/08 Code Status - Full Code Total Critical Care Time - 34 minutes Discussed with patient's , parents, sister and updated them with his condition and plan of care. They were agreeable for transfer the to tertiary center for higher level of care given that we do not have infectious disease and neurosurgery. I answered all the questions Patient was transferred to [facility] [place] Due to a high probability of clinically significant, life threatening deterioration, the patient required my highest level of preparedness to intervene emergently and I personally spent this critical care time directly and personally managing the patient. This critical care time included obtaining a history; examining the patient; pulse oximetry; ordering and review of studies; arranging urgent treatment with development of a management plan; evaluation of patient's response to treatment; frequent reassessment; and discussions with other providers. It was exclusive of separately billable procedures and treating other patients and teaching time. Please see Assessment and Plan section and the rest of the note for further information on patient assessment and treatment This dictation may have been done utilizing a voice recognition system. Attempts have been made to correct errors. However, there may be uncorrected grammatical, spelling, and recognitions errors present. Transfer Discharge Sum: Med Medications Active and Home Medications: Home Medications sildenafil 100 mg tablet 100 mg PO DAILY PRN sexual activity #6 tabs 11/04/22 [Rx Confirmed 12/06/24] alprazolam 0.5 mg tablet 0.5 mg PO TID PRN anxiety #30 tabs 02/11/23 [Rx Confirmed 12/06/24] fluticasone 113 mcg-salmeterol 14 mcg/actuation breath activated powdr See Rx Instructions .Route .COMPLEX #1 ea 06/25/23 [Rx Confirmed 12/06/24] pantoprazole 40 mg tablet,delayed release See Rx Instructions .Route .COMPLEX #90 tabs 10/27/23 [Rx Confirmed 12/06/24] syringe with needle 3 mL 21 gauge x 1 (BD Luer-Kellie Syringe) #3 ea 12/09/23 [Rx Confirmed 12/07/24] duloxetine 60 mg capsule,delayed release See Rx Instructions .Route .COMPLEX #90 ea 01/25/24 [Rx Confirmed 12/06/24] hydrochlorothiazide 25 mg tablet See Rx Instructions .Route .COMPLEX #90 tabs 01/25/24 [Rx Confirmed 12/06/24] furosemide 20 mg tablet 20 mg PO DAILY PRN edema #39 tabs 03/26/24 [Rx Confirmed 12/06/24] Symbicort 80 mcg-4.5 mcg/actuation HFA aerosol inhaler (budesonide-formoterol) See Rx Instructions .Route .COMPLEX #11 grams 05/09/24 [Rx Confirmed 12/06/24] albuterol sulfate 90 mcg/actuation aerosol inhaler See Rx Instructions .Route .COMPLEX #9 grams 05/25/24 [Rx Confirmed 12/06/24] atenolol 100 mg tablet See Rx Instructions .Route .COMPLEX #90 tabs 07/24/24 [Rx Confirmed 12/06/24] irbesartan 300 mg tablet See Rx Instructions .Route .COMPLEX #90 tabs 07/24/24 [Rx Confirmed 12/07/24] montelukast 10 mg tablet 10 mg PO QHS #90 tabs 08/26/24 [Rx Confirmed 12/06/24] verapamil 240 mg tablet,extended release See Rx Instructions .Route .COMPLEX #90 tabs 09/29/24 [Rx Confirmed 12/06/24] testosterone cypionate 200 mg/mL intramuscular oil (Depo-Testosterone) 300 mg (1.5 mL) IM .every 2 weeks #10 mL 10/25/24 [Rx Confirmed 12/06/24] syringe with needle 3 mL 21 gauge x 1 1/2 (BD Luer-Kellie Syringe) #6 ea 11/08/24 [Rx Confirmed 12/07/24] Transfer Discharge Sum: Hosp Hospital Course Hospital course: Jason Kelsey is a 44 year old male with past medical history of hypertension, testicular hypofunction, generalized anxiety disorder, GERD, erectile dysfunction was brought by EMS after sustaining a cardiac arrest. Patient was found collapsed in his bathroom and was found lying in the bathtub. Patient was last seen about 5 minutes ago. EMS arrived and was found to be in VFib and was cardioverted to V-tach then was shocked multiple times for V-tach. Patient was also given amiodarone before ROSC was obtained patient was brought in with supraglottic airway and was intubated in the ER. EKG showed ST segment elevation in anterior leads. Patient was unresponsive. Patient was taken to cardiac catheterization lab. Patient was given aspirin suppository and heparin bolus. Patient had 100% blockage of proximal LAD. Patient had 2 stents placed. LVEDP was 38 please refer to cardiology note for details. Patient was placed on target temperature management, post target temperature management patient's sedation was decreased, patient was very agitated, combative, did follow simple commands. According the family , patient drinks approximately 10 beers per day, was possibly going into alcohol withdrawal -patient also was febrile with T-max of 102? to 103? F. 12/09: CT scan of the chest abdomen and pelvis: Multiple right-sided rib fractures (5th, 7th, 8th and 11th) with a large (likely a combination of blood and serosanguineous fluid) with adjacent compressive atelectasis. Small left-sided pleural effusion without associated rib fractures. Layering sludge within the gallbladder, without surrounding inflammatory change. Right common femoral vascular access with trace induration of the superficial soft tissues of the right groin. No additional findings as an infectious source, as detailed above. Patient was started on vancomycin, meropenem, micafungin. Despite which she continued to have fevers, 12/09: CT scan of the brain showed no acute intracranial hemorrhage or significant mass effect. Subtle loss of mckenzie-white matter differentiation within her the posterior cranial fossa, and interval change from 12/05/2024 for which cerebral edema is suspected I discussed with the family regarding transfer of patient to a tertiary care center for higher level of care given his fevers and for infectious disease evaluation to which they were agreeable. Patient was transferred to [facility] in [place] on 12/10/2024 Patient Condition: Critical Time Spent with Patient Time attestation: Total time spent providing and/or coordinating transfer services: Total time spent: Greater than 30 minutes Exam Narrative: General: Pt is sedated, intubated and on mechanical ventilation HEENT: Pupils are small, equal and reactive bilaterally, sclera is clear, ETT in place Lungs/Chest: Coarse breath sounds bilaterally, decreased at bases, adequate air entry, no wheeze Cardiac: Regular rate and rhythm. Normal S1 S2. No murmurs Circulation: Pedal pulses are palpable, mottling noted on abdomen, and lower extremities bilaterally Abdomen: Decreased bowel sounds. Obese. Soft. NT. ND. Extremities: No clubbing, cyanosis or edema. Warm extremities : Dave in place Neurologic: Patient is sedated, intubated, does not open his eyes or follow simple commands. (On 12/08: Patient did follow commands consistently on upper and lower extremities when sedation was totally taken off and he was agitated) DS: Data Data Completed and Pending Completed studies during hospitalization: Pending at discharge 12/09/24 12:09 Cytology [PTH] Routine Labs on day of discharge: Preliminary micro results at discharge 12/09/24 16:04 Fungal Culture - Preliminary Pleural Fluid 12/09/24 16:04 Acid Fast Bacilli Culture - Preliminary Pleural Fluid
== END 2024-12-11 01:15 | disposition short-term general hospital (02) | DRG 321 ==
LOC: ANHED 11:52 → ANHICU 12:43
PROVIDERS: Internal Medicine; Internal Medicine Gastroenterology; Admitting Provider Internal Medicine Interventional Cardiology; Emergency Provider Emergency Medicine; PCP Family Medicine Adolescent Medicine; Visit Provider Internal Medicine
PROC: 4A023N7 Measurement of Cardiac Sampling and Pressure, Left Heart, Percutaneous Approach (ICD-10-PCS; CPT 93452; principal; 2024-12-05 11:55)
PROC: 027034Z Dilation of Coronary Artery, One Artery with Drug-eluting Intraluminal Device, Percutaneous Approach (ICD-10-PCS; CPT 92928; 2024-12-05 11:55)
PROC: 027035Z Dilation of Coronary Artery, One Artery with Two Drug-eluting Intraluminal Devices, Percutaneous Approach (ICD-10-PCS; 2024-12-05 11:55)
PROC: 0DJ08ZZ Inspection of Upper Intestinal Tract, Via Natural or Artificial Opening Endoscopic (ICD-10-PCS; principal; 2024-12-06 13:30)
DX: I21.09 ST elevation (STEMI) myocardial infarction involving other coronary artery of anterior wall (principal); I49.01 Ventricular fibrillation; J69.0 Pneumonitis due to inhalation of food and vomit; K29.01 Acute gastritis with bleeding; R57.0 Cardiogenic shock; J96.00 Acute respiratory failure, unspecified whether with hypoxia or hypercapnia; S22.41XA Multiple fractures of ribs, right side, initial encounter for closed fracture; G93.1 Anoxic brain damage, not elsewhere classified; N17.9 Acute kidney failure, unspecified; F10.239 Alcohol dependence with withdrawal, unspecified; I25.10 Atherosclerotic heart disease of native coronary artery without angina pectoris; F17.220 Nicotine dependence, chewing tobacco, uncomplicated; I10 Essential (primary) hypertension; F12.90 Cannabis use, unspecified, uncomplicated; F17.210 Nicotine dependence, cigarettes, uncomplicated; K21.9 Gastro-esophageal reflux disease without esophagitis; I25.5 Ischemic cardiomyopathy; E29.1 Testicular hypofunction; F41.1 Generalized anxiety disorder; G47.33 Obstructive sleep apnea (adult) (pediatric); R00.1 Bradycardia, unspecified; T46.2X5A Adverse effect of other antidysrhythmic drugs, initial encounter; R56.9 Unspecified convulsions; E11.9 Type 2 diabetes mellitus without complications; W18.2XXA Fall in (into) shower or empty bathtub, initial encounter
CPT/HCPCS: 31500; 32555; 36415; 36569; 36600; 70450; 71045; 71250; 72125; 74176; 76775; 80048; 80053; 80061; 80202; 80307; 81001; 82040; 82042; 82375; 82436; 82550; 82570; 82805; 82945; 82947; 82948; 83036; 83050; 83605; 83615; 83735; 83880; 83930; 83986; 84100; 84133; 84145; 84155; 84157; 84300; 84443; 84478; 84484; 85018; 85025; 85027; 85055; 85610; 85730; 85999; 87040; 87070; 87086; 87186; 87205; 87206; 87641; 88108; 88305; 89051; 92978; 93005; 93458; 93970; 94002; 94003; 94640; 95816; 99291; A9270; C1725; C1751; C1753; C1757; C1769; C1874; C1887; C1894; C8929; C9606; J0282; J0330; J0360; J1100; J1327; J1644; J1815; J1953; J2003; J2060; J2185; J2248; J2250; J2305; J2470; J2543; J2560; J2704; J2997; J3010; J3373; J3411; J7040; J7050; J7120; P9047; Q9957

== ENCOUNTER 2025-03-30 09:45 | Outpatient (RCR) | payer BC, SELFPAY ==
--- NOTE | 2025-01-12 13:57 | PTOPEVAL1 ---
Assessment and note entered by Dyan Ramsey, PT Evaluation Information Assessment Status Evaluation Diagnosis CVA ICD-10 Condition Codes (PT) Difficulty Walking R26.2,Abnormalities of gait and mobility R26.9,Weakness R53.1 Onset 12/05 Subjective Information Pt had heart attack on 12/05, then went to [facility] and had MRI on 12/12 which shows the stroke. Pt currently has a Life Vest on with no current plans for internal pacemaker. 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 Pt PLOF independent in amb, ADLS, likes to do grilling, fishing bank and boat, hunting climbing into blinds in trees, and walking through the underbrush. Has steps into home x 4 with hand rail on left ascending. Pt reports has a knee brace for LLE MCL and ACL lack. Uses it occasionally but not always. Does not notice one side effected more than the other. Reported Pain Level Pain Score 0: Self Report Assessment PT Clinical Summary Pt presents s/p CO, and CVA found 12/12. Does not demonstrate overt unilateral weakness though RLE has some strength deficits and small coordination deficits with walking suggestive of possible R sided effecting CVA. Pt greatest challenges in therapy today were balance with movement, balance with eyes closed, and related to cardiac endurance . Pt will greatly benefit from high level balance and stability training and endurance training in order to assist in returning him to his PLOF. Plan of Care Interventions Gait Training,Neuro Re-education,Patient/Caregiver Education,Therapeutic Activities,Therapeutic Exercise,Self-Care/Home Management PT Services Indicated Yes Treatment Frequency and 2x weekly x 16 visits Duration These treatments will address the objective and functional deficits as defined above. The patient will be advanced safely and appropriately in order for the patient to progress towards his/her prior level of function. Additional exercises will be introduced and as well as a comprehensive home exercise program upon discharge, if needed, ?to ensure carryover of functional gains achieved in the clinic. This treatment plan has been reviewed and agreement upon by the patient.
--- NOTE | 2025-01-12 13:57 | OPREHPOC ---
Outpatient Therapy Plan of Care This is a Multidisciplinary Plan of Care that may contain components documented by all disciplines (PT, OT, and ST.) PT Problem 1 PT Problem #1 Knowledge Deficit PT Goal 1 Goal / Goal Update Pt will be independent in HEP Pt will verbalize understanding of diagnosis and prognosis Target Visit 8 PT Problem 2 PT Problem #2 Impaired Balance PT Goal 1 Goal / Goal Update Pt will demonstrate ability to achieve tandem stance independently and maintain for 3 seconds or greater for improved balance and stability Target Visit 8 PT Goal 2 Goal / Goal Update Pt will demonstrate ability to perform single leg standing on either leg for 3 seconds or greater for improved balance and stability Target Visit 16 PT Problem 3 PT Problem #3 Impaired Gait PT Goal 1 Goal / Goal Update Pt will demonstrate ability to perform 375 ft in 2 min walk test without AD to progress toward PLOF Target Visit 8 PT Goal 2 Goal / Goal Update Pt will demonstrate 2 min walk test of 450 ft without AD or balance deficit to work toward normative values for age group Target Visit 16
--- NOTE | 2025-01-18 13:25 | OPREHPOC ---
Outpatient Therapy Plan of Care This is a Multidisciplinary Plan of Care that may contain components documented by all disciplines (PT, OT, and ST.) PT Problem 1 PT Problem #1 Knowledge Deficit PT Goal 1 Goal / Goal Update Pt will be independent in HEP Pt will verbalize understanding of diagnosis and prognosis Target Visit 8 PT Problem 2 PT Problem #2 Impaired Balance PT Goal 1 Goal / Goal Update Pt will demonstrate ability to achieve tandem stance independently and maintain for 3 seconds or greater for improved balance and stability Target Visit 8 PT Goal 2 Goal / Goal Update Pt will demonstrate ability to perform single leg standing on either leg for 3 seconds or greater for improved balance and stability Target Visit 16 PT Problem 3 PT Problem #3 Impaired Gait PT Goal 1 Goal / Goal Update Pt will demonstrate ability to perform 375 ft in 2 min walk test without AD to progress toward PLOF Target Visit 8 PT Goal 2 Goal / Goal Update Pt will demonstrate 2 min walk test of 450 ft without AD or balance deficit to work toward normative values for age group Target Visit [address] Problem #[address] Goal 1 Goal / Goal Update The patient will participate in home programming to improve carry over/generalization of skills to the home environment. Target Visit [address] Problem #[address] Goal 1 Goal / Goal Update 1. The patient will recall complex paragraph length information for 2-3 details using compensatory techniques with 90% minimal cues 2. The patient will complete executive function/ reasoning tasks in relation to complex problem solving with 90% minimal cues. 3. The patient will sustain attention to a structured task for 10 minutes without redirect. 4. The patient will complete complex functional math for time and money management with 90% minimal cues 5. The patient will complete a HEP with 90% compliance. Target Visit 10
--- NOTE | 2025-01-18 13:25 | STOPEVAL1 ---
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 He was admitted to [facility] for ongoing rehabilitation. He has since discharged home and is here to continue speech services as an outpatient. Per patient and 's report he has made noted progress since his admission to the rehabilitation [place]. The patient and his report e has made noted gains but areas that remain a concerns are mild memory deficits, functional math, and attention. The patient was administered the [facility] Cognitive Evaluation and assessed in the areas of Memory, Thought Organization, Problem Solving/Reasoning, Orientation, Auditory processing, Functional math, and Reading Comprehension. Results indicated: Mild deficits for Memory Recall more pronounced with complex/Lengthy material 80%. Mild deficits for auditory processing again more difficulty with complex material secondary also due to recall and sustained attention 80%. Decreased sustained attention for focus on structured activities 10 minutes or more. Finally,impaired higher reasoning for complex problem solving with home and community scenarios, money and time management 80%. Skilled speech services are recommended 1x a week x 10 visits for cognition. Plan of Care Interventions Treatment for Cognitive Function ST Services Indicated Yes These treatments will address the objective and functional deficits as defined above. The patient will be advanced safely and appropriately in order for the patient to progress towards his/her prior level of function. Additional exercises will be introduced and as well as a comprehensive home exercise program upon discharge, if needed, ?to ensure carryover of functional gains achieved in the clinic. This treatment plan has been reviewed and agreement upon by the patient.
--- NOTE | 2025-01-20 16:48 | OTOPEVAL1 ---
Assessment and note entered by Gayle Card OT Evaluation Information Assessment Status Evaluation Diagnosis CVA ICD-10 Condition Codes (OT) Generalized muscle weakness M62.81 Other ICD-10 Condition Codes ( R27.8; I63.9; OT) Subjective Information Pt. 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 Pt. 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 Pt. 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 Pt. reports he hasn't returned to daily activities such as cooking, grilling, mowing the lawn, doing the laundry. Pt. likes fishing, bow hunting, and outdoorsman activities. Pt. reports he is advised is not lift weights. Pt. and father who are both present at time of evaluation report that pt. has struggled to return to previous routines and activities, due to decreased confidence and frequent fatigue. Pt. currently has life vest. Reported Pain Level Pain Score 0: Self Report Pain Score 0: Self Report Assessment OT Clinical Summary Pt. is 44 year old M, referred to occupational therapy services experiencing CVA after PR on , discharged from hospital to acute rehab facility, from which he stayed for a week and was discharged home. Pt. reports he has returned to independence in ADLs, but has not returned to most other activities or work due to physical limitations and loss of confidence, as pt. 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 Pt. demonstrates BUE ROM WNL without deficit. Pt. demonstrates BUE strength above average, but due to condition fatigues easily and is likely experiment generalized weakness and deconditioning due to continued recovery from acute illness. Pt.'s greatest barrier at this time appears to be BUE coordination and dexterity as demonstrated by 9- hole peg test, and confirmed by pt. who reports limited tolerance for daily activities. Plan of Care Interventions Therapeutic Exercise,Neuro Re-education, Therapeutic Activities OT Services Indicated Yes Treatment Frequency and 2x/ week for 8 visits Duration These treatments will address the objective and functional deficits as defined above. The patient will be advanced safely and appropriately in order for the patient to progress towards his/her prior level of function. Additional exercises will be introduced and as well as a comprehensive home exercise program upon discharge, if needed, ?to ensure carryover of functional gains achieved in the clinic. This treatment plan has been reviewed and agreement upon by the patient.
--- NOTE | 2025-01-20 16:48 | OPREHPOC ---
Outpatient Therapy Plan of Care This is a Multidisciplinary Plan of Care that may contain components documented by all disciplines (PT, OT, and ST.) PT Problem 1 PT Problem #1 Knowledge Deficit PT Goal 1 Goal / Goal Update Pt will be independent in HEP Pt will verbalize understanding of diagnosis and prognosis Target Visit 8 PT Problem 2 PT Problem #2 Impaired Balance PT Goal 1 Goal / Goal Update Pt will demonstrate ability to achieve tandem stance independently and maintain for 3 seconds or greater for improved balance and stability Target Visit 8 PT Goal 2 Goal / Goal Update Pt will demonstrate ability to perform single leg standing on either leg for 3 seconds or greater for improved balance and stability Target Visit 16 PT Problem 3 PT Problem #3 Impaired Gait PT Goal 1 Goal / Goal Update Pt will demonstrate ability to perform 375 ft in 2 min walk test without AD to progress toward PLOF Target Visit 8 PT Goal 2 Goal / Goal Update Pt will demonstrate 2 min walk test of 450 ft without AD or balance deficit to work toward normative values for age group Target Visit 16 OT Problem 1 OT Problem #1 Knowledge Deficit OT Goal 1 Goal / Goal Update Pt. will demonstrate independence in HEP Target Visit 8 OT Problem 2 OT Problem #2 Impaired Coordination OT Goal 1 Goal / Goal Update Pt. will demonstrate increased dexterity and coordination as demontrated by decreased time to complete 9 hole peg test to 23 seconds bilaterally Target Visit 8 OT Problem 3 OT Problem #3 Impaired Endurance OT Goal 1 Goal / Goal Update Pt. will demonstrate increased tolerance for IADLs as demonstrated by completing 45 minutes of therapy without rest break, and self reporting capacity to complete 2-3 IADLs at home /day Target Visit [address] Problem #[address] Goal 1 Goal / Goal Update The patient will participate in home programming to improve carry over/generalization of skills to the home environment. Target Visit [address] Problem #[address] Goal 1 Goal / Goal Update 1. The patient will recall complex paragraph length information for 2-3 details using compensatory techniques with 90% minimal cues 2. The patient will complete executive function/ reasoning tasks in relation to complex problem solving with 90% minimal cues. 3. The patient will sustain attention to a structured task for 10 minutes without redirect. 4. The patietn will complete complex functional math for time and money management with 90% minimal cues 5. The patietn will complete a HEP with 90% compliance. Target Visit 10
--- NOTE | 2025-02-14 08:43 | PCSTNOTE ---
Patient called & cancelled scheduled appointment this date due to stated unable to make appointment
--- NOTE | 2025-02-14 09:59 | PCPTNOTE ---
Cancelled could not make it today. per front office. AKS
--- NOTE | 2025-02-16 11:34 | PCPTNOTE ---
Pt cancelled d/t a knee issue per front office. AKS
--- NOTE | 2025-02-21 11:51 | STOPDC ---
Assessment and note entered by HUMBERTO Enrique Evaluation Information Assessment Status Discharge Reported Pain Level Pain Score 0: Self Report Additional Pain Score Comments [address] Clinical Summary Initial Evaluation: The patient is a 44 year old male s/p heart attack with cognitive deficits following. He was admitted to [facility] for ongoing rehabilitation. He has since discharged home and is here to continue speech services as an outpatient. Per patient and 's report he ahs made noted progress since his admission to the rehabilitation [place]. They patient and report he has made noted gains but areas that remain a concerns are mild memory deficits, functional math, and attention. The patient was administered the [facility] Cognitive Evaluation and assessed in the areas of Memory, Thought Organization, Problem Solving/Reasoning, Orientation, Auditory processing, Functional math, and Reading Comprehension. Results indicated: Mild deficits for Memory Recall more pronounced with complex/Lengthy material 80%. Mild deficits for auditory processing again more difficulty with complex material secondary also due to recall and sustained attention. Decreased sustained attention for focus on structured activities 10 minutes or more. And Finally impaired higher reasoning for complex problem solving with home and community scenarios, money and time management 80%. Skilled speech services are recommended 1x a week x 10 visits for cognition. Discharge 02/21/25: The patient is completing recall of moderately complex paragraph length information 3-4 details with 87-90% accuracy using compensatory techniques . Attending to structured task for 10 minutes with sustained and divided attention without redirect. Completing functional math for everyday scenarios 90% independent. Finally completing abstract reasoning and executive function tasks with 90% accuracy independent. Reviewed a HEP to continue for memory recall to continue progression of compensatory techniques. No further speech services indicated at this time. Thank you for consult Plan of Care ST Services Indicated No
--- NOTE | 2025-02-24 14:21 | OTOPDC ---
Assessment and note entered by Gayle Card, OT Evaluation Information Assessment Status Discharge Diagnosis CVA ICD-10 Condition Codes (OT) Generalized muscle weakness M62.81 Other ICD-10 Condition Codes ( R27.8; I63.9; OT) Subjective Information Pt. presents with , reporting he is returning to more activities at home including cooing, grilling, maintenance. Spouse reports he has been eating a lot of in-shell peanuts. Pt. reports he is not back to has his baseline function. Pt. is concerned that because he is not driving and does not have plans to return to work, he is going to lose the momentum with recovery. Pt. reports he wants to be more capable for return to hobbies and maintenance activities. in agreement to give him more projects Pt. currently has life vest, which he is going in for echocardiogram tomorrow Reported Pain Level Pain Score 0: Self Report Pain Score 0: Self Report Additional Pain Score Comments 0 Assessment OT Clinical Summary Pt. is 44 year old M, presenting for progress evaluation, referred to occupational therapy services experiencing CVA after TN on 12/05/24, discharged from hospital to acute rehab facility, from which he stayed for a week and was discharged home. Pt. reports he has returned to independence in ADLs and reports increasing return to daily activities and hobbies, including cooking, grilling, and some small maintenance tasks. Pt. has not returned to heavier labor tasks or work, and is limited weight lifting and heavy endurance tasks de to wear of Life Vest. Pt. demonstrates BUE ROM WNL, above average strength, increasing endurance for activity without fatigue, and slightly increased BUE dexterity. Pt. issued increased resistance bands and putty for continued home program for endurance and strength, and was educated on and encouraged on increasing engagement in daily activities at home and out in the community. Spouse in agreement to support pt. and give him more home projects to do. Pt. and souse in agreement to discharge on this date, with pt. understanding that he will achieve greatest benefit from increasing daily activities at home with continued progress in general exercise program. Plan of Care OT Services Indicated No
--- NOTE | 2025-03-09 10:58 | OPREHPOC ---
Outpatient Therapy Plan of Care This is a Multidisciplinary Plan of Care that may contain components documented by all disciplines (PT, OT, and ST.) PT Problem 1 PT Problem #1 Knowledge Deficit PT Goal 1 Goal / Goal Update Pt will be independent in HEP Pt will verbalize understanding of diagnosis and prognosis 03-09-25 progress goals met continue education to progress HEP and education Target Visit 23 PT Problem 2 PT Problem #2 Impaired Balance PT Goal 1 Goal / Goal Update Pt will demonstrate ability to achieve tandem stance independently and maintain for 3 seconds or greater for improved balance and stability 03-09-25 progress goal met Target Visit 8 Progress Met PT Goal 2 Goal / Goal Update Pt will demonstrate ability to perform single leg standing on either leg for 3 seconds or greater for improved balance and stability 03-09-25 progress goal met NEW GOAL single leg standing for 20 seconds with good stability 1* R 2* L Target Visit 23 PT Problem 3 PT Problem #3 Impaired Gait PT Goal 1 Goal / Goal Update Pt will demonstrate ability to perform 375 ft in 2 min walk test without AD to progress toward PLOF 03-09-25 progress goals met Target Visit 8 Progress Met PT Goal 2 Goal / Goal Update Pt will demonstrate 2 min walk test of 450 ft without AD or balance deficit to work toward normative values for age group 03-09-25 progress goals met Target Visit 16 Progress Met PT Problem 4 PT Problem #4 Impaired Strength PT Goal 1 Goal / Goal Update increase LE strength for return to work and full home tasks: with leg press 90# x 20 reps 1* R LE 2* L LE --------- 3* bilateral UE 60# box lift from floor/waist height x 10 reps 4* one hand carry R and L 150' with 30# weight 5* pt ambulate on treadmill for 10 minutes at 3. 5 mph 6* pt report doing his outside home tasks Target Visit 23 OT Problem 1 OT Problem #1 Knowledge Deficit OT Goal 1 Goal / Goal Update Pt. will demonstrate independence in HEP Progress note 02/24/25 1) Goal met Target Visit 8 Progress Met OT Problem 2 OT Problem #2 Impaired Coordination OT Goal 1 Goal / Goal Update Pt. will demonstrate increased dexterity and coordination as demonstrated by decreased time to complete 9 hole peg test to 23 seconds bilaterally Progress note 02/24/25 1) Partially met, pt. increased speed to 27 and 25 seconds Target Visit 8 Progress Partially Met OT Problem 3 OT Problem #3 Impaired Endurance OT Goal 1 Goal / Goal Update Pt. will demonstrate increased tolerance for IADLs as demonstrated by completing 45 minutes of therapy without rest break, and self reporting capacity to complete 2-3 IADLs at home /day Progress note 02/24/25 1) Goal met Target Visit [address] Problem 1 ST Problem #[address] Goal 1 Goal / Goal Update The patient will participate in home programming to improve carry over/generalization of skills to the home environment. Updated 02/21/25: Met complete HEP Target Visit [address] Problem 2 ST Problem #[address] Goal 1 Goal / Goal Update 1. The patient will recall complex paragraph length information for 2-3 details using compensatory techniques with 90% minimal cues 02/21/25 Update: Met Moderate complex paragraph length information 3-4 details 87-90% with compensatory techniques 2. The patient will complete executive function/ reasoning tasks in relation to complex problem solving with 90% minimal cues. 02/21/25 Update: Met executive functional reasoning 90% independent 3. The patient will sustain attention to a structured task for 10 minutes without redirect. 02/21/25 Update: Met structured and divided attention 10 minutes without redirect. 4. The patient will complete complex functional math for time and money management with 90% minimal cues 02/21/25 Update: Met completing functional math 90% independent 5. The patient will complete a HEP with 90% compliance. 02/21/25 Update: Met completing HEP compliant. Target Visit 10 Progress Met
--- NOTE | 2025-03-09 10:58 | PTOPPROG ---
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 Want to continue therapy to get stronger and be able to go back to work. Assessment PT Clinical Summary Shabbir has received a total of 15 PT sessions. With today's assessment he has improved in all areas: Barrett balance score of 55/56; 2 minute walking test distance, without assistive device 555'; good gait pattern and good motor control of LE's; on 12 steps, independent without hand railing and alternate step pattern; increase single leg standing and tandem standing tolerance for balance; with functional, weight assessment: bilateral UE lift of box, increase wt to 50# from floor/waist height without any issues; 20' walk with one hand carry of 30# R and L; with leg press : bilateral LE with 100# and R/L only with 80# x 15 reps each; LE functional scale self rating assessment of 36% limitation in activity level; Continues to wear the Life Vest and had cardiology testing and is hoping to not need it; have not returned to work or full home tasks; have not had any falls; education for HEP and safety with mobility. The goals were achieved. Continue PT, for progression of balance and strengthening, for return to work tasks of lifting and physical work. Await results of cardiac testing and results from social worker clinical, for any restrictions in activity level. Plan of Care Interventions Gait Training,Neuro Re-education,Patient/Caregiver Education,Therapeutic Activities,Therapeutic Exercise,Self-Care/Home Management PT Services Indicated Yes Treatment Frequency and 1x/wk for 8 visits Duration These treatments will address the objective and functional deficits as defined above. The patient will be advanced safely and appropriately in order for the patient to progress towards his/her prior level of function. Additional exercises will be introduced and as well as a comprehensive home exercise program upon discharge, if needed, ?to ensure carryover of functional gains achieved in the clinic. This treatment plan has been reviewed and agreement upon by the patient.
--- NOTE | 2025-04-29 10:48 | PCPTNOTE ---
PHYSICAL THERAPY DISCHARGE 04-29-25 Cindy Gomez has received 18 PT sessions, from January 12 to March 30. He called and canceled 3 and did not show for 3 appointments. He will be discharged from PT due to not attending for the past month. And he currently in the Cardiac Rehab program. The goals were not addressed.
== END 2025-04-12 23:59 | disposition home or self-care (01) ==
LOC: ANHPT 09:45
PROVIDERS: PCP Nurse Practitioner Family; Visit Provider Nurse Practitioner Family
DX: I63.9 Cerebral infarction, unspecified (principal)
CPT/HCPCS: 92507; 92523; 97110; 97112; 97116; 97140; 97162; 97165; 97530